=== PATIENT | male | born 1940 | race Caucasian/White ===

== ENCOUNTER 2020-09-24 21:34 | Emergency (ER) | payer MEDICARE, OTHER, SELFPAY ==
[2020-09-24 21:35] VITALS: BP 176/93; PULSE 88; RESP 22; TEMP 36.7; O2SAT 97; BMI 32.0
--- NOTE | 2020-09-24 22:01 | XRR_ITS ---
PROCEDURE INFORMATION: Exam: XR Chest, 1 View Exam date and time: 09/24/2020 10:11 PM Age: 80 years old Clinical indication: Shortness of breath; Additional info: SOB TECHNIQUE: Imaging protocol: XR of the chest Views: 1 view. COMPARISON: CR Chest 2 views* [id number] 10/21/2018 1:22 PM FINDINGS: Lungs: Unremarkable. No consolidation. Pleural space: Unremarkable. No pleural effusion. No pneumothorax. Heart/Mediastinum: Unremarkable. No cardiomegaly. Bones/joints: Unremarkable. XR/XR chest 1V portable [id number] IMPRESSION: No acute findings.
--- NOTE | 2020-09-24 22:02 | ECG_ITS ---
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 Measurements Intervals [place] Rate: 82 P: 73 MO: 192 QRS: -68 QRSD: 106 T: 74 QT: 367 QTc: 429 Interpretive Statements SINUS RHYTHM POSSIBLE ANTERIOR MYOCARDIAL INFARCTION , OF INDETERMINATE AGE [30 ms Q WAVE IN V3/V4, OR R < 0.2 mV IN V4] INFERIOR MYOCARDIAL INFARCTION , PROBABLY OLD [40+ ms Q WAVE AND/OR ST/T ABNORMALITY IN II/aVF] No previous ECG available for comparison Electronically Signed On 09-25-2020 21:10:57 PROFESSOR OF LANGUAGES by Enrico River M.D. [id number]
--- NOTE | 2020-09-24 22:31 | ED_ITS ---
HPI - SOB/Dyspnea General: Chief Complaint: Shortness of Breath/Dyspnea Stated Complaint: SOB Time Seen by Provider: 09/24/20 21:49 History of Present Illness: HPI Narrative: 80-year-old gentleman who became acutely short of breath after climbing the stairs in his house this evening. He had no chest pain. No fever. No cough. They called EMS, and he had a breathing treatment, which seemed to help along with oxygen. He is asymptomatic now. He states I am ready to go home . No known exposure to the coronavirus. MD elicited complaint: shortness of breath Pertinent past history: COPD Onset (ago): minute(s) Context: occurred during exertion Timing: constant and now resolved Severity: moderate Exacerbating factors: exertion Relieving factors: oxygen and bronchodilators Known history of: COPD Associated symptoms: Deny chest congestion, chest pain, cough, dizziness, fever(s), lightheadedness, rash or vomiting Treatment prior to arrival: oxygen and bronchodilator Review of Systems Const: Denies: fever(s) Eyes: Denies: change in vision ENMT: Denies: odynophagia, swelling of lips/tongue or sinus pain Card: Denies: chest pain or lightheadedness Resp: Denies: chest congestion GI: Denies: vomiting : Denies: difficulty urinating or hematuria Musc: Denies: neck pain or joint warmth Skin/Breast: Denies: rash or erythema Neuro: Denies: headache(s), dizziness or vertigo Psych: Denies: anxiety PFSH ED PFSH: Social History (Updated 11/19/19 @ 10:08 by Kell Stevens LPN) Smoking and tobacco status: former smoker Physical Exam Const: GENERAL APPEARANCE: well developed ORIENTATION/CONSCIOUSNESS: Yes oriented to person, Yes oriented to place and Yes oriented to time HENMT: COMMON NORMALS: normocephalic, external ears normal and Normal external nose present HEAD & SCALP: normocephalic FACE & SINUS: normal facial exam NOSE: Normal external nose present and No nasal discharge present EXTERNAL EAR: Yes external ears normal Eye: COMMON NORMALS: conjunctivae normal EYELID: eyelids normal CONJUNCTIVA: Yes conjunctivae normal Neck/C-Spine: GENERAL: No tracheal deviation Chest: COMMONS NORMALS: normal inspection of the chest CHEST: No tenderness Resp: EFFORT & INSPECTION: No tachypneic, No respiratory distress, No retractions, No uses accessory muscles and No tracheal deviation AUSCULTATION: no rhonchi, wheezes and diminished lung sounds Cardio: COMMON NORMALS: regular rate and regular rhythm RATE: regular rate RHYTHM: regular rhythm HEART SOUNDS: no murmurs PERIPHERAL PULSES: radial pulses present GI: INSPECTION: No abdominal distension AUSCULTATION: No Hyperactive bowel sounds present and No Hypoactive bowel sounds present PALPATION: No Guarding due to palpation present (GI) and No Rigid due to palpation PERCUSSION: no dullness to percussion and no tympanic to percussion Neuro: SENSORIUM/ORIENTATION: Yes oriented to person, Yes oriented to place and Yes oriented to time Psych: COMMON NORMALS: mental status grossly normal Skin: COMMON NORMALS: no rashes or lesions noted GENERAL SKIN EXAM: no rashes or lesions noted Course Vital Signs: Vital signs: Vital Signs Temperature 98.0 F 09/24/20 21:35 Pulse Rate 83 09/25/20 02:19 Respiratory Rate 16 09/25/20 02:19 Blood Pressure 178/96 09/25/20 02:19 Pulse Oximetry 95 09/25/20 02:19 MDM - SOB/Dyspnea MDM Narrative: Medical decision making narrative: 80-year-old male with a sudden onset and brief period of shortness of breath that was quite significant this morning. It seems oxygen and nebulizer treatment by EMS has resolved his symptoms. He never really had any chest pain. His white blood cell count is 20. There is no history of fever. His chest x-ray is nonacute. He had a mild elevation in troponin without significant ST changes on EKG. His elevation did not change at 2 hours. With resolution in his symptoms, he will be allowed discharge. He did have a wheeze that was significant on exam and a history of COPD. Because of this he will be placed on steroids for the next 5 days. Lab Data: Labs: Lab Results 09/24/20 09/24/20 09/24/20 Range/Units 22:30 22:30 22:30 WBC 20.1 H (4.0-10.0) 10^3/ uL RBC 4.73 (4.1-5.3) 10^6/u L Hgb 14.3 (11.7-16.6) g/dL Hct 43.2 (42.0-52.0) % MCV 91.3 (80-94) fL MCH 30.2 (28.0-34.0) pg MCHC 33.1 (30.0-36.0) g/dL RDW 12.2 (12.1-15.1) % Plt Count 269 (130-400) 10^3/c mm MPV 10.7 H (7.4-10.4) fL Neut % (Auto) 88.0 % Lymph % (Auto) 5.2 % [place] % (Auto) 5.7 % Eos % (Auto) 0.4 % Baso % (Auto) 0.3 % Neut # (Auto) 17.62 H (1.8-7.7) 10^3/u L Lymph # (Auto) 1.0 (0.8-4.8) 10^3/u L [place] # (Auto) 1.2 H (0.2-0.9) 10^3/u L Eos # (Auto) 0.1 (0.0-0.8) 10^3/u L Baso # (Auto) 0.1 (0.0-0.1) 10^3/u L Nucleated RBC % (a uto) 0 % Nucleated RBCs # 0.0 /100WBC PT (12.1-14.9) SECO NDS INR (0.8-1.2) Sodium 138 (136-145) mmol/L Potassium 3.8 (3.5-5.1) mmol/L Chloride 99 (98-107) mmol/L Carbon Dioxide 25 (22-29) mmol/L Anion Gap 17.8 (5-19) BUN 20 (8-23) mg/dL Creatinine 1.0 (0.7-1.2) mg/dL GFR Calculation Not Reportable Glucose 145 H (65-115) mg/dL Calculated Osmolal ity 291 (285-295) mOsm/k g Calcium 9.2 (8.5-10.5) mg/dL Total Bilirubin 0.3 (0.15-1.2) mg/dL AST 28 (0-40) U/L ALT 37 (0-41) U/L Alkaline Phosphata se 120 (40-130) IU/L Troponin T Baselin e 18 H (0-15) ng/L Troponin T 120 Min [place] (0-15) ng/L Delta Troponin T (0-10) ABS# NT-Pro-B Natriuret Pep 259 (0-450) pg/mL Total Protein 6.8 (6.6-8.7) g/dL Albumin 4.3 (3.5-5.2) g/dL Globulin 2.5 (1.3-4.6) g/dL 09/24/20 09/25/20 Range/Units 22:30 00:41 WBC (4.0-10.0) 10^3/ uL RBC (4.1-5.3) 10^6/u L Hgb (11.7-16.6) g/dL Hct (42.0-52.0) % MCV (80-94) fL MCH (28.0-34.0) pg MCHC (30.0-36.0) g/dL RDW (12.1-15.1) % Plt Count (130-400) 10^3/c mm MPV (7.4-10.4) fL Neut % (Auto) % Lymph % (Auto) % [place] % (Auto) % Eos % (Auto) % Baso % (Auto) % Neut # (Auto) (1.8-7.7) 10^3/u L Lymph # (Auto) (0.8-4.8) 10^3/u L [place] # (Auto) (0.2-0.9) 10^3/u L Eos # (Auto) (0.0-0.8) 10^3/u L Baso # (Auto) (0.0-0.1) 10^3/u L Nucleated RBC % (a uto) % Nucleated RBCs # /100WBC PT 24.70 H (12.1-14.9) SECO NDS INR 2.14 H (0.8-1.2) Sodium (136-145) mmol/L Potassium (3.5-5.1) mmol/L Chloride (98-107) mmol/L Carbon Dioxide (22-29) mmol/L Anion Gap (5-19) BUN (8-23) mg/dL Creatinine (0.7-1.2) mg/dL GFR Calculation Glucose (65-115) mg/dL Calculated Osmolal ity (285-295) mOsm/k g Calcium (8.5-10.5) mg/dL Total Bilirubin (0.15-1.2) mg/dL AST (0-40) U/L ALT (0-41) U/L Alkaline Phosphata se (40-130) IU/L Troponin T Baselin e (0-15) ng/L Troponin T 120 Min [place] 18.26 H (0-15) ng/L Delta Troponin T 0.26 (0-10) ABS# NT-Pro-B Natriuret Pep (0-450) pg/mL Total Protein (6.6-8.7) g/dL Albumin (3.5-5.2) g/dL Globulin (1.3-4.6) g/dL Discharge Plan Discharge Patient Disposition: Home Clinical Impression: Acute exacerbation of chronic obstructive airways disease Condition: Stable Prescriptions: New prednisone 20 mg tablet 40 mg PO DAILY 5 Days Qty: 10 RF: 0 No Action metformin 500 mg tablet 1,000 mg PO BID RF: 0 furosemide [Lasix] 20 mg tablet 20 mg PO QAM RF: 0 hydrochlorothiazide 25 mg tablet 25 mg PO QAM RF: 0 metoprolol tartrate 100 mg tablet 100 mg PO BID RF: 0 clonidine HCl 0.3 mg tablet 0.3 mg PO BID RF: 0 warfarin 5 mg tablet 5 mg PO DAILY RF: 0 lisinopril 40 mg tablet 40 mg PO DAILY RF: 0 lovastatin 40 mg tablet 40 mg PO DAILY RF: 0 omeprazole 20 mg capsule,delayed release(DR/EC) 20 mg PO DAILY RF: 0 albuterol sulfate [ProAir HFA] 90 mcg/actuation HFA aerosol inhaler 2 puff INHALATION QID PRN (Reason: shortness of breath or wheezing) Qty: 6.7 RF: 1 Basaglar KwikPen U-100 Insulin 100 unit/mL (3 mL) insulin pen 45 unit SUBCUT BID Qty: 15 RF: 3 Discharge Orders: Discharge Order (Routine); Ordered 09/25/20 Ordered By: Richard Barr Referrals: Olena Espinosa MD [Primary Care Provider] - 4-7 days Discharge Diet: Advance as tolerated Discharge Activity: Resume usual activity Patient Instructions: Chronic Obstructive Pulmonary Disease (ED) Activity Restrictions/Additional Instructions: Return for repeated episodes of shortness of breath, development of chest discomfort, fever, cough with sputum production, other concerning symptoms. Coding Level of Care Code ED Management Supervisor for Chg Fwd Exam Comprehensive
[2020-09-24 22:43] LABS: Basophils # 0.1 10^3/uL (0.0-0.1); Basophils % 0.3 %; Eosinophils # 0.1 10^3/uL (0.0-0.8); Eosinophils % 0.4 %; Hematocrit 43.2 % (42.0-52.0); Hemoglobin 14.3 g/dL (11.7-16.6); Lymphocytes % 5.2 %; Mean Corpuscular HGB Conc 33.1 g/dL (30.0-36.0); Mean Corpuscular Hemoglobin 30.2 pg (28.0-34.0); Mean Corpuscular Volume 91.3 fL (80-94); Mean Platelet Volume 10.7 fL (7.4-10.4); Monocytes # 1.2 10^3/uL (0.2-0.9); Monocytes % 5.7 %; Neutrophils # 17.62 10^3/uL (1.8-7.7); Nucleated Red Blood Cells % 0 %; Platelet Count 269 10^3/cmm (130-400); Red Blood Count 4.73 10^6/uL (4.1-5.3); Red Cell Distribution Width 12.2 % (12.1-15.1); White Blood Count 20.1 10^3/uL (4.0-10.0)
[2020-09-24 22:54] LABS: INR 2.14 (0.8-1.2)
[2020-09-24 23:07] LABS: Troponin(5th) Baseline 18 ng/L (0-15)
[2020-09-24 23:15] LABS: Alanine Aminotransferase 37 U/L (0-41); Albumin Level 4.3 g/dL (3.5-5.2); Alkaline Phosphatase 120 IU/L (40-130); Anion Gap 17.8 (5-19); Aspartate Amino Transferase 28 U/L (0-40); Blood Urea Nitrogen 20 mg/dL (8-23); Calcium 9.2 mg/dL (8.5-10.5); Carbon Dioxide 25 mmol/L (22-29); Chloride 99 mmol/L (98-107); Creatinine Clr Calc Pharmacy 83.6552; Globulin 2.5 g/dL (1.3-4.6); Glucose 145 mg/dL (65-115); NT Pro B Type Natriuretic Pept 259 pg/mL (0-450); Osmolality Calculated 291 mOsm/kg (285-295); Potassium 3.8 mmol/L (3.5-5.1); Sodium 138 mmol/L (136-145); Total Bilirubin 0.3 mg/dL (0.15-1.2); Total Protein 6.8 g/dL (6.6-8.7)
[2020-09-24 23:36] VITALS: BP 139/90; O2SAT 95
--- NOTE | 2020-09-25 00:02 | ECG_ITS ---
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 Measurements Intervals [place] Rate: 77 P: 69 [place]: 197 QRS: -70 QRSD: 121 T: 74 QT: 378 QTc: 429 Interpretive Statements SINUS RHYTHM LEFT ANTERIOR FASCICULAR BLOCK [QRS AXIS <= -45, QR IN I, RS IN II] POSSIBLE ANTERIOR MYOCARDIAL INFARCTION , OF INDETERMINATE AGE [30 ms Q WAVE IN V3/V4, OR R < 0.2 mV IN V4] Compared to ECG 09/24/2020 21:45:18 Left anterior fascicular block now present Myocardial infarct finding still present Electronically Signed On 09-25-2020 21:16:32 TRAINING DEVELOPMENT DIRECTOR by Enrico River M.D. [id number]
[2020-09-25 01:09] LABS: Troponin 5 2HR 18.26 ng/L (0-15); Troponin 5 2HR Delta 0.26 ABS# (0-10)
[2020-09-25 01:32] VITALS: BP 164/82; PULSE 84; RESP 18; O2SAT 99
[2020-09-25 02:19] VITALS: BP 178/96; PULSE 83; RESP 16; O2SAT 95
== END 2020-09-25 02:20 | disposition home or self-care (01) ==
PROVIDERS: Emergency Provider Emergency Medicine; PCP Family Medicine
DX: J44.1 Chronic obstructive pulmonary disease with (acute) exacerbation (principal); Z79.01 Long term (current) use of anticoagulants; Z87.891 Personal history of nicotine dependence
CPT/HCPCS: 12345; 36415; 71045; 80053; 83880; 84484; 85025; 85610; 93005; 96374; 96375; 99283; 99284; J2930

== ENCOUNTER → 2020-09-29 15:09 | Outpatient (BNVA) | payer MEDICARE, OTHER, SELFPAY | PROVIDERS: PCP Family Medicine; Visit Provider Family Medicine | DX: I10 Essential (primary) hypertension (principal); E78.2 Mixed hyperlipidemia; E11.9 Type 2 diabetes mellitus without complications; Z79.4 Long term (current) use of insulin | CPT/HCPCS: 80053; 80061; 83036; 83721; 84443; 85025 ==

== ENCOUNTER → 2021-05-30 11:37 | Outpatient (BNVA) | payer MEDICARE, OTHER, SELFPAY | PROVIDERS: PCP Family Medicine; Visit Provider Family Medicine | DX: E11.9 Type 2 diabetes mellitus without complications (principal); E78.2 Mixed hyperlipidemia; I10 Essential (primary) hypertension; Z79.4 Long term (current) use of insulin | CPT/HCPCS: 80053; 80061; 83036; 83721; 85025 ==

== ENCOUNTER → 2021-08-21 16:27 | Outpatient (BNVA) | payer MEDICARE, OTHER, SELFPAY | PROVIDERS: PCP Family Medicine; Visit Provider Nurse Practitioner Family | DX: Z20.822 Contact with and (suspected) exposure to COVID-19 (principal) | CPT/HCPCS: 87635 ==

== ENCOUNTER → 2021-08-24 12:10 | Outpatient (BNVA) | payer MEDICARE, OTHER, SELFPAY | PROVIDERS: PCP Family Medicine; Visit Provider Family Medicine | DX: E11.9 Type 2 diabetes mellitus without complications (principal); E78.2 Mixed hyperlipidemia; I10 Essential (primary) hypertension; I48.91 Unspecified atrial fibrillation; J43.9 Emphysema, unspecified; K21.9 Gastro-esophageal reflux disease without esophagitis; Z79.4 Long term (current) use of insulin; E11.622 Type 2 diabetes mellitus with other skin ulcer; L97.209 Non-pressure chronic ulcer of unspecified calf with unspecified severity; Z23 Encounter for immunization | CPT/HCPCS: 80053; 80061; 83036; 84443; 85025 ==

== ENCOUNTER → 2021-11-27 14:48 | Outpatient (BNVA) | payer MEDICARE, OTHER, SELFPAY | PROVIDERS: PCP Family Medicine; Visit Provider Family Medicine | DX: M25.561 Pain in right knee (principal); J43.9 Emphysema, unspecified; I10 Essential (primary) hypertension; E78.2 Mixed hyperlipidemia; K21.9 Gastro-esophageal reflux disease without esophagitis; Z79.4 Long term (current) use of insulin; E11.622 Type 2 diabetes mellitus with other skin ulcer; L97.209 Non-pressure chronic ulcer of unspecified calf with unspecified severity | CPT/HCPCS: 73564; 80053; 80061; 83036; 83721; 84443; 85025 ==

== ENCOUNTER → 2022-02-14 08:39 | Outpatient (BNVA) | payer MEDICARE, OTHER, SELFPAY | PROVIDERS: PCP Family Medicine; Visit Provider Family Medicine | DX: I10 Essential (primary) hypertension (principal); E78.5 Hyperlipidemia, unspecified; Z12.5 Encounter for screening for malignant neoplasm of prostate; E11.622 Type 2 diabetes mellitus with other skin ulcer; L97.209 Non-pressure chronic ulcer of unspecified calf with unspecified severity | CPT/HCPCS: 80053; 80061; 83036; 85025; G0103 ==

== ENCOUNTER 2022-05-03 04:40 | Inpatient (IN) | payer MEDICARE, OTHER, SELFPAY ==
[2022-05-03] VITALS (17 sets, daily range): BP systolic 133–183; BP diastolic 72–97; PULSE 76–111; RESP 16–20; TEMP 36.4–37.1; O2SAT 93–97; BMI 32.5
--- NOTE | 2022-05-03 04:44 | XRR_ITS ---
PROCEDURE INFORMATION: Exam: XR Left Hip Exam date and time: 05/03/2022 4:47 AM Age: 82 years old Clinical indication: Hip pain; Patient HX: C/O left hip. Pain no recent injury. ; Additional info: L hip pain TECHNIQUE: Imaging protocol: Radiologic exam of the Left hip. Views: 2 or 3 views hip with pelvis when performed. COMPARISON: No relevant prior studies available. FINDINGS: Evaluation is limited by portable positioning and patient body habitus. Bones/joints: Osteopenia and degenerative change. Anatomic alignment. Soft tissues: Panniculus and skin folds. Other findings: Prominent stool. XR/XR hip LT 2-3V wo/w pel* [id number] IMPRESSION: Osteopenia and degenerative change.
--- NOTE | 2022-05-03 04:45 | ED_ITS ---
Documented by User: Isa Guidry MD 05/03/22 18:02 HPI - Extremity Injury (Lower) General: Chief Complaint: Extremity Problem,Nontraumatic Stated Complaint: HIP PAIN Time Seen by Provider: 05/03/22 04:41 Source: patient and EMS Mode of arrival: EMS Limitations: no limitations History of Present Illness: 82-year-old male states that he woke up at midnight with left hip pain. States been a sharp pain in his hip much worse with any movement or trying to ambulate. He states it is improved with rest. States pain is currently 6 out of 10. He denies any injuries. He states that he was out walking and watering yesterday. He denies any injuries yesterday that he knows of. Denies abdominal or back pain. Denies any radiation of his pain Review of Systems Const: Denies: fever(s), chills, body aches or change in appetite Eyes: Denies: blurry vision or eye discomfort ENMT: Denies: throat pain or dental pain Card: Denies: chest pain Resp: Denies: dyspnea GI: Denies: abdominal pain, nausea, vomiting or diarrhea : Denies: dysuria Musc: Reports: extremity pain Skin/Breast: Denies: rash Neuro: Denies: headache(s) Psych: Denies: depression Ignacio/Lymph: Denies: easy bruising All/Imm: Denies: urticaria PFSH ED PFSH: Medical History (Updated 05/15/22 @ 14:29 by Olena Espinosa MD) A-fib Abnormal WBC count Chronic anticoagulation COPD (chronic obstructive pulmonary disease) with emphysema Diabetes GERD (gastroesophageal reflux disease) Hyperlipemia Hypertension Unable to ambulate Surgical History History of appendectomy Family History Other CAD (coronary artery disease) Social History Smoking and tobacco status: former smoker Second hand smoke exposure: No Alcohol intake: never Lives independently: Yes Household members: spouse Marital status: Current occupational status: retired History of recent travel: No Current gender identity: Male Special laya needs: No Agree to transfusion: Yes Physical Exam Const: COMMON NORMALS: no acute distress, patient oriented x3 and healthy appearing HENMT: COMMON NORMALS: normocephalic and atraumatic HEAD & SCALP: normocephalic and atraumatic Eye: COMMON NORMALS: Equal, round and reactive pupils present and EOMs intact bilaterally PUPIL: Yes Equal, round and reactive pupils present Neck/C-Spine: COMMON NORMALS: full ROM and supple Chest: COMMONS NORMALS: normal inspection of the chest and normal palpation of entire chest wall Resp: COMMON NORMALS: normal respiratory effort, No retractions, No use of accessory muscles and clear to auscultation bilaterally AUSCULTATION: clear to auscultation bilaterally Cardio: COMMON NORMALS: regular rate, regular rhythm and No murmurs present (Cardio) RATE: regular rate RHYTHM: regular rhythm GI: COMMON NORMALS: Normal to inspection, nondistended, normoactive bowel sounds present, Soft to palpation, non-tender and no masses PALPATION: Yes Soft to palpation Extremity: NARRATIVE EXTREMITY EXAM: Tenderness to the left hip full range of motion but does have pain with range of motion distal pulses intact Neuro: COMMON NORMALS: patient oriented x3, moves all extremities and no focal motor deficits Psych: COMMON NORMALS: mental status grossly normal, Normal thought process present and cooperative THOUGHT PROCESS: Normal thought process present Skin: COMMON NORMALS: no rashes or lesions noted and no wounds GENERAL SKIN EXAM: no rashes or lesions noted Course Vital Signs: Vital signs: Vital Signs Temperature 98 F 05/06/22 12:00 Pulse Rate 82 05/06/22 12:00 Respiratory Rate 17 05/06/22 12:00 Blood Pressure 113/63 05/06/22 12:00 Pulse Oximetry 98 05/06/22 12:00 MDM - Extremity Injury (Lower) Medical Decision Making Patient presents with hip pain. Patient not able to ambulate at this time x-ray shows no acute abnormality will get lab work along with CT care turned over to dr. gonzalez Lab Data : 05/06/22 04:55 05/06/22 04:55 Radiology Impressions Hip/Pelvis X-Ray 05/03/22 04:44 IMPRESSION: Osteopenia and degenerative change. Hip CT 05/03/22 05:30 IMPRESSION: 1. Degenerative change. 2. Inhomogeneous attenuation in the left iliopsoas muscle, suggesting hemorrhage, with infiltration of adjacent fat. MRI can be performed for improved characterization if clinically indicated. 3. Markedly enlarged prostate. Laboratory Results WBC 25.4 10^3/uL (4.0-10.0) H 05/04/22 04:15 RBC 3.61 10^6/uL (4.1-5.3) L 05/04/22 04:15 Hgb 10.9 g/dL (11.7-16.6) L 05/04/22 04:15 Hct 31.8 % (42.0-52.0) L 05/04/22 04:15 MCV 88.1 fl (80-94) 05/04/22 04:15 MCH 30.2 pg (28.0-34.0) 05/04/22 04:15 MCHC 34.3 g/dL (30.0-36.0) 05/04/22 04:15 RDW 12.8 % (12.1-15.1) 05/04/22 04:15 Plt Count 374 10^3/cmm (130-400) 05/04/22 04:15 MPV 10.9 fL (7.4-10.4) H 05/04/22 04:15 Neut % (Auto) 85.6 % 05/04/22 04:15 Lymph % (Auto) 5.8 % 05/04/22 04:15 Desha % (Auto) 7.7 % 05/04/22 04:15 Eos % (Auto) 0.0 % 05/04/22 04:15 Baso % (Auto) 0.1 % 05/04/22 04:15 Neut # (Auto) 21.73 10^3/uL (1.8-7.7) H 05/04/22 04:15 Lymph # (Auto) 1.5 10^3/uL (0.8-4.8) 05/04/22 04:15 Desha # (Auto) 2.0 10^3/uL (0.2-0.9) H 05/04/22 04:15 Eos # (Auto) 0.0 10^3/uL (0.0-0.8) 05/04/22 04:15 Baso # (Auto) 0.0 10^3/uL (0.0-0.1) 05/04/22 04:15 Nucleated RBC % (auto) 0 % 05/04/22 04:15 Nucleated RBCs # 0.0 /100WBC 05/04/22 04:15 PT 21.80 SECONDS (12.1-14.9) H 05/04/22 04:15 INR 1.87 (0.8-1.2) H 05/04/22 04:15 Sodium 133 mmol/L (136-145) L 05/04/22 04:15 Potassium 4.2 mmol/L (3.5-5.1) 05/04/22 04:15 Chloride 95 mmol/L (98-107) L 05/04/22 04:15 Carbon Dioxide 23 mmol/L (22-29) 05/04/22 04:15 Anion Gap 19.2 (5-19) H 05/04/22 04:15 BUN 35 mg/dL (8-23) H 05/04/22 04:15 Creatinine 1.8 mg/dL (0.7-1.2) H 05/04/22 04:15 GFR Calculation Not Reportable 05/04/22 04:15 Glucose 186 mg/dL (65-115) H 05/04/22 04:15 POC Glucose 205 mg/dL (70-110) H 05/04/22 06:23 Calculated Osmolality 289 mOsm/kg (285-295) 05/04/22 04:15 Calcium 9.0 mg/dL (8.5-10.5) 05/04/22 04:15 Total Bilirubin 0.4 mg/dL (0.15-1.2) 05/04/22 04:15 AST 22 U/L (0-40) 05/04/22 04:15 ALT 24 U/L (0-41) 05/04/22 04:15 Alkaline Phosphatase 54 IU/L (40-130) 05/04/22 04:15 Creatine Kinase 372 U/L (39-308) H* 05/04/22 04:15 Total Protein 6.5 g/dL (6.6-8.7) L 05/04/22 04:15 Albumin 4.0 g/dL (3.5-5.2) 05/04/22 04:15 Globulin 2.5 g/dL (1.3-4.6) 05/04/22 04:15 Urine Color Yellow (Yellow) 05/03/22 07:12 Urine Appearance Clear (CLEAR) 05/03/22 07:12 Urine pH 5 (5-7) 05/03/22 07:12 Ur Specific [place] 1.015 (1.005-1.030) 05/03/22 07:12 Urine Protein 1+ (Negative) H 05/03/22 07:12 Urine Glucose (UA) Norm (Normal) 05/03/22 07:12 Urine Ketones Negative (Negative) 05/03/22 07:12 Urine Blood 2+ (Negative) H 05/03/22 07:12 Urine Nitrate Negative (Negative) 05/03/22 07:12 Urine Bilirubin Neg (Negative) 05/03/22 07:12 Urine Urobilinogen Norm mg/dL (Negative) 05/03/22 07:12 Ur Leukocyte Esterase Negative (Negative) 05/03/22 07:12 Urine RBC 0-4 /hpf (0-2) H 05/03/22 07:12 Urine WBC 0-4 /hpf (0-5) H 05/03/22 07:12 Ur Squamous Epith Cells 0-4 /hpf (0-5) H 05/03/22 07:12 Amorphous Sediment Not Reportable 05/03/22 07:12 Urine Bacteria Trace /hpf (NONE) 05/03/22 07:12 Hyaline Casts Rare /lpf 05/03/22 07:12 Urine Mucus Trace /hpf 05/03/22 07:12 Discharge Plan Discharge Patient Disposition: Placed in Observation Admit Provider: Deangelo Castelan Clinical Impression: Iliopsoas muscle hematoma, Chronic anticoagulation, Abnormal WBC count, Unable to ambulate Discharge Diet: Cardiac and Diabetic Discharge Activity: Increase activity as tolerated, Limit activity as instructed, Use walker/crutches as instructed and As per PT/OT instructions Coding Level of Care Code ED Rehabilitation Services Counselor for Chg Fwd Exam Comprehensive Documented by User: Torrey Gonzalez MD 05/16/22 14:27 HPI - Extremity Injury (Lower) General: Chief Complaint: Extremity Problem,Nontraumatic Stated Complaint: HIP PAIN Time Seen by Provider: 05/03/22 04:41 [facility] ED PFS: Medical History (Updated 05/15/22 @ 14:29 by Olena Espinosa MD) A-fib Abnormal WBC count Chronic anticoagulation COPD (chronic obstructive pulmonary disease) with emphysema Diabetes GERD (gastroesophageal reflux disease) Hyperlipemia Hypertension Unable to ambulate Surgical History History of appendectomy Family History Other CAD (coronary artery disease) Social History Smoking and tobacco status: former smoker Second hand smoke exposure: No Alcohol intake: never Lives independently: Yes Household members: spouse Marital status: Current occupational status: retired History of recent travel: No Current gender identity: Male Special laya needs: No Agree to transfusion: Yes Course Vital Signs: Vital signs: Vital Signs Temperature 98 F 05/06/22 12:00 Pulse Rate 82 05/06/22 12:00 Respiratory Rate 17 05/06/22 12:00 Blood Pressure 113/63 05/06/22 12:00 Pulse Oximetry 98 05/06/22 12:00 MDM - Extremity Injury (Lower) Medical Decision Making Patient presents with hip pain. Patient not able to ambulate at this time x-ray shows no acute abnormality will get lab work along with CT care turned over to dr. gonzalez Patient care received from Dr. Guidry pending patient evaluation. Laboratory studies and imaging reviewed. CT negative for acute fracture however patient does have left iliopsoas muscle hemorrhage. This likely spends patient symptoms. Despite additional analgesia patient unable to ambulate and therefore unable to perform ADLs. He was therefore admitted for further treatment/PT OT evaluation. Torrey Gonzalez MD Emergency Medicine Lab Data : 05/06/22 04:55 05/06/22 04:55 Radiology Impressions Hip/Pelvis X-Ray 05/03/22 04:44 IMPRESSION: Osteopenia and degenerative change. Hip CT 05/03/22 05:30 IMPRESSION: 1. Degenerative change. 2. Inhomogeneous attenuation in the left iliopsoas muscle, suggesting hemorrhage, with infiltration of adjacent fat. MRI can be performed for improved characterization if clinically indicated. 3. Markedly enlarged prostate. Laboratory Results WBC 25.4 10^3/uL (4.0-10.0) H 05/04/22 04:15 RBC 3.61 10^6/uL (4.1-5.3) L 05/04/22 04:15 Hgb 10.9 g/dL (11.7-16.6) L 05/04/22 04:15 Hct 31.8 % (42.0-52.0) L 05/04/22 04:15 MCV 88.1 fl (80-94) 05/04/22 04:15 MCH 30.2 pg (28.0-34.0) 05/04/22 04:15 MCHC 34.3 g/dL (30.0-36.0) 05/04/22 04:15 RDW 12.8 % (12.1-15.1) 05/04/22 04:15 Plt Count 374 10^3/cmm (130-400) 05/04/22 04:15 MPV 10.9 fL (7.4-10.4) H 05/04/22 04:15 Neut % (Auto) 85.6 % 05/04/22 04:15 Lymph % (Auto) 5.8 % 05/04/22 04:15 Desha % (Auto) 7.7 % 05/04/22 04:15 Eos % (Auto) 0.0 % 05/04/22 04:15 Baso % (Auto) 0.1 % 05/04/22 04:15 Neut # (Auto) 21.73 10^3/uL (1.8-7.7) H 05/04/22 04:15 Lymph # (Auto) 1.5 10^3/uL (0.8-4.8) 05/04/22 04:15 Desha # (Auto) 2.0 10^3/uL (0.2-0.9) H 05/04/22 04:15 Eos # (Auto) 0.0 10^3/uL (0.0-0.8) 05/04/22 04:15 Baso # (Auto) 0.0 10^3/uL (0.0-0.1) 05/04/22 04:15 Nucleated RBC % (auto) 0 % 05/04/22 04:15 Nucleated RBCs # 0.0 /100WBC 05/04/22 04:15 PT 21.80 SECONDS (12.1-14.9) H 05/04/22 04:15 INR 1.87 (0.8-1.2) H 05/04/22 04:15 Sodium 133 mmol/L (136-145) L 05/04/22 04:15 Potassium 4.2 mmol/L (3.5-5.1) 05/04/22 04:15 Chloride 95 mmol/L (98-107) L 05/04/22 04:15 Carbon Dioxide 23 mmol/L (22-29) 05/04/22 04:15 Anion Gap 19.2 (5-19) H 05/04/22 04:15 BUN 35 mg/dL (8-23) H 05/04/22 04:15 Creatinine 1.8 mg/dL (0.7-1.2) H 05/04/22 04:15 GFR Calculation Not Reportable 05/04/22 04:15 Glucose 186 mg/dL (65-115) H 05/04/22 04:15 POC Glucose 205 mg/dL (70-110) H 05/04/22 06:23 Calculated Osmolality 289 mOsm/kg (285-295) 05/04/22 04:15 Calcium 9.0 mg/dL (8.5-10.5) 05/04/22 04:15 Total Bilirubin 0.4 mg/dL (0.15-1.2) 05/04/22 04:15 AST 22 U/L (0-40) 05/04/22 04:15 ALT 24 U/L (0-41) 05/04/22 04:15 Alkaline Phosphatase 54 IU/L (40-130) 05/04/22 04:15 Creatine Kinase 372 U/L (39-308) H* 05/04/22 04:15 Total Protein 6.5 g/dL (6.6-8.7) L 05/04/22 04:15 Albumin 4.0 g/dL (3.5-5.2) 05/04/22 04:15 Globulin 2.5 g/dL (1.3-4.6) 05/04/22 04:15 Urine Color Yellow (Yellow) 05/03/22 07:12 Urine Appearance Clear (CLEAR) 05/03/22 07:12 Urine pH 5 (5-7) 05/03/22 07:12 Ur Specific [place] 1.015 (1.005-1.030) 05/03/22 07:12 Urine Protein 1+ (Negative) H 05/03/22 07:12 Urine Glucose (UA) Norm (Normal) 05/03/22 07:12 Urine Ketones Negative (Negative) 05/03/22 07:12 Urine Blood 2+ (Negative) H 05/03/22 07:12 Urine Nitrate Negative (Negative) 05/03/22 07:12 Urine Bilirubin Neg (Negative) 05/03/22 07:12 Urine Urobilinogen Norm mg/dL (Negative) 05/03/22 07:12 Ur Leukocyte Esterase Negative (Negative) 05/03/22 07:12 Urine RBC 0-4 /hpf (0-2) H 05/03/22 07:12 Urine WBC 0-4 /hpf (0-5) H 05/03/22 07:12 Ur Squamous Epith Cells 0-4 /hpf (0-5) H 05/03/22 07:12 Amorphous Sediment Not Reportable 05/03/22 07:12 Urine Bacteria Trace /hpf (NONE) 05/03/22 07:12 Hyaline Casts Rare /lpf 05/03/22 07:12 Urine Mucus Trace /hpf 05/03/22 07:12 Discharge Plan Discharge Patient Disposition: Placed in Observation Admit Provider: Deangelo Castelan Clinical Impression: Iliopsoas muscle hematoma, Chronic anticoagulation, Abnormal WBC count, Unable to ambulate Discharge Diet: Cardiac and Diabetic Discharge Activity: Increase activity as tolerated, Limit activity as instructed, Use walker/crutches as instructed and As per PT/OT instructions Coding Level of Care Code ED Rehabilitation Services Counselor for [place] Fwd Exam Comprehensive
[2022-05-03] MEDS: morphine 4 mg/mL SDV 1 mL IVP ×2 (04:52→09:27)
[2022-05-03] MEDS: ketorolac 30 mg/mL INJ 10 MG IVP (05:13)
[2022-05-03] MEDS: labetalol 5 mg/mL SDV 20mL 10 MG IVP (05:13)
--- NOTE | 2022-05-03 05:30 | CTR_ITS ---
PROCEDURE INFORMATION: Exam: CT Left Lower Extremity Without Contrast, Hip Exam date and time: 05/03/2022 5:55 AM Age: 82 years old Clinical indication: Patient HX: C/O left hip pain and unable to bear weight. No recent injury. TECHNIQUE: Imaging protocol: CT of the Left lower extremity without contrast was performed. Exam focused on the hip. Radiation optimization: All CT scans at this facility use at least one of these dose optimization techniques: automated exposure control; mA and/or kV adjustment per patient size (includes targeted exams where dose is matched to clinical indication); or iterative reconstruction. COMPARISON: CR (PELVIS, ) 05/03/2022 4:47 AM RADIATION DOSE METRICS: Total DLP (mGy-cm): 1951.33 FINDINGS: Bones/joints: Degenerative change. No acute bony injury or malalignment. Soft tissues: Inhomogeneous attenuation in the left iliopsoas muscle, suggesting hemorrhage, with infiltration of adjacent fat. MRI can be performed for improved characterization if clinically indicated. Urinary bladder: Mild bladder wall thickening. Reproductive: Markedly enlarged prostate producing extrinsic compression of the bladder base with loss of normal fascial planes. CT/CT hip LT wo con* [id number] IMPRESSION: 1. Degenerative change. 2. Inhomogeneous attenuation in the left iliopsoas muscle, suggesting hemorrhage, with infiltration of adjacent fat. MRI can be performed for improved characterization if clinically indicated. 3. Markedly enlarged prostate.
[2022-05-03 06:18] LABS: Basophils # 0.1 10^3/uL (0.0-0.1); Basophils % 0.3 %; Eosinophils % 0.2 %; Hematocrit 38.5 % (42.0-52.0); Hemoglobin 13.3 g/dL (11.7-16.6); Lymphocytes % 5.4 %; Mean Corpuscular HGB Conc 34.5 g/dL (30.0-36.0); Mean Corpuscular Hemoglobin 30.4 pg (28.0-34.0); Mean Corpuscular Volume 87.9 fl (80-94); Mean Platelet Volume 10.5 fL (7.4-10.4); Monocytes # 0.9 10^3/uL (0.2-0.9); Monocytes % 4.7 %; Neutrophils # 16.47 10^3/uL (1.8-7.7); Nucleated Red Blood Cells % 0 %; Platelet Count 306 10^3/cmm (130-400); Red Blood Count 4.38 10^6/uL (4.1-5.3); Red Cell Distribution Width 12.6 % (12.1-15.1); White Blood Count 18.5 10^3/uL (4.0-10.0)
[2022-05-03 06:39] LABS: Alanine Aminotransferase 25 U/L (0-41); Albumin Level 4.1 g/dL (3.5-5.2); Alkaline Phosphatase 73 IU/L (40-130); Anion Gap 17.8 (5-19); Aspartate Amino Transferase 22 U/L (0-40); Blood Urea Nitrogen 27 mg/dL (8-23); Calcium 9.2 mg/dL (8.5-10.5); Carbon Dioxide 22 mmol/L (22-29); Chloride 100 mmol/L (98-107); Globulin 2.7 g/dL (1.3-4.6); Glucose 199 mg/dL (65-115); Osmolality Calculated 293 mOsm/kg (285-295); Potassium 3.8 mmol/L (3.5-5.1); Sodium 136 mmol/L (136-145); Total Bilirubin 0.4 mg/dL (0.15-1.2); Total Protein 6.8 g/dL (6.6-8.7)
--- NOTE | 2022-05-03 07:11 | PC.NURSE ---
Report received from AMY Maloney. Pt resting in bed. Pt states pain in hip 05/20.
[2022-05-03 07:23] LABS: Add Urine Microscopic? YES; Bilirubin Urine Neg (Negative); Blood Urine 2+ (Negative); Glucose Urine UA Norm (Normal); Ketones Urine Negative (Negative); Leukocyte Esterase Urine Negative (Negative); Nitrate Urine Negative (Negative); Protein Urine 1+ (Negative); Specific Gravity, Urine 1.015 (1.005-1.030); Urine Appearance Clear (CLEAR); Urine Color Yellow (Yellow); Urobilinogen Urine Norm (Negative); pH Urine 5 (5-7)
[2022-05-03 08:12] LABS: Bacteria Urine TRACE /hpf; RBC Urine 0-4 /hpf (0-2); Squamous Epithelial Cell Urine 0-4 /hpf (0-5); WBC Urine 0-4 /hpf (0-5)
[2022-05-03 08:13] LABS: Add Urine Culture? No; Hyaline Casts Urine RARE /lpf; Mucus Urine TRACE /hpf
[2022-05-03 08:48] LABS: INR 1.94 (0.8-1.2)
--- NOTE | 2022-05-03 09:11 | PC.NURSE ---
Attempted to ambulate pt per Dr. Whipple. Pt was able to stand and bear weight but pt stated it was painful. Pt stated he would be unable to walk due to pain when he moved his leg.
--- NOTE | 2022-05-03 10:21 | P.HP_ITS ---
Providers/Chief Complaint Admitting Physician: Deangelo Castelan MD Primary Care Provider: Olena Espinosa MD Chief Complaint: HIP PAIN History of Present Illness Marco Antonio Mosquera is a 82 year old male who presents from home with complaints of left hip pain, starting last night. He reports no injury. He has not been ill with any fever. He reports no significant strenuous activity recently. He states he has significant pain with any movement of his left hip. He denies any rash. He has been taking Coumadin for quite some time, and as far as he knows his INRs have been acceptable. Review of Systems General: Reports: 10 or more systems reviewed and unremarkable except in HPI and below Const: Denies: fever(s) or chills Eyes: Denies: change in vision ENMT: Denies: throat pain Card: Denies: chest pain Resp: Denies: dyspnea GI: Denies: abdominal pain, hematochezia or melena : Denies: flank pain Musc: Reports: back pain Skin/Breast: Denies: rash Neuro: Denies: headache(s) Psych: Denies: anxiety or depression Endo: Denies: polyuria Ignacio/Lymph: Denies: easy bruising All/Imm: Denies: urticaria Medications/Allergies Home Medications Medication Instructions Recorded Confirmed Last Taken Type nebulizers #1 ea 12/12/20 05/03/22 Unknown Rx arformoterol 15 mcg/2 mL solution See Rx Instructions .ROUTE 12/22/20 05/03/22 Unknown Rx for nebulization (Brovana) .COMPLEX #60 vial nystatin 100,000 unit/gram topical 1 applic TOPICAL BID #60 g 04/19/21 05/03/22 Unknown Rx powder (Nyamyc) honey 80 % topical gel (MediHoney 1 applic TOPICAL BID #44 ml 08/24/21 05/03/22 Unknown Rx (honey)) omeprazole 40 mg capsule,delayed 40 mg PO BID #60 cap 01/01/22 05/03/22 05/02/22 Rx release blood sugar diagnostic (Blood #100 ea 01/03/22 05/03/22 Unknown Rx Glucose Test) hydrochlorothiazide 25 mg tablet 25 mg PO QAM #30 tab 02/14/22 05/03/22 05/02/22 Rx insulin glargine 100 unit/mL (3 48 unit (0.48 mL) SUBCUT BID #30 ml 03/27/22 05/03/22 05/02/22 Rx mL) subcutaneous pen (Lantus Solostar U-100 Insulin) albuterol sulfate 2.5 mg INHALATION TID PRN 05/03/22 05/03/22 Unknown History albuterol sulfate 90 mcg/actuation 2 puff INHALATION QID PRN 05/03/22 05/03/22 U nknown History aerosol inhaler (Ventolin HFA) clonidine HCl 0.3 mg tablet 0.3 mg PO BID 05/03/22 05/03/22 05/02/22 History fenofibrate 160 mg tablet 160 mg PO DAILY 05/03/22 05/03/22 05/02/22 History lisinopril 40 mg tablet 40 mg PO DAILY 05/03/22 05/03/22 05/02/22 History lovastatin 40 mg tablet 40 mg PO DAILY 05/03/22 05/03/22 05/02/22 History metformin 1,000 mg tablet 1,000 mg PO BID 05/03/22 05/03/22 05/02/22 History metoprolol tartrate 100 mg tablet 100 mg PO BID 05/03/22 05/03/22 05/02/22 History nystatin 100,000 unit/gram topical 1 applic TOPICAL BEDTIME PRN 05/03/22 05/03/22 Unknown History cream warfarin 5 mg tablet See Rx Instructions .ROUTE .COMPLEX 05/03/22 05/03/22 05/02/22 History Allergies Allergy/AdvReac Type Severity Reaction Status Date / Time No Known Allergies Allergy Verified 02/14/22 08:32 PFSH Acute PFSH: Medical History (Updated 05/03/22 @ 10:30 by Deangelo Castelan MD) A-fib COPD (chronic obstructive pulmonary disease) with emphysema Diabetes GERD (gastroesophageal reflux disease) Hyperlipemia Hypertension Surgical History (Updated 05/03/22 @ 10:24 by Deangelo Castelan MD) History of appendectomy Family History (Updated 05/03/22 @ 10:24 by Deangelo Castelan MD) Other CAD (coronary artery disease) Social History Smoking and tobacco status: former smoker Second hand smoke exposure: No Alcohol intake: never Lives independently: Yes Household members: spouse Marital status: Current occupational status: retired History of recent travel: No Current gender identity: Male Special laya needs: No Agree to transfusion: Yes Vitals/I&O/Wt Last Vital Signs Temp 97.5 F L 05/03/22 04:42 Pulse 83 05/03/22 06:00 Resp 17 05/03/22 09:27 BP 154/81 05/03/22 06:00 Pulse Ox 93 05/03/22 06:00 Weight last 48 hrs Weight 117.934 kg Physical Exam Narrative: General exam is a conversant white male, reporting left posterior back pain, but nothing he can reproduce. He reports whenever he moves his hip it hurts significantly in the back and hip area. HEENT: Pupils equally round. Oropharynx clear. Neck is supple no lymphadenopathy thyromegaly Cardiovascular irregular, irregular without murmur Lungs clear no wheezing or crackles Abdomen is soft, positive bowel sounds. No obvious organomegaly exams deferred Extremities 1+ edema bilaterally with venous stasis changes with the left leg slightly bigger than the right. Patient reports this is chronic. Skin no rash Neuro no obvious focal deficits Data : 05/03/22 06:13 05/03/22 06:13 Other data: INR 1.94 LFTs normal Calcium normal Urinalysis 0-4 whites 0-[address] demonstrates arthritic change, inhomogenous attenuation left iliopsoas suggesting hemorrhage and enlarged prostate. Repeat INR tomorrow A&P Assessment and plan (1) Coagulopathy: Patient on Coumadin chronically for atrial fibrillation INR slightly less than therapeutic It appears he had a spontaneous hemorrhage into his left iliopsoas muscle Status: Acute (2) Iliopsoas muscle hematoma: Spontaneous hemorrhage Hold Coumadin Physical therapy consultation Status: Acute (3) A-fib: Patient with longstanding history of atrial fibrillation. Continue chronic medications. Anticoagulation will be held. Discussed with patient risk of CVA. This is being held secondary to iliopsoas muscle hemorrhage. He has not yet had his medicines this morning so we will give him metoprolol 100 mg p.o. x1 Status: Acute (4) COPD (chronic obstructive pulmonary disease) with emphysema: Pulmonary toilet, DuoNeb and budesonide No evidence of exacerbation currently Status: Acute Qualifiers: Emphysema type: unspecified Qualified Code(s): J43.9 - Emphysema, unspecified (5) Diabetes: Continue long-acting insulin. Add sliding scale insulin Status: Acute Qualifiers: Diabetes mellitus type: type 2 Diabetes mellitus fdc insulin use: with intranet specialist use Diabetes mellitus complication status: without complication Qualified Code(s): E11.9 - Type 2 diabetes mellitus without complications; Z79.4 - [facility] (current) use of insulin (6) Hypertension: Continue home medications Status: Acute Qualifiers: Hypertension type: essential hypertension Qualified Code(s): I10 - Essential (primary) hypertension Plan Multiple other medical problems as outlined in past medical history Full code SCDs for DVT prophylaxis. Anticoagulation on hold secondary to spontaneous hemorrhage. INR on admission 1.97. Attestations Medical Necessity Statement*: Will need less than 2 midnight stay for evaluation and treatment of the left iliopsoas muscle hematoma with coagulopathy Coding Level of Care Code Acute Registered Nurse for Chg Fwd Diagnoses Coagulopathy D68.9 Iliopsoas muscle hematoma S70.10XA A-fib I48.91 COPD (chronic obstructive pulmonary disease) with emphysema J43.9 Emphysema type: unspecified Diabetes E11.9; Z79.4 Diabetes mellitus type: type 2 Diabetes mellitus intranet specialist insulin use: with intranet specialist use Diabetes mellitus complication status: without complication Hypertension I10 Hypertension type: essential hypertension
[2022-05-03] MEDS: metoprolol tartrate 50 mg Tablet 100 MG PO ×2 (10:52→17:40)
[2022-05-03 12:06] LABS: Glucose Point of Care 261 mg/dL (70-110)
[2022-05-03] MEDS: HYDROcodone-acetaminophen 5-325 mg Tablet 1 TAB PO (12:10)
[2022-05-03] MEDS: insulin lispro 100 unit/1 mL SUBCUT ×3 (12:10→21:01)
[2022-05-03] MEDS: ipratropium-albuterol 3 mL Neb INHALATION ×2 (14:33→20:37)
[2022-05-03 17:33] LABS: Glucose Point of Care 287 mg/dL (70-110)
[2022-05-03] MEDS: cloNIDine 0.1 mg Tablet 0.3 MG PO (17:40)
[2022-05-03] MEDS: docusate sodium 100 mg Capsule PO (17:40)
[2022-05-03] MEDS: pantoprazole DR 40 mg Tablet PO (17:40)
[2022-05-03] MEDS: insulin glargine 100 units/1 mL 48 UNIT SUBCUT (17:41)
[2022-05-03] MEDS: budesonide 0.5 mg/2 mL Neb INHALATION (20:37)
[2022-05-03 20:58] LABS: Glucose Point of Care 296 mg/dL (70-110)
[2022-05-04] VITALS (12 sets, daily range): BP systolic 111–135; BP diastolic 64–81; PULSE 67–105; RESP 15–19; TEMP 36.4–36.9; O2SAT 90–97
[2022-05-04 04:57] LABS: Basophils % 0.1 %; Hematocrit 31.8 % (42.0-52.0); Hemoglobin 10.9 g/dL (11.7-16.6); Lymphocytes # 1.5 10^3/uL (0.8-4.8); Lymphocytes % 5.8 %; Mean Corpuscular HGB Conc 34.3 g/dL (30.0-36.0); Mean Corpuscular Hemoglobin 30.2 pg (28.0-34.0); Mean Corpuscular Volume 88.1 fl (80-94); Mean Platelet Volume 10.9 fL (7.4-10.4); Monocytes % 7.7 %; Neutrophils # 21.73 10^3/uL (1.8-7.7); Neutrophils % 85.6 %; Nucleated Red Blood Cells % 0 %; Platelet Count 374 10^3/cmm (130-400); Red Blood Count 3.61 10^6/uL (4.1-5.3); Red Cell Distribution Width 12.8 % (12.1-15.1); White Blood Count 25.4 10^3/uL (4.0-10.0)
[2022-05-04 05:08] LABS: INR 1.87 (0.8-1.2)
[2022-05-04] MEDS: hydroCHLOROthiazide 25 mg Tablet PO (05:18)
[2022-05-04 05:21] LABS: Alanine Aminotransferase 24 U/L (0-41); Alkaline Phosphatase 54 IU/L (40-130); Anion Gap 19.2 (5-19); Aspartate Amino Transferase 22 U/L (0-40); Blood Urea Nitrogen 35 mg/dL (8-23); Carbon Dioxide 23 mmol/L (22-29); Chloride 95 mmol/L (98-107); Globulin 2.5 g/dL (1.3-4.6); Glucose 186 mg/dL (65-115); Osmolality Calculated 289 mOsm/kg (285-295); Potassium 4.2 mmol/L (3.5-5.1); Sodium 133 mmol/L (136-145); Total Bilirubin 0.4 mg/dL (0.15-1.2); Total Protein 6.5 g/dL (6.6-8.7)
[2022-05-04 06:42] LABS: Glucose Point of Care 205 mg/dL (70-110)
[2022-05-04 07:49] LABS: Creatine Phosphokinase 372 U/L (39-308)
[2022-05-04] MEDS: ipratropium-albuterol 3 mL Neb INHALATION ×3 (08:35→20:26)
[2022-05-04] MEDS: budesonide 0.5 mg/2 mL Neb INHALATION ×2 (08:35→20:26)
[2022-05-04] MEDS: insulin lispro 100 unit/1 mL SUBCUT ×3 (08:38→20:12)
[2022-05-04] MEDS: cloNIDine 0.1 mg Tablet 0.3 MG PO ×2 (08:39→18:22)
[2022-05-04] MEDS: insulin glargine 100 units/1 mL 48 UNIT SUBCUT ×2 (08:39→18:27)
[2022-05-04] MEDS: docusate sodium 100 mg Capsule PO ×2 (08:40→18:23)
[2022-05-04] MEDS: metoprolol tartrate 50 mg Tablet 100 MG PO ×2 (08:40→18:26)
[2022-05-04] MEDS: atorvastatin 40 mg Tablet 20 MG PO (08:40)
[2022-05-04] MEDS: pantoprazole DR 40 mg Tablet PO ×2 (08:41→18:26)
--- NOTE | 2022-05-04 09:00 | PM.PN ---
Subjective Subjective: Marco Antonio reports he does not feel like he is ready to go home. He is still having trouble getting up on his own, and believes he might do poorly. He denies any fever or chills. He reports he seems to be urinating okay. Medications: Reviewed: Yes Vitals/I&O/Wt Last Vital Signs Temp 97.8 F 05/04/22 08:13 Pulse 105 H 05/04/22 08:42 Resp 19 H 05/04/22 08:37 BP 135/73 05/04/22 08:39 Pulse Ox 96 05/04/22 08:37 05/03/22 05/04/22 05/04/22 22:59 06:59 14:59 Intake Total 240 / 240 240 / 240 Output Total 325 / 400 550 / 950 Balance -85 / -160 -550 / -710 240 / 240 Weight last 48 hrs Weight 117.934 kg Weight 117.934 kg Physical Exam Narrative: General exam no distress with no complaints of pain, until moves and then has significant pain when moving the left leg. Neck is supple no lymphadenopathy thyromegaly Cardiovascular irregular, irregular without murmur Lungs clear no wheezing or crackles Abdomen is soft, positive bowel sounds. No obvious organomegaly exams deferred Extremities 1+ edema bilaterally with venous stasis changes with the left leg slightly bigger than the right. Patient reports this is chronic. Skin no rash Data : 05/04/22 04:15 05/04/22 04:15 A&P Assessment and plan (1) Coagulopathy: Patient on Coumadin chronically for atrial fibrillation INR currently 1.87. Coumadin is being held secondary to spontaneous hemorrhage It appears he had a spontaneous hemorrhage into his left iliopsoas muscle Patient reports discomfort is slightly better with him being able to stand but still cannot ambulate safely without fall risk. Status: Acute (2) Iliopsoas muscle hematoma: Spontaneous hemorrhage Hold Coumadin Physical therapy consultation appreciated. Continue therapy today. Status: Acute (3) A-fib: Patient with longstanding history of atrial fibrillation. Continue chronic medications. Anticoagulation will be held. Discussed with patient risk of CVA. This is being held secondary to iliopsoas muscle hemorrhage. Continue metoprolol for rate control Status: Acute (4) COPD (chronic obstructive pulmonary disease) with emphysema: Pulmonary toilet, DuoNeb and budesonide No evidence of exacerbation currently Status: Acute Qualifiers: Emphysema type: unspecified Qualified Code(s): J43.9 - Emphysema, unspecified (5) Diabetes: Continue long-acting insulin. Continue sliding scale insulin Status: Acute Qualifiers: Diabetes mellitus type: type 2 Diabetes mellitus intermediate teacher insulin use: with intermediate teacher use Diabetes mellitus complication status: without complication Qualified Code(s): E11.9 - Type 2 diabetes mellitus without complications; Z79.4 - rn long term care (current) use of insulin (6) Hypertension: Continue home medications Status: Acute Qualifiers: Hypertension type: essential hypertension Qualified Code(s): I10 - Essential (primary) hypertension Plan Acute kidney injury, superimposed on chronic kidney disease. I checked a CK this morning that was slightly elevated at 372. A bladder scan demonstrated no significant urinary retention. I think his acute kidney injury is likely related to his hematoma, dehydration, and development of anemia. We will hold his RAVI inhibitor and diuretic and recheck tomorrow. Encourage oral hydration today. Overall he does have some peripheral edema and total body fluid is likely high. Mild increase in CK. Hold statin, Tricor currently. Anemia. Consistent with bleeding into iliopsoas muscle. Multiple other medical problems as outlined in past medical history Full code SCDs for DVT prophylaxis. Anticoagulation on hold secondary to spontaneous hemorrhage. INR on admission 1.97. Attestations Medical Necessity Statement*: Needs continued hospitalization for close monitoring of acute kidney injury, developed anemia in this patient with iliopsoas muscle hematoma. Coding Level of Care Code Acute Intermediate Manager for [facility] Diagnoses Coagulopathy D68.9 Iliopsoas muscle hematoma S70.10XA A-fib I48.91 COPD (chronic obstructive pulmonary disease) with emphysema J43.9 Emphysema type: unspecified Diabetes E11.9; Z79.4 Diabetes mellitus type: type 2 Diabetes mellitus intermediate teacher insulin use: with [facility] use Diabetes mellitus complication status: without complication Hypertension I10 Hypertension type: essential hypertension
[2022-05-04 10:59] LABS: Glucose Point of Care 296 mg/dL (70-110)
--- NOTE | 2022-05-04 11:00 | PC.CHAP ---
Pastoral Care Encounter/Spiritual Assessment Type of Contact [] Declined mix house operator visit [] Patient/Family/Request visit [] Outpatient visit [] Follow-up visit [] Physician referral [] Code/Alert [x] Routine visit [] Staff referral [] Actively dying [] Patient sleeping [] Family support [] [] Out of room [] Palliative care [] [] Receiving care in room [] Pre-surgical visit [] Trauma [] Long length of stay [] ICU visit [] Other: Relational/Emotional Strength [x] Patient feels connected with others/family/visitors/staff [] Distress [] Loneliness/isolation [] Abandonment Spirituality of Patient [x] Person of Rylee [x] Attends Anabaptism of their Rylee [x] Believes in Prayer [] Reads Bible or Islam materials [] There are Spiritual issues to be addressed Resource Conservationist Interventions [x] Prayer [x] Active listening [x] Non-anxious presence [x] Spiritual/emotional support [] Crisis/trauma care [] Spiritual counseling [] Bereavement support [] Provided bereavement packet [] Provided Bible/devotional materials [] Provided toy/stuffed animal, coloring book to patient or family member [] Provided Communion [] Anointing/[place] [] Salvation [] Completed spiritual assessment [] Other: Impact on Illness or Injury [] Angry [] Fearful [] Anxious [] Often cries [] Exhaustion [] Unable to work [] Unable to attend jewish [] Unable to walk/stand [] Unable to read [] Unable to drive [] Unable to eat/drink [] Unable to sleep [] Unable to be with family [] Patient intubated [] Other: Summary Time spent with patient 10 min
[2022-05-04 17:26] LABS: Glucose Point of Care 140 mg/dL (70-110)
[2022-05-04] MEDS: acetaminophen 325 mg Tablet 650 MG PO (18:26)
[2022-05-04 20:13] LABS: Glucose Point of Care 182 mg/dL (70-110)
[2022-05-05] VITALS (12 sets, daily range): BP systolic 103–151; BP diastolic 64–84; PULSE 61–98; RESP 16–19; TEMP 36.6–36.8; O2SAT 93–98
[2022-05-05 05:17] LABS: Basophils % 0.2 %; Eosinophils # 0.1 10^3/uL (0.0-0.8); Eosinophils % 0.6 %; Hematocrit 27.6 % (42.0-52.0); Hemoglobin 9.6 g/dL (11.7-16.6); Lymphocytes % 10.9 %; Mean Corpuscular HGB Conc 34.8 g/dL (30.0-36.0); Mean Corpuscular Hemoglobin 30.3 pg (28.0-34.0); Mean Corpuscular Volume 87.1 fl (80-94); Mean Platelet Volume 10.5 fL (7.4-10.4); Monocytes # 1.7 10^3/uL (0.2-0.9); Monocytes % 9.5 %; Neutrophils % 78.2 %; Nucleated Red Blood Cells % 0 %; Platelet Count 297 10^3/cmm (130-400); Red Blood Count 3.17 10^6/uL (4.1-5.3); Red Cell Distribution Width 12.9 % (12.1-15.1)
[2022-05-05 05:35] LABS: Anion Gap 16.1 (5-19); Carbon Dioxide 25 mmol/L (22-29); Chloride 96 mmol/L (98-107); Glucose 126 mg/dL (65-115); Potassium 4.1 mmol/L (3.5-5.1); Sodium 133 mmol/L (136-145)
[2022-05-05 05:57] LABS: Blood Urea Nitrogen 42 mg/dL (8-23); Calcium 8.6 mg/dL (8.5-10.5); Osmolality Calculated 288 mOsm/kg (285-295)
[2022-05-05 06:33] LABS: Glucose Point of Care 158 mg/dL (70-110)
[2022-05-05] MEDS: acetaminophen 325 mg Tablet 650 MG PO (07:24)
[2022-05-05] MEDS: ipratropium-albuterol 3 mL Neb INHALATION ×3 (08:23→20:23)
[2022-05-05] MEDS: budesonide 0.5 mg/2 mL Neb INHALATION ×2 (08:23→20:23)
[2022-05-05] MEDS: cloNIDine 0.1 mg Tablet 0.3 MG PO ×2 (08:59→17:46)
[2022-05-05] MEDS: pantoprazole DR 40 mg Tablet PO ×2 (08:59→17:47)
[2022-05-05] MEDS: metoprolol tartrate 50 mg Tablet 100 MG PO ×2 (08:59→17:47)
[2022-05-05] MEDS: insulin lispro 100 unit/1 mL SUBCUT ×4 (09:00→22:06)
[2022-05-05] MEDS: docusate sodium 100 mg Capsule PO ×2 (09:00→17:46)
[2022-05-05] MEDS: insulin glargine 100 units/1 mL 48 UNIT SUBCUT ×2 (09:08→17:47)
[2022-05-05 11:11] LABS: Glucose Point of Care 201 mg/dL (70-110)
--- NOTE | 2022-05-05 12:52 | PM.PN ---
Subjective Subjective: He is overall doing slightly better. Has been bothered by quite a bit of pain, slightly better. Has been getting up a little with a walker. Vitals/I&O/Wt Last Vital Signs Temp 98.1 F 05/05/22 04:00 Pulse 89 05/05/22 11:03 Resp 18 05/05/22 11:03 BP 103/64 05/05/22 11:03 Pulse Ox 98 05/05/22 11:03 05/04/22 05/05/22 05/05/22 22:59 06:59 14:59 Intake Total 360 / 840 600 / 600 Balance 360 / 840 600 / 600 Physical Exam Narrative: Sitting up at edge of bed. Const: COMMON NORMALS: alert GENERAL APPEARANCE: cooperative NUTRITIONAL APPEARANCE: overweight ORIENTATION/CONSCIOUSNESS: Yes awake HENMT: COMMON NORMALS: normocephalic, EAC's normal, Normal external nose present and moist oral mucous membranes HEAD & SCALP: normocephalic NOSE: Normal external nose present EXTERNAL AUDITORY CANAL: EAC's normal Neck/C-Spine: COMMON NORMALS: no meningeal signs Chest: CHEST: Yes Symmetrical chest wall rise Resp: COMMON NORMALS: clear to auscultation bilaterally AUSCULTATION: clear to auscultation bilaterally Cardio: COMMON NORMALS: regular rate, regular rhythm and No murmurs present (Cardio) RATE: regular rate RHYTHM: regular rhythm GI: COMMON NORMALS: Normal to inspection, nondistended, normoactive bowel sounds present, Soft to palpation and non-tender PALPATION: Yes Soft to palpation Extremity: COMMON NORMALS: no pedal edema Neuro: COMMON NORMALS: moves all extremities SENSORIUM/ORIENTATION: Yes alert MENINGEAL SIGNS: Yes no meningeal signs Psych: COMMON NORMALS: mental status grossly normal Skin: COMMON NORMALS: no wounds RASHES: no rashes Data : 05/05/22 04:37 05/05/22 04:37 A&P Assessment and plan (1) Iliopsoas muscle hematoma: Pain slightly better. Has been getting up some. However, discussed with him hemoglobin decreased to 9.6. Discussed monitoring additionally tonight and reassessing hemoglobin in the morning. He is agreeable. Spontaneous hemorrhage Hold Coumadin Physical therapy Status: Acute (2) Coagulopathy: Patient on Coumadin chronically for atrial fibrillation Coumadin is being held Status: Acute (3) A-fib: Patient with longstanding history of atrial fibrillation. Continue chronic medications. Anticoagulation will be held. Continue metoprolol for rate control Status: Acute (4) COPD (chronic obstructive pulmonary disease) with emphysema: Pulmonary toilet, DuoNeb and budesonide No evidence of exacerbation currently Status: Acute Qualifiers: Emphysema type: unspecified Qualified Code(s): J43.9 - Emphysema, unspecified (5) Diabetes: Continue long-acting insulin. Continue sliding scale insulin Status: Acute Qualifiers: Diabetes mellitus type: type 2 Diabetes mellitus perioperative manager insulin use: with [facility] use Diabetes mellitus complication status: without complication Qualified Code(s): E11.9 - Type 2 diabetes mellitus without complications; Z79.4 - shelter (current) use of insulin (6) Hypertension: Continue home medications Status: Acute Qualifiers: Hypertension type: essential hypertension Qualified Code(s): I10 - Essential (primary) hypertension Plan Acute kidney injury, superimposed on chronic kidney disease. Improving. Hold lisinopril. Markedly enlarged prostate on CT. Consider Flomax if symptomatic Although bladder scan demonstrated no significant urinary retention. Anemia. Consistent with bleeding into iliopsoas muscle. Multiple other medical problems as outlined in past medical history Attestations Medical Necessity Statement*: Continue admission for reassessment of blood counts with acute anemia with iliopsoas hemorrhage on anticoagulation pre-hospitalization. Coding Level of Care Code Acute Eyeglass Lens Grinder for [facility] Diagnoses Coagulopathy D68.9 Iliopsoas muscle hematoma S70.10XA A-fib I48.91 COPD (chronic obstructive pulmonary disease) with emphysema J43.9 Emphysema type: unspecified Diabetes E11.9; Z79.4 Diabetes mellitus type: type 2 Diabetes mellitus [facility] insulin use: with perioperative manager use Diabetes mellitus complication status: without complication Hypertension I10 Hypertension type: essential hypertension
[2022-05-05 17:08] LABS: Glucose Point of Care 183 mg/dL (70-110)
[2022-05-05 21:44] LABS: Glucose Point of Care 151 mg/dL (70-110)
[2022-05-06] VITALS (7 sets, daily range): BP systolic 113–157; BP diastolic 63–70; PULSE 82–112; RESP 15–18; TEMP 36.6–37; O2SAT 95–98
[2022-05-06 05:15] LABS: Basophils % 0.3 %; Eosinophils # 0.2 10^3/uL (0.0-0.8); Eosinophils % 1.6 %; Hematocrit 27.2 % (42.0-52.0); Hemoglobin 9.4 g/dL (11.7-16.6); Lymphocytes # 1.7 10^3/uL (0.8-4.8); Lymphocytes % 12.9 %; Mean Corpuscular HGB Conc 34.6 g/dL (30.0-36.0); Mean Corpuscular Hemoglobin 30.2 pg (28.0-34.0); Mean Corpuscular Volume 87.5 fl (80-94); Mean Platelet Volume 10.3 fL (7.4-10.4); Monocytes # 1.3 10^3/uL (0.2-0.9); Monocytes % 9.6 %; Neutrophils # 10.16 10^3/uL (1.8-7.7); Nucleated Red Blood Cells % 0 %; Platelet Count 310 10^3/cmm (130-400); Red Blood Count 3.11 10^6/uL (4.1-5.3); White Blood Count 13.5 10^3/uL (4.0-10.0)
[2022-05-06 05:36] LABS: Blood Urea Nitrogen 36 mg/dL (8-23); Calcium 8.4 mg/dL (8.5-10.5); Carbon Dioxide 25 mmol/L (22-29); Chloride 98 mmol/L (98-107); Glucose 94 mg/dL (65-115); Osmolality Calculated 288 mOsm/kg (285-295); Sodium 135 mmol/L (136-145)
[2022-05-06 06:45] LABS: Glucose Point of Care 112 mg/dL (70-110)
[2022-05-06] MEDS: budesonide 0.5 mg/2 mL Neb INHALATION (08:35)
[2022-05-06] MEDS: ipratropium-albuterol 3 mL Neb INHALATION (08:35)
[2022-05-06] MEDS: insulin glargine 100 units/1 mL 48 UNIT SUBCUT (09:10)
[2022-05-06] MEDS: acetaminophen 325 mg Tablet 650 MG PO (09:12)
[2022-05-06] MEDS: cloNIDine 0.1 mg Tablet 0.3 MG PO (09:13)
[2022-05-06] MEDS: metoprolol tartrate 50 mg Tablet 100 MG PO (09:13)
[2022-05-06] MEDS: pantoprazole DR 40 mg Tablet PO (09:13)
[2022-05-06] MEDS: docusate sodium 100 mg Capsule PO (09:13)
[2022-05-06 11:06] LABS: Glucose Point of Care 237 mg/dL (70-110)
[2022-05-06] MEDS: insulin lispro 100 unit/1 mL SUBCUT (12:08)
--- NOTE | 2022-05-06 13:23 | PM.DCS ---
Discharge Providers Date of Admission: 05/04/22 09:06 Date of Discharge: May 06, 2022 Attending Provider at Admission: Deangelo Castelan MD Attending Provider at Discharge: Iglesia Ernandez Primary Care Provider: Olena Espinosa MD Diagnoses at Discharge Discharge Diagnosis (1) Iliopsoas muscle hematoma: Status: Acute (2) Coagulopathy: Status: Acute (3) A-fib: Status: Acute (4) COPD (chronic obstructive pulmonary disease) with emphysema: Status: Acute Qualifiers: Emphysema type: unspecified Qualified Code(s): J43.9 - Emphysema, unspecified (5) Diabetes: Status: Acute Qualifiers: Diabetes mellitus type: type 2 Diabetes mellitus nursing home insulin use: with buttermilk drier operator use Diabetes mellitus complication status: without complication Qualified Code(s): E11.9 - Type 2 diabetes mellitus without complications; Z79.4 - technician terminal and repeater (current) use of insulin (6) Hypertension: Status: Acute Qualifiers: Hypertension type: essential hypertension Qualified Code(s): I10 - Essential (primary) hypertension Reason for Visit Reason for Visit: HIP PAIN Hospital Course Hospital Course Pleasant 82 yo gentleman with history of atrial fibrillation, on chronic anticoagulation with warfarin, presents to the hospital on 05/03 with complaints of left hip pain started the night before. Reported no injury. INR was 1.94. Left hip and knee x-rays show degenerative changes, osteopenia, but hip CT showed left iliopsoas muscle hemorrhage. Infiltration of adjacent fat. Incidentally noted markedly enlarged prostate. Warfarin was held. Blood counts were monitored in the hospital, with decreasing initially to 10.9, then stabilized around 9.5. Pain improving, although still intermittently painful dependent position, but has been ambulating cautiously with walker. WBC count was not elevated, continue to decrease, then 13.5 today. He remains afebrile. Presentation with LINDA, creatinine as high as 1.8, currently improving, down to 1.5. Lisinopril and HCTZ stopped until renal function can be assessed and found stable. States he has feeling better, and feels ready to return home. On follow-up please reassess blood counts, renal function. Due to risk of reinitiation of anticoagulation, after resolution of acute illness consider referral for left atrial appendage closure for stroke risk reduction. Please follow-up regarding incidentally noted prostatomegaly. Physical Exam Narrative: Sitting up at edge of bed. Const: COMMON NORMALS: alert GENERAL APPEARANCE: cooperative NUTRITIONAL APPEARANCE: overweight ORIENTATION/CONSCIOUSNESS: Yes awake OTHER: Pleasant, conversant. HENMT: COMMON NORMALS: normocephalic, EAC's normal, Normal external nose present and moist oral mucous membranes HEAD & SCALP: normocephalic NOSE: Normal external nose present EXTERNAL AUDITORY CANAL: EAC's normal Neck/C-Spine: COMMON NORMALS: no meningeal signs Chest: CHEST: Yes Symmetrical chest wall rise Resp: COMMON NORMALS: clear to auscultation bilaterally AUSCULTATION: clear to auscultation bilaterally Cardio: COMMON NORMALS: regular rate, regular rhythm and No murmurs present (Cardio) RATE: regular rate RHYTHM: regular rhythm GI: COMMON NORMALS: Normal to inspection, nondistended, normoactive bowel sounds present, Soft to palpation and non-tender PALPATION: Yes Soft to palpation Extremity: COMMON NORMALS: no pedal edema Neuro: COMMON NORMALS: moves all extremities SENSORIUM/ORIENTATION: Yes alert MENINGEAL SIGNS: Yes no meningeal signs Psych: COMMON NORMALS: mental status grossly normal Skin: COMMON NORMALS: no wounds RASHES: no rashes Discharge Data Studies Completed and Pending Completed Studies During Hospitalization Category Date Time Status CT hip LT wo con* [id number] Urgent Cat Scan 05/03/22 05:30 Completed XR hip LT 2-3V wo/w pel* [id number] Stat Exams 05/03/22 04:44 Completed Pending at discharge Category Date Time Status Basic Metabolic Panel AM LABS Lab 05/07/22 04:00 Ordered Basic Metabolic Panel AM LABS Lab 05/08/22 04:00 Ordered Complete Blood Count w/Auto AM LABS Lab 05/07/22 04:00 Ordered Complete Blood Count w/Auto AM LABS Lab 05/08/22 04:00 Ordered Radiology Impressions Hip/Pelvis X-Ray 05/03/22 04:44 IMPRESSION: Osteopenia and degenerative change. Hip CT 05/03/22 05:30 IMPRESSION: 1. Degenerative change. 2. Inhomogeneous attenuation in the left iliopsoas muscle, suggesting hemorrhage, with infiltration of adjacent fat. MRI can be performed for improved characterization if clinically indicated. 3. Markedly enlarged prostate. Laboratory Results WBC 13.5 10^3/uL (4.0-10.0) H 05/06/22 04:55 RBC 3.11 10^6/uL (4.1-5.3) L 05/06/22 04:55 Hgb 9.4 g/dL (11.7-16.6) L 05/06/22 04:55 Hct 27.2 % (42.0-52.0) L 05/06/22 04:55 MCV 87.5 fl (80-94) 05/06/22 04:55 MCH 30.2 pg (28.0-34.0) 05/06/22 04:55 MCHC 34.6 g/dL (30.0-36.0) 05/06/22 04:55 RDW 13.0 % (12.1-15.1) 05/06/22 04:55 Plt Count 310 10^3/cmm (130-400) 05/06/22 04:55 MPV 10.3 fL (7.4-10.4) 05/06/22 04:55 Neut % (Auto) 75.0 % 05/06/22 04:55 Lymph % (Auto) 12.9 % 05/06/22 04:55 [place] % (Auto) 9.6 % 05/06/22 04:55 Eos % (Auto) 1.6 % 05/06/22 04:55 Baso % (Auto) 0.3 % 05/06/22 04:55 Neut # (Auto) 10.16 10^3/uL (1.8-7.7) H 05/06/22 04:55 Lymph # (Auto) 1.7 10^3/uL (0.8-4.8) 05/06/22 04:55 [place] # (Auto) 1.3 10^3/uL (0.2-0.9) H 05/06/22 04:55 Eos # (Auto) 0.2 10^3/uL (0.0-0.8) 05/06/22 04:55 Baso # (Auto) 0.0 10^3/uL (0.0-0.1) 05/06/22 04:55 Nucleated RBC % (auto) 0 % 05/06/22 04:55 Nucleated RBCs # 0.0 /100WBC 05/06/22 04:55 PT 21.80 SECONDS (12.1-14.9) H 05/04/22 04:15 INR 1.87 (0.8-1.2) H 05/04/22 04:15 Sodium 135 mmol/L (136-145) L 05/06/22 04:55 Potassium 4.0 mmol/L (3.5-5.1) 05/06/22 04:55 Chloride 98 mmol/L (98-107) 05/06/22 04:55 Carbon Dioxide 25 mmol/L (22-29) 05/06/22 04:55 Anion Gap 16.0 (5-19) 05/06/22 04:55 BUN 36 mg/dL (8-23) H 05/06/22 04:55 Creatinine 1.5 mg/dL (0.7-1.2) H 05/06/22 04:55 GFR Calculation Not Reportable 05/06/22 04:55 Glucose 94 mg/dL (65-115) 05/06/22 04:55 POC Glucose 237 mg/dL (70-110) H 05/06/22 10:56 Calculated Osmolality 288 mOsm/kg (285-295) 05/06/22 04:55 Calcium 8.4 mg/dL (8.5-10.5) L 05/06/22 04:55 Total Bilirubin 0.4 mg/dL (0.15-1.2) 05/04/22 04:15 AST 22 U/L (0-40) 05/04/22 04:15 ALT 24 U/L (0-41) 05/04/22 04:15 Alkaline Phosphatase 54 IU/L (40-130) 05/04/22 04:15 Creatine Kinase 372 U/L (39-308) H* 05/04/22 04:15 Total Protein 6.5 g/dL (6.6-8.7) L 05/04/22 04:15 Albumin 4.0 g/dL (3.5-5.2) 05/04/22 04:15 Globulin 2.5 g/dL (1.3-4.6) 05/04/22 04:15 Urine Color Yellow (Yellow) 05/03/22 07:12 Urine Appearance Clear (CLEAR) 05/03/22 07:12 Urine pH 5 (5-7) 05/03/22 07:12 Ur Specific [place] 1.015 (1.005-1.030) 05/03/22 07:12 Urine Protein 1+ (Negative) H 05/03/22 07:12 Urine Glucose (UA) Norm (Normal) 05/03/22 07:12 Urine Ketones Negative (Negative) 05/03/22 07:12 Urine Blood 2+ (Negative) H 05/03/22 07:12 Urine Nitrate Negative (Negative) 05/03/22 07:12 Urine Bilirubin Neg (Negative) 05/03/22 07:12 Urine Urobilinogen Norm mg/dL (Negative) 05/03/22 07:12 Ur Leukocyte Esterase Negative (Negative) 05/03/22 07:12 Urine RBC 0-4 /hpf (0-2) H 05/03/22 07:12 Urine WBC 0-4 /hpf (0-5) H 05/03/22 07:12 Ur Squamous Epith Cells 0-4 /hpf (0-5) H 05/03/22 07:12 Amorphous Sediment Not Reportable 05/03/22 07:12 Urine Bacteria Trace /hpf (NONE) 05/03/22 07:12 Hyaline Casts Rare /lpf 05/03/22 07:12 Urine Mucus Trace /hpf 05/03/22 07:12 Vitals Last Vital Signs Temp 98 F 05/06/22 12:00 Pulse 82 05/06/22 12:00 Resp 17 05/06/22 12:00 BP 113/63 05/06/22 12:00 Pulse Ox 98 05/06/22 12:00 Discharge Plan Discharge Patient Disposition: Home Condition: Stable Prescriptions: [facility] See [facility] Instructions .ROUTE .MEDSUPPLY Qty: 1 0RF Rx Instructions: As directed nystatin [Nyamyc] 100,000 unit/gram powder 1 applic topical BID Qty: 60 1RF MediHoney (honey) 80 % gel 1 applic topical BID Qty: 44 2RF arformoterol [Brovana] 15 mcg/2 mL solution for nebulization See Rx Instructions .ROUTE .COMPLEX Qty: 60 11RF Dose Instruction: USE 1 VIAL IN NEBULIZER EVERY 12 HOURS - morning and evening Rx Instructions: USE 1 VIAL IN NEBULIZER EVERY 12 HOURS - morning and evening omeprazole 40 mg capsule,delayed release(DR/EC) 40 mg PO BID Qty: 60 2RF (DME) Blood Glucose Test Strip See Rx Instructions .Route Qty: 100 6RF Rx Instructions: test tid Lantus Solostar U-100 Insulin 100 unit/mL (3 mL) insulin pen 48 unit SUBCUT BID Qty: 30 2RF albuterol sulfate 2.5 mg /3 mL (0.083 %) solution for nebulization 2.5 mg inhalation TID PRN (Reason: Shortness Of Breath) 0RF metoprolol tartrate 100 mg tablet 100 mg PO BID 0RF lovastatin 40 mg tablet 40 mg PO DAILY 0RF clonidine HCl 0.3 mg tablet 0.3 mg PO BID 0RF metformin 1,000 mg tablet 1,000 mg PO BID 0RF Rx Instructions: TAKE ONE TABLET BY MOUTH TWICE DAILY nystatin 100,000 unit/gram cream 1 applic topical BEDTIME PRN (Reason: Rash) 0RF Ventolin HFA 90 mcg/actuation HFA aerosol inhaler 2 puff inhalation QID PRN (Reason: Shortness Of Breath) 0RF fenofibrate 160 mg tablet 160 mg PO DAILY 0RF Rx Instructions: TAKE ONE TABLET BY MOUTH EVERY DAY Discontinued hydrochlorothiazide 25 mg tablet 25 mg PO QAM Qty: 30 3RF warfarin 5 mg tablet See Rx Instructions .ROUTE .COMPLEX 0RF Rx Instructions: Take 5 mg once daily except on Saturday take 2.5mg lisinopril 40 mg tablet 40 mg PO DAILY 0RF Discharge Orders: Discharge Order (Routine); Ordered 05/06/22 Ordered By: Iglesia Ernandez Referrals: Olena Espinosa MD [Primary Care Provider] - 4-7 days Discharge Diet: Cardiac and Diabetic Discharge Activity: Increase activity as tolerated, Limit activity as instructed, Use walker/crutches as instructed and As per PT/OT instructions Patient Instructions: Fall Prevention (GEN) Activity Restrictions/Additional Instructions: Resume patient cautiously and slowly. Avoid lifting anything more than 5 pounds. In case you start feeling lightheaded, or like you are about to faint, or if you experience any other concerning symptoms, call 911. Please have your primary care doctor recheck blood counts at next visit to reassess anemia. Please do not take warfarin anymore, and discuss with your primary doctor regarding discontinuation and iliopsoas muscle bleeding. Due to risks with blood thinner medication, consider with your primary doctor referral for left atrial appendage closure device for stroke risk reduction with atrial fibrillation. Please have your primary doctor also recheck your kidney function for follow-up of acute kidney injury. Please hold lisinopril and HCTZ for now. Avoid any ibuprofen, Aleve, or other NSAIDs. Please discuss with your primary doctor regarding markedly enlarged prostate incidentally seen on CT scan. In case of urinary difficulties, discussed with your primary initiation of prostate medication. Discharge Attestations Time Spent in Discharge Care*: greater than 30 min Quality Metrics Clinical Quality Measures [ No reported AMI, CVA or VTE this stay] Coding Level of Care Code Acute Chg FW DC note Diagnoses Iliopsoas muscle hematoma S70.10XA Coagulopathy D68.9 A-fib I48.91 COPD (chronic obstructive pulmonary disease) with emphysema J43.9 Emphysema type: unspecified Diabetes E11.9; Z79.4 Diabetes mellitus type: type 2 Diabetes mellitus buttermilk drier operator insulin use: with nursing home use Diabetes mellitus complication status: without complication Hypertension I10 Hypertension type: essential hypertension
== END 2022-05-06 14:00 | disposition home or self-care (01) | DRG 683 ==
LOC: ER 09:29 → MEDSURG 11:02
PROVIDERS: Emergency Medicine; Admitting Provider Internal Medicine; Emergency Provider Emergency Medicine; PCP Family Medicine; Visit Provider Internal Medicine
DX: N17.9 Acute kidney failure, unspecified (principal); D68.9 Coagulation defect, unspecified; M79.81 Nontraumatic hematoma of soft tissue; I48.91 Unspecified atrial fibrillation; J43.9 Emphysema, unspecified; E11.9 Type 2 diabetes mellitus without complications; K21.9 Gastro-esophageal reflux disease without esophagitis; E78.5 Hyperlipidemia, unspecified; E11.22 Type 2 diabetes mellitus with diabetic chronic kidney disease; I12.9 Hypertensive chronic kidney disease with stage 1 through stage 4 chronic kidney disease, or unspecified chronic kidney disease; N18.9 Chronic kidney disease, unspecified; Z87.891 Personal history of nicotine dependence; M85.852 Other specified disorders of bone density and structure, left thigh; N40.0 Benign prostatic hyperplasia without lower urinary tract symptoms; Z79.4 Long term (current) use of insulin; Z79.84 Long term (current) use of oral hypoglycemic drugs; Z79.51 Long term (current) use of inhaled steroids; D64.9 Anemia, unspecified
CPT/HCPCS: 36415; 36416; 51798; 73502; 73700; 80048; 80053; 81001; 82550; 82962; 85025; 85610; 94640; 96372; 96374; 96375; 96376; 97110; 97161; 97530; 99285; G0378; J1815; J1885; J2270; J2930; J3490; J7626

== ENCOUNTER → 2022-05-15 13:20 | Outpatient (BNVA) | payer MEDICARE, OTHER, SELFPAY | PROVIDERS: PCP Family Medicine; Visit Provider Family Medicine | DX: I10 Essential (primary) hypertension (principal); E78.5 Hyperlipidemia, unspecified; E11.622 Type 2 diabetes mellitus with other skin ulcer; L97.209 Non-pressure chronic ulcer of unspecified calf with unspecified severity | CPT/HCPCS: 80053; 80061; 83036; 85025 ==

== ENCOUNTER → 2022-05-23 12:48 | Outpatient (BNVA) | payer MEDICARE, OTHER, SELFPAY | PROVIDERS: PCP Family Medicine; Visit Provider Internal Medicine Cardiovascular Disease | DX: I48.91 Unspecified atrial fibrillation (principal); I10 Essential (primary) hypertension; E78.5 Hyperlipidemia, unspecified; E11.9 Type 2 diabetes mellitus without complications; Z79.84 Long term (current) use of oral hypoglycemic drugs; Z87.891 Personal history of nicotine dependence; I48.92 Unspecified atrial flutter; I45.5 Other specified heart block; R55 Syncope and collapse; I49.49 Other premature depolarization | CPT/HCPCS: 93229; 99204; 99205 ==

== ENCOUNTER → 2022-05-29 14:14 | Outpatient (BNVA) | payer MEDICARE, OTHER, SELFPAY | PROVIDERS: PCP Family Medicine; Visit Provider Family Medicine | DX: R79.89 Other specified abnormal findings of blood chemistry (principal) | CPT/HCPCS: 85025 ==

== ENCOUNTER 2022-07-17 12:52 | Outpatient (CLI) | payer MEDICARE, OTHER, SELFPAY ==
--- NOTE | 2022-07-17 13:30 | USCV_ITS ---
Marco Antonio Mosquera Age: 82 Gender: M : 1940 Exam Date: 07/17/2022 13:48 Ordering Phys: Enrico River MD ([email or web address]) Technologist: Exam Location: [facility] – [place] Indication: afib BP: 166 / 60 HR: 84 Rhythm: Sinus Technical Quality: Adequate MEASUREMENTS (Male / Female) Normal Values 2D ECHO LV Diastolic Diameter PLAX 4.0 cm 4.2 - 5.9 / 3.9 - 5.3 cm LV Systolic Diameter PLAX 2.8 cm IVS Diastolic Thickness 1.2 cm 0.6 - 1.0 / 0.6 - 0.9 cm IVS Systolic Thickness 1.5 cm LVPW Diastolic Thickness 1.4 cm 0.6 - 1.0 / 0.6 - 0.9 cm LVPW Systolic Thickness 1.3 cm LVOT Diameter 2.0 cm LV Ejection Fraction 2D Teich 57.7 % LV Ejection Fraction MOD 2C 66.7 % LV Ejection Fraction 2C AL 67.8 % LA Diameter 4.3 cm M-MODE Aortic Annulus Diameter 3.8 cm LA Ao Ratio MM 1.1 MV E Point Septal Separation 0.9 cm DOPPLER AV Peak Velocity 185.3 cm/s LVOT Peak Velocity 108.0 cm/s AV Area Cont Eq vti 2.1 cm squared AV Area Cont Eq pk 1.9 cm squared MV Area PHT 5.0 cm squared Mitral E to A Ratio 0.7 MV E' Velocity 63.5 cm/s Mitral E to MV E' Ratio 16.2 Mitral E to LV E' Lateral Ratio 13.4 Mitral E to LV E' Septal Ratio 20.3 TR Peak Velocity 184.0 cm/s TR Peak Gradient 13.5 mmHg TV Peak E Velocity 95.0 cm/s Right Atrial Pressure 3.0 mmHg Pulmonary Artery Systolic Pressu 16.5 mmHg PV Peak Velocity 123.0 cm/s FINDINGS Left Ventricle Left ventricle is normal in size. LV systolic function is normal with EF 55 to 60%. No regional wall motion abnormalities are seen. Grade 1 diastolic dysfunction is noted. Right Ventricle Right ventricle is normal in size and function Right Atrium Normal in size Left Atrium Normal in size Mitral Valve Moderate mitral annular calcification is seen. Trace mitral regurgitation is seen. No significant stenosis Aortic Valve Aortic valve is thickened and calcified. No significant stenosis. Trace aortic regurgitation Tricuspid Valve Trace tricuspid regurgitation. Insufficient TR jet to calculate RVSP. Pulmonic Valve Not well-visualized Pericardium Normal Aorta Normal in size IVC CONCLUSIONS LV systolic function is normal with EF of 55-60% Grade 1 diastolic dysfunction Moderate mitral annular calcification. Trace mitral regurgitation. Trace aortic regurgitation. Trace tricuspid regurgitation No comparison studies are available Mani Becerra MD (Electronically Signed) Final Date: 21 July 2022 15:02 S
== END 2022-07-17 12:53 | disposition home or self-care (01) ==
PROVIDERS: PCP Family Medicine; Visit Provider Internal Medicine Cardiovascular Disease
DX: R06.00 Dyspnea, unspecified (principal); I51.89 Other ill-defined heart diseases
CPT/HCPCS: 93306

== ENCOUNTER → 2022-09-05 11:05 | Outpatient (BNVA) | payer MEDICARE, OTHER, SELFPAY | PROVIDERS: PCP Family Medicine; Visit Provider Internal Medicine Cardiovascular Disease | DX: R06.02 Shortness of breath (principal); I48.91 Unspecified atrial fibrillation; E11.9 Type 2 diabetes mellitus without complications; E78.5 Hyperlipidemia, unspecified; I10 Essential (primary) hypertension; S70.10XA Contusion of unspecified thigh, initial encounter | CPT/HCPCS: 36415; 80048; 83880; 99214 ==

== ENCOUNTER 2022-09-11 07:22 | Outpatient (CLI) | payer MEDICARE, OTHER, SELFPAY ==
--- NOTE | 2022-09-11 07:26 | ECG_ITS ---
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 Interpretive Statements NAME OF STUDY: LEXISCAN SESTAMIBI STRESS TEST INDICATION: Dyspnea on Exertion, PROCEDURE: At the baseline, the EKG revealed sinus tachycardia with a heart rate of 102 bpm. Poor R wave progression suggesting old anteroseptal ID. Possible old inferior wall ID. Minimal left axis deviation. The baseline heart was 104 bpm with a blood pressue of 180/106 mm of Hg Lexiscan was infused over a period of 20 seconds. A total of 0.4 milligrams of Lexiscan was infused. The stress phase was continued for a total of 5 minutes. Heart rate at the end of the stress phase was 102 bpm with a blood pressure 178/74 mm of Hg. The EKG at the peak infusion revealed no significant changes. Sestamibi was injected 20 seconds after the Lexiscan infusion. Heart rate at the end of the recovery phase was 103 bpm with a blood pressure of 173/93 mm of Hg. CONCLUSION: 1. No significant EKG changes with the LexiScan infusion 2. No LexiScan induced chest pain or cardiac arrhythmia 3. Normal blood pressure and heart rate response 4. Sestamibi/sestamibi perfusion scan pending; see separate report. Electronically Signed On 09-14-2022 7:37:33 CDT by Enrico River M.D. [id number]
--- NOTE | 2022-09-11 07:27 | NMCV_ITS ---
NM ruthie perf SPECT r/s* [id number] Marco Antonio Mosquera Age: 82 Gender: M : 1940 Exam Date: 09/11/2022 08:36 Ordering Phys: Enrico River MD ([email or web address]) Technologist: ISABELL Lewis Exam Location: [facility] Indications: ESSENTIAL HYPERTENSION STRESS TEST Please see separate stress test report in Ephiphany for full findings IMAGE PROTOCOL Rest/Stress 1 Lexiscan Day Radiopharmaceutical Dose (mCi) Administration Site Administered by Rest: Tc-99m 10.7 IV ISABELL Webster Sestamibi Stress:Tc-99m 33.0 IV ISABELL Webster Sestamibi Rest: 11-Sep-2022 60 Discovery 630 Stress: 11-Sep-2022 30 Discovery 630 0.4mg Lexiscan. Images obtained in supine and prone position. SPECT RESULTS Technical Quality: Excellent Raw Data Analysis: Normal Image Corrections: No attenuation or motion correction applied Summed Stress Score: 23 Summed Rest Score: 19 Summed Difference Score: 4 PERFUSION FINDINGS Moderate to large areas of moderate to severely decreased tracer uptake in the basal, mid and apical inferior; basal and mid inferolateral, apical lateral, mid inferoseptal, mid anteroseptal, apical septal and LV apex. Some reversibility was noted in the inferior and inferolateral and regions. FUNCTIONAL RESULTS (calculated via Gated SPECT) Stress Image LV EF (%): 58 Stress EDV (mL):110 TID: 1 Stress ESV (mL):46 FUNCTIONAL FINDINGS: Segmental wall motion analysis revealing mild hypokinesia of the LV apex. IMPRESSIONS 1. Myocardial perfusion imaging revealing areas of persistent decreased tracer uptake in the inferior, inferolateral, inferoseptal and apical regions with some reversibility, suggesting extensive myocardial scarring in the distribution of the left circumflex and right coronary arteries with areas of possible mikael-infarction ischemia mostly in the circumflex distribution .there is some involvement of the right coronary artery territory as well.. 2. Normal LV ejection fraction 58%. 3. Wall motion abnormality as mentioned above. 4. LV volume, upper limit of normal. No similar previous studies are available for comparison Dr Enrico River MD [facility] (Electronically Signed) Final Date: 12 September 2022 12:15 S
[2022-09-11 07:40] VITALS: BMI 30.9
[2022-09-11] MEDS: regadenoson 0.4 Mg/5 ml Syringe IVP (09:03)
[2022-09-11 09:16] VITALS: BP 177/76; PULSE 101
== END 2022-09-11 07:23 | disposition home or self-care (01) ==
PROVIDERS: PCP Family Medicine; Visit Provider Internal Medicine Cardiovascular Disease
DX: R06.09 Other forms of dyspnea (principal); I10 Essential (primary) hypertension
CPT/HCPCS: 78452; 93017; A9500; J2785

== ENCOUNTER → 2022-11-14 11:50 | Outpatient (BNVA) | payer MEDICARE, OTHER, SELFPAY | PROVIDERS: PCP Family Medicine; Visit Provider Family Medicine | DX: E11.9 Type 2 diabetes mellitus without complications (principal); I10 Essential (primary) hypertension; E78.5 Hyperlipidemia, unspecified; I48.91 Unspecified atrial fibrillation | CPT/HCPCS: 80053; 80061; 83036; 84443; 85025 ==

== ENCOUNTER → 2023-02-11 11:00 | Outpatient (BNVA) | payer MEDICARE, OTHER, SELFPAY | PROVIDERS: PCP Family Medicine; Visit Provider Podiatrist Foot & Ankle Surgery | DX: E11.9 Type 2 diabetes mellitus without complications (principal); B35.1 Tinea unguium; I73.9 Peripheral vascular disease, unspecified; R60.9 Edema, unspecified; Z79.84 Long term (current) use of oral hypoglycemic drugs; Z79.4 Long term (current) use of insulin | CPT/HCPCS: 11721; 99203 ==

== ENCOUNTER → 2023-03-13 09:52 | Outpatient (BNVA) | payer MEDICARE, OTHER, SELFPAY | PROVIDERS: PCP Family Medicine; Visit Provider Internal Medicine Cardiovascular Disease | DX: I48.91 Unspecified atrial fibrillation (principal); I10 Essential (primary) hypertension; R60.9 Edema, unspecified; E78.2 Mixed hyperlipidemia; I73.9 Peripheral vascular disease, unspecified; E11.9 Type 2 diabetes mellitus without complications; Z87.891 Personal history of nicotine dependence; Z79.4 Long term (current) use of insulin; Z79.82 Long term (current) use of aspirin | CPT/HCPCS: 99214 ==

== ENCOUNTER → 2023-04-22 07:44 | Outpatient (BNVA) | payer MEDICARE, OTHER, SELFPAY | PROVIDERS: PCP Family Medicine; Visit Provider Podiatrist Foot & Ankle Surgery | DX: E11.51 Type 2 diabetes mellitus with diabetic peripheral angiopathy without gangrene (principal); B35.1 Tinea unguium; L84 Corns and callosities; S90.212A Contusion of left great toe with damage to nail, initial encounter; R60.0 Localized edema; W22.8XXA Striking against or struck by other objects, initial encounter; Z79.84 Long term (current) use of oral hypoglycemic drugs; Z79.4 Long term (current) use of insulin | CPT/HCPCS: 11056; 11721; 99213 ==

== ENCOUNTER → 2023-06-27 10:53 | Outpatient (BNVA) | payer MEDICARE, OTHER, SELFPAY | PROVIDERS: PCP Family Medicine; Visit Provider Nurse Practitioner Family | DX: R05.9 Cough, unspecified (principal); J44.1 Chronic obstructive pulmonary disease with (acute) exacerbation | CPT/HCPCS: 87426 ==

== ENCOUNTER → 2023-07-01 10:09 | Outpatient (BNVA) | payer MEDICARE, OTHER, SELFPAY | PROVIDERS: PCP Family Medicine; Visit Provider Podiatrist Foot & Ankle Surgery | DX: B35.1 Tinea unguium (principal); L84 Corns and callosities; R60.0 Localized edema; E11.51 Type 2 diabetes mellitus with diabetic peripheral angiopathy without gangrene; I73.9 Peripheral vascular disease, unspecified; Z79.84 Long term (current) use of oral hypoglycemic drugs; Z79.4 Long term (current) use of insulin | CPT/HCPCS: 11721 ==

== ENCOUNTER → 2023-09-09 09:26 | Outpatient (BNVA) | payer MEDICARE, OTHER, SELFPAY | PROVIDERS: PCP Family Medicine; Visit Provider Podiatrist Foot & Ankle Surgery | DX: B35.1 Tinea unguium (principal); L84 Corns and callosities; R60.0 Localized edema; E11.51 Type 2 diabetes mellitus with diabetic peripheral angiopathy without gangrene; I73.9 Peripheral vascular disease, unspecified; Z79.84 Long term (current) use of oral hypoglycemic drugs; Z79.4 Long term (current) use of insulin | CPT/HCPCS: 11721 ==

== ENCOUNTER → 2023-09-25 11:28 | Outpatient (BNVA) | payer MEDICARE, OTHER, SELFPAY | PROVIDERS: PCP Family Medicine; Visit Provider Internal Medicine Cardiovascular Disease | DX: I10 Essential (primary) hypertension (principal); E78.5 Hyperlipidemia, unspecified; I48.91 Unspecified atrial fibrillation; R60.9 Edema, unspecified; E78.2 Mixed hyperlipidemia; E11.51 Type 2 diabetes mellitus with diabetic peripheral angiopathy without gangrene; Z79.4 Long term (current) use of insulin; Z87.891 Personal history of nicotine dependence | CPT/HCPCS: 99214 ==

== ENCOUNTER → 2023-09-30 08:25 | Outpatient (BNVA) | payer MEDICARE, OTHER, SELFPAY | PROVIDERS: PCP Family Medicine; Visit Provider Internal Medicine Cardiovascular Disease | DX: E78.5 Hyperlipidemia, unspecified (principal); E11.9 Type 2 diabetes mellitus without complications; I10 Essential (primary) hypertension | CPT/HCPCS: 80053; 80061; 80076; 83036; 85025 ==

== ENCOUNTER → 2023-10-15 15:08 | Outpatient (BNVA) | payer MEDICARE, OTHER, SELFPAY | PROVIDERS: PCP Family Medicine; Visit Provider Nurse Practitioner Family | DX: J43.9 Emphysema, unspecified (principal) | CPT/HCPCS: 71046 ==

== ENCOUNTER → 2023-12-09 10:33 | Outpatient (BNVA) | payer MEDICARE, OTHER, SELFPAY | PROVIDERS: PCP Family Medicine; Visit Provider Podiatrist Foot & Ankle Surgery | DX: B35.1 Tinea unguium (principal); L84 Corns and callosities; R60.0 Localized edema; E11.51 Type 2 diabetes mellitus with diabetic peripheral angiopathy without gangrene; I73.9 Peripheral vascular disease, unspecified; Z79.4 Long term (current) use of insulin; Z79.84 Long term (current) use of oral hypoglycemic drugs | CPT/HCPCS: 11056; 11721 ==

== ENCOUNTER → 2024-01-22 16:04 | Outpatient (BNVA) | payer MEDICARE, OTHER, SELFPAY | PROVIDERS: PCP Family Medicine; Referring Provider Nurse Practitioner Family; Visit Provider Internal Medicine Pulmonary Disease | DX: M25.641 Stiffness of right hand, not elsewhere classified (principal); M25.642 Stiffness of left hand, not elsewhere classified; J44.89 Other specified chronic obstructive pulmonary disease | CPT/HCPCS: 36415; 80053; 82785; 85651; 86003; 86038; 86140; 86200; 86225; 86235; 86431; 99204 ==

== ENCOUNTER 2024-02-05 12:26 | Outpatient (CLI) | payer MEDICARE, OTHER, SELFPAY ==
[2024-02-05 12:39] VITALS: PULSE 80; RESP 18; O2SAT 97
[2024-02-05] MEDS: albuterol 2.5 mg/3 mL Neb INHALATION (12:39)
[2024-02-05 12:44] VITALS: PULSE 83
== END 2024-02-05 12:27 | disposition home or self-care (01) ==
LOC: RT 12:26
PROVIDERS: PCP Family Medicine; Visit Provider Internal Medicine Pulmonary Disease
DX: J44.89 Other specified chronic obstructive pulmonary disease (principal); Z87.891 Personal history of nicotine dependence; R94.2 Abnormal results of pulmonary function studies
CPT/HCPCS: 94060; 94726; 94729; J7613

== ENCOUNTER → 2024-02-10 09:08 | Outpatient (BNVA) | payer MEDICARE, OTHER, SELFPAY | PROVIDERS: PCP Family Medicine; Visit Provider Podiatrist Foot & Ankle Surgery | DX: B35.1 Tinea unguium (principal); L84 Corns and callosities; R60.0 Localized edema; E11.51 Type 2 diabetes mellitus with diabetic peripheral angiopathy without gangrene; I73.9 Peripheral vascular disease, unspecified; Z79.84 Long term (current) use of oral hypoglycemic drugs; Z79.4 Long term (current) use of insulin | CPT/HCPCS: 11056; 11721 ==

== ENCOUNTER → 2024-03-04 13:26 | Outpatient (BNVA) | payer MEDICARE, OTHER, SELFPAY | PROVIDERS: PCP Family Medicine; Visit Provider Nurse Practitioner Family | DX: E11.9 Type 2 diabetes mellitus without complications (principal) | CPT/HCPCS: 80053; 80061; 83036; 84443; 85025 ==

== ENCOUNTER → 2024-04-02 11:55 | Outpatient (BNVA) | payer MEDICARE, OTHER, SELFPAY | PROVIDERS: PCP Family Medicine; Visit Provider Nurse Practitioner Family | DX: D48.5 Neoplasm of uncertain behavior of skin (principal); L82.1 Other seborrheic keratosis; L57.0 Actinic keratosis; L85.8 Other specified epidermal thickening; B07.8 Other viral warts | CPT/HCPCS: 11102; 17000; 17110; 99203 ==

== ENCOUNTER → 2024-04-20 10:16 | Outpatient (BNVA) | payer MEDICARE, OTHER, SELFPAY | PROVIDERS: PCP Family Medicine; Visit Provider Podiatrist Foot & Ankle Surgery | DX: B35.1 Tinea unguium (principal); L84 Corns and callosities; R60.0 Localized edema; E11.51 Type 2 diabetes mellitus with diabetic peripheral angiopathy without gangrene; I73.9 Peripheral vascular disease, unspecified; Z79.4 Long term (current) use of insulin; Z79.84 Long term (current) use of oral hypoglycemic drugs | CPT/HCPCS: 11056; 11721 ==

== ENCOUNTER → 2024-06-16 08:44 | Outpatient (BNVA) | payer MEDICARE, OTHER, SELFPAY | PROVIDERS: PCP Family Medicine; Visit Provider Internal Medicine Rheumatology | DX: R76.8 Other specified abnormal immunological findings in serum (principal); M25.641 Stiffness of right hand, not elsewhere classified; M25.642 Stiffness of left hand, not elsewhere classified; E11.9 Type 2 diabetes mellitus without complications; J44.89 Other specified chronic obstructive pulmonary disease | CPT/HCPCS: 36415; 86803; 99204 ==

== ENCOUNTER → 2024-06-22 09:56 | Outpatient (BNVA) | payer MEDICARE, OTHER, SELFPAY | PROVIDERS: PCP Family Medicine; Visit Provider Podiatrist Foot & Ankle Surgery | DX: B35.1 Tinea unguium (principal); L84 Corns and callosities; R60.0 Localized edema; E11.51 Type 2 diabetes mellitus with diabetic peripheral angiopathy without gangrene; I73.9 Peripheral vascular disease, unspecified; Z79.84 Long term (current) use of oral hypoglycemic drugs; Z79.4 Long term (current) use of insulin | CPT/HCPCS: 11721 ==

== ENCOUNTER → 2024-08-24 10:13 | Outpatient (BNVA) | payer MEDICARE, OTHER, SELFPAY | PROVIDERS: PCP Family Medicine; Visit Provider Podiatrist Foot & Ankle Surgery | DX: B35.1 Tinea unguium (principal); L84 Corns and callosities; R60.0 Localized edema; E11.51 Type 2 diabetes mellitus with diabetic peripheral angiopathy without gangrene; I73.9 Peripheral vascular disease, unspecified; Z79.4 Long term (current) use of insulin; Z79.84 Long term (current) use of oral hypoglycemic drugs | CPT/HCPCS: 11721 ==

== ENCOUNTER → 2024-09-30 12:01 | Outpatient (BNVA) | payer MEDICARE, OTHER, SELFPAY | PROVIDERS: PCP Nurse Practitioner Family; Visit Provider Nurse Practitioner Family | DX: Z12.5 Encounter for screening for malignant neoplasm of prostate (principal); E11.9 Type 2 diabetes mellitus without complications | CPT/HCPCS: 80053; 80061; 82607; 83036; 83721; 84443; 85025; G0103 ==

== ENCOUNTER 2024-10-07 10:42 | Inpatient (IN) | payer MEDICARE, OTHER, SELFPAY ==
[2024-10-07] VITALS (18 sets, daily range): BP systolic 138–206; BP diastolic 61–111; PULSE 72–95; RESP 16–26; TEMP 36.4–36.9; O2SAT 92–96; BMI 29.3; BMI 31.6
--- NOTE | 2024-10-07 10:47 | ECG_ITS ---
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 Measurements Intervals [place] Rate: 83 P: 63 [place]: 220 QRS: -81 QRSD: 101 T: 83 QT: 407 QTc: 479 Interpretive Statements SINUS RHYTHM WITH FIRST DEGREE AV BLOCK WITH OCCASIONAL SUPRAVENTRICULAR PREMATURE COMPLEXES POSSIBLE RIGHT VENTRICULAR CONDUCTION DELAY [RSR (QR) IN V1/V2] ANTERIOR MYOCARDIAL INFARCTION , PROBABLY OLD [40+ ms Q WAVE AND/OR ST/T ABNORMALITY IN V3/V4] Compared to ECG 09/25/2020 00:46:43 First degree AV block now present Left anterior fascicular block no longer present Myocardial infarct finding still present Electronically Signed On 10-07-2024 19:01:55 RUBBER OFF by Enrico River M.D. [id number]
--- NOTE | 2024-10-07 10:51 | XRR_ITS ---
PROCEDURE INFORMATION: Exam: XR Chest Exam date and time: 10/07/2024 11:01 AM Age: 84 years old Clinical indication: Shortness of breath; Additional info: SOB TECHNIQUE: Imaging protocol: Radiologic exam of the chest. Views: 1 view. COMPARISON: CR XR chest 2V* [id number] 10/15/2023 3:14 PM FINDINGS: Lungs: Unremarkable. No consolidation. Pleural spaces: Unremarkable. No pleural effusion. No pneumothorax. Heart/Mediastinum: Unremarkable. No cardiomegaly. Bones/joints: Unremarkable. XR/XR chest 1V portable [id number] IMPRESSION: No acute findings.
--- NOTE | 2024-10-07 10:53 | ED_ITS ---
HPI - SOB/Dyspnea 2 General: Chief Complaint: Shortness of Breath/Dyspnea Stated Complaint: SOB Time Seen by Provider: 10/07/24 10:43 Source: patient and EMS Mode of arrival: EMS Limitations: no limitations History of Present Illness: HPI Narrative: 84-year-old male who has history of COPD along with CHF states that he has had some increasing shortness of breath over the last 2 days states he wears 2 L oxygen at home was increased up to 3 had a slight cough denies any fever he is given Lasix and route by EMS. Associated symptoms: Deny abdominal pain, chest pain, fever(s), nausea or vomiting Related Data Home Medications Medication Instructions Recorded Confirmed B-complex with vitamin C 1 cap PO DAILY 01/22/24 10/07/24 diltiazem HCl 120 mg tablet 120 mg PO BID 10/07/24 10/07/24 fenofibrate 160 mg tablet 160 mg PO DAILY 10/07/24 10/07/24 metformin 1,000 mg tablet 1,000 mg PO BID 10/07/24 10/07/24 metoprolol tartrate 100 mg tablet 100 mg PO BID 10/07/24 10/07/24 omeprazole 40 mg capsule,delayed 40 mg PO DAILY 10/07/24 10/07/24 release Previous Rx's Medication Instructions Recorded nebulizers #1 ea 12/12/20 nystatin 100,000 unit/gram topical See Rx Instructions .Route 08/09/23 cream .COMPLEX #30 grams furosemide 40 mg tablet (Lasix) 40 mg PO DAILY PRN edema #90 tabs 08/19/23 albuterol sulfate 90 mcg/actuation 2 puff inhalation QID PRN 11/21/23 aerosol inhaler (Ventolin HFA) Shortness Of Breath #18 grams Lc sprint mouthpiece for nebulizer #1 ea 02/21/24 blood sugar diagnostic (True #100 ea 06/09/24 Metrix Glucose Test Strip) albuterol sulfate 2.5 mg/3 mL See Rx Instructions .Route 07/08/24 (0.083 %) solution for nebulization .COMPLEX #30 ea arformoterol 15 mcg/2 mL solution See Rx Instructions .Route 07/08/24 for nebulization .COMPLEX #60 ea nebulizer machine with tubing and #1 ea 07/08/24 delivery device insulin glargine 100 unit/mL (3 See Rx Instructions .Route 09/30/24 mL) subcutaneous pen (Lantus .COMPLEX #30 mL Solostar U-100 Insulin) mometasone-formoterol HFA 100 2 puff inhalation BID #13 grams 09/30/24 mcg-5 mcg/actuation aerosol inhaler (Dulera) rosuvastatin 10 mg tablet 10 mg PO DAILY #90 tabs 09/30/24 Allergies Allergy/AdvReac Type Severity Reaction Status Date / Time No Known Allergies Allergy Verified 10/05/24 14:46 Review of Systems 2 Const: Denies: fever(s), chills, body aches or change in appetite ENMT: Denies: throat pain or dental pain Card: Denies: chest pain Resp: Reports: dyspnea GI: Denies: abdominal pain, nausea, vomiting or diarrhea Musc: Denies: neck pain or back pain Skin/Breast: Denies: rash Neuro: Denies: headache(s) PFSH ED 2 PFSH: Medical History Rheumatoid factor positive Nocturnal hypoxia Unable to ambulate Abnormal WBC count Chronic anticoagulation A-fib COPD (chronic obstructive pulmonary disease) with emphysema Hypertension Diabetes Hyperlipemia GERD (gastroesophageal reflux disease) Surgical History History of appendectomy Family History Other CAD (coronary artery disease) Social History Smoking and tobacco/nicotine status: former use of tobacco/nicotine Quit status (tobacco/nicotine): has quit using Year quit tobacco: 1988 Former quit date comment: 2 ppd X 15 years Second hand smoke exposure: No Alcohol intake: never Substance/Drug Use: never Lives independently: Yes Household members: spouse Marital status: Current occupational status: retired Current gender identity: Male Special laya needs: No Agree to transfusion: Yes Physical Exam 2 Const: COMMON NORMALS: patient oriented x3 HENMT: COMMON NORMALS: normocephalic and atraumatic HEAD & SCALP: n ormocephalic and atraumatic Eye: COMMON NORMALS: Equal, round and reactive pupils present and EOMs intact bilaterally PUPIL: Yes Equal, round and reactive pupils present Neck/C-Spine: COMMON NORMALS: full ROM and supple Chest: COMMONS NORMALS: normal inspection of the chest and normal palpation of entire chest wall Resp: COMMON NORMALS: normal respiratory effort, No retractions, No use of accessory muscles and clear to auscultation bilaterally AUSCULTATION: clear to auscultation bilaterally Cardio: COMMON NORMALS: regular rate, regular rhythm and No murmurs present (Cardio) RATE: regular rate RHYTHM: regular rhythm GI: COMMON NORMALS: Normal to inspection, nondistended, normoactive bowel sounds present, Soft to palpation, non-tender and no masses PALPATION: Yes Soft to palpation Extremity: COMMON NORMALS: full ROM NARRATIVE EXTREMITY EXAM: 2+ lower ext edema Neuro: COMMON NORMALS: patient oriented x3, moves all extremities and no focal motor deficits Psych: COMMON NORMALS: mental status grossly normal, Normal thought process present and cooperative THOUGHT PROCESS: Normal thought process present Skin: COMMON NORMALS: no rashes or lesions noted and no wounds GENERAL SKIN EXAM: no rashes or lesions noted Course 2 Vital Signs: Vital signs: Vital Signs Temperature 98.2 F 10/07/24 10:45 Pulse Rate 89 10/07/24 11:27 Respiratory Rate 18 10/07/24 11:19 Blood Pressure 167/99 10/07/24 10:45 Pulse Oximetry 95 10/07/24 11:19 Oxygen Delivery Me thod Nasal Cannula 10/07/24 11:19 Oxygen Flow Rate 3.5 10/07/24 11:19 MDM - SOB/Dyspnea Medical Decision Making Patient presents here with shortness of breath along with lower extreme edema likely CHF is also having hypoxia requiring 3 to 4 L of oxygen I spoke to the hospitalist will admit at this time. Medical Records I reviewed the patient's medical records. Lab Data I reviewed the patient's lab results. 10/07/24 12:22 10/07/24 12:22 Labs/Radiology: Radiology Impressions Chest X-Ray 10/07/24 10:51 IMPRESSION: No acute findings. Laboratory Results WBC 18.71 10^3/uL (3.29-11.43) H 10/07/24 12:22 RBC 4.72 10^6/uL (3.85-5.65) 10/07/24 12:22 Hgb 14.00 g/dL (11.27-16.99) 10/07/24 12:22 Hct 43.5 % (37-53) 10/07/24 12:22 MCV 92.2 fl (82-101) 10/07/24 12:22 MCH 29.7 pg (27-33) 10/07/24 12:22 MCHC 32.2 g/dL (30-55) 10/07/24 12:22 RDW 13.2 % (12.1-15.1) 10/07/24 12:22 Plt Count 431 10^3/cmm (157-399) H 10/07/24 12:22 MPV 10.0 fL (7.4-10.4) 10/07/24 12:22 Neut % (Auto) 85.7 % 10/07/24 12:22 Lymph % (Auto) 7.2 % 10/07/24 12:22 Vance % (Auto) 6.0 % 10/07/24 12:22 Eos % (Auto) 0.5 % 10/07/24 12:22 Baso % (Auto) 0.2 % 10/07/24 12:22 Neut # (Auto) 16.04 10^3/uL (1.8-7.7) H 10/07/24 12:22 Lymph # (Auto) 1.3 10^3/uL (0.8-4.8) 10/07/24 12:22 Vance # (Auto) 1.1 10^3/uL (0.2-0.9) H 10/07/24 12:22 Eos # (Auto) 0.1 10^3/uL (0.0-0.8) 10/07/24 12:22 Baso # (Auto) 0.0 10^3/uL (0.0-0.1) 10/07/24 12:22 Nucleated RBC % (auto) 0 % 10/07/24 12:22 Nucleated RBCs # 0.0 /100WBC 10/07/24 12:22 Sodium 139 mmol/L (136-145) 10/07/24 12:22 Potassium 3.2 mmol/L (3.5-5.1) L 10/07/24 12:22 Chloride 102 mmol/L (98-107) 10/07/24 12:22 Carbon Dioxide 20 mmol/L (22-29) L 10/07/24 12:22 Anion Gap 20.2 (5-19) H 10/07/24 12:22 BUN 17 mg/dL (8-23) 10/07/24 12:22 Creatinine 1.3 mg/dL (0.7-1.2) H 10/07/24 12:22 GFR Calculation Not Reportable 10/07/24 12:22 Glucose 194 mg/dL (65-115) H 10/07/24 12:22 Calculated Osmolality 295 mOsm/kg (285-295) 10/07/24 12:22 Calcium 8.8 mg/dL (8.5-10.5) 10/07/24 12:22 Total Bilirubin 0.4 mg/dL (0.15-1.2) 10/07/24 12:22 AST 19 U/L (0-40) 10/07/24 12:22 ALT 17 U/L (0-41) 10/07/24 12:22 Alkaline Phosphatase 87 U/L (40-130) 10/07/24 12:22 NT-Pro-B Natriuret Pep 1565 pg/mL (0-450) H 10/07/24 12:22 Total Protein 6.8 g/dL (6.6-8.7) 10/07/24 12:22 Albumin 3.6 g/dL (3.5-5.2) 10/07/24 12:22 Globulin 3.2 g/dL (1.3-4.6) 10/07/24 12:22 Coronavirus (PCR) Negative (Negative) 10/07/24 11:24 Influenza A (PCR) Negative (Negative) 10/07/24 11:24 Influenza Type B (PCR) Negative (Negative) 10/07/24 11:24 RSV (PCR) Negative (Negative) 10/07/24 11:24 All radiology interpretation(s) finalized by discharge Discharge Plan Discharge Patient Disposition: Admitted As Inpatient Clinical Impression: Acute respiratory failure with hypoxia Condition: Stable Prescriptions: No Action (DME) nebulizers Misc See Rx Instructions .ROUTE .MEDSUPPLY Qty: 1 0RF Rx Instructions: As directed B-complex with vitamin C Capsule 1 cap PO DAILY rosuvastatin 10 mg tablet 10 mg PO DAILY Qty: 90 1RF Dulera 100-5 mcg/actuation HFA aerosol inhaler 2 puff inhalation BID Qty: 13 5RF Lantus Solostar U-100 Insulin 100 unit/mL (3 mL) insulin pen See Rx Instructions .ROUTE .COMPLEX Qty: 30 5RF Dose Instruction: INJECT 48 UNITS SUBCUTANEOUSLY TWICE DAILY Rx Instructions: INJECT 48 UNITS SUBCUTANEOUSLY TWICE DAILY albuterol sulfate 2.5 mg /3 mL (0.083 %) solution for nebulization See Rx Instructions .ROUTE .COMPLEX Qty: 30 12RF Dose Instruction: USE 1 VIAL IN NEBULIZER 3 TIMES DAILY - for rescue (MAX 30 DOSES PER MONTH) Rx Instructions: USE 1 VIAL IN NEBULIZER 3 TIMES DAILY - for rescue (MAX 30 DOSES PER MONTH) arformoterol 15 mcg/2 mL solution for nebulization See Rx Instructions .ROUTE .COMPLEX Qty: 60 12RF Dose Instruction: USE 1 VIAL IN NEBULIZER EVERY 12 HOURS - - morning and evening Rx Instructions: USE 1 VIAL IN NEBULIZER EVERY 12 HOURS - - morning and evening (DME) nebulizer machine with tubing and delivery device See Rx Instructions .Route .MEDSUPPLY Qty: 1 0RF Rx Instructions: As directed nystatin 100,000 unit/gram cream See Rx Instructions .ROUTE .COMPLEX Qty: 30 1RF Dose Instruction: APPLY topically At Bedtime Rx Instructions: APPLY topically At Bedtime furosemide [Lasix] 40 mg tablet 40 mg PO DAILY PRN (Reason: edema) Qty: 90 3RF albuterol sulfate [Ventolin HFA] 90 mcg/actuation HFA aerosol inhaler 2 puff inhalation QID PRN (Reason: Shortness Of Breath) Qty: 18 2RF (DME) Lc sprint mouthpiece for nebulizer See Rx Instructions .Route .MEDSUPPLY Qty: 1 0RF Rx Instructions: As directed (DME) True Metrix Glucose Test Strip Strip See Rx Instructions .ROUTE .COMPLEX Qty: 100 6RF Dose Instruction: USE TO test THREE TIMES DAILY Rx Instructions: USE TO test THREE TIMES DAILY metoprolol tartrate 100 mg tablet 100 mg PO BID omeprazole 40 mg capsule,delayed release(DR/EC) 40 mg PO DAILY diltiazem HCl 120 mg tablet 120 mg PO BID metformin 1,000 mg tablet 1,000 mg PO BID fenofibrate 160 mg tablet 160 mg PO DAILY Referrals: Shaniqua Newman FNP [Primary Care Provider] - Coding Level of Care Code ED Cementer 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
[2024-10-07] MEDS: ipratropium-albuterol 3 mL Neb INHALATION ×2 (11:18→20:43)
[2024-10-07] MEDS: methylPREDNISolone sod succ 125 mg/2 mL INJ IV (11:39)
[2024-10-07 12:35] LABS: Covid PCR NEGATIVE (Negative); Influenza A NEGATIVE (Negative); Influenza B NEGATIVE (Negative); Respiratory Syncytial Virus Ce NEGATIVE (Negative)
[2024-10-07 12:37] LABS: Basophils % 0.2 %; Eosinophils # 0.1 10^3/uL (0.0-0.8); Eosinophils % 0.5 %; Hematocrit 43.5 % (37-53); Lymphocytes # 1.3 10^3/uL (0.8-4.8); Lymphocytes % 7.2 %; Mean Corpuscular HGB Conc 32.2 g/dL (30-55); Mean Corpuscular Hemoglobin 29.7 pg (27-33); Mean Corpuscular Volume 92.2 fl (82-101); Monocytes # 1.1 10^3/uL (0.2-0.9); Neutrophils # 16.04 10^3/uL (1.8-7.7); Neutrophils % 85.7 %; Nucleated Red Blood Cells % 0 %; Platelet Count 431 10^3/cmm (157-399); Red Blood Count 4.72 10^6/uL (3.85-5.65); Red Cell Distribution Width 13.2 % (12.1-15.1); White Blood Count 18.71 10^3/uL (3.29-11.43)
[2024-10-07 13:03] LABS: Alanine Aminotransferase 17 U/L (0-41); Albumin Level 3.6 g/dL (3.5-5.2); Alkaline Phosphatase 87 U/L (40-130); Anion Gap 20.2 (5-19); Aspartate Amino Transferase 19 U/L (0-40); Blood Urea Nitrogen 17 mg/dL (8-23); Calcium 8.8 mg/dL (8.5-10.5); Carbon Dioxide 20 mmol/L (22-29); Chloride 102 mmol/L (98-107); Creatinine Clr Calc Pharmacy 57.8374; Globulin 3.2 g/dL (1.3-4.6); Glucose 194 mg/dL (65-115); Osmolality Calculated 295 mOsm/kg (285-295); Potassium 3.2 mmol/L (3.5-5.1); Sodium 139 mmol/L (136-145); Total Bilirubin 0.4 mg/dL (0.15-1.2); Total Protein 6.8 g/dL (6.6-8.7)
[2024-10-07 13:23] LABS: NT Pro B Type Natriuretic Pept 1565 pg/mL (0-450)
[2024-10-07] MEDS: FUROsemide 10 mg/mL SDV 10mL 60 MG IVP (14:48)
--- NOTE | 2024-10-07 15:37 | ECG_ITS ---
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 Measurements Intervals [place] Rate: 91 P: 74 [place]: 196 QRS: -76 QRSD: 102 T: 91 QT: 384 QTc: 473 Interpretive Statements SINUS RHYTHM INCOMPLETE RIGHT BUNDLE BRANCH BLOCK [90+ ms QRS DURATION, TERMINAL R IN V1/V2, 40+ ms S IN I/aVL/V4/V5/V6] ANTERIOR MYOCARDIAL INFARCTION , PROBABLY OLD [40+ ms Q WAVE AND/OR ST/T ABNORMALITY IN V3/V4] INFERIOR MYOCARDIAL INFARCTION , PROBABLY OLD [40+ ms Q WAVE AND/OR ST/T ABNORMALITY IN II/aVF] Compared to ECG 09/25/2020 00:46:43 Incomplete right bundle-branch block now present Left anterior fascicular block no longer present Myocardial infarct finding still present Electronically Signed On 10-07-2024 19:01:27 PERIODICALS CLERK by Enrico River M.D. [email or web address]
--- NOTE | 2024-10-07 15:37 | USR_ITS ---
PROCEDURE INFORMATION: Exam: US Duplex Lower Extremity Veins, Bilateral Exam date and time: 10/07/2024 4:14 PM Age: 84 years old Clinical indication: Swelling (edema) of limb; Lower extremity, bilateral TECHNIQUE: Imaging protocol: Real-time duplex ultrasound of the bilateral extremities with 2-D randall scale, color Doppler flow and spectral waveform analysis including responses to compression and other maneuvers (when performed) with image documentation. Complete exam focused on the lower extremity veins. COMPARISON: CT hip LT wo con* [id number] 05/03/2022 5:55 AM FINDINGS: Right deep veins: Unremarkable. The common femoral, femoral, proximal profunda femoral and popliteal veins are patent without thrombus. Normal Doppler waveforms. Normal compressibility and/or augmentation response. Left deep veins: Unremarkable. The common femoral, femoral, proximal profunda femoral and popliteal veins are patent without thrombus. Normal Doppler waveforms. Normal compressibility and/or augmentation response. Superficial veins: Greater saphenous veins at the saphenofemoral junctions are patent bilaterally without thrombus. Soft tissues: Unremarkable. US/CV venous duplex [facility] [id number] IMPRESSION: No evidence of deep vein thrombosis.
--- NOTE | 2024-10-07 15:42 | P.HP_ITS ---
Providers/Chief Complaint 2 Admitting Physician: Parth Aaron MD Primary Care Provider: YELITZA Davidson Chief Complaint: SOB History of Present Illness Marco Antonio Mosquera is a 84 year old male with a past medical history of COPD, insulin-dependent type 2 diabetes mellitus, dyslipidemia, atrial fibrillation, history of iliopsoas hematoma taken off Coumadin, not on anticoagulant therapy, hyperlipidemia, who presents [facility] due to progressive shortness of breath, cough, lower extreme edema. Patient tells me that he for the last few weeks, has been feeling increasingly short of breath, short of breath with minimal exertion, increased lower extreme edema, nonproductive cough, no fevers, no chills, no chest pain, he is on Lasix at home, no current smoking, Review of Systems 2 Const: Reports: fatigue and malaise; Denies: fever(s) or chills Card: Reports: chest pain Resp: Reports: dyspnea GI: Denies: abdominal pain Endo: Denies: polyuria Medications/Allergies Home Medications Medication Instructions Recorded Confirmed Last Taken Type nebulizers #1 ea 12/12/20 10/07/24 Unknown Rx nystatin 100,000 unit/gram topical See Rx Instructions .Route 08/09/23 10/07/24 Unknown Rx cream .COMPLEX #30 grams furosemide 40 mg tablet (Lasix) 40 mg PO DAILY PRN edema #90 tabs 08/19/23 10/07/24 Unknown Rx albuterol sulfate 90 mcg/actuation 2 puff inhalation QID PRN 11/21/23 10/07/24 Unknown Rx aerosol inhaler (Ventolin HFA) Shortness Of Breath #18 grams B-complex with vitamin C 1 cap PO DAILY 01/22/24 10/07/24 Unknown History Lc sprint mouthpiece for nebulizer #1 ea 02/21/24 10/07/24 Unknown Rx blood sugar diagnostic (True #100 ea 06/09/24 10/07/24 Unknown Rx Metrix Glucose Test Strip) albuterol sulfate 2.5 mg/3 mL See Rx Instructions .Route 07/08/24 10/07/24 Unknown Rx (0.083 %) solution for nebulization .COMPLEX #30 ea arformoterol 15 mcg/2 mL solution See Rx Instructions .Route 07/08/24 10/07/24 Unknown Rx for nebulization .COMPLEX #60 ea nebulizer machine with tubing and #1 ea 07/08/24 10/07/24 Unknown Rx delivery device insulin glargine 100 unit/mL (3 See Rx Instructions .Route 09/30/24 10/07/24 Unknown Rx mL) subcutaneous pen (Lantus .COMPLEX #30 mL Solostar U-100 Insulin) mometasone-formoterol HFA 100 2 puff inhalation BID #13 grams 09/30/24 10/07/24 Unknown Rx mcg-5 mcg/actuation aerosol inhaler (Dulera) rosuvastatin 10 mg tablet 10 mg PO DAILY #90 tabs 09/30/24 10/07/24 Unknown Rx diltiazem HCl 120 mg tablet 120 mg PO BID 10/07/24 10/07/24 Unknown History fenofibrate 160 mg tablet 160 mg PO DAILY 10/07/24 10/07/24 Unknown History metformin 1,000 mg tablet 1,000 mg PO BID 10/07/24 10/07/24 Unknown History metoprolol tartrate 100 mg tablet 100 mg PO BID 10/07/24 10/07/24 Unknown History omeprazole 40 mg capsule,delayed 40 mg PO DAILY 10/07/24 10/07/24 Unknown History release Allergies Allergy/AdvReac Type Severity Reaction Status Date / Time No Known Allergies Allergy Verified 10/05/24 14:46 PFSH Acute 2 PFSH: Medical History Rheumatoid factor positive Nocturnal hypoxia Unable to ambulate Abnormal WBC count Chronic anticoagulation A-fib COPD (chronic obstructive pulmonary disease) with emphysema Hypertension Diabetes Hyperlipemia GERD (gastroesophageal reflux disease) Surgical History History of appendectomy Family History Other CAD (coronary artery disease) Social History Smoking and tobacco/nicotine status: former use of tobacco/nicotine Quit status (tobacco/nicotine): has quit using Year quit tobacco: 1988 Former quit date comment: 2 ppd X 15 years Second hand smoke exposure: No Alcohol intake: never Substance/Drug Use: never Lives independently: Yes Household members: spouse Marital status: Current occupational status: retired Current gender identity: Male Special laya needs: No Agree to transfusion: Yes Vitals/I&O/Wt Last Vital Signs Temp 98.2 F 10/07/24 10:45 Pulse 82 10/07/24 14:30 Resp 17 10/07/24 13:30 BP 171/82 10/07/24 14:30 Pulse Ox 94 10/07/24 14:30 O2 Del Method Nasal Cannula 10/07/24 11:19 O2 Flow Rate 3.5 10/07/24 11:19 Weight last 48 hrs Weight 106.594 kg Physical Exam 2 Const: COMMON NORMALS: no acute distress and patient oriented x3 Eye: COMMON NORMALS: Equal, round and reactive pupils present Resp: COMMON NORMALS: normal respiratory effort, No retractions and No use of accessory muscles AUSCULTATION: crackles and wheezes Cardio: COMMON NORMALS: no JVD, regular rate, regular rhythm, S1 normal heart sound present and S2 normal heart sound present RATE: regular rate RHYTHM: regular rhythm HEART SOUNDS: S1 normal heart sound present and S2 normal heart sound present GI: COMMON NORMALS: Normal to inspection, nondistended, normoactive bowel sounds present, Soft to palpation and non-tender Extremity: NARRATIVE EXTREMITY EXAM: 2+ pitting edema Neuro: COMMON NORMALS: patient oriented x3, CN's II-XII intact bilaterally and moves all extremities Psych: COMMON NORMALS: mental status grossly normal Data 10/07/24 12:22 10/07/24 12:22 A&P Assessment and plan (1) Acute respiratory failure with hypoxia: (2) COPD exacerbation: (3) CHF exacerbation: (4) T2DM (type 2 diabetes mellitus): Plan Acute hypoxic respiratory failure ? Multifactorial ? Secondary to CHF exacerbation, fluid overload, elevated BNP, increased lower extreme edema ? Secondary to COPD ? Concerns for pneumonia given leukocytosis, cough ? Plan ? Monitor respiratory status closely # Has received 60 mg IV push Lasix in the emergency room, 40 mg IV every 12 hours # Continue prednisone 40 mg daily # Continue Rocephin Continue Zithromycin # Sputum cultures # Monitor respiratory status closely # Type 2 diabetes mellitus, Lantus 20 units twice daily, moderate dose sliding scale History of atrial fibrillation, continue Cardizem, not on anticoagulation due to history of iliopsoas hematoma history ? Full code Lovenox for DVT prophylaxis Attestations 2 Medical Necessity Statement*: Patient requires hospitalization, inpatient, greater than 2 midnights, for acute hypoxic respiratory failure secondary CHF, COPD concerns for pneumonia Diagnoses Acute respiratory failure with hypoxia J96.01 COPD exacerbation J44.1 CHF exacerbation I50.9 T2DM (type 2 diabetes mellitus) E11.9
--- NOTE | 2024-10-07 17:39 | ECG_ITS ---
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 Measurements Intervals [place] Rate: 98 P: 71 [place]: 198 QRS: -76 QRSD: 114 T: 81 QT: 387 QTc: 494 Interpretive Statements SINUS RHYTHM INCOMPLETE RIGHT BUNDLE BRANCH BLOCK [90+ ms QRS DURATION, TERMINAL R IN V1/V2, 40+ ms S IN I/aVL/V4/V5/V6] POSSIBLE ANTERIOR MYOCARDIAL INFARCTION , OF INDETERMINATE AGE [30 ms Q WAVE IN V3/V4, OR R < 0.2 mV IN V4] INFERIOR MYOCARDIAL INFARCTION , PROBABLY OLD [40+ ms Q WAVE AND/OR ST/T ABNORMALITY IN II/aVF] Compared to ECG 10/07/2024 15:45:11 No significant changes Electronically Signed On 10-07-2024 19:23:45 EFFICIENCY MINER BLASTING by Enrico River M.D. [id number]
[2024-10-07 17:47] LABS: Troponin(5th) Baseline 45 ng/L (0-15)
[2024-10-07] MEDS: insulin glargine 100 units/1 mL 20 UNIT SUBCUT (18:31)
[2024-10-07 18:32] LABS: Chol HDL Ratio 3.54 mg/dL (1.0-5.00); Cholesterol 92 mg/dL (0-200); HDL Cholesterol 26 mg/dL (60-100); LDL Cholesterol Calculated 13 mg/dL (50-129); Thyroid Stimulating Hormone 1.99 uIU/mL (0.27-4.20); Triglycerides 266 mg/dL (0-150)
[2024-10-07] MEDS: potassium chloride ER 20 mEq Tablet 40 MEQ PO (18:32)
[2024-10-07] MEDS: metoprolol tartrate 50 mg Tablet 100 MG PO (18:32)
[2024-10-07] MEDS: pantoprazole 40 mg SDV IVP (18:32)
[2024-10-07] MEDS: cefTRIAXone 1,000 mg SDV 1000 MG IVP (18:33)
[2024-10-07] MEDS: dilTIAZem 60 mg Tablet 120 MG PO (18:33)
[2024-10-07] MEDS: enoxaparin 40 mg/0.4 mL Syringe SUBCUT (18:33)
[2024-10-07] MEDS: AZITHROMYCIN ADD-Vantage 500 MG in 0.9% NaCl ADD-Vantage 250 ML 250 MG IV (18:34)
[2024-10-07] MEDS: insulin lispro 100 unit/1 mL SUBCUT ×2 (18:40→20:37)
[2024-10-07 18:42] LABS: C Reactive Protein 45.2 mg/L (0.0-4.9)
[2024-10-07 18:42] LABS: Glucose Point of Care 274 mg/dL (70-110)
[2024-10-07 20:08] LABS: Estmated Average Glucose 146; Hemoglobin A1C 6.7 % (4.0-6.0)
[2024-10-07 20:25] LABS: Troponin 5 2HR 40.95 ng/L (0-15); Troponin 5 2HR Delta -4.05 ABS# (0-10)
[2024-10-07 20:25] LABS: Glucose Point of Care 231 mg/dL (70-110)
[2024-10-07] MEDS: budesonide 0.5 mg/2 mL Neb INHALATION (20:43)
--- NOTE | 2024-10-07 20:52 | ECG_ITS ---
[employer] Test Date: 2024-10-07 Pat Name: Marco Antonio Mosquera Department: Room: 258 Gender: Male Event Producer: : 1940 Requested By: Parth Aaron Order Number: [id number] Asmita MD: Enrico River M.D. Measurements Intervals [place] Rate: 85 P: 214 [place]: 137 QRS: -79 QRSD: 108 T: 81 QT: 407 QTc: 486 Interpretive Statements ECTOPIC ATRIAL RHYTHM WITH OCCASIONAL SUPRAVENTRICULAR PREMATURE COMPLEXES POSSIBLE RIGHT VENTRICULAR CONDUCTION DELAY [RSR (QR) IN V1/V2] ANTERIOR MYOCARDIAL INFARCTION , OF INDETERMINATE AGE [40+ ms Q WAVE AND/OR ST/T ABNORMALITY IN V3/V4] INFERIOR MYOCARDIAL INFARCTION , PROBABLY OLD [40+ ms Q WAVE AND/OR ST/T ABNORMALITY IN II/aVF] Compared to ECG 10/07/2024 18:04:01 Ectopic atrial rhythm now present Sinus rhythm no longer present Incomplete right bundle-branch block no longer present Myocardial infarct finding still present Electronically Signed On 10-08-2024 13:52:44 FLOW MATCH SOFA CUTTER by Enrico River M.D. [id number]
[2024-10-07 23:56] LABS: Troponin 5 6HR 41.03 ng/L (0-15)
[2024-10-08] VITALS (15 sets, daily range): BP systolic 151–171; BP diastolic 73–84; PULSE 77–95; RESP 16–18; TEMP 36.6–36.7; O2SAT 94–97
[2024-10-08 00:04] LABS: Troponin 5 6HR Delta -3.97 ng/L (0-12)
[2024-10-08 04:43] LABS: Basophils % 0.1 %; Lymphocytes # 0.9 10^3/uL (0.8-4.8); Lymphocytes % 9.3 %; Mean Corpuscular HGB Conc 33.1 g/dL (30-55); Mean Corpuscular Hemoglobin 30.3 pg (27-33); Mean Corpuscular Volume 91.5 fl (82-101); Monocytes # 0.3 10^3/uL (0.2-0.9); Monocytes % 2.8 %; Neutrophils # 8.69 10^3/uL (1.8-7.7); Neutrophils % 87.2 %; Nucleated Red Blood Cells % 0 %; Platelet Count 360 10^3/cmm (157-399); Red Blood Count 4.26 10^6/uL (3.85-5.65); White Blood Count 9.97 10^3/uL (3.29-11.43)
[2024-10-08 05:04] LABS: Anion Gap 18.4 (5-19); Blood Urea Nitrogen 23 mg/dL (8-23); Calcium 8.9 mg/dL (8.5-10.5); Carbon Dioxide 24 mmol/L (22-29); Chloride 106 mmol/L (98-107); Creatinine Clr Calc Pharmacy 54.5727; Glucose 180 mg/dL (65-115); Magnesium 1.7 mg/dL (1.7-2.3); Osmolality Calculated 308 mOsm/kg (285-295); Potassium 3.4 mmol/L (3.5-5.1); Sodium 145 mmol/L (136-145)
[2024-10-08] MEDS: insulin glargine 100 units/1 mL 20 UNIT SUBCUT ×2 (05:14→17:33)
[2024-10-08] MEDS: FUROsemide 10 mg/mL SDV 4mL 40 MG IVP ×2 (05:14→17:33)
[2024-10-08 06:32] LABS: Glucose Point of Care 183 mg/dL (70-110)
[2024-10-08] MEDS: insulin lispro 100 unit/1 mL SUBCUT ×4 (08:02→20:40)
[2024-10-08] MEDS: metoprolol tartrate 50 mg Tablet 100 MG PO ×2 (08:03→17:33)
[2024-10-08] MEDS: predniSONE 20 mg Tablet 40 MG PO (08:03)
[2024-10-08] MEDS: dilTIAZem 60 mg Tablet 120 MG PO ×2 (08:03→17:33)
[2024-10-08] MEDS: fenofibrate 145 mg Tablet PO (08:03)
[2024-10-08] MEDS: atorvastatin 40 mg Tablet PO (08:03)
[2024-10-08] MEDS: acetaminophen 325 mg Tablet 650 MG PO ×2 (08:08→20:40)
[2024-10-08] MEDS: ipratropium-albuterol 3 mL Neb INHALATION ×4 (08:32→20:05)
[2024-10-08] MEDS: budesonide 0.5 mg/2 mL Neb INHALATION ×2 (08:32→20:05)
[2024-10-08 10:48] LABS: Glucose Point of Care 199 mg/dL (70-110)
--- NOTE | 2024-10-08 13:34 | P.PN_ITS ---
Subjective 2 Subjective: Patient was seen this morning, he does report shortness of breath that is persistent, lower extremity edema,, denies any fevers, no chills Vitals/I&O/Wt Last Vital Signs Temp 97.9 F 10/08/24 11:37 Pulse 85 10/08/24 13:10 Resp 16 10/08/24 11:45 BP 164/77 10/08/24 11:37 Pulse Ox 94 10/08/24 11:45 O2 Del Method Nasal Cannula 10/08/24 11:45 O2 Flow Rate 2 10/08/24 11:45 10/07/24 10/08/24 10/08/24 22:59 06:59 14:59 Intake Total 472 / 472 400 / 872 840 / 840 Output Total 200 / 200 600 / 600 Balance 272 / 272 400 / 672 240 / 240 Weight last 48 hrs Weight 110.359 kg Weight 115.031 kg Weight 106.594 kg Physical Exam 2 Const: COMMON NORMALS: no acute distress and patient oriented x3 Resp: COMMON NORMALS: normal respiratory effort, No retractions and No use of accessory muscles AUSCULTATION: crackles Cardio: COMMON NORMALS: regular rate, regular rhythm, S1 normal heart sound present and S2 normal heart sound present RATE: regular rate RHYTHM: r egular rhythm HEART SOUNDS: S1 normal heart sound present and S2 normal heart sound present GI: COMMON NORMALS: Normal to inspection, nondistended, normoactive bowel sounds present and non-tender Extremity: COMMON NORMALS: no calf tenderness NARRATIVE EXTREMITY EXAM: 1+ edema Neuro: COMMON NORMALS: patient oriented x3 Psych: COMMON NORMALS: mental status grossly normal Data 10/08/24 04:30 10/08/24 04:30 Micro: Microbiology 10/07/24 18:15 Gram Stain - Final Sputum - Expectorated Sputum Sputum Culture - Preliminary 10/07/24 18:47 Blood Culture - Preliminary Blood SPECIMEN COLLECTED 10/07/24 18:45 Blood Culture - Preliminary Blood SPECIMEN COLLECTED A&P Assessment and plan (1) Acute respiratory failure with hypoxia: (2) COPD exacerbation: (3) CHF exacerbation: (4) T2DM (type 2 diabetes mellitus): Plan Acute hypoxic respiratory failure ? Multifactorial ? Secondary to CHF exacerbation, fluid overload, elevated BNP, increased lower extreme edema ? Secondary to COPD ? Concerns for pneumonia given leukocytosis, cough ? Plan ? 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 Full code Lovenox for DVT prophylaxis Attestations 2 Medical Necessity Statement*: Patient requires hospitalization for CHF exacerbation, pneumonia, requiring IV diuresis Diagnoses Acute respiratory failure with hypoxia J96.01 COPD exacerbation J44.1 CHF exacerbation I50.9 T2DM (type 2 diabetes mellitus) E11.9
[2024-10-08 13:41] LABS: Bilirubin Urine Negative (Negative); Blood Urine Negative (Negative); Glucose Urine UA Trace (Normal); Ketones Urine Negative (Negative); Leukocyte Esterase Urine Negative (Negative); Nitrate Urine Negative (Negative); Protein Urine 3+ (Negative); Specific Gravity, Urine 1.015 (1.005-1.030); Urine Appearance Clear (CLEAR); Urine Color Yellow (Yellow); Urobilinogen Urine 0.2 mg/dL (Negative)
[2024-10-08 13:46] LABS: Add Urine Microscopic? YES; Bacteria Urine None Seen /hpf; Hyaline Casts Urine 1.65 /lpf; RBC Urine 0-2 /hpf (0-2); Squamous Epithelial Cell Urine 0-5 /hpf (0-5); WBC Urine 0-5 /hpf (0-5)
[2024-10-08] MEDS: potassium chloride ER 20 mEq Tablet 40 MEQ PO (14:01)
--- NOTE | 2024-10-08 14:08 | PC.NURSE ---
Pt advised that he is now on a 1000ml fluid restriction. Large cup taken and put in windowsill. Advised will fill up one small cup at a time from this point on. Verbalizes understanding.
[2024-10-08 17:13] LABS: Glucose Point of Care 290 mg/dL (70-110)
[2024-10-08] MEDS: AZITHROMYCIN ADD-Vantage 500 MG in 0.9% NaCl ADD-Vantage 250 ML 250 MG IV (17:33)
[2024-10-08] MEDS: cefTRIAXone 1,000 mg SDV 1000 MG IVP (17:33)
[2024-10-08] MEDS: enoxaparin 40 mg/0.4 mL Syringe SUBCUT (17:33)
[2024-10-08] MEDS: pantoprazole 40 mg SDV IVP (17:33)
[2024-10-08 20:38] LABS: Glucose Point of Care 385 mg/dL (70-110)
[2024-10-09] VITALS (28 sets, daily range): BP systolic 113–170; BP diastolic 65–89; PULSE 57–132; RESP 16–24; TEMP 36.4–36.7; O2SAT 90–97
[2024-10-09 04:55] LABS: Basophils % 0.1 %; Eosinophils % 0.1 %; Lymphocytes # 1.8 10^3/uL (0.8-4.8); Lymphocytes % 11.5 %; Mean Corpuscular HGB Conc 32.4 g/dL (30-55); Mean Corpuscular Volume 92.7 fl (82-101); Mean Platelet Volume 9.8 fL (7.4-10.4); Monocytes # 1.3 10^3/uL (0.2-0.9); Monocytes % 8.3 %; Neutrophils # 12.46 10^3/uL (1.8-7.7); Neutrophils % 79.6 %; Nucleated Red Blood Cells % 0 %; Platelet Count 388 10^3/cmm (157-399); Red Blood Count 4.53 10^6/uL (3.85-5.65); White Blood Count 15.66 10^3/uL (3.29-11.43)
[2024-10-09 05:17] LABS: Anion Gap 17.2 (5-19); Blood Urea Nitrogen 28 mg/dL (8-23); Calcium 9.1 mg/dL (8.5-10.5); Carbon Dioxide 25 mmol/L (22-29); Chloride 106 mmol/L (98-107); Creatinine Clr Calc Pharmacy 49.9614; Glucose 134 mg/dL (65-115); Magnesium 1.8 mg/dL (1.7-2.3); Osmolality Calculated 307 mOsm/kg (285-295); Potassium 3.2 mmol/L (3.5-5.1); Sodium 145 mmol/L (136-145)
--- NOTE | 2024-10-09 05:19 | ECG_ITS ---
[employer] Test Date: 2024-10-09 Pat Name: Marco Antonio Mosquera Department: Room: 258 Gender: Male Dependency Case Manager: : 1940 Requested By: Delicia Bedolla Order Number: [id number] Asmita MD: Mani Becerra M.D. Measurements Intervals [place] Rate: 109 P: 0 [place]: 0 QRS: -71 QRSD: 115 T: 90 QT: 364 QTc: 492 Interpretive Statements ATRIAL FIBRILLATION WITH RAPID VENTRICULAR RESPONSE LEFT AXIS DEVIATION [QRS AXIS < -30] INCOMPLETE RIGHT BUNDLE BRANCH BLOCK [90+ ms QRS DURATION, TERMINAL R IN V1/V2, 40+ ms S IN I/aVL/V4/V5/V6] ANTEROSEPTAL MYOCARDIAL INFARCTION , OF INDETERMINATE AGE [40+ ms Q WAVE IN V1-V4] Compared to ECG 10/07/2024 20:52:34 Left-axis deviation now present Incomplete right bundle-branch block now present Ectopic atrial rhythm no longer present Myocardial infarct finding still present Electronically Signed On 10-11-2024 18:55:03 MANAGER ADMINISTRATIVE by Mani Becerra M.D. [id number]
[2024-10-09] MEDS: FUROsemide 10 mg/mL SDV 4mL 40 MG IVP (05:50)
[2024-10-09] MEDS: insulin glargine 100 units/1 mL 20 UNIT SUBCUT ×2 (05:50→17:29)
[2024-10-09] MEDS: dilTIAZem 5 mg/mL SDV 5 mL 10 MG IVP (05:59)
[2024-10-09 06:25] LABS: Glucose Point of Care 139 mg/dL (70-110)
[2024-10-09] MEDS: atorvastatin 40 mg Tablet PO (07:17)
[2024-10-09] MEDS: predniSONE 20 mg Tablet 40 MG PO (07:17)
[2024-10-09] MEDS: metoprolol tartrate 50 mg Tablet 100 MG PO ×2 (07:18→17:32)
[2024-10-09] MEDS: fenofibrate 145 mg Tablet PO (07:18)
[2024-10-09] MEDS: dilTIAZem 60 mg Tablet 120 MG PO ×2 (07:18→17:31)
[2024-10-09] MEDS: amiodarone 150 MG/100 ML PREMIX 400 MG IV (07:51)
[2024-10-09] MEDS: magnesium lactate 84 mg Tablet PO ×2 (08:27→17:31)
--- NOTE | 2024-10-09 08:27 | PC.NURSE ---
This RN comes onto shift. Pt appears to be in afib with RVR on telemetry. HR noted to be 120-160. Cardizem IVP given by nightshift. Morning medications given by this RN with no notable changes in rhythm/rate. Notified Dr. Aaron. Orders for Amiodarone placed. Transfer to U 111-1 - report called to Amara. All questions answered at this time.
--- NOTE | 2024-10-09 08:50 | PC.NURSE ---
received from med/surg via bed at 0820.report received.pt is alert and awake and oriented x 4.denies pain at present .afib on monitor with hr in 80's.oriented to room enviroment.instructed to notify staff for any sob,pain..or for any concerns at all.pt verb understanding of instructions
[2024-10-09] MEDS: potassium chloride ER 20 mEq Tablet 40 MEQ PO (09:14)
--- NOTE | 2024-10-09 09:15 | PC.SOCIAL ---
IMM Update pg 2 of IMM Updated and reviewed w/ patient. Copy provided and copy dated, initialed and placed in chart.
[2024-10-09] MEDS: ipratropium-albuterol 3 mL Neb INHALATION ×4 (09:17→20:49)
[2024-10-09] MEDS: budesonide 0.5 mg/2 mL Neb INHALATION ×2 (09:18→20:49)
--- NOTE | 2024-10-09 10:12 | PC.NURSE ---
pt refuses to use urinal to measure accurate urine output.states i aint gonna.my doctor knows this .he proceeded to walk to bathroom to urinate
--- NOTE | 2024-10-09 10:17 | PC.NURSE ---
refuses to use urinal
[2024-10-09 11:32] LABS: Glucose Point of Care 224 mg/dL (70-110)
[2024-10-09] MEDS: insulin lispro 100 unit/1 mL SUBCUT ×3 (12:16→20:59)
--- NOTE | 2024-10-09 14:35 | P.PN_ITS ---
Subjective 2 Subjective: Patient feels better this morning, but does report palpitations, was found to be in A-fib with RVR moved down to CSU placed on amiodarone drip given amiodarone bolus, Vitals/I&O/Wt Last Vital Signs Temp 97.8 F 10/09/24 12:00 Pulse 81 10/09/24 12:15 Resp 20 H 10/09/24 12:15 BP 134/88 10/09/24 12:00 Pulse Ox 93 10/09/24 12:15 O2 Del Method Nasal Cannula 10/09/24 12:15 O2 Flow Rate 2 10/09/24 12:15 10/08/24 10/09/24 10/09/24 22:59 06:59 14:59 Intake Total 250 / 1090 440 / 440 Output Total 300 / 900 Balance -50 / 190 440 / 440 Weight last 48 hrs Weight 105.829 kg Weight 110.359 kg Weight 115.031 kg Physical Exam 2 Const: COMMON NORMALS: no acute distress and patient oriented x3 Resp: COMMON NORMALS: normal respiratory effort, No retractions, No use of accessory muscles and clear to auscultation bilaterally AUSCULTATION: clear to auscultation bilaterally Cardio: COMMON NORMALS: S1 normal heart sound present and S2 normal heart sound present RATE: tachycardic RHYTHM: abnormal rhythm irregularly irregular HEART SOUNDS: S1 normal heart sound present and S2 normal heart sound present GI: COMMON NORMALS: Normal to inspection, nondistended, normoactive bowel sounds present and non-tender Extremity: COMMON NORMALS: no pedal edema Neuro: COMMON NORMALS: patient oriented x3 Psych: COMMON NORMALS: mental status grossly normal Data 10/09/24 04:48 10/09/24 04:48 Micro: Microbiology 10/07/24 18:15 Gram Stain - Final Sputum - Expectorated Sputum Sputum Culture - Final 10/07/24 18:47 Blood Culture - Preliminary Blood NEGATIVE TO DATE 10/07/24 18:45 Blood Culture - Preliminary Blood NEGATIVE TO DATE A&P Assessment and plan (1) Acute respiratory failure with hypoxia: (2) COPD exacerbation: (3) CHF exacerbation: (4) T2DM (type 2 diabetes mellitus): (5) Atrial fibrillation with RVR: Plan Acute hypoxic respiratory failure ? Multifactorial ? Secondary to CHF exacerbation, fluid overload, elevated BNP, increased lower extreme edema ? Secondary to COPD ? Concerns for pneumonia given leukocytosis, cough ? Plan ? 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 Full code Lovenox for DVT prophylaxis Attestations 2 Medical Necessity Statement*: Patient requires hospitalization for A-fib with RVR, respiratory failure, CHF, pneumonia Diagnoses Acute respiratory failure with hypoxia J96.01 COPD exacerbation J44.1 CHF exacerbation I50.9 T2DM (type 2 diabetes mellitus) E11.9 Atrial fibrillation with RVR I48.91
[2024-10-09 17:16] LABS: Glucose Point of Care 357 mg/dL (70-110)
[2024-10-09] MEDS: AZITHROMYCIN ADD-Vantage 500 MG in 0.9% NaCl ADD-Vantage 250 ML 250 MG IV (17:27)
[2024-10-09] MEDS: enoxaparin 40 mg/0.4 mL Syringe SUBCUT (17:30)
[2024-10-09] MEDS: pantoprazole 40 mg SDV IVP (17:30)
[2024-10-09] MEDS: cefTRIAXone 1,000 mg SDV 1000 MG IVP (17:31)
--- NOTE | 2024-10-09 18:52 | ECG_ITS ---
[employer] Test Date: 2024-10-09 Pat Name: Marco Antonio Mosquera Department: Room: 108 Gender: Male Barratte Operator: : 1940 Requested By: Parth Aaron Order Number: [id number] Asmita MD: Mani Becerra M.D. Measurements Intervals [place] Rate: 75 P: 71 [place]: 214 QRS: -76 QRSD: 125 T: 60 QT: 441 QTc: 493 Interpretive Statements SINUS RHYTHM WITH FIRST DEGREE AV BLOCK RIGHT BUNDLE BRANCH BLOCK [120+ ms QRS DURATION, UPRIGHT V1, 40+ ms S IN I/aVL/V4/V5/V6] INFERIOR MYOCARDIAL INFARCTION , PROBABLY OLD [40+ ms Q WAVE AND/OR ST/T ABNORMALITY IN II/aVF] ANTEROSEPTAL MYOCARDIAL INFARCTION , OF INDETERMINATE AGE [40+ ms Q WAVE IN V1-V4] Compared to ECG 10/09/2024 05:19:03 First degree AV block now present Left-axis deviation no longer present Incomplete right bundle-branch block no longer present Myocardial infarct finding still present Electronically Signed On 10-11-2024 19:09:28 MAINTENANCE AND OPERATIONS SUPERVISOR by Mani Becerra M.D. [id number]
--- NOTE | 2024-10-09 19:05 | PC.NURSE ---
ekg obtained.pt has converted to nsr
[2024-10-09 20:43] LABS: Glucose Point of Care 365 mg/dL (70-110)
[2024-10-10] VITALS (16 sets, daily range): BP systolic 141–183; BP diastolic 78–99; PULSE 65–95; RESP 12–24; TEMP 36.4–37.1; O2SAT 71–98
[2024-10-10 04:29] LABS: Basophils % 0.1 %; Eosinophils % 0.2 %; Hematocrit 37.8 % (37-53); Lymphocytes # 1.6 10^3/uL (0.8-4.8); Lymphocytes % 12.2 %; Mean Corpuscular HGB Conc 32.5 g/dL (30-55); Mean Corpuscular Hemoglobin 30.3 pg (27-33); Mean Corpuscular Volume 93.1 fl (82-101); Mean Platelet Volume 9.8 fL (7.4-10.4); Monocytes # 1.2 10^3/uL (0.2-0.9); Neutrophils # 10.07 10^3/uL (1.8-7.7); Neutrophils % 77.8 %; Nucleated Red Blood Cells % 0 %; Platelet Count 351 10^3/cmm (157-399); Red Blood Count 4.06 10^6/uL (3.85-5.65); White Blood Count 12.95 10^3/uL (3.29-11.43)
[2024-10-10 04:57] LABS: Anion Gap 14.3 (5-19); Blood Urea Nitrogen 31 mg/dL (8-23); Calcium 8.6 mg/dL (8.5-10.5); Carbon Dioxide 28 mmol/L (22-29); Chloride 105 mmol/L (98-107); Creatinine Clr Calc Pharmacy 49.9614; Glucose 168 mg/dL (65-115); Magnesium 1.9 mg/dL (1.7-2.3); Osmolality Calculated 308 mOsm/kg (285-295); Potassium 3.3 mmol/L (3.5-5.1); Sodium 144 mmol/L (136-145)
[2024-10-10] MEDS: hyDRALAzine 20 mg/mL INJ 1 mL 5 MG IVP (05:26)
[2024-10-10] MEDS: insulin glargine 100 units/1 mL 20 UNIT SUBCUT ×2 (05:26→18:04)
[2024-10-10 06:32] LABS: Glucose Point of Care 154 mg/dL (70-110)
[2024-10-10] MEDS: ipratropium-albuterol 3 mL Neb INHALATION ×3 (07:40→21:07)
[2024-10-10] MEDS: budesonide 0.5 mg/2 mL Neb INHALATION ×2 (07:41→21:07)
[2024-10-10] MEDS: insulin lispro 100 unit/1 mL SUBCUT ×4 (09:10→22:11)
[2024-10-10] MEDS: dilTIAZem 60 mg Tablet 120 MG PO ×2 (09:11→18:04)
[2024-10-10] MEDS: metoprolol tartrate 50 mg Tablet 100 MG PO ×2 (09:11→18:04)
[2024-10-10] MEDS: fenofibrate 145 mg Tablet PO (09:11)
[2024-10-10] MEDS: magnesium lactate 84 mg Tablet PO ×2 (09:11→18:04)
[2024-10-10] MEDS: predniSONE 20 mg Tablet 40 MG PO (09:11)
[2024-10-10] MEDS: atorvastatin 40 mg Tablet PO (09:11)
[2024-10-10] MEDS: amiodarone 200 mg Tablet 400 MG PO (09:28)
[2024-10-10] MEDS: potassium chloride ER 20 mEq Tablet 40 MEQ PO (09:28)
[2024-10-10] MEDS: hyDRALAzine 10 mg Tablet PO ×3 (09:28→20:22)
[2024-10-10] MEDS: FUROsemide 10 mg/mL SDV 4mL 40 MG (11:51)
[2024-10-10 11:55] LABS: Glucose Point of Care 204 mg/dL (70-110)
--- NOTE | 2024-10-10 14:57 | P.PN_ITS ---
Subjective 2 Subjective: Patient was seen this morning, he is sitting at the side of bed still reports shortness of breath with exertion, has edema of his legs, remains on amiodarone drip, heart rates are more under control, remains in A-fib heart rates of 70s to 100 Vitals/I&O/Wt Last Vital Signs Temp 97.6 F 10/10/24 11:58 Pulse 78 10/10/24 14:40 Resp 24 H 10/10/24 11:58 BP 141/78 10/10/24 11:58 Pulse Ox 92 10/10/24 11:58 O2 Del Method Nasal Cannula 10/10/24 11:58 O2 Flow Rate 2 10/10/24 11:58 10/09/24 10/10/24 10/10/24 22:59 06:59 14:59 Intake Total 590 / 1034.444 190.038 / 1224.482 968.359 / 968.359 Balance 590 / 1034.444 190.038 / 1224.482 968.359 / 968.359 Weight last 48 hrs Weight 105.687 kg Weight 105.829 kg Physical Exam 2 Const: COMMON NORMALS: no acute distress and patient oriented x3 Resp: COMMON NORMALS: normal respiratory effort, No retractions, No use of accessory muscles and clear to auscultation bilaterally AUSCULTATION: clear to auscultation bilaterally Cardio: COMMON NORMALS: regular rate, S1 normal heart sound present and S2 normal heart sound present RATE: regular rate RHYTHM: abnormal rhythm irregularly irregular HEART SOUNDS: S1 normal heart sound present and S2 normal heart sound present GI: COMMON NORMALS: Normal to inspection, nondistended, normoactive bowel sounds present and non-tender Extremity: NARRATIVE EXTREMITY EXAM: 1+ pitting edema Neuro: COMMON NORMALS: patient oriented x3 Psych: COMMON NORMALS: mental status grossly normal Data 10/10/24 03:48 10/10/24 03:48 Micro: Microbiology 10/07/24 18:15 Gram Stain - Final Sputum - Expectorated Sputum Sputum Culture - Final A&P Assessment and plan (1) Acute respiratory failure with hypoxia: (2) COPD exacerbation: (3) CHF exacerbation: (4) T2DM (type 2 diabetes mellitus): (5) Atrial fibrillation with RVR: Plan Acute hypoxic respiratory failure ? Multifactorial ? Secondary to CHF exacerbation, fluid overload, elevated BNP, increased lower extreme edema ? Secondary to COPD ? Concerns for pneumonia given leukocytosis, cough ? Plan ? Monitor respiratory status closely # Continue IV Lasix today # Continue prednisone 40 mg daily # Continue Rocephin Continue Zithromycin # Sputum cultures # Monitor respiratory status closely # Type 2 diabetes mellitus, Lantus 20 units twice daily, moderate dose sliding scale A-fib with RVR, start amiodarone drip, switch to p.o. 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 Full code Lovenox for DVT prophylaxis Plan for today IV diuresis, monitor blood sugars transition off amiodarone drip to p.o. amiodarone, continue metoprolol continue IV antibiotics Attestations 2 Medical Necessity Statement*: Patient requires hospitalization for acute hypoxic respiratory failure, CHF, A- fib, pneumonia Diagnoses Acute respiratory failure with hypoxia J96.01 COPD exacerbation J44.1 CHF exacerbation I50.9 T2DM (type 2 diabetes mellitus) E11.9 Atrial fibrillation with RVR I48.91
[2024-10-10 17:21] LABS: Glucose Point of Care 238 mg/dL (70-110)
[2024-10-10] MEDS: AZITHROMYCIN ADD-Vantage 500 MG in 0.9% NaCl ADD-Vantage 250 ML 250 MG IV (18:01)
[2024-10-10] MEDS: cefTRIAXone 1,000 mg SDV 1000 MG IVP (18:03)
[2024-10-10] MEDS: pantoprazole 40 mg SDV IVP (18:04)
[2024-10-10] MEDS: enoxaparin 40 mg/0.4 mL Syringe SUBCUT (18:04)
[2024-10-10 21:16] LABS: Glucose Point of Care 307 mg/dL (70-110)
[2024-10-11] VITALS (14 sets, daily range): BP systolic 154–197; BP diastolic 79–99; PULSE 72–90; RESP 13–20; TEMP 36.4–36.8; O2SAT 90–95
[2024-10-11 05:32] LABS: Basophils % 0.1 %; Eosinophils # 0.1 10^3/uL (0.0-0.8); Eosinophils % 0.4 %; Hematocrit 41.2 % (37-53); Lymphocytes # 1.8 10^3/uL (0.8-4.8); Lymphocytes % 12.8 %; Mean Corpuscular HGB Conc 31.8 g/dL (30-55); Mean Corpuscular Hemoglobin 29.6 pg (27-33); Mean Platelet Volume 10.1 fL (7.4-10.4); Monocytes # 1.2 10^3/uL (0.2-0.9); Monocytes % 8.4 %; Neutrophils # 10.59 10^3/uL (1.8-7.7); Neutrophils % 77.1 %; Nucleated Red Blood Cells % 0 %; Platelet Count 363 10^3/cmm (157-399); Red Blood Count 4.43 10^6/uL (3.85-5.65); Red Cell Distribution Width 12.6 % (12.1-15.1); White Blood Count 13.72 10^3/uL (3.29-11.43)
[2024-10-11 06:08] LABS: Anion Gap 10.4 (5-19); Blood Urea Nitrogen 26 mg/dL (8-23); Carbon Dioxide 29 mmol/L (22-29); Chloride 106 mmol/L (98-107); Creatinine Clr Calc Pharmacy 53.4974; Glucose 138 mg/dL (65-115); NT Pro B Type Natriuretic Pept 1559 pg/mL (0-450); Osmolality Calculated 301 mOsm/kg (285-295); Potassium 3.4 mmol/L (3.5-5.1); Sodium 142 mmol/L (136-145)
[2024-10-11] MEDS: insulin glargine 100 units/1 mL 20 UNIT SUBCUT ×2 (06:29→18:01)
[2024-10-11 06:32] LABS: Glucose Point of Care 145 mg/dL (70-110)
[2024-10-11] MEDS: ipratropium-albuterol 3 mL Neb INHALATION ×4 (07:42→21:04)
[2024-10-11] MEDS: budesonide 0.5 mg/2 mL Neb INHALATION ×2 (07:42→21:03)
[2024-10-11] MEDS: dilTIAZem 60 mg Tablet 120 MG PO ×2 (08:31→18:01)
[2024-10-11] MEDS: FUROsemide 10 mg/mL SDV 4mL 40 MG IVP ×2 (08:31→16:20)
[2024-10-11] MEDS: fenofibrate 145 mg Tablet PO (08:32)
[2024-10-11] MEDS: magnesium lactate 84 mg Tablet PO ×2 (08:32→18:02)
[2024-10-11] MEDS: metoprolol tartrate 50 mg Tablet 100 MG PO ×2 (08:32→18:01)
[2024-10-11] MEDS: amoxicillin-clav 875-125 mg Tablet 1 TAB PO ×2 (08:32→18:01)
[2024-10-11] MEDS: hyDRALAzine 25 mg Tablet PO ×3 (08:32→20:02)
[2024-10-11] MEDS: potassium chloride ER 20 mEq Tablet 40 MEQ PO ×2 (08:32→16:21)
[2024-10-11] MEDS: predniSONE 20 mg Tablet 40 MG PO (08:33)
[2024-10-11] MEDS: atorvastatin 40 mg Tablet PO (08:33)
[2024-10-11] MEDS: amiodarone 200 mg Tablet 400 MG PO (08:33)
[2024-10-11] MEDS: insulin lispro 100 unit/1 mL SUBCUT ×4 (08:33→20:58)
[2024-10-11 11:54] LABS: Glucose Point of Care 174 mg/dL (70-110)
--- NOTE | 2024-10-11 13:37 | P.PN_ITS ---
Subjective 2 Subjective: Patient was seen this morning, does report shortness of breath, lower extremity edema that persists, but does feel better, no lightheadedness, no dizziness Vitals/I&O/Wt Last Vital Signs Temp 98.3 F 10/11/24 12:00 Pulse 84 10/11/24 12:00 Resp 20 H 10/11/24 12:00 BP 154/79 10/11/24 12:00 Pulse Ox 92 10/11/24 12:00 O2 Del Method Nasal Cannula 10/11/24 12:00 O2 Flow Rate 2 10/11/24 12:00 10/10/24 10/11/24 10/11/24 22:59 06:59 14:59 Intake Total 1301.641 / 2270.000 480 / 480 Balance 1301.641 / 2270.000 480 / 480 Weight last 48 hrs Weight 105.687 kg Weight 105.687 kg Physical Exam 2 Const: COMMON NORMALS: no acute distress and patient oriented x3 Resp: COMMON NORMALS: normal respiratory effort, No retractions and No use of accessory muscles AUSCULTATION: crackles Cardio: COMMON NORMALS: regular rate, regular rhythm, S1 normal heart sound present and S2 normal heart sound present RATE: regular rate RHYTHM: r egular rhythm HEART SOUNDS: S1 normal heart sound present and S2 normal heart sound present GI: COMMON NORMALS: Normal to inspection, nondistended, normoactive bowel sounds present and non-tender Extremity: NARRATIVE EXTREMITY EXAM: 1+ pitting edema Neuro: COMMON NORMALS: patient oriented x3 Psych: COMMON NORMALS: mental status grossly normal Data 10/11/24 04:30 10/11/24 04:30 A&P Assessment and plan (1) Acute respiratory failure with hypoxia: (2) COPD exacerbation: (3) CHF exacerbation: (4) T2DM (type 2 diabetes mellitus): (5) Atrial fibrillation with RVR: Plan Acute hypoxic respiratory failure ? Multifactorial ? Secondary to CHF exacerbation, fluid overload, elevated BNP, increased lower extreme edema ? Secondary to COPD ? Concerns for pneumonia given leukocytosis, cough ? Plan ? Monitor respiratory status closely # Continue IV Lasix today 2 doses today # Continue prednisone 40 mg daily # De-escalated to Augmentin # Sputum cultures # Monitor respiratory status closely # Type 2 diabetes mellitus, Lantus 20 units twice daily, moderate dose sliding scale A-fib with RVR, start amiodarone drip, switch to p.o. 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 Full code Lovenox for DVT prophylaxis Plan for today IV diuresis, Attestations 2 Medical Necessity Statement*: Plan for today IV diuresis Diagnoses Acute respiratory failure with hypoxia J96.01 COPD exacerbation J44.1 CHF exacerbation I50.9 T2DM (type 2 diabetes mellitus) E11.9 Atrial fibrillation with RVR I48.91
[2024-10-11] MEDS: pantoprazole 40 mg SDV IVP (16:20)
[2024-10-11 17:24] LABS: Glucose Point of Care 326 mg/dL (70-110)
[2024-10-11] MEDS: enoxaparin 40 mg/0.4 mL Syringe SUBCUT (18:02)
[2024-10-11 20:27] LABS: Glucose Point of Care 308 mg/dL (70-110)
[2024-10-12] VITALS (8 sets, daily range): BP systolic 136–165; BP diastolic 69–86; PULSE 72–89; RESP 14–23; TEMP 36.4–36.9; O2SAT 92–97
[2024-10-12 02:42] LABS: Basophils % 0.2 %; Eosinophils % 0.2 %; Hematocrit 41.2 % (37-53); Lymphocytes # 1.5 10^3/uL (0.8-4.8); Lymphocytes % 11.3 %; Mean Corpuscular HGB Conc 32.8 g/dL (30-55); Mean Corpuscular Hemoglobin 29.9 pg (27-33); Mean Corpuscular Volume 91.2 fl (82-101); Monocytes # 1.2 10^3/uL (0.2-0.9); Monocytes % 8.8 %; Neutrophils # 10.44 10^3/uL (1.8-7.7); Neutrophils % 78.3 %; Nucleated Red Blood Cells % 0 %; Platelet Count 395 10^3/cmm (157-399); Red Blood Count 4.52 10^6/uL (3.85-5.65); Red Cell Distribution Width 12.5 % (12.1-15.1); White Blood Count 13.32 10^3/uL (3.29-11.43)
[2024-10-12 03:17] LABS: Anion Gap 15.5 (5-19); Blood Urea Nitrogen 26 mg/dL (8-23); Calcium 8.8 mg/dL (8.5-10.5); Carbon Dioxide 27 mmol/L (22-29); Chloride 106 mmol/L (98-107); Creatinine Clr Calc Pharmacy 46.8102; Glucose 140 mg/dL (65-115); NT Pro B Type Natriuretic Pept 1330 pg/mL (0-450); Osmolality Calculated 307 mOsm/kg (285-295); Potassium 3.5 mmol/L (3.5-5.1); Sodium 145 mmol/L (136-145)
[2024-10-12] MEDS: insulin glargine 100 units/1 mL 20 UNIT SUBCUT (06:09)
[2024-10-12 06:12] LABS: Glucose Point of Care 157 mg/dL (70-110)
[2024-10-12] MEDS: budesonide 0.5 mg/2 mL Neb INHALATION (07:26)
[2024-10-12] MEDS: ipratropium-albuterol 3 mL Neb INHALATION ×2 (07:26→11:17)
[2024-10-12] MEDS: dilTIAZem 60 mg Tablet 120 MG PO (07:44)
[2024-10-12] MEDS: hyDRALAzine 25 mg Tablet PO (07:44)
[2024-10-12] MEDS: amiodarone 200 mg Tablet 400 MG PO (07:44)
[2024-10-12] MEDS: predniSONE 20 mg Tablet 40 MG PO (07:44)
[2024-10-12] MEDS: atorvastatin 40 mg Tablet PO (07:44)
[2024-10-12] MEDS: magnesium lactate 84 mg Tablet PO (07:45)
[2024-10-12] MEDS: metoprolol tartrate 50 mg Tablet 100 MG PO (07:45)
[2024-10-12] MEDS: amoxicillin-clav 875-125 mg Tablet 1 TAB PO (07:45)
[2024-10-12] MEDS: fenofibrate 145 mg Tablet PO (07:45)
[2024-10-12] MEDS: insulin lispro 100 unit/1 mL SUBCUT ×2 (07:46→12:36)
--- NOTE | 2024-10-12 11:21 | P.DS_ITS ---
Discharge Providers Date of Admission: 10/07/24 15:40 Date of Discharge: October 12, 2024 Attending Provider at Admission: Parth Aaron MD Attending Provider at Discharge: Parth Aaron MD Primary Care Provider: YELITZA Davidson Diagnoses at Discharge Discharge Diagnosis (1) Acute respiratory failure with hypoxia: Status: Acute (2) COPD exacerbation: Status: Acute (3) CHF exacerbation: Status: Acute (4) T2DM (type 2 diabetes mellitus): Status: Chronic (5) Atrial fibrillation with RVR: Status: Acute Reason for Visit Reason for Visit: SOB Hospital Course Hospital Course Marco Antonio Mosquera is a 84 year old male with a past medical history of COPD, insulin-dependent type 2 diabetes mellitus, dyslipidemia, atrial fibrillation, history of iliopsoas hematoma taken off Coumadin, not on anticoagulant therapy, hyperlipidemia, who presents [facility] due to progressive shortness of breath, cough, lower extreme edema. Patient tells me that he for the last few weeks, has been feeling increasingly short of breath, short of breath with minimal exertion, increased lower extreme edema, nonproductive cough, no fevers, no chills, no chest pain, he is on Lasix at home, no current smoking, Patient was admitted to [facility] for acute hypoxic respiratory failure due to CHF COPD, pneumonia, received broad-spectrum biotic therapy, steroid therapy, IV diuresis, overall clinically improved. Will be discharged on prednisone burst, Augmentin for antibiotic coverage, Lasix 40 mg daily with potassium replacement therapy First LINDA creatinine on discharge 1.6, follow-up with primary care provider to recheck creatinine on Saturday, hold Lasix therapy with potassium until Saturday For his A-fib with RVR, required amiodarone drip, transition to p.o. amiodarone, continue home beta-andrea, Cardizem with close follow-up with cardiology as outpatient Physical Exam Const: COMMON NORMALS: no acute distress and patient oriented x3 Resp: COMMON NORMALS: normal respiratory effort, No retractions, No use of accessory muscles and clear to auscultation bilaterally AUSCULTATION: clear to auscultation bilaterally Cardio: COMMON NORMALS: regular rate, regular rhythm, S1 normal heart sound present and S2 normal heart sound present RATE: regular rate RHYTHM: regular rhythm HEART SOUNDS: S1 normal heart sound present and S2 normal heart sound present GI: COMMON NORMALS: Normal to inspection, nondistended, normoactive bowel sounds present and non-tender Extremity: COMMON NORMALS: no pedal edema Neuro: COMMON NORMALS: patient oriented x3 Psych: COMMON NORMALS: mental status grossly normal Discharge Data Studies Completed and Pending Completed Studies During Hospitalization Category Date Time Status XR chest 1V portable [id number] Stat Exams 10/07/24 10:51 [place] [id number] Stat Ultrasound 10/07/24 15:37 Completed Pending at discharge Category Date Time Status Basic Metabolic Panel AM LABS Lab 10/13/24 04:00 Ordered Blood Culture Routine Lab 10/07/24 18:47 Results Complete Blood Count w/Auto AM LABS Lab 10/13/24 04:00 Ordered NT Pro B Type Natriuretic Pept QAM Lab 10/13/24 06:00 Ordered Radiology Impressions Chest X-Ray 10/07/24 10:51 IMPRESSION: No acute findings. Venous Duplex 10/07/24 15:37 IMPRESSION: No evidence of deep vein thrombosis. Laboratory Results WBC 13.32 10^3/uL (3.29-11.43) H 10/12/24 02:21 RBC 4.52 10^6/uL (3.85-5.65) 10/12/24 02:21 Hgb 13.50 g/dL (11.27-16.99) 10/12/24 02:21 Hct 41.2 % (37-53) 10/12/24 02:21 MCV 91.2 fl (82-101) 10/12/24 02:21 MCH 29.9 pg (27-33) 10/12/24 02:21 MCHC 32.8 g/dL (30-55) 10/12/24 02:21 RDW 12.5 % (12.1-15.1) 10/12/24 02:21 Plt Count 395 10^3/cmm (157-399) 10/12/24 02:21 MPV 10.0 fL (7.4-10.4) 10/12/24 02:21 Neut % (Auto) 78.3 % 10/12/24 02:21 Lymph % (Auto) 11.3 % 10/12/24 02:21 Dickson % (Auto) 8.8 % 10/12/24 02:21 Eos % (Auto) 0.2 % 10/12/24 02:21 Baso % (Auto) 0.2 % 10/12/24 02:21 Neut # (Auto) 10.44 10^3/uL (1.8-7.7) H 10/12/24 02:21 Lymph # (Auto) 1.5 10^3/uL (0.8-4.8) 10/12/24 02:21 Dickson # (Auto) 1.2 10^3/uL (0.2-0.9) H 10/12/24 02:21 Eos # (Auto) 0.0 10^3/uL (0.0-0.8) 10/12/24 02:21 Baso # (Auto) 0.0 10^3/uL (0.0-0.1) 10/12/24 02:21 Nucleated RBC % (auto) 0 % 10/12/24 02:21 Nucleated RBCs # 0.0 /100WBC 10/12/24 02:21 Sodium 145 mmol/L (136-145) 10/12/24 02:21 Potassium 3.5 mmol/L (3.5-5.1) 10/12/24 02:21 Chloride 106 mmol/L (98-107) 10/12/24 02:21 Carbon Dioxide 27 mmol/L (22-29) 10/12/24 02:21 Anion Gap 15.5 (5-19) 10/12/24 02:21 BUN 26 mg/dL (8-23) H 10/12/24 02:21 Creatinine 1.6 mg/dL (0.7-1.2) H 10/12/24 02:21 GFR Calculation Not Reportable 10/12/24 02:21 Glucose 140 mg/dL (65-115) H 10/12/24 02:21 POC Glucose 157 mg/dL (70-110) H 10/12/24 06:08 Estimat Average Glucose 146 10/07/24 12:22 Hemoglobin A1c 6.7 % (4.0-6.0) H 10/07/24 12:22 Calculated Osmolality 307 mOsm/kg (285-295) H 10/12/24 02:21 Calcium 8.8 mg/dL (8.5-10.5) 10/12/24 02:21 Magnesium 1.9 mg/dL (1.7-2.3) 10/10/24 03:48 Total Bilirubin 0.4 mg/dL (0.15-1.2) 10/07/24 12:22 AST 19 U/L (0-40) 10/07/24 12:22 ALT 17 U/L (0-41) 10/07/24 12:22 Alkaline Phosphatase 87 U/L (40-130) 10/07/24 12:22 Troponin T Baseline 45 ng/L (0-15) H 10/07/24 16:56 Troponin T 120 Minute 40.95 ng/L (0-15) H 10/07/24 19:47 Delta Troponin T -4.05 ABS# (0-10) L 10/07/24 19:47 Troponin T Hi Sens 6Hr 41.03 ng/L (0-15) H 10/07/24 23:21 Troponin T Hi Sens 6Hr Delta -3.97 ng/L (0-12) L 10/07/24 23:21 C-Reactive Protein 45.2 mg/L (0.0-4.9) H 10/07/24 16:56 NT-Pro-B Natriuret Pep 1330 pg/mL (0-450) H 10/12/24 02:21 Total Protein 6.8 g/dL (6.6-8.7) 10/07/24 12:22 Albumin 3.6 g/dL (3.5-5.2) 10/07/24 12:22 Globulin 3.2 g/dL (1.3-4.6) 10/07/24 12:22 Triglycerides 266 mg/dL (0-150) H 10/07/24 12:22 Cholesterol 92 mg/dL (0-200) 10/07/24 12:22 LDL Cholesterol, Calc 13 mg/dL (50-129) L 10/07/24 12:22 HDL Cholesterol 26 mg/dL (60-100) L 10/07/24 12:22 LDL/HDL Ratio 0.50 RATIO (0.00-3.22) 10/07/24 12:22 Cholesterol/HDL Ratio 3.54 mg/dL (1.0-5.00) 10/07/24 12:22 Procalcitonin 0.20 ng/mL (0-0.5) 10/07/24 16:56 TSH 1.99 uIU/mL (0.27-4.20) 10/07/24 12:22 Urine Color Yellow (Yellow) 10/08/24 12:15 Urine Appearance Clear (CLEAR) 10/08/24 12:15 Urine pH 6.0 (5-7) 10/08/24 12:15 Ur Specific [place] 1.015 (1.005-1.030) 10/08/24 12:15 Urine Protein 3+ (Negative) A 10/08/24 12:15 Urine Glucose (UA) Trace (Normal) H 10/08/24 12:15 Urine Ketones Negative (Negative) 10/08/24 12:15 Urine Blood Negative (Negative) 10/08/24 12:15 Urine Nitrate Negative (Negative) 10/08/24 12:15 Urine Bilirubin Negative (Negative) 10/08/24 12:15 Urine Urobilinogen 0.2 mg/dL (Negative) 10/08/24 12:15 Ur Leukocyte Esterase Negative (Negative) 10/08/24 12:15 Urine RBC 0-2 /hpf (0-2) 10/08/24 12:15 Urine WBC 0-5 /hpf (0-5) 10/08/24 12:15 Ur Squamous Epith Cells 0-5 /hpf (0-5) 10/08/24 12:15 Amorphous Sediment Not Reportable 10/08/24 12:15 Urine Bacteria None seen /hpf (NONE) 10/08/24 12:15 Hyaline Casts 1.65 /lpf 10/08/24 12:15 Coronavirus (PCR) Negative (Negative) 10/07/24 11:24 Influenza A (PCR) Negative (Negative) 10/07/24 11:24 Influenza Type B (PCR) Negative (Negative) 10/07/24 11:24 RSV (PCR) Negative (Negative) 10/07/24 11:24 Vitals Last Vital Signs Temp 98.4 F 10/12/24 08:00 Pulse 72 10/12/24 11:17 Resp 20 H 10/12/24 11:17 BP 165/83 10/12/24 08:00 Pulse Ox 95 10/12/24 11:17 O2 Del Method Nasal Cannula 10/12/24 11:17 O2 Flow Rate 2 10/12/24 11:17 Discharge Plan Discharge Patient Disposition: Home Condition: Stable Prescriptions: New amiodarone [Pacerone] 200 mg Tablet See Rx Instructions .ROUTE .COMPLEX Qty: 60 0RF Rx Instructions: 2 tabs daily for 7 days, then 1 tab daily prednisone 20 mg Tablet 40 mg PO DAILY 3 Days Qty: 6 0RF magnesium L-lactate [Magtab] 84 mg Tablet Extended Release 84 mg PO DAILY 30 Days Qty: 30 0RF amoxicillin-pot clavulanate 875-125 mg Tablet 1 tab PO BID 5 Days Qty: 10 0RF hydralazine 25 mg Tablet 25 mg PO TID 30 Days Qty: 90 0RF potassium chloride [Klor-Con M20] 20 mEq tablet,ER particles/crystals 20 meq PO DAILY 30 Days Qty: 30 0RF Rx Instructions: start 10/14/2024 Continued (DME) nebulizers [facility] [place] See Rx Instructions .ROUTE .MEDSUPPLY Qty: 1 0RF Rx Instructions: As directed B-complex with vitamin C Capsule 1 cap PO DAILY rosuvastatin 10 mg tablet 10 mg PO DAILY Qty: 90 1RF Dulera 100-5 mcg/actuation HFA aerosol inhaler 2 puff inhalation BID Qty: 13 5RF albuterol sulfate 2.5 mg /3 mL (0.083 %) solution for nebulization See Rx Instructions .ROUTE .COMPLEX Qty: 30 12RF Dose Instruction: USE 1 VIAL IN NEBULIZER 3 TIMES DAILY - for rescue (MAX 30 DOSES PER MONTH) Rx Instructions: USE 1 VIAL IN NEBULIZER 3 TIMES DAILY - for rescue (MAX 30 DOSES PER MONTH) arformoterol 15 mcg/2 mL solution for nebulization See Rx Instructions .ROUTE .COMPLEX Qty: 60 12RF Dose Instruction: USE 1 VIAL IN NEBULIZER EVERY 12 HOURS - - morning and evening Rx Instructions: USE 1 VIAL IN NEBULIZER EVERY 12 HOURS - - morning and evening (DME) nebulizer machine with tubing and delivery device See Rx Instructions .Route .MEDSUPPLY Qty: 1 0RF Rx Instructions: As directed nystatin 100,000 unit/gram cream See Rx Instructions .ROUTE .COMPLEX Qty: 30 1RF Dose Instruction: APPLY topically At Bedtime Rx Instructions: APPLY topically At Bedtime albuterol sulfate [Ventolin HFA] 90 mcg/actuation HFA aerosol inhaler 2 puff inhalation QID PRN (Reason: Shortness Of Breath) Qty: 18 2RF (DME) Lc sprint mouthpiece for nebulizer See Rx Instructions .Route .MEDSUPPLY Qty: 1 0RF Rx Instructions: As directed (DME) True Metrix Glucose Test Strip Strip See Rx Instructions .ROUTE .COMPLEX Qty: 100 6RF Dose Instruction: USE TO test THREE TIMES DAILY Rx Instructions: USE TO test THREE TIMES DAILY metoprolol tartrate 100 mg tablet 100 mg PO BID omeprazole 40 mg capsule,delayed release(DR/EC) 40 mg PO DAILY diltiazem HCl 120 mg tablet 120 mg PO BID fenofibrate 160 mg tablet 160 mg PO DAILY Changed furosemide [Lasix] 40 mg tablet 40 mg PO DAILY Qty: 90 3RF Rx Instructions: start 10/14/2024 Lantus Solostar U-100 Insulin 100 unit/mL (3 mL) insulin pen See Rx Instructions .ROUTE .COMPLEX Qty: 30 5RF Dose Instruction: INJECT 48 UNITS SUBCUTANEOUSLY TWICE DAILY Rx Instructions: INJECT 25 UNITS SUBCUTANEOUSLY TWICE DAILY metformin 1,000 mg tablet 1,000 mg PO DAILY Qty: 30 0RF Discharge Orders: Discharge Order (Routine); Ordered 10/12/24 Ordered By: Parth Aaron Referrals: Enrico River MD [Physician] - 1 week Shaniqua Newman FNP [Primary Care Provider] - 1-3 days Discharge Diet: Cardiac Discharge Activity: Resume usual activity Patient Instructions: Opioid Safety Activity Restrictions/Additional Instructions: - Please start Lasix 40 mg daily with potassium replacement therapy starting Saturday, October 14 -Please follow-up with cardiology in 1 week -For your type 2 diabetes mellitus monitor blood sugars closely -For your Lantus inject 25 units twice daily -If you have any chest pain or shortness of breath go to the emergency room Discharge Attestations Time Spent in Discharge Care*: greater than 30 min Quality Metrics Clinical Quality Measures [ No reported AMI, CVA or VTE this stay] Coding Level of Care Code 03293 Total time (in minutes) for Discharge: 45 Diagnoses Acute respiratory failure with hypoxia J96.01 COPD exacerbation J44.1 CHF exacerbation I50.9 T2DM (type 2 diabetes mellitus) E11.9 Atrial fibrillation with RVR I48.91
--- NOTE | 2024-10-12 11:39 | PC.SOCIAL ---
IMM Updated Updated pt on IMM. No questions voiced. Provided pt a copy. Initialed, dated, & timed copy in chart.
[2024-10-12 11:41] LABS: Glucose Point of Care 192 mg/dL (70-110)
== END 2024-10-12 13:50 | disposition home or self-care (01) | DRG 189 ==
LOC: ER 14:43 → MEDSURG 15:39 → CSU 10-09 08:17
PROVIDERS: Admitting Provider Family Medicine; Emergency Provider Emergency Medicine; PCP Nurse Practitioner Family; Visit Provider Family Medicine
DX: J96.01 Acute respiratory failure with hypoxia (principal); J18.9 Pneumonia, unspecified organism; J44.0 Chronic obstructive pulmonary disease with (acute) lower respiratory infection; J44.1 Chronic obstructive pulmonary disease with (acute) exacerbation; N17.9 Acute kidney failure, unspecified; I11.0 Hypertensive heart disease with heart failure; I50.9 Heart failure, unspecified; E11.9 Type 2 diabetes mellitus without complications; I48.91 Unspecified atrial fibrillation; E78.5 Hyperlipidemia, unspecified; K21.9 Gastro-esophageal reflux disease without esophagitis; Z79.4 Long term (current) use of insulin; Z87.891 Personal history of nicotine dependence
CPT/HCPCS: 0241U; 36415; 36416; 71045; 80048; 80053; 80061; 81001; 82962; 83036; 83735; 83880; 84145; 84443; 84484; 85025; 86140; 87040; 87070; 87205; 93005; 93970; 94640; 96372; 96374; 96375; 96376; 97110; 97116; 97161; 97165; 99285; J0283; J0360; J0456; J0696; J1650; J1815; J1940; J2470; J2919; J3490; J7050; J7512; J7626

== ENCOUNTER → 2024-10-14 12:46 | Outpatient (BNVA) | payer MEDICARE, OTHER, SELFPAY | PROVIDERS: PCP Nurse Practitioner Family; Visit Provider Nurse Practitioner Family | DX: I50.9 Heart failure, unspecified (principal) | CPT/HCPCS: 80053; 85025 ==

== ENCOUNTER → 2024-10-19 13:17 | Outpatient (BNVA) | payer MEDICARE, OTHER, SELFPAY | PROVIDERS: PCP Nurse Practitioner Family; Visit Provider Nurse Practitioner Family | DX: D72.829 Elevated white blood cell count, unspecified (principal) | CPT/HCPCS: 85025 ==

== ENCOUNTER → 2024-10-27 10:19 | Outpatient (BNVA) | payer MEDICARE, OTHER, SELFPAY | PROVIDERS: PCP Nurse Practitioner Family; Visit Provider Internal Medicine Cardiovascular Disease | DX: I48.19 Other persistent atrial fibrillation (principal); E78.5 Hyperlipidemia, unspecified; I11.0 Hypertensive heart disease with heart failure; I50.9 Heart failure, unspecified; Z87.891 Personal history of nicotine dependence; Z79.4 Long term (current) use of insulin; E11.51 Type 2 diabetes mellitus with diabetic peripheral angiopathy without gangrene | CPT/HCPCS: 99214 ==

== ENCOUNTER → 2024-10-28 13:20 | Outpatient (BNVA) | payer MEDICARE, OTHER, SELFPAY | PROVIDERS: PCP Nurse Practitioner Family; Visit Provider Podiatrist Foot & Ankle Surgery | DX: B35.1 Tinea unguium (principal); L84 Corns and callosities; R60.0 Localized edema; E11.51 Type 2 diabetes mellitus with diabetic peripheral angiopathy without gangrene; I73.9 Peripheral vascular disease, unspecified; Z79.84 Long term (current) use of oral hypoglycemic drugs; Z79.4 Long term (current) use of insulin | CPT/HCPCS: 11721 ==

== ENCOUNTER → 2024-11-09 14:42 | Outpatient (BNVA) | payer MEDICARE, OTHER, SELFPAY | PROVIDERS: PCP Nurse Practitioner Family; Visit Provider Nurse Practitioner Family | DX: L57.8 Other skin changes due to chronic exposure to nonionizing radiation (principal); B07.8 Other viral warts; Z78.9 Other specified health status; D48.5 Neoplasm of uncertain behavior of skin; L57.0 Actinic keratosis | CPT/HCPCS: 11102; 17000; 17110; 99213 ==

== ENCOUNTER → 2024-11-25 12:03 | Outpatient (BNVA) | payer MEDICARE, OTHER, SELFPAY | PROVIDERS: PCP Nurse Practitioner Family; Visit Provider Nurse Practitioner Family | DX: I50.9 Heart failure, unspecified (principal) | CPT/HCPCS: 80048; 85025 ==

== ENCOUNTER 2024-12-19 12:14 | Inpatient (IN) | payer MEDICARE, OTHER, SELFPAY ==
[2024-12-19] VITALS (27 sets, daily range): BP systolic 88–159; BP diastolic 57–95; PULSE 74–145; RESP 16–24; TEMP 36.9–37.7; O2SAT 92–100; BMI 27.5; BMI 28.7
--- NOTE | 2024-12-19 12:36 | XRR_ITS ---
PROCEDURE INFORMATION: Exam: XR Chest Exam date and time: 12/19/2024 12:36 PM Age: 84 years old Clinical indication: Cough and dyspnea; Dyspnea; Cough; SOB; Copd; Chf; Afib TECHNIQUE: Imaging protocol: Radiologic exam of the chest. Views: 1 view. COMPARISON: CR XR chest 1V portable [id number] 10/07/2024 11:01 AM FINDINGS: Tubes, catheters and devices: None. Lungs: Pulmonary emphysema identified within the lungs. Bilateral pleuroparenchymal pulmonary linear scarring, fibrotic changes identified within lungs. Linear density identified within bilateral lower lungs. Linear lung density appears most prominent within the lower right chest. No pulmonary venous congestion is demonstrated within the lungs. No lung consolidation identified. Pleural spaces: No pleural effusion. No pneumothorax. Heart/Mediastinum: Coronary arterial calcifications are demonstrated. Vasculature: Tortuous and ectatic aorta is demonstrated. Moderate to severe atherosclerotic calcification demonstrated within the aorta. Bones/joints: Generalized bony degenerative changes. XR/XR chest 1V portable [id number] IMPRESSION: 1. Pulmonary emphysema. Pulmonary fibrosis. 2. Linear bilateral lower chest pulmonary atelectasis, or scarring. 3. Chronic findings.
--- NOTE | 2024-12-19 12:42 | ECG_ITS ---
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: : 1940 Requested By: Jed Navarro Order Number: [id number] Asmita MD: URBANO PAL Measurements Intervals [place] Rate: 144 P: 0 NC: 0 QRS: -78 QRSD: 114 T: 83 QT: 310 QTc: 481 Interpretive Statements ATRIAL FIBRILLATION WITH RAPID VENTRICULAR RESPONSE LEFT AXIS DEVIATION [QRS AXIS < -30] INCOMPLETE RIGHT BUNDLE BRANCH BLOCK [90+ ms QRS DURATION, TERMINAL R IN V1/V2, 40+ ms S IN I/aVL/V4/V5/V6] ANTEROSEPTAL MYOCARDIAL INFARCTION , OF INDETERMINATE AGE [40+ ms Q WAVE IN V1-V4] Compared to ECG 10/09/2024 18:52:30 Left-axis deviation now present Incomplete right bundle-branch block now present Sinus rhythm no longer present Electronically Signed On 12-20-2024 20:59:05 PLUG SAW OPERATOR by URBANO PAL [email or web address]
[2024-12-19 12:58] LABS: Basophils % 0.3 %; Eosinophils % 0.6 %; Hematocrit 44.1 % (37-53); Lymphocytes # 1.6 10^3/uL (0.8-4.8); Mean Corpuscular HGB Conc 32.2 g/dL (30-55); Mean Corpuscular Hemoglobin 29.9 pg (27-33); Mean Corpuscular Volume 92.8 fl (82-101); Mean Platelet Volume 9.7 fL (7.4-10.4); Monocytes % 15.3 %; Neutrophils # 3.83 10^3/uL (1.8-7.7); Neutrophils % 58.5 %; Nucleated Red Blood Cells % 0 %; Platelet Count 259 10^3/cmm (157-399); Red Blood Count 4.75 10^6/uL (3.85-5.65); Red Cell Distribution Width 13.2 % (12.1-15.1); White Blood Count 6.55 10^3/uL (3.29-11.43)
--- NOTE | 2024-12-19 13:05 | W.ED.SOB ---
HPI - SOB/Dyspnea General: Chief Complaint: Shortness of Breath/Dyspnea Stated Complaint: sob Time Seen by Provider: 12/19/24 12:33 History of Present Illness: HPI Narrative: 84-year-old male presents to the emergency room via EMS with rapid heart rate shortness of breath. Patient has had a cough very congested. He notes at home his heart rate has been fluctuating. In addition has a history of COPD. He has not had any chest pain or tightness he has noticed he has worsening orthopnea swelling in his legs as well as significant increase in dyspnea with exertion. He is not currently on any anticoagulants he was previously but had a hematoma and stopped them Associated symptoms: Reports orthopnea; Deny abdominal pain or fever(s) Related Data Home Medications ?Medication ?Instructions ?Recorded ?Confirmed B-complex with vitamin C 1 cap PO DAILY 01/22/24 12/19/24 diltiazem HCl 120 mg tablet 120 mg PO BID 10/07/24 12/19/24 fenofibrate 160 mg tablet 160 mg PO DAILY 10/07/24 12/19/24 metoprolol tartrate 100 mg tablet 100 mg PO BID 10/07/24 12/19/24 omeprazole 40 mg capsule,delayed 40 mg PO DAILY 10/07/24 12/19/24 release amiodarone 200 mg tablet (Pacerone) 200 mg PO DAILY 12/19/24 12/19/24 arformoterol 15 mcg/2 mL solution 15 mcg inhalation Q12H 12/19/24 12/19/24 for nebulization insulin glargine 100 unit/mL (3 48 unit SUBCUT BID 12/19/24 12/19/24 mL) subcutaneous pen (Basaglar KwikPen U-100 Insulin) Previous Rx's ?Medication ?Instructions ?Recorded albuterol sulfate 90 mcg/actuation 2 puff inhalation QID PRN 11/21/23 aerosol inhaler (Ventolin HFA) Shortness Of Breath #18 grams albuterol sulfate 2.5 mg/3 mL See Rx Instructions .Route 07/08/24 (0.083 %) solution for nebulization .COMPLEX #30 ea rosuvastatin 10 mg tablet 10 mg PO DAILY #90 tabs 09/30/24 furosemide 40 mg tablet (Lasix) 40 mg PO DAILY edema #90 tabs 10/12/24 metformin 1,000 mg tablet 1,000 mg PO DAILY #30 tabs 10/12/24 potassium chloride 20 mEq 20 meq PO DAILY 30 days #90 tabs 11/02/24 tablet,extended release(part/cryst) (Klor-Con M) hydralazine 50 mg tablet 75 mg (1.5 x 50 mg) PO TID #270 11/24/24 tabs azithromycin 250 mg tablet See Rx Instructions PO .COMPLEX #6 12/18/24 tabs codeine 10 mg-guaifenesin 100 mg/5 5 ml PO Q6H PRN cough #150 mL 12/18/24 mL oral liquid (Virtussin AC) Allergies Allergy/AdvReac Type Severity Reaction Status Date / Time No Known Allergies Allergy Verified 12/19/24 12:46 Review of Systems Const: Denies: fever(s) or chills Card: Reports: irregular heart rhythm, edema, swelling of feet/ankles, dyspnea on exertion and orthopnea Resp: Denies: dyspnea GI: Denies: abdominal pain : Denies: dysuria, urinary frequency or urinary urgency Musc: Denies: neck pain or back pain Skin/Breast: Denies: rash PFSH ED PFSH: Medical History CHF (congestive heart failure) Rheumatoid factor positive Nocturnal hypoxia Unable to ambulate Abnormal WBC count Chronic anticoagulation A-fib COPD (chronic obstructive pulmonary disease) with emphysema Hypertension Diabetes Hyperlipemia GERD (gastroesophageal reflux disease) Surgical History History of appendectomy Family History Other CAD (coronary artery disease) Social History Smoking and tobacco/nicotine status: former use of tobacco/nicotine Quit status (tobacco/nicotine): has quit using Year quit tobacco: 1988 Former quit date comment: 2 ppd X 15 years Second hand smoke exposure: No Alcohol intake: never Substance/Drug Use: never Lives independently: Yes Household members: spouse Marital status: Current occupational status: retired Current gender identity: Male Special laya needs: No Agree to transfusion: Yes Physical Exam Const: GENERAL APPEARANCE: cooperative ORIENTATION/CONSCIOUSNESS: Yes awake, Yes oriented to person, Yes oriented to place and Yes oriented to time HENMT: COMMON NORMALS: normocephalic, atraumatic and hearing grossly normal bilaterally HEAD & SCALP: normocephalic and atraumatic Resp: AUSCULTATION: rales and rhonchi Cardio: COMMON NORMALS: No murmurs present (Cardio) RATE: tachycardic RHYTHM: abnormal rhythm irregularly irregular GI: COMMON NORMALS: Soft to palpation and No hepatosplenomegaly present AUSCULTATION: Yes normoactive bowel sounds PALPATION: Yes Soft to palpation, No Tenderness to palpation present (GI), No Guarding due to palpation present (GI) and Yes No hepatosplenomegaly present Extremity: COMMON NORMALS: normal to inspection, capillary refill normal, no clubbing, cyanosis or edema, no calf tenderness and no pedal edema Neuro: SENSORIUM/ORIENTATION: Yes oriented to person, Yes oriented to place and Yes oriented to time Skin: COMMON NORMALS: no rashes or lesions noted GENERAL SKIN EXAM: no rashes or lesions noted Course Vital Signs: Vital signs: Vital Signs Temperature 98.5 F 12/19/24 12:30 Pulse Rate 106 H 12/19/24 14:22 Respiratory Rate 16 12/19/24 14:22 Blood Pressure 119/81 12/19/24 14:22 Pulse Oximetry 98 12/19/24 14:22 Oxygen Delivery Me thod Nasal Cannula 12/19/24 12:30 Oxygen Flow Rate 4 12/19/24 12:30 MDM - SOB/Dyspnea Medical Decision Making Patient A-fib with RVR with COPD and exacerbation due to influenza A. Increasing oxygen requirement. He is rate is controlled now on Cardizem blood pressure stable. History of having to increase his oxygen to 4 L/min by nasal cannula. Will admit patient discussed with hospitalist orders written Lab Data 12/19/24 12:53 12/19/24 12:53 Labs/Radiology: Radiology Impressions Chest X-Ray 12/19/24 12:36 IMPRESSION: 1. Pulmonary emphysema. Pulmonary fibrosis. 2. Linear bilateral lower chest pulmonary atelectasis, or scarring. 3. Chronic findings. Laboratory Results WBC 6.55 10^3/uL (3.29-11.43) 12/19/24 12:53 RBC 4.75 10^6/uL (3.85-5.65) 12/19/24 12:53 Hgb 14.20 g/dL (11.27-16.99) 12/19/24 12:53 Hct 44.1 % (37-53) 12/19/24 12:53 MCV 92.8 fl (82-101) 12/19/24 12:53 MCH 29.9 pg (27-33) 12/19/24 12:53 MCHC 32.2 g/dL (30-55) 12/19/24 12:53 RDW 13.2 % (12.1-15.1) 12/19/24 12:53 Plt Count 259 10^3/cmm (157-399) 12/19/24 12:53 MPV 9.7 fL (7.4-10.4) 12/19/24 12:53 Neut % (Auto) 58.5 % 12/19/24 12:53 Lymph % (Auto) 25.0 % 12/19/24 12:53 Evangeline % (Auto) 15.3 % 12/19/24 12:53 Eos % (Auto) 0.6 % 12/19/24 12:53 Baso % (Auto) 0.3 % 12/19/24 12:53 Neut # (Auto) 3.83 10^3/uL (1.8-7.7) 12/19/24 12:53 Lymph # (Auto) 1.6 10^3/uL (0.8-4.8) 12/19/24 12:53 Evangeline # (Auto) 1.0 10^3/uL (0.2-0.9) H 12/19/24 12:53 Eos # (Auto) 0.0 10^3/uL (0.0-0.8) 12/19/24 12:53 Baso # (Auto) 0.0 10^3/uL (0.0-0.1) 12/19/24 12:53 Nucleated RBC % (auto) 0 % 12/19/24 12:53 Nucleated RBCs # 0.0 /100WBC 12/19/24 12:53 Sodium 134 mmol/L (136-145) L 12/19/24 12:53 Potassium 4.0 mmol/L (3.5-5.1) 12/19/24 12:53 Chloride 96 mmol/L (98-107) L 12/19/24 12:53 Carbon Dioxide 22 mmol/L (22-29) 12/19/24 12:53 Anion Gap 20.0 (5-19) H 12/19/24 12:53 BUN 23 mg/dL (8-23) 12/19/24 12:53 Creatinine 1.7 mg/dL (0.7-1.2) H 12/19/24 12:53 GFR Calculation Not Reportable 12/19/24 12:53 Glucose 134 mg/dL (65-115) H 12/19/24 12:53 Calculated Osmolality 284 mOsm/kg (285-295) L 12/19/24 12:53 Calcium 9.2 mg/dL (8.5-10.5) 12/19/24 12:53 Total Bilirubin 0.4 mg/dL (0.15-1.2) 12/19/24 12:53 AST 54 U/L (0-40) H 12/19/24 12:53 ALT 32 U/L (0-41) 12/19/24 12:53 Alkaline Phosphatase 71 U/L (40-130) 12/19/24 12:53 Troponin T Baseline 49 ng/L (0-15) H 12/19/24 12:53 Total Protein 7.9 g/dL (6.6-8.7) 12/19/24 12:53 Albumin 4.0 g/dL (3.5-5.2) 12/19/24 12:53 Globulin 3.9 g/dL (1.3-4.6) 12/19/24 12:53 Coronavirus (PCR) Negative (Negative) 12/19/24 13:14 Influenza A (PCR) Positive (Negative) 12/19/24 13:14 Influenza Type B (PCR) Negative (Negative) 12/19/24 13:14 RSV (PCR) Negative (Negative) 12/19/24 13:14 All radiology interpretation(s) finalized by discharge Discharge Plan Discharge Patient Disposition: Admitted As Inpatient Admit Provider: Delicia Bedolla Clinical Impression: Acute hypoxic respiratory failure, Acute exacerbation of chronic obstructive pulmonary disease, Atrial fibrillation with RVR, Influenza A Condition: Stable Coding Level of Care Code ED Exercise Scientist for Chg Fwd
[2024-12-19] MEDS: dilTIAZem 5 mg/mL SDV 5 mL 10 MG IVP (13:15)
[2024-12-19] MEDS: dilTIAZem 100 MG in sodium chloride 0.9% (add-van) 100 ML IV (13:16)
[2024-12-19 13:17] LABS: Alanine Aminotransferase 32 U/L (0-41); Alkaline Phosphatase 71 U/L (40-130); Aspartate Amino Transferase 54 U/L (0-40); Blood Urea Nitrogen 23 mg/dL (8-23); Calcium 9.2 mg/dL (8.5-10.5); Carbon Dioxide 22 mmol/L (22-29); Chloride 96 mmol/L (98-107); Globulin 3.9 g/dL (1.3-4.6); Glucose 134 mg/dL (65-115); Osmolality Calculated 284 mOsm/kg (285-295); Sodium 134 mmol/L (136-145); Total Bilirubin 0.4 mg/dL (0.15-1.2); Total Protein 7.9 g/dL (6.6-8.7)
[2024-12-19 13:53] LABS: Influenza A POSITIVE (Negative); Influenza B NEGATIVE (Negative); Respiratory Syncytial Virus Ce NEGATIVE (Negative); SARS-CoV-2 PCR NEGATIVE (Negative)
[2024-12-19 14:18] LABS: Troponin(5th) Baseline 49 ng/L (0-15)
[2024-12-19 15:36] LABS: Troponin 5 2HR 43.26 ng/L (0-15)
[2024-12-19 15:37] LABS: Troponin 5 2HR Delta -5.74 ABS# (0-10)
--- NOTE | 2024-12-19 17:22 | PM.HP ---
Providers/Chief Complaint Admitting Physician: Delicia Bedolla MD Primary Care Provider: YELITZA Davidson Chief Complaint: sob History of Present Illness Marco Antonio Mosquera is a 84 year old male with a past medical history of COPD, insulin-dependent type 2 diabetes mellitus, dyslipidemia, atrial fibrillation, history of iliopsoas hematoma taken off Coumadin, not on anticoagulant therapy, hyperlipidemia, who presents [facility] due to progressive shortness of breath cough and feeling unwell for the past few days. His heart rate has been elevated, he was found to be in A-fib with RVR. Patient tested positive for influenza A. He was hypoxic, requiring 4 L/min supplemental O2. Chest x-ray showed findings of pulmonary emphysema and fibrosis. Bilateral lower chest pulmonary atelectasis. Review of Systems General: Reports: 10 or more systems reviewed and unremarkable except in HPI and below Const: Denies: fever(s), chills or body aches Eyes: Denies: change in vision, blurry vision or photophobia ENMT: Reports: hoarseness; Denies: throat pain, enlarged tonsils, odynophagia or nasal congestion Card: Denies: chest pain, palpitations, irregular heart rhythm, edema, swelling of feet/ankles, lightheadedness, pre-syncope, dyspnea on exertion or orthopnea Resp: Denies: dyspnea, productive cough, non-productive cough, wheezing, stridor, pain on inspiration, change in phlegm color, hemoptysis or chest congestion GI: Denies: abdominal pain, nausea, vomiting, hematemesis, coffee ground emesis, dysphagia, heartburn, diarrhea, constipation, GI cramping, change in stool character, hematochezia or melena : Denies: flank pain, dysuria, urinary frequency, urinary urgency, urinary hesitancy or hematuria Musc: Denies: neck pain, back pain, extremity pain, joint swelling, joint warmth or deformity Neuro: Denies: headache(s), numbness in extremities, weakness in extremities, sensory changes, difficulty walking, frequent falls, dizziness, vertigo, behavioral changes, Slurred speech present or seizure-like activity Psych: Denies: anxiety, depression, suicidal ideation or homicidal ideation Endo: Denies: polyuria, polydipsia, tired all the time, cold intolerance or hot flashes Ignacio/Lymph: Denies: easy bruising or easy bleeding Medications/Allergies Home Medications ?Medication ?Instructions ?Recorded ?Confirmed ?Last Taken ?Type albuterol sulfate 90 mcg/actuation 2 puff inhalation QID PRN 11/21/23 12/19/24 Unknown Rx aerosol inhaler (Ventolin HFA) Shortness Of Breath #18 grams B-complex with vitamin C 1 cap PO DAILY 01/22/24 12/19/24 Unknown History albuterol sulfate 2.5 mg/3 mL See Rx Instructions .Route 07/08/24 12/19/24 Unknown Rx (0.083 %) solution for nebulization .COMPLEX #30 ea rosuvastatin 10 mg tablet 10 mg PO DAILY #90 tabs 09/30/24 12/19/24 Unknown Rx diltiazem HCl 120 mg tablet 120 mg PO BID 10/07/24 12/19/24 Unknown History fenofibrate 160 mg tablet 160 mg PO DAILY 10/07/24 12/19/24 Unknown History metoprolol tartrate 100 mg tablet 100 mg PO BID 10/07/24 12/19/24 Unknown History omeprazole 40 mg capsule,delayed 40 mg PO DAILY 10/07/24 12/19/24 Unknown History release furosemide 40 mg tablet (Lasix) 40 mg PO DAILY edema #90 tabs 10/12/24 12/19/24 Unknown Rx metformin 1,000 mg tablet 1,000 mg PO DAILY #30 tabs 10/12/24 12/19/24 Unknown Rx potassium chloride 20 mEq 20 meq PO DAILY 30 days #90 tabs 11/02/24 12/19/24 Unknown Rx tablet,extended release(part/cryst) (Klor-Con M) hydralazine 50 mg tablet 75 mg (1.5 x 50 mg) PO TID #270 11/24/24 12/19/24 Unknown Rx tabs azithromycin 250 mg tablet See Rx Instructions PO .COMPLEX #6 12/18/24 12/19/24 Unknown Rx tabs codeine 10 mg-guaifenesin 100 mg/5 5 ml PO Q6H PRN cough #150 mL 12/18/24 12/19/24 Unknown Rx mL oral liquid (Virtussin AC) amiodarone 200 mg tablet (Pacerone) 200 mg PO DAILY 12/19/24 12/19/24 Unknown History arformoterol 15 mcg/2 mL solution 15 mcg inhalation Q12H 12/19/24 12/19/24 Unknown History for nebulization insulin glargine 100 unit/mL (3 48 unit SUBCUT BID 12/19/24 12/19/24 Unknown History mL) subcutaneous pen (Basaglar KwikPen U-100 Insulin) Allergies Allergy/AdvReac Type Severity Reaction Status Date / Time No Known Allergies Allergy Verified 12/19/24 12:46 PFSH Acute PFSH: Medical History CHF (congestive heart failure) Rheumatoid factor positive Nocturnal hypoxia Unable to ambulate Abnormal WBC count Chronic anticoagulation A-fib COPD (chronic obstructive pulmonary disease) with emphysema Hypertension Diabetes Hyperlipemia GERD (gastroesophageal reflux disease) Surgical History History of appendectomy Family History Other CAD (coronary artery disease) Social History Smoking and tobacco/nicotine status: former use of tobacco/nicotine Quit status (tobacco/nicotine): has quit using Year quit tobacco: 1988 Former quit date comment: 2 ppd X 15 years Second hand smoke exposure: No Alcohol intake: never Substance/Drug Use: never Lives independently: Yes Household members: spouse Marital status: Current occupational status: retired Current gender identity: Male Special laya needs: No Agree to transfusion: Yes Vitals/I&O/Wt Last Vital Signs Temp 98.5 F 12/19/24 12:30 Pulse 107 H 12/19/24 16:43 Resp 18 12/19/24 16:43 BP 159/92 12/19/24 16:51 Pulse Ox 92 12/19/24 16:51 O2 Del Method Nasal Cannula 12/19/24 12:30 O2 Flow Rate 4 12/19/24 12:30 12/19/24 12/19/24 12/19/24 06:59 14:59 22:59 Intake Total 2 / 2 Balance 2 / 2 Weight last 48 hrs Weight 99.79 kg Physical Exam Narrative: General: No acute distress, AO x3 HEENT: PERRLA, pupils bilaterally equal and reactive, pallors not present Chest: crackles B/L CVS: S1-S2 regular, no murmurs, no tachycardia, no gallops, no rubs Abdomen: Soft, nontender, no organomegaly, bowel sounds present Neuro: No focal deficits, no facial deformity, AO x3, power 5/5 in all limbs Data 12/19/24 12:53 12/19/24 12:53 Other Labs: Radiology Impressions Chest X-Ray 12/19/24 12:36 IMPRESSION: 1. Pulmonary emphysema. Pulmonary fibrosis. 2. Linear bilateral lower chest pulmonary atelectasis, or scarring. 3. Chronic findings. Laboratory Results WBC 6.55 10^3/uL (3.29-11.43) 12/19/24 12:53 RBC 4.75 10^6/uL (3.85-5.65) 12/19/24 12:53 Hgb 14.20 g/dL (11.27-16.99) 12/19/24 12:53 Hct 44.1 % (37-53) 12/19/24 12:53 MCV 92.8 fl (82-101) 12/19/24 12:53 MCH 29.9 pg (27-33) 12/19/24 12:53 MCHC 32.2 g/dL (30-55) 12/19/24 12:53 RDW 13.2 % (12.1-15.1) 12/19/24 12:53 Plt Count 259 10^3/cmm (157-399) 12/19/24 12:53 MPV 9.7 fL (7.4-10.4) 12/19/24 12:53 Neut % (Auto) 58.5 % 12/19/24 12:53 Lymph % (Auto) 25.0 % 12/19/24 12:53 Arroyo % (Auto) 15.3 % 12/19/24 12:53 Eos % (Auto) 0.6 % 12/19/24 12:53 Baso % (Auto) 0.3 % 12/19/24 12:53 Neut # (Auto) 3.83 10^3/uL (1.8-7.7) 12/19/24 12:53 Lymph # (Auto) 1.6 10^3/uL (0.8-4.8) 12/19/24 12:53 Arroyo # (Auto) 1.0 10^3/uL (0.2-0.9) H 12/19/24 12:53 Eos # (Auto) 0.0 10^3/uL (0.0-0.8) 12/19/24 12:53 Baso # (Auto) 0.0 10^3/uL (0.0-0.1) 12/19/24 12:53 Nucleated RBC % (auto) 0 % 12/19/24 12:53 Nucleated RBCs # 0.0 /100WBC 12/19/24 12:53 Sodium 134 mmol/L (136-145) L 12/19/24 12:53 Potassium 4.0 mmol/L (3.5-5.1) 12/19/24 12:53 Chloride 96 mmol/L (98-107) L 12/19/24 12:53 Carbon Dioxide 22 mmol/L (22-29) 12/19/24 12:53 Anion Gap 20.0 (5-19) H 12/19/24 12:53 BUN 23 mg/dL (8-23) 12/19/24 12:53 Creatinine 1.7 mg/dL (0.7-1.2) H 12/19/24 12:53 GFR Calculation Not Reportable 12/19/24 12:53 Glucose 134 mg/dL (65-115) H 12/19/24 12:53 Calculated Osmolality 284 mOsm/kg (285-295) L 12/19/24 12:53 Calcium 9.2 mg/dL (8.5-10.5) 12/19/24 12:53 Total Bilirubin 0.4 mg/dL (0.15-1.2) 12/19/24 12:53 AST 54 U/L (0-40) H 12/19/24 12:53 ALT 32 U/L (0-41) 12/19/24 12:53 Alkaline Phosphatase 71 U/L (40-130) 12/19/24 12:53 Troponin T Baseline 49 ng/L (0-15) H 12/19/24 12:53 Troponin T 120 Minute 43.26 ng/L (0-15) H 12/19/24 15:07 Delta Troponin T -5.74 ABS# (0-10) L 12/19/24 15:07 Total Protein 7.9 g/dL (6.6-8.7) 12/19/24 12:53 Albumin 4.0 g/dL (3.5-5.2) 12/19/24 12:53 Globulin 3.9 g/dL (1.3-4.6) 12/19/24 12:53 Coronavirus (PCR) Negative (Negative) 12/19/24 13:14 Influenza A (PCR) Positive (Negative) 12/19/24 13:14 Influenza Type B (PCR) Negative (Negative) 12/19/24 13:14 RSV (PCR) Negative (Negative) 12/19/24 13:14 A&P Assessment and plan (1) Influenza A: Influenza Pneumonia start Tamiflu 75mg BID ceftriaxone 1 g iv every 24 h given B/L lower chest infiltrates -cannot r/o bacterial infection at this time, will reassess (2) Atrial fibrillation with RVR: on cardizem drip for a fib with rvr start metoprolol 100mg BID cardizem po 120mg BID off a/c due to h/o bleeding (3) T2DM (type 2 diabetes mellitus): insulin sliding scale Qualifiers: Diabetes mellitus senior living insulin use: without long term care administrator use Diabetes mellitus complication status: without complication Qualified Code(s): E11.9 - Type 2 diabetes mellitus without complications (4) Acute hypoxic respiratory failure: related to CHF exacerbation triggered by dCHF And influenza PNA (5) CHF (congestive heart failure): lasix 40mg iv every 24 h monitor kideny function and urine output Qualifiers: Heart failure type: other Qualified Code(s): I50.9 - Heart failure, unspecified PDMP PDMP Reviewed: Not Reviewed Attestations Medical Necessity Statement*: >2 midnight stay anticipated Coding Level of Care Code Acute Code for Chg Fwd High MDM includes number and complexity of problems actively addressed during encounter, amount and/or complexity of data reviewed/ordered and described risk of complication, morbidity or mortality of management as documented Diagnoses Influenza A J10.1 Atrial fibrillation with RVR I48.91 Type 2 diabetes mellitus without complication, without long-term current use of insulin E11.9 Diabetes mellitus long term care administrator insulin use: without long term care administrator use Diabetes mellitus complication status: without complication Acute hypoxic respiratory failure J96.01 Other congestive heart failure I50.9 Heart failure type: other
[2024-12-19] MEDS: cefTRIAXone 1,000 mg SDV 1000 MG IVP (17:54)
[2024-12-19] MEDS: oseltamivir phosphate 30 mg Capsule PO (17:54)
[2024-12-19 19:57] LABS: Troponin 5 6HR 44.63 ng/L (0-15)
[2024-12-19 19:59] LABS: Troponin 5 6HR Delta -4.37 ng/L (0-12)
--- NOTE | 2024-12-19 19:59 | ECG_ITS ---
[employer] Test Date: 2024-12-19 Pat Name: Marco Antonio Mosquera Department: Room: 108 Gender: Male Tissue Rewinder: : 1940 Requested By: Jed Navarro Order Number: [id number] Reading MD: URBAON PAL Measurements Intervals [place] Rate: 97 P: 78 NJ: 191 QRS: -80 QRSD: 121 T: 78 QT: 375 QTc: 478 Interpretive Statements SINUS RHYTHM POSSIBLE RIGHT VENTRICULAR CONDUCTION DELAY [RSR (QR) IN V1/V2] POSSIBLE ANTERIOR MYOCARDIAL INFARCTION , OF INDETERMINATE AGE [30 ms Q WAVE IN V3/V4, OR R < 0.2 mV IN V4] INFERIOR MYOCARDIAL INFARCTION , PROBABLY OLD [40+ ms Q WAVE AND/OR ST/T ABNORMALITY IN II/aVF] Compared to ECG 12/19/2024 12:42:52 Atrial fibrillation no longer present Left-axis deviation no longer present Incomplete right bundle-branch block no longer present Myocardial infarct finding still present Electronically Signed On 12-20-2024 21:08:24 [place] by URBANO PAL [email or web address]
[2024-12-19 20:04] LABS: Glucose Point of Care 230 mg/dL (70-110)
[2024-12-19] MEDS: FUROsemide 10 mg/mL SDV 4mL 40 MG IVP (20:30)
[2024-12-19] MEDS: dilTIAZem 60 mg Tablet 120 MG PO (20:30)
[2024-12-19] MEDS: metoprolol tartrate 50 mg Tablet 100 MG PO (20:30)
[2024-12-19] MEDS: insulin lispro 100 unit/1 mL SUBCUT (20:31)
[2024-12-19] MEDS: budesonide 0.5 mg/2 mL Neb INHALATION (21:24)
[2024-12-19] MEDS: levalbuterol 0.63 mg/3 mL Neb INHALATION (21:25)
[2024-12-19] MEDS: acetaminophen 325 mg Tablet 650 MG PO (21:48)
[2024-12-20] VITALS (17 sets, daily range): BP systolic 108–143; BP diastolic 62–76; PULSE 65–84; RESP 16–24; TEMP 36.4–37.1; O2SAT 94–99; BMI 28.7
[2024-12-20 00:24] LABS: Glucose Point of Care 104 mg/dL (70-110)
[2024-12-20] MEDS: levalbuterol 0.63 mg/3 mL Neb INHALATION ×4 (02:36→20:11)
[2024-12-20 02:54] LABS: Basophils % 0.4 %; Eosinophils # 0.1 10^3/uL (0.0-0.8); Eosinophils % 2.1 %; Hematocrit 36.9 % (37-53); Lymphocytes # 1.5 10^3/uL (0.8-4.8); Lymphocytes % 25.6 %; Mean Corpuscular HGB Conc 32.2 g/dL (30-55); Mean Corpuscular Hemoglobin 30.1 pg (27-33); Mean Corpuscular Volume 93.4 fl (82-101); Mean Platelet Volume 10.4 fL (7.4-10.4); Monocytes % 17.1 %; Neutrophils % 54.6 %; Nucleated Red Blood Cells % 0 %; Platelet Count 204 10^3/cmm (157-399); Red Blood Count 3.95 10^6/uL (3.85-5.65); Red Cell Distribution Width 13.3 % (12.1-15.1); White Blood Count 5.67 10^3/uL (3.29-11.43)
[2024-12-20 03:14] LABS: Alanine Aminotransferase 27 U/L (0-41); Albumin Level 3.6 g/dL (3.5-5.2); Alkaline Phosphatase 61 U/L (40-130); Anion Gap 15.7 (5-19); Aspartate Amino Transferase 40 U/L (0-40); Blood Urea Nitrogen 28 mg/dL (8-23); Calcium 8.7 mg/dL (8.5-10.5); Carbon Dioxide 24 mmol/L (22-29); Chloride 102 mmol/L (98-107); Creatinine Clr Calc Pharmacy 46.4963; Globulin 2.8 g/dL (1.3-4.6); Glucose 93 mg/dL (65-115); Osmolality Calculated 291 mOsm/kg (285-295); Potassium 3.7 mmol/L (3.5-5.1); Sodium 138 mmol/L (136-145); Total Bilirubin 0.2 mg/dL (0.15-1.2); Total Protein 6.4 g/dL (6.6-8.7)
[2024-12-20] MEDS: acetaminophen 325 mg Tablet 650 MG PO (06:22)
[2024-12-20 06:28] LABS: Glucose Point of Care 131 mg/dL (70-110)
[2024-12-20] MEDS: fenofibrate 145 mg Tablet PO (08:28)
[2024-12-20] MEDS: amiodarone 200 mg Tablet PO (08:28)
[2024-12-20] MEDS: metoprolol tartrate 50 mg Tablet 100 MG PO ×2 (08:29→18:12)
[2024-12-20] MEDS: oseltamivir phosphate 30 mg Capsule PO ×2 (08:29→18:12)
[2024-12-20] MEDS: dilTIAZem 60 mg Tablet 120 MG PO ×2 (08:30→18:12)
[2024-12-20] MEDS: atorvastatin 40 mg Tablet PO (08:30)
[2024-12-20] MEDS: pantoprazole DR 40 mg Tablet PO (08:30)
[2024-12-20] MEDS: budesonide 0.5 mg/2 mL Neb INHALATION ×2 (09:15→20:10)
[2024-12-20 12:50] LABS: Glucose Point of Care 188 mg/dL (70-110)
[2024-12-20] MEDS: insulin lispro 100 unit/1 mL SUBCUT ×2 (13:43→20:59)
[2024-12-20] MEDS: guaiFENesin-codeine UDC 10 mL 5 ML PO (13:48)
--- NOTE | 2024-12-20 14:02 | PM.PN ---
Subjective Subjective: Patient was able to be titrated off Cardizem overnight. Currently rate is well-controlled. Febrile overnight. Medications: Reviewed: Yes Vitals/I&O/Wt Last Vital Signs Temp 98.6 F 12/20/24 12:00 Pulse 71 12/20/24 13:55 Resp 20 H 12/20/24 13:55 BP 117/64 12/20/24 12:00 Pulse Ox 96 12/20/24 13:55 O2 Del Method Nasal Cannula 12/20/24 13:55 O2 Flow Rate 3 12/20/24 13:55 12/19/24 12/20/24 12/20/24 22:59 06:59 14:59 Intake Total 57.00 / 59.00 405.042 / 464.042 120 / 120 Output Total 675 / 675 100 / 100 Balance 57.00 / 59.00 -269.958 / -210.958 20 / 20 Weight last 48 hrs Weight 104.128 kg Weight 104.128 kg Weight 99.79 kg Physical Exam Narrative: General: No acute distress, AO x3 HEENT: PERRLA, pupils bilaterally equal and reactive, pallors not present Chest: scattered wheezing to asucultation B/L CVS: S1-S2 regular, no murmurs, no tachycardia, no gallops, no rubs Abdomen: Soft, nontender, no organomegaly, bowel sounds present Neuro: No focal deficits, no facial deformity, AO x3, power 5/5 in all limbs Extremities: LLE edema + Data 12/20/24 02:25 12/20/24 02:25 A&P Assessment and plan (1) Influenza A: (2) Atrial fibrillation with RVR: (3) T2DM (type 2 diabetes mellitus): Qualifiers: Diabetes mellitus terminal makeup operator insulin use: without terminal makeup operator use Diabetes mellitus complication status: without complication Qualified Code(s): E11.9 - Type 2 diabetes mellitus without complications (4) COPD exacerbation: (5) COPD (chronic obstructive pulmonary disease) with emphysema: Qualifiers: Emphysema type: unspecified Qualified Code(s): J43.9 - Emphysema, unspecified Plan (1) Influenza A: Influenza Pneumonia start Tamiflu 75mg BID ceftriaxone 1 g iv every 24 h given B/L lower chest infiltrates -cannot r/o bacterial infection at this time, will reassess (2) Atrial fibrillation with RVR: on cardizem drip for a fib with rvr start metoprolol 100mg BID cardizem po 120mg BID off a/c due to h/o bleeding (3) T2DM (type 2 diabetes mellitus): insulin sliding scale Qualifiers: Diabetes mellitus terminal makeup operator insulin use: without alf use Diabetes mellitus complication status: without complication Qualified Code(s): E11.9 - Type 2 diabetes mellitus without complications (4) Acute hypoxic respiratory failure: related to CHF exacerbation triggered by dCHF And influenza PNA (5) CHF (congestive heart failure): lasix 40mg iv every 24 h monitor kideny function and urine output 12/20/2024: Febrile overnight. Continue Tamiflu, renally adjusted by pharmacy to 30 mg twice daily. Continue ceftriaxone 1 g IV every 24 hours. Noted to have bilateral wheezing to auscultation today. Continue Xopenex and budesonide inhalation. Add dexamethasone 6 mg p.o. daily. Left lower extremity swelling appeared to be worsening today. Patient was taken off anticoagulation few years ago due to a history of iliopsoas hematoma. Will check lower extremity Doppler to evaluate for any DVT. Patient states that he has had lower extremity swelling for many years but currently it does appear worse than usual. There are changes of stasis dermatitis around the ankle. Continue Lasix 40 mg IV every 24 hours. Urine output 770 cc, creatinine is stable at 1.6. He was able to be titrated off Cardizem drip overnight. Currently heart rate is well-maintained on home regimen of metoprolol 100 mg twice daily, Cardizem 120 mg twice daily and amiodarone as he takes at home. Transfer to [facility] with telemetry PDMP PDMP Reviewed: Not Reviewed Attestations Medical Necessity Statement*: IV diuresis, COPD exacerbation needing initiation of steroids, lower extremity Doppler ordered to assess for DVT due to worsening edema. Coding Level of Care Code Acute Code for Chg Fwd High MDM includes number and complexity of problems actively addressed during encounter, amount and/or complexity of data reviewed/ordered and described risk of complication, morbidity or mortality of management as documented Diagnoses Influenza A J10.1 Atrial fibrillation with RVR I48.91 Type 2 diabetes mellitus without complication, without long-term current use of insulin E11.9 Diabetes mellitus alf insulin use: without alf use Diabetes mellitus complication status: without complication COPD exacerbation J44.1 Pulmonary emphysema, unspecified emphysema type J43.9 Emphysema type: unspecified
--- NOTE | 2024-12-20 14:04 | USR_ITS ---
PROCEDURE INFORMATION: Exam: US Duplex Left Lower Extremity Veins, Limited Exam date and time: 12/20/2024 3:01 PM Age: 84 years old Clinical indication: Screening exam; Assess for dvt TECHNIQUE: Imaging protocol: Real-time duplex ultrasound of the left extremity with 2-D randall scale, color Doppler flow and spectral waveform analysis including responses to compression and other maneuvers (when performed) with image documentation. Limited exam focused on the left lower extremity veins. COMPARISON: CT hip LT wo con* [id number] 05/03/2022 5:55 AM FINDINGS: Left deep veins: Unremarkable. The common femoral, femoral, proximal profunda femoral and popliteal veins are patent without thrombus. Normal Doppler waveforms. Normal compressibility and/or augmentation response. Superficial veins: Greater saphenous vein at the saphenofemoral junction is patent without thrombus. Soft tissues: Unremarkable. US/[place] [id number] IMPRESSION: No evidence of deep vein thrombosis in the left lower extremity.
[2024-12-20] MEDS: dexamethasone 10 mg/mL INJ 6 MG PO ×2 (15:10→15:13)
[2024-12-20 16:55] LABS: Glucose Point of Care 136 mg/dL (70-110)
[2024-12-20] MEDS: cefTRIAXone 1,000 mg SDV 1000 MG IVP (18:12)
[2024-12-20] MEDS: FUROsemide 10 mg/mL SDV 4mL 40 MG IVP (18:18)
[2024-12-20 20:57] LABS: Glucose Point of Care 299 mg/dL (70-110)
[2024-12-21] VITALS (11 sets, daily range): BP systolic 114–143; BP diastolic 65–74; PULSE 62–74; RESP 16–18; TEMP 36.6–36.8; O2SAT 93–98
[2024-12-21 06:29] LABS: Hematocrit 38.8 % (37-53); Lymphocytes # 0.8 10^3/uL (0.8-4.8); Mean Corpuscular HGB Conc 32.7 g/dL (30-55); Mean Corpuscular Hemoglobin 30.4 pg (27-33); Mean Corpuscular Volume 92.8 fl (82-101); Mean Platelet Volume 10.3 fL (7.4-10.4); Monocytes # 0.3 10^3/uL (0.2-0.9); Monocytes % 9.2 %; Neutrophils # 1.86 10^3/uL (1.8-7.7); Neutrophils % 63.5 %; Nucleated Red Blood Cells % 0 %; Platelet Count 270 10^3/cmm (157-399); Red Blood Count 4.18 10^6/uL (3.85-5.65); White Blood Count 2.93 10^3/uL (3.29-11.43)
[2024-12-21 06:47] LABS: Glucose Point of Care 231 mg/dL (70-110)
[2024-12-21 06:53] LABS: Alanine Aminotransferase 26 U/L (0-41); Albumin Level 3.8 g/dL (3.5-5.2); Alkaline Phosphatase 68 U/L (40-130); Anion Gap 19.4 (5-19); Aspartate Amino Transferase 36 U/L (0-40); Blood Urea Nitrogen 31 mg/dL (8-23); Carbon Dioxide 20 mmol/L (22-29); Chloride 100 mmol/L (98-107); Creatinine Clr Calc Pharmacy 40.1673; Globulin 3.4 g/dL (1.3-4.6); Glucose 215 mg/dL (65-115); Osmolality Calculated 293 mOsm/kg (285-295); Potassium 4.4 mmol/L (3.5-5.1); Sodium 135 mmol/L (136-145); Total Bilirubin 0.3 mg/dL (0.15-1.2); Total Protein 7.2 g/dL (6.6-8.7)
[2024-12-21] MEDS: oseltamivir phosphate 30 mg Capsule PO ×2 (07:58→17:54)
[2024-12-21] MEDS: fenofibrate 145 mg Tablet PO (07:58)
[2024-12-21] MEDS: pantoprazole DR 40 mg Tablet PO (07:59)
[2024-12-21] MEDS: insulin lispro 100 unit/1 mL SUBCUT ×4 (07:59→21:19)
[2024-12-21] MEDS: atorvastatin 40 mg Tablet PO (07:59)
[2024-12-21] MEDS: dilTIAZem 60 mg Tablet 120 MG PO ×2 (07:59→17:54)
[2024-12-21] MEDS: polyethylene glycol 3350 Pkt 17 gm PO (07:59)
[2024-12-21] MEDS: amiodarone 200 mg Tablet PO (07:59)
[2024-12-21] MEDS: metoprolol tartrate 50 mg Tablet 100 MG PO ×2 (07:59→17:54)
--- NOTE | 2024-12-21 10:04 | PC.CHAP ---
Pastoral Care Encounter/Spiritual Assessment Type of Contact [] Declined foreman or supervisor and operator visit [] Patient/Family/Request visit [] Outpatient visit [] Follow-up visit [] Physician referral [] Code/Alert [x] Routine visit [] Staff referral [] Actively dying [] Patient sleeping [] Family support [] [] Out of room [] Palliative care [] [] Receiving care in room [] Pre-surgical visit [] Trauma [] Long length of stay [] ICU visit [] Other: Relational/Emotional Strength [] Patient feels connected with others/family/visitors/staff [] Distress [] Loneliness/isolation [] Abandonment Spirituality of Patient [] Person of Rylee [] Attends Moravian of their Rylee [] Believes in Prayer [] Reads Bible or Oriental Orthodox materials [] There are Spiritual issues to be addressed Dinkey Operator Interventions [] Prayer [] Active listening [] Non-anxious presence [] Spiritual/emotional support [] Crisis/trauma care [] Spiritual counseling [] Bereavement support [] Provided bereavement packet [] Provided Bible/devotional materials [] Provided toy/stuffed animal, coloring book to patient or family member [] Provided Communion [] Anointing/[place] [] Salvation [] Completed spiritual assessment [] Other: Impact on Illness or Injury [] Angry [] Fearful [] Anxious [] Often cries [] Exhaustion [] Unable to work [] Unable to attend bahai [] Unable to walk/stand [] Unable to read [] Unable to drive [] Unable to eat/drink [] Unable to sleep [] Unable to be with family [] Patient intubated [] Other: Summary precaution Time spent with patient
[2024-12-21 11:28] LABS: Glucose Point of Care 239 mg/dL (70-110)
--- NOTE | 2024-12-21 12:30 | PM.PN ---
Subjective Subjective: Seen this morning. Patient feels very short of breath on exertion and is not feeling well. Saturating 96% on 3 L nasal cannula. He feels he is unsafe to go home today because of his respiratory status. Vitals/I&O/Wt Last Vital Signs Temp 98.0 F 12/21/24 12:16 Pulse 69 12/21/24 12:16 Resp 18 12/21/24 12:16 BP 143/66 12/21/24 12:16 Pulse Ox 96 12/21/24 12:16 O2 Del Method Nasal Cannula 12/21/24 12:16 O2 Flow Rate 3 12/21/24 12:16 12/20/24 12/21/24 12/21/24 22:59 06:59 14:59 Intake Total 35.958 / 155.958 400 / 555.958 240 / 240 Output Total 625 / 725 200 / 925 350 / 350 Balance -589.042 / -569.042 200 / -369.042 -110 / -110 Weight last 48 hrs Weight 69.808 kg Weight 104.128 kg Weight 104.128 kg Physical Exam Narrative: General: No acute distress, AO x3 HEENT: PERRLA, pupils bilaterally equal and reactive, pallors not present Chest: scattered wheezing to asucultation B/L, rhonchi present bilaterally as well. CVS: S1-S2 regular, no murmurs, no tachycardia, no gallops, no rubs Abdomen: Soft, nontender, no organomegaly, bowel sounds present Neuro: No focal deficits, no facial deformity, AO x3, power 5/5 in all limbs Extremities: LLE edema + Data 12/21/24 06:18 12/21/24 06:18 A&P Assessment and plan (1) Influenza A: (2) Atrial fibrillation with RVR: (3) T2DM (type 2 diabetes mellitus): Qualifiers: Diabetes mellitus termination clerk insulin use: without termination clerk use Diabetes mellitus complication status: without complication Qualified Code(s): E11.9 - Type 2 diabetes mellitus without complications (4) COPD exacerbation: (5) COPD (chronic obstructive pulmonary disease) with emphysema: Qualifiers: Emphysema type: unspecified Qualified Code(s): J43.9 - Emphysema, unspecified Plan (1) Influenza A: Influenza Pneumonia start Tamiflu 75mg BID ceftriaxone 1 g iv every 24 h given B/L lower chest infiltrates -cannot r/o bacterial infection at this time, will reassess (2) Atrial fibrillation with RVR: on cardizem drip for a fib with rvr start metoprolol 100mg BID cardizem po 120mg BID off a/c due to h/o bleeding (3) T2DM (type 2 diabetes mellitus): insulin sliding scale Qualifiers: Diabetes mellitus [facility] insulin use: without termination clerk use Diabetes mellitus complication status: without complication Qualified Code(s): E11.9 - Type 2 diabetes mellitus without complications (4) Acute hypoxic respiratory failure: related to CHF exacerbation triggered by dCHF And influenza PNA (5) CHF (congestive heart failure): lasix 40mg iv every 24 h monitor kideny function and urine output 12/20/2024: Febrile overnight. Continue Tamiflu, renally adjusted by pharmacy to 30 mg twice daily. Continue ceftriaxone 1 g IV every 24 hours. Noted to have bilateral wheezing to auscultation today. Continue Xopenex and budesonide inhalation. Add dexamethasone 6 mg p.o. daily. Left lower extremity swelling appeared to be worsening today. Patient was taken off anticoagulation few years ago due to a history of iliopsoas hematoma. Will check lower extremity Doppler to evaluate for any DVT. Patient states that he has had lower extremity swelling for many years but currently it does appear worse than usual. There are changes of stasis dermatitis around the ankle. Continue Lasix 40 mg IV every 24 hours. Urine output 770 cc, creatinine is stable at 1.6. He was able to be titrated off Cardizem drip overnight. Currently heart rate is well-maintained on home regimen of metoprolol 100 mg twice daily, Cardizem 120 mg twice daily and amiodarone as he takes at home. Transfer to [facility] with telemetry 12/21/2024 Continue Tamiflu. Complete 5 days total. Continue ceftriaxone, dexamethasone, supportive care. Lower extremity Dopplers negative for DVT. Cardizem drip was turned off. On oral Cardizem and oral metoprolol at this time. ? Patient may require prolonged prednisone taper at discharge. Continue to hospitalize at this time for supportive care for respiratory status. Continue to diurese with Lasix. Hopefully we can get him discharged home tomorrow. PDMP PDMP Reviewed: Not Reviewed Attestations Medical Necessity Statement*: Requires continued hospitalization is secondary to shortness of breath Diagnoses Influenza A J10.1 Atrial fibrillation with RVR I48.91 Type 2 diabetes mellitus without complication, without long-term current use of insulin E11.9 Diabetes mellitus termination clerk insulin use: without [facility] use Diabetes mellitus complication status: without complication COPD exacerbation J44.1 Pulmonary emphysema, unspecified emphysema type J43.9 Emphysema type: unspecified
[2024-12-21] MEDS: levalbuterol 0.63 mg/3 mL Neb INHALATION ×2 (13:06→21:11)
[2024-12-21] MEDS: dexamethasone 10 mg/mL INJ 6 MG PO (13:43)
--- NOTE | 2024-12-21 15:23 | PC.SOCIAL ---
IMM updated IMM dated and initialed, copy given to patient and copy placed in chart
[2024-12-21 17:09] LABS: Glucose Point of Care 230 mg/dL (70-110)
[2024-12-21] MEDS: cefTRIAXone 1,000 mg SDV 1000 MG IVP (17:53)
[2024-12-21] MEDS: FUROsemide 10 mg/mL SDV 4mL 40 MG IVP (17:54)
[2024-12-21 20:59] LABS: Glucose Point of Care 314 mg/dL (70-110)
[2024-12-21] MEDS: budesonide 0.5 mg/2 mL Neb INHALATION (21:13)
[2024-12-22] VITALS (7 sets, daily range): BP systolic 128–158; BP diastolic 62–80; PULSE 64–92; RESP 17–18; TEMP 36.3–36.4; O2SAT 96–98
[2024-12-22 06:19] LABS: Nucleated Red Blood Cells % 0 %
[2024-12-22 06:23] LABS: Basophils % 0.2 %; Hematocrit 41.5 % (37-53); Lymphocytes % 19.8 %; Mean Corpuscular HGB Conc 31.6 g/dL (30-55); Mean Corpuscular Hemoglobin 30.2 pg (27-33); Mean Corpuscular Volume 95.6 fl (82-101); Mean Platelet Volume 10.5 fL (7.4-10.4); Monocytes # 0.4 10^3/uL (0.2-0.9); Monocytes % 7.3 %; Neutrophils # 3.57 10^3/uL (1.8-7.7); Neutrophils % 72.3 %; Platelet Count 249 10^3/cmm (157-399); Red Blood Count 4.34 10^6/uL (3.85-5.65); Red Cell Distribution Width 12.6 % (12.1-15.1); White Blood Count 4.94 10^3/uL (3.29-11.43)
[2024-12-22 06:38] LABS: Anion Gap 21.5 (5-19); Blood Urea Nitrogen 32 mg/dL (8-23); Calcium 8.9 mg/dL (8.5-10.5); Carbon Dioxide 20 mmol/L (22-29); Chloride 98 mmol/L (98-107); Creatinine Clr Calc Pharmacy 46.7116; Glucose 256 mg/dL (65-115); Osmolality Calculated 296 mOsm/kg (285-295); Potassium 4.5 mmol/L (3.5-5.1); Sodium 135 mmol/L (136-145)
[2024-12-22 06:45] LABS: Glucose Point of Care 263 mg/dL (70-110)
[2024-12-22 06:50] LABS: Slide Review Slide Review Perform
[2024-12-22] MEDS: fenofibrate 145 mg Tablet PO (08:28)
[2024-12-22] MEDS: oseltamivir phosphate 30 mg Capsule PO (08:28)
[2024-12-22] MEDS: dilTIAZem 60 mg Tablet 120 MG PO (08:28)
[2024-12-22] MEDS: insulin lispro 100 unit/1 mL SUBCUT ×2 (08:28→11:32)
[2024-12-22] MEDS: atorvastatin 40 mg Tablet PO (08:28)
[2024-12-22] MEDS: pantoprazole DR 40 mg Tablet PO (08:28)
[2024-12-22] MEDS: amiodarone 200 mg Tablet PO (08:28)
[2024-12-22] MEDS: metoprolol tartrate 50 mg Tablet 100 MG PO (08:28)
--- NOTE | 2024-12-22 09:16 | PM.PN ---
Subjective Subjective: Patient was seen this morning. He reports still having shortness of breath mainly on exertion and occasional dizziness when he gets up too quickly. He states that he still has cough with randall sputum. He is saturating at 96 on 3L nasal cannula. Vitals/I&O/Wt Last Vital Signs Temp 97.4 F L 12/22/24 07:58 Pulse 74 12/22/24 07:58 Resp 17 12/22/24 07:58 BP 158/80 12/22/24 07:58 Pulse Ox 96 12/22/24 07:58 O2 Del Method Nasal Cannula 12/22/24 07:58 O2 Flow Rate 3 12/22/24 06:47 12/21/24 12/22/24 12/22/24 22:59 06:59 14:59 Intake Total 480 / 720 120 / 840 240 / 240 Output Total 1250 / 1600 200 / 1800 200 / 200 Balance -770 / -880 -80 / -960 40 / 40 Weight last 48 hrs Weight 76.204 kg Weight 69.808 kg Physical Exam Const: COMMON NORMALS: no acute distress and patient oriented x3 Resp: COMMON NORMALS: normal respiratory effort AUSCULTATION: wheezes Cardio: COMMON NORMALS: regular rate, regular rhythm, S1 normal heart sound present and S2 normal heart sound present RATE: regular rate RHYTHM: regular rhythm HEART SOUNDS: S1 normal heart sound present and S2 normal heart sound present Neuro: COMMON NORMALS: patient oriented x3 Data 12/22/24 06:11 12/22/24 06:11 A&P Assessment and plan Plan 1) Influenza A: Influenza Pneumonia start Tamiflu 75mg BID ceftriaxone 1 g iv every 24 h given B/L lower chest infiltrates -cannot r/o bacterial infection at this time, will reassess (2) Atrial fibrillation with RVR: on cardizem drip for a fib with rvr start metoprolol 100mg BID cardizem po 120mg BID off a/c due to h/o bleeding (3) T2DM (type 2 diabetes mellitus): insulin sliding scale Qualifiers: 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 Continue Tamiflu, renally adjusted by pharmacy to 30 mg twice daily. Continue ceftriaxone 1 g IV every 24 hours. Noted to have bilateral wheezing to auscultation today. Continue Xopenex and budesonide inhalation. Add dexamethasone 6 mg p.o. daily. Left lower extremity swelling appeared to be worsening today. Patient was taken off anticoagulation few years ago due to a history of iliopsoas hematoma. Will check lower extremity Doppler to evaluate for any DVT. Patient states that he has had lower extremity swelling for many years but currently it does appear worse than usual. There are changes of stasis dermatitis around the ankle. Continue Lasix 40 mg IV every 24 hours. Urine output 770 cc, creatinine is stable at 1.6. He was able to be titrated off Cardizem drip overnight. Currently heart rate is well-maintained on home regimen of metoprolol 100 mg twice daily, Cardizem 120 mg twice daily and amiodarone as he takes at home. Transfer to [facility] with telemetry 12/21/2024 Continue Tamiflu. Complete 5 days total. Continue ceftriaxone, dexamethasone, supportive care. Lower extremity Dopplers negative for DVT. Cardizem drip was turned off. On oral Cardizem and oral metoprolol at this time. ? Patient may require prolonged prednisone taper at discharge. Continue to hospitalize at this time for supportive care for respiratory status. Continue to diurese with Lasix. Hopefully we can get him discharged home tomorrow. 12/22/2024 PDMP PDMP Reviewed: Not Reviewed Coding Level of Care Code Acute Code for Chg Fwd
--- NOTE | 2024-12-22 09:30 | PM.DCS ---
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 Diabetes mellitus complication status: without complication Qualified Code(s): E11.9 - Type 2 diabetes mellitus without complications (4) COPD exacerbation: Status: Acute (5) COPD (chronic obstructive pulmonary disease) with emphysema: Status: Chronic Qualifiers: Emphysema type: unspecified Qualified Code(s): J43.9 - Emphysema, unspecified Reason for Visit Reason for Visit: sob Discharge Data Studies Completed and Pending Completed Studies During Hospitalization Category Date Time Status XR chest 1V portable [id number] Stat Exams 12/19/24 12:36 Completed CV venous duplex [facility] [id number] Routine Ultrasound 12/20/24 14:04 Completed Radiology Impressions Chest X-Ray 12/19/24 12:36 IMPRESSION: 1. Pulmonary emphysema. Pulmonary fibrosis. 2. Linear bilateral lower chest pulmonary atelectasis, or scarring. 3. Chronic findings. Venous Duplex 12/20/24 14:04 IMPRESSION: No evidence of deep vein thrombosis in the left lower extremity. Laboratory Results WBC 4.94 10^3/uL (3.29-11.43) 12/22/24 06:11 RBC 4.34 10^6/uL (3.85-5.65) 12/22/24 06:11 Hgb 13.10 g/dL (11.27-16.99) 12/22/24 06:11 Hct 41.5 % (37-53) 12/22/24 06:11 MCV 95.6 fl (82-101) 12/22/24 06:11 MCH 30.2 pg (27-33) 12/22/24 06:11 MCHC 31.6 g/dL (30-55) 12/22/24 06:11 RDW 12.6 % (12.1-15.1) 12/22/24 06:11 Plt Count 249 10^3/cmm (157-399) 12/22/24 06:11 MPV 10.5 fL (7.4-10.4) H 12/22/24 06:11 Neut % (Auto) 72.3 % 12/22/24 06:11 Lymph % (Auto) 19.8 % 12/22/24 06:11 [place] % (Auto) 7.3 % 12/22/24 06:11 Eos % (Auto) 0.0 % 12/22/24 06:11 Baso % (Auto) 0.2 % 12/22/24 06:11 Neut # (Auto) 3.57 10^3/uL (1.8-7.7) 12/22/24 06:11 Lymph # (Auto) 1.0 10^3/uL (0.8-4.8) 12/22/24 06:11 [place] # (Auto) 0.4 10^3/uL (0.2-0.9) 12/22/24 06:11 Eos # (Auto) 0.0 10^3/uL (0.0-0.8) 12/22/24 06:11 Baso # (Auto) 0.0 10^3/uL (0.0-0.1) 12/22/24 06:11 Nucleated RBC % (auto) 0 % 12/22/24 06:11 Nucleated RBCs # 0.0 /100WBC 12/22/24 06:11 Sodium 135 mmol/L (136-145) L 12/22/24 06:11 Potassium 4.5 mmol/L (3.5-5.1) 12/22/24 06:11 Chloride 98 mmol/L (98-107) 12/22/24 06:11 Carbon Dioxide 20 mmol/L (22-29) L 12/22/24 06:11 Anion Gap 21.5 (5-19) H 12/22/24 06:11 BUN 32 mg/dL (8-23) H 12/22/24 06:11 Creatinine 1.4 mg/dL (0.7-1.2) H 12/22/24 06:11 GFR Calculation Not Reportable 12/22/24 06:11 Glucose 256 mg/dL (65-115) H 12/22/24 06:11 POC Glucose 263 mg/dL (70-110) H 12/22/24 06:41 Calculated Osmolality 296 mOsm/kg (285-295) H 12/22/24 06:11 Calcium 8.9 mg/dL (8.5-10.5) 12/22/24 06:11 Magnesium 2.0 mg/dL (1.7-2.3) 12/22/24 06:11 Total Bilirubin 0.3 mg/dL (0.15-1.2) 12/21/24 06:18 AST 36 U/L (0-40) 12/21/24 06:18 ALT 26 U/L (0-41) 12/21/24 06:18 Alkaline Phosphatase 68 U/L (40-130) 12/21/24 06:18 Troponin T Baseline 49 ng/L (0-15) H 12/19/24 12:53 Troponin T 120 Minute 43.26 ng/L (0-15) H 12/19/24 15:07 Delta Troponin T -5.74 ABS# (0-10) L 12/19/24 15:07 Troponin T Hi Sens 6Hr 44.63 ng/L (0-15) H 12/19/24 19:01 Troponin T Hi Sens 6Hr Delta -4.37 ng/L (0-12) L 12/19/24 19:01 Total Protein 7.2 g/dL (6.6-8.7) 12/21/24 06:18 Albumin 3.8 g/dL (3.5-5.2) 12/21/24 06:18 Globulin 3.4 g/dL (1.3-4.6) 12/21/24 06:18 Coronavirus (PCR) Negative (Negative) 12/19/24 13:14 Influenza A (PCR) Positive (Negative) 12/19/24 13:14 Influenza Type B (PCR) Negative (Negative) 12/19/24 13:14 RSV (PCR) Negative (Negative) 12/19/24 13:14 Vitals Last Vital Signs Temp 97.4 F L 12/22/24 07:58 Pulse 74 12/22/24 07:58 Resp 17 12/22/24 07:58 BP 158/80 12/22/24 07:58 Pulse Ox 96 12/22/24 07:58 O2 Del Method Nasal Cannula 12/22/24 07:58 O2 Flow Rate 3 12/22/24 06:47 Discharge Plan Discharge Patient Disposition: Home Condition: Stable Prescriptions: New oseltamivir [Tamiflu] 30 mg Capsule 30 mg PO BID 1 Days Qty: 3 0RF dexamethasone 6 mg tablet 6 mg PO DAILY Qty: 2 0RF levofloxacin 750 mg tablet 750 mg PO DAILY 2 Days Qty: 2 0RF Continued B-complex with vitamin C Capsule 1 cap PO DAILY rosuvastatin 10 mg tablet 10 mg PO DAILY Qty: 90 1RF albuterol sulfate 2.5 mg /3 mL (0.083 %) solution for nebulization See Rx Instructions .ROUTE .COMPLEX Qty: 30 12RF Dose Instruction: USE 1 VIAL IN NEBULIZER 3 TIMES DAILY - for rescue (MAX 30 DOSES PER MONTH) Rx Instructions: USE 1 VIAL IN NEBULIZER 3 TIMES DAILY - for rescue (MAX 30 DOSES PER MONTH) albuterol sulfate [Ventolin HFA] 90 mcg/actuation HFA aerosol inhaler 2 puff inhalation QID PRN (Reason: Shortness Of Breath) Qty: 18 2RF furosemide [Lasix] 40 mg tablet 40 mg PO DAILY Qty: 90 3RF potassium chloride [Klor-Con M20] 20 mEq tablet,ER particles/crystals 20 meq PO DAILY 30 Days Qty: 90 3RF hydralazine 50 mg tablet 75 mg PO TID Qty: 270 3RF codeine-guaifenesin [Virtussin AC] 10-100 mg/5 mL liquid 5 ml PO Q6H PRN (Reason: cough) Qty: 150 0RF metoprolol tartrate 100 mg tablet 100 mg PO BID omeprazole 40 mg capsule,delayed release(DR/EC) 40 mg PO DAILY diltiazem HCl 120 mg tablet 120 mg PO BID fenofibrate 160 mg tablet 160 mg PO DAILY metformin 1,000 mg tablet 1,000 mg PO DAILY Qty: 30 0RF amiodarone [Pacerone] 200 mg tablet 200 mg PO DAILY Rx Instructions: 2 tabs daily for 7 days, then 1 tab daily arformoterol 15 mcg/2 mL solution for nebulization 15 mcg inhalation Q12H Rx Instructions: USE 1 VIAL IN NEBULIZER EVERY 12 HOURS - - morning and evening insulin glargine [Basaglar KwikPen U-100 Insulin] 100 unit/mL (3 mL) insulin pen 48 unit SUBCUT BID Rx Instructions: dose change Discontinued azithromycin 250 mg tablet See Rx Instructions PO .COMPLEX Qty: 6 0RF Rx Instructions: For 250 mg dose pack: take 500 mg today (day 1), then 250 mg for 4 days (days 2-5) PO Discharge Orders: Discharge Order (Routine); Ordered 12/22/24 Ordered By: Trinidad Valdez Referrals: Shaniqua Newman FNP [Primary Care Provider] - 1-3 days Discharge Diet: Cardiac and Diabetic Discharge Activity: Resume usual activity and Oxygen as instructed Patient Instructions: Opioid Safety Coding Level of Care Code Acute Code for [facility] Fwd Diagnoses Influenza A J10.1 Atrial fibrillation with RVR I48.91 Type 2 diabetes mellitus without complication, without long-term current use of insulin E11.9 Diabetes mellitus custodial insulin use: without custodial use Diabetes mellitus complication status: without complication COPD exacerbation J44.1 Pulmonary emphysema, unspecified emphysema type J43.9 Emphysema type: unspecified
[2024-12-22] MEDS: levalbuterol 0.63 mg/3 mL Neb INHALATION (09:45)
[2024-12-22] MEDS: budesonide 0.5 mg/2 mL Neb INHALATION (09:46)
--- NOTE | 2024-12-22 10:33 | PM.DCS ---
Documented by User: Mike Abreu 12/22/24 10:56 Discharge Providers Date of Admission: 12/19/24 14:51 Date of Discharge: December 22, 2024 Attending Provider at Admission: Delicia Bedolla MD Attending Provider at Discharge: Trinidad Valdez MD Primary Care Provider: YELITZA Davidson Diagnoses at Discharge Discharge Diagnosis (1) Influenza A: Status: Acute (2) Atrial fibrillation with RVR: Status: Acute (3) T2DM (type 2 diabetes mellitus): Status: Chronic Qualifiers: Diabetes mellitus complication status: without complication Diabetes mellitus senior living insulin use: without senior living use Qualified Code(s): E11.9 - Type 2 diabetes mellitus without complications (4) COPD exacerbation: Status: Acute (5) COPD (chronic obstructive pulmonary disease) with emphysema: Status: Chronic Qualifiers: Emphysema type: unspecified Qualified Code(s): J43.9 - Emphysema, unspecified Reason for Visit Reason for Visit: sob Hospital Course Hospital Course Marco Antonio Mosquera is an 84-year-old male with PMHx of COPD and HTN who presented to the emergency room via EMS with rapid heart rate shortness of breath. Patient had a cough and was very congested at the time and noted a fluctuating heart rate at home. He had worsening orthopnea swelling in his legs as well as significant increase in dyspnea with exertion. Patient had A-fib with RVR with COPD and exacerbation due to influenza A. He was placed on 3L nasal cannula and his rate was controlled on Cardizem drip. Cardizem drip was switched to cardizem po 120mg BID and metoprolol 100mg BID was started. Patient was also started on Lasix 40mg IV q24H on 12/19 for CHF. Chest X-ray was performed and showed evidence of pulmonary emphysema, pulmonary fibrosis and linear bilateral lower chest pulmonary atelectasis, or scarring. Venous duplex was performed and showed no evidence of DVT in LLE. 5 day course Tamiflu was started after testing positive for influenza A and was renally adjusted by pharmacy to 30 mg twice daily. Ceftriaxone 1 g IV was given q24H and Xopenex and budesonide were added on 12/19. Dexamethasone 6 mg p.o. daily was added on 12/20. Patient continued Lasix and renal function was closely monitored. Creatinine dropped from 1.6 (12/20) to 1.4 (12/22). Patient still reports mild SOB on exertion but is feeling better overall this morning (12/22) and ready for discharge. Patient is requesting to go home. He states he feels way better compared to yesterday. He can breathe a lot better. Lungs are clear to auscultation today. No longer having wheezing or rhonchi. He will be sent home with 2 more days of steroids, Tamiflu and 2 more days of antibiotic. He is at baseline 3 the nasal cannula and that is what he is requiring at this time on discharge. Discharge Data Studies Completed and Pending Completed Studies During Hospitalization Category Date Time Status XR chest 1V portable [id number] Stat Exams 12/19/24 12:36 [place] [id number] Routine Ultrasound 12/20/24 14:04 Completed Radiology Impressions Chest X-Ray 12/19/24 12:36 IMPRESSION: 1. Pulmonary emphysema. Pulmonary fibrosis. 2. Linear bilateral lower chest pulmonary atelectasis, or scarring. 3. Chronic findings. Venous Duplex 12/20/24 14:04 IMPRESSION: No evidence of deep vein thrombosis in the left lower extremity. Laboratory Results WBC 4.94 10^3/uL (3.29-11.43) 12/22/24 06:11 RBC 4.34 10^6/uL (3.85-5.65) 12/22/24 06:11 Hgb 13.10 g/dL (11.27-16.99) 12/22/24 06:11 Hct 41.5 % (37-53) 12/22/24 06:11 MCV 95.6 fl (82-101) 12/22/24 06:11 MCH 30.2 pg (27-33) 12/22/24 06:11 MCHC 31.6 g/dL (30-55) 12/22/24 06:11 RDW 12.6 % (12.1-15.1) 12/22/24 06:11 Plt Count 249 10^3/cmm (157-399) 12/22/24 06:11 MPV 10.5 fL (7.4-10.4) H 12/22/24 06:11 Neut % (Auto) 72.3 % 12/22/24 06:11 Lymph % (Auto) 19.8 % 12/22/24 06:11 [place] % (Auto) 7.3 % 12/22/24 06:11 Eos % (Auto) 0.0 % 12/22/24 06:11 Baso % (Auto) 0.2 % 12/22/24 06:11 Neut # (Auto) 3.57 10^3/uL (1.8-7.7) 12/22/24 06:11 Lymph # (Auto) 1.0 10^3/uL (0.8-4.8) 12/22/24 06:11 [place] # (Auto) 0.4 10^3/uL (0.2-0.9) 12/22/24 06:11 Eos # (Auto) 0.0 10^3/uL (0.0-0.8) 12/22/24 06:11 Baso # (Auto) 0.0 10^3/uL (0.0-0.1) 12/22/24 06:11 Nucleated RBC % (auto) 0 % 12/22/24 06:11 Nucleated RBCs # 0.0 /100WBC 12/22/24 06:11 Sodium 135 mmol/L (136-145) L 12/22/24 06:11 Potassium 4.5 mmol/L (3.5-5.1) 12/22/24 06:11 Chloride 98 mmol/L (98-107) 12/22/24 06:11 Carbon Dioxide 20 mmol/L (22-29) L 12/22/24 06:11 Anion Gap 21.5 (5-19) H 12/22/24 06:11 BUN 32 mg/dL (8-23) H 12/22/24 06:11 Creatinine 1.4 mg/dL (0.7-1.2) H 12/22/24 06:11 GFR Calculation Not Reportable 12/22/24 06:11 Glucose 256 mg/dL (65-115) H 12/22/24 06:11 POC Glucose 263 mg/dL (70-110) H 12/22/24 06:41 Calculated Osmolality 296 mOsm/kg (285-295) H 12/22/24 06:11 Calcium 8.9 mg/dL (8.5-10.5) 12/22/24 06:11 Magnesium 2.0 mg/dL (1.7-2.3) 12/22/24 06:11 Total Bilirubin 0.3 mg/dL (0.15-1.2) 12/21/24 06:18 AST 36 U/L (0-40) 12/21/24 06:18 ALT 26 U/L (0-41) 12/21/24 06:18 Alkaline Phosphatase 68 U/L (40-130) 12/21/24 06:18 Troponin T Baseline 49 ng/L (0-15) H 12/19/24 12:53 Troponin T 120 Minute 43.26 ng/L (0-15) H 12/19/24 15:07 Delta Troponin T -5.74 ABS# (0-10) L 12/19/24 15:07 Troponin T Hi Sens 6Hr 44.63 ng/L (0-15) H 12/19/24 19:01 Troponin T Hi Sens 6Hr Delta -4.37 ng/L (0-12) L 12/19/24 19:01 Total Protein 7.2 g/dL (6.6-8.7) 12/21/24 06:18 Albumin 3.8 g/dL (3.5-5.2) 12/21/24 06:18 Globulin 3.4 g/dL (1.3-4.6) 12/21/24 06:18 Coronavirus (PCR) Negative (Negative) 12/19/24 13:14 Influenza A (PCR) Positive (Negative) 12/19/24 13:14 Influenza Type B (PCR) Negative (Negative) 12/19/24 13:14 RSV (PCR) Negative (Negative) 12/19/24 13:14 Vitals Last Vital Signs Temp 97.4 F L 12/22/24 07:58 Pulse 92 12/22/24 09:48 Resp 18 12/22/24 09:48 BP 158/80 12/22/24 07:58 Pulse Ox 96 12/22/24 09:48 O2 Del Method Nasal Cannula 12/22/24 09:48 O2 Flow Rate 3 12/22/24 09:48 Discharge Plan Discharge Patient Disposition: Home Condition: Stable Prescriptions: New oseltamivir [Tamiflu] 30 mg Capsule 30 mg PO BID 1 Days Qty: 3 0RF dexamethasone 6 mg tablet 6 mg PO DAILY Qty: 2 0RF levofloxacin 750 mg tablet 750 mg PO DAILY 2 Days Qty: 2 0RF Continued B-complex with vitamin C Capsule 1 cap PO DAILY rosuvastatin 10 mg tablet 10 mg PO DAILY Qty: 90 1RF albuterol sulfate 2.5 mg /3 mL (0.083 %) solution for nebulization See Rx Instructions .ROUTE .COMPLEX Qty: 30 12RF Dose Instruction: USE 1 VIAL IN NEBULIZER 3 TIMES DAILY - for rescue (MAX 30 DOSES PER MONTH) Rx Instructions: USE 1 VIAL IN NEBULIZER 3 TIMES DAILY - for rescue (MAX 30 DOSES PER MONTH) albuterol sulfate [Ventolin HFA] 90 mcg/actuation HFA aerosol inhaler 2 puff inhalation QID PRN (Reason: Shortness Of Breath) Qty: 18 2RF furosemide [Lasix] 40 mg tablet 40 mg PO DAILY Qty: 90 3RF potassium chloride [Klor-Con M20] 20 mEq tablet,ER particles/crystals 20 meq PO DAILY 30 Days Qty: 90 3RF hydralazine 50 mg tablet 75 mg PO TID Qty: 270 3RF codeine-guaifenesin [Virtussin AC] 10-100 mg/5 mL liquid 5 ml PO Q6H PRN (Reason: cough) Qty: 150 0RF metoprolol tartrate 100 mg tablet 100 mg PO BID omeprazole 40 mg capsule,delayed release(DR/EC) 40 mg PO DAILY diltiazem HCl 120 mg tablet 120 mg PO BID fenofibrate 160 mg tablet 160 mg PO DAILY metformin 1,000 mg tablet 1,000 mg PO DAILY Qty: 30 0RF amiodarone [Pacerone] 200 mg tablet 200 mg PO DAILY Rx Instructions: 2 tabs daily for 7 days, then 1 tab daily arformoterol 15 mcg/2 mL solution for nebulization 15 mcg inhalation Q12H Rx Instructions: USE 1 VIAL IN NEBULIZER EVERY 12 HOURS - - morning and evening insulin glargine [Basaglar KwikPen U-100 Insulin] 100 unit/mL (3 mL) insulin pen 48 unit SUBCUT BID Rx Instructions: dose change Discontinued azithromycin 250 mg tablet See Rx Instructions PO .COMPLEX Qty: 6 0RF Rx Instructions: For 250 mg dose pack: take 500 mg today (day 1), then 250 mg for 4 days (days 2-5) PO Discharge Orders: Discharge Order (Routine); Ordered 12/22/24 Ordered By: Trinidad Valdez Referrals: Shaniqua Newman FNP [Primary Care Provider] - 1-3 days (We have notified your physician's clinic of the need for a follow-up appointment to be scheduled. If you have not heard from them within the next 2 business days, please call them directly. ) Discharge Diet: Cardiac and Diabetic Discharge Activity: Resume usual activity and Oxygen as instructed Patient Instructions: Levofloxacin (By mouth) (Levaquin, Levaquin Leva-yohan), Dexamethasone (By mouth), Oseltamivir (By mouth), Influenza (GEN), Opioid Safety Coding Level of Care Code Acute Code for [facility] Fwd Diagnoses Influenza A J10.1 Atrial fibrillation with RVR I48.91 Type 2 diabetes mellitus without complication, without long-term current use of insulin E11.9 Diabetes mellitus complication status: without complication Diabetes mellitus long term acute care registered nurse insulin use: without long term acute care registered nurse use COPD exacerbation J44.1 Pulmonary emphysema, unspecified emphysema type J43.9 Emphysema type: unspecified Documented by User: Trinidad Valdez MD 12/22/24 11:01 Diagnoses at Discharge Discharge Diagnosis (1) Influenza A: Status: Acute (2) Atrial fibrillation with RVR: Status: Acute (3) T2DM (type 2 diabetes mellitus): Status: Chronic Qualifiers: Diabetes mellitus complication status: without complication Diabetes mellitus long term acute care registered nurse insulin use: without long term acute care registered nurse use Qualified Code(s): E11.9 - Type 2 diabetes mellitus without complications (4) COPD exacerbation: Status: Acute (5) COPD (chronic obstructive pulmonary disease) with emphysema: Status: Chronic Qualifiers: Emphysema type: unspecified Qualified Code(s): J43.9 - Emphysema, unspecified Reason for Visit Reason for Visit: sob Hospital Course Hospital Course Marco Antonio Mosquera is an 84-year-old male with PMHx of COPD and HTN who presented to the emergency room via EMS with rapid heart rate shortness of breath. Patient had a cough and was very congested at the time and noted a fluctuating heart rate at home. He had worsening orthopnea swelling in his legs as well as significant increase in dyspnea with exertion. Patient had A-fib with RVR with COPD and exacerbation due to influenza A. He was placed on 3L nasal cannula and his rate was controlled on Cardizem drip. Cardizem drip was switched to cardizem po 120mg BID and metoprolol 100mg BID was started. Patient was also started on Lasix 40mg IV q24H on 12/19 for CHF. Chest X-ray was performed and showed evidence of pulmonary emphysema, pulmonary fibrosis and linear bilateral lower chest pulmonary atelectasis, or scarring. Venous duplex was performed and showed no evidence of DVT in LLE. 5 day course Tamiflu was started after testing positive for influenza A and was renally adjusted by pharmacy to 30 mg twice daily. Ceftriaxone 1 g IV was given q24H and Xopenex and budesonide were added on 12/19. Dexamethasone 6 mg p.o. daily was added on 12/20. Patient continued Lasix and renal function was closely monitored. Creatinine dropped from 1.6 (12/20) to 1.4 (12/22). Patient still reports mild SOB on exertion but is feeling better overall this morning (12/22) and ready for discharge. Patient is requesting to go home. He states he feels way better compared to yesterday. He can breathe a lot better. Lungs are clear to auscultation today. No longer having wheezing or rhonchi. He will be sent home with 2 more days of steroids, Tamiflu and 2 more days of antibiotic. He is at baseline 3 the nasal cannula and that is what he is requiring at this time on discharge. Physical Exam Narrative: General: No acute distress, AO x3 HEENT: PERRLA, pupils bilaterally equal and reactive, pallors not present Chest: Clear to auscultation bilaterally. CVS: S1-S2 regular, no murmurs, no tachycardia, no gallops, no rubs Abdomen: Soft, nontender, no organomegaly, bowel sounds present Neuro: No focal deficits, no facial deformity, AO x3, power 5/5 in all limbs Extremities: LLE edema + Discharge Plan Discharge Patient Disposition: Home Condition: Stable Prescriptions: New oseltamivir [Tamiflu] 30 mg Capsule 30 mg PO BID 1 Days Qty: 3 0RF dexamethasone 6 mg tablet 6 mg PO DAILY Qty: 2 0RF levofloxacin 750 mg tablet 750 mg PO DAILY 2 Days Qty: 2 0RF Continued B-complex with vitamin C Capsule 1 cap PO DAILY rosuvastatin 10 mg tablet 10 mg PO DAILY Qty: 90 1RF albuterol sulfate 2.5 mg /3 mL (0.083 %) solution for nebulization See Rx Instructions .ROUTE .COMPLEX Qty: 30 12RF Dose Instruction: USE 1 VIAL IN NEBULIZER 3 TIMES DAILY - for rescue (MAX 30 DOSES PER MONTH) Rx Instructions: USE 1 VIAL IN NEBULIZER 3 TIMES DAILY - for rescue (MAX 30 DOSES PER MONTH) albuterol sulfate [Ventolin HFA] 90 mcg/actuation HFA aerosol inhaler 2 puff inhalation QID PRN (Reason: Shortness Of Breath) Qty: 18 2RF furosemide [Lasix] 40 mg tablet 40 mg PO DAILY Qty: 90 3RF potassium chloride [Klor-Con M20] 20 mEq tablet,ER particles/crystals 20 meq PO DAILY 30 Days Qty: 90 3RF hydralazine 50 mg tablet 75 mg PO TID Qty: 270 3RF codeine-guaifenesin [Virtussin AC] 10-100 mg/5 mL liquid 5 ml PO Q6H PRN (Reason: cough) Qty: 150 0RF metoprolol tartrate 100 mg tablet 100 mg PO BID omeprazole 40 mg capsule,delayed release(DR/EC) 40 mg PO DAILY diltiazem HCl 120 mg tablet 120 mg PO BID fenofibrate 160 mg tablet 160 mg PO DAILY metformin 1,000 mg tablet 1,000 mg PO DAILY Qty: 30 0RF amiodarone [Pacerone] 200 mg tablet 200 mg PO DAILY Rx Instructions: 2 tabs daily for 7 days, then 1 tab daily arformoterol 15 mcg/2 mL solution for nebulization 15 mcg inhalation Q12H Rx Instructions: USE 1 VIAL IN NEBULIZER EVERY 12 HOURS - - morning and evening insulin glargine [Basaglar KwikPen U-100 Insulin] 100 unit/mL (3 mL) insulin pen 48 unit SUBCUT BID Rx Instructions: dose change Discontinued azithromycin 250 mg tablet See Rx Instructions PO .COMPLEX Qty: 6 0RF Rx Instructions: For 250 mg dose pack: take 500 mg today (day 1), then 250 mg for 4 days (days 2-5) PO Discharge Orders: Discharge Order (Routine); Ordered 12/22/24 Ordered By: Trinidad Valdez Referrals: Shaniqua Newman FNP [Primary Care Provider] - 1-3 days (We have notified your physician's clinic of the need for a follow-up appointment to be scheduled. If you have not heard from them within the next 2 business days, please call them directly. ) Discharge Diet: Cardiac and Diabetic Discharge Activity: Resume usual activity and Oxygen as instructed Patient Instructions: Levofloxacin (By mouth) (Levaquin, Levaquin Leva-yohan), Dexamethasone (By mouth), Oseltamivir (By mouth), Influenza (GEN), Opioid Safety Discharge Attestations Time Spent in Discharge Care*: greater than 30 min Quality Metrics Clinical Quality Measures [ No reported AMI, CVA or VTE this stay] Coding Level of Care Code Acute Code for [facility] Fwd Diagnoses Influenza A J10.1 Atrial fibrillation with RVR I48.91 Type 2 diabetes mellitus without complication, without long-term current use of insulin E11.9 Diabetes mellitus complication status: without complication Diabetes mellitus senior living insulin use: without long term acute care registered nurse use COPD exacerbation J44.1 Pulmonary emphysema, unspecified emphysema type J43.9 Emphysema type: unspecified
--- NOTE | 2024-12-22 10:41 | PC.NURSE ---
Discharge instructions provided to pt at this time. NO questions or concerns voiced. States that his ride will be here after lunch to pick him up.
[2024-12-22 10:48] LABS: Glucose Point of Care 323 mg/dL (70-110)
== END 2024-12-22 12:53 | disposition home or self-care (01) | DRG 193 ==
LOC: ER 14:51 → ER IP 15:25 → CSU 16:34 → MEDSURG 12-20 23:22
PROVIDERS: Admitting Provider Student in an Organized Health Care Education/Training Program; Emergency Provider Family Medicine; PCP Nurse Practitioner Family; Visit Provider Internal Medicine
DX: J10.1 Influenza due to other identified influenza virus with other respiratory manifestations (principal); J96.01 Acute respiratory failure with hypoxia; J44.1 Chronic obstructive pulmonary disease with (acute) exacerbation; J98.11 Atelectasis; E11.51 Type 2 diabetes mellitus with diabetic peripheral angiopathy without gangrene; J43.9 Emphysema, unspecified; I11.0 Hypertensive heart disease with heart failure; I50.9 Heart failure, unspecified; J84.10 Pulmonary fibrosis, unspecified; Z79.4 Long term (current) use of insulin; M05.9 Rheumatoid arthritis with rheumatoid factor, unspecified; E78.5 Hyperlipidemia, unspecified; K21.9 Gastro-esophageal reflux disease without esophagitis; Z87.891 Personal history of nicotine dependence
CPT/HCPCS: 36415; 36416; 71045; 80048; 80053; 82962; 83735; 84484; 85025; 87637; 93005; 93971; 94640; 96365; 96372; 96375; 99285; J0696; J1100; J1815; J1940; J3490; J7614; J7626

== ENCOUNTER → 2025-01-07 09:10 | Outpatient (BNVA) | payer MEDICARE, OTHER, SELFPAY | PROVIDERS: PCP Nurse Practitioner Family; Visit Provider Podiatrist Foot & Ankle Surgery | DX: E11.51 Type 2 diabetes mellitus with diabetic peripheral angiopathy without gangrene (principal); B35.1 Tinea unguium; L84 Corns and callosities; R60.0 Localized edema; I73.9 Peripheral vascular disease, unspecified; Z79.4 Long term (current) use of insulin; Z79.84 Long term (current) use of oral hypoglycemic drugs | CPT/HCPCS: 11056; 11721 ==

== ENCOUNTER → 2025-01-13 11:42 | Outpatient (BNVA) | payer MEDICARE, OTHER, SELFPAY | PROVIDERS: PCP Nurse Practitioner Family; Visit Provider Nurse Practitioner Family | DX: E11.9 Type 2 diabetes mellitus without complications (principal); I50.9 Heart failure, unspecified | CPT/HCPCS: 80053; 83036; 85025 ==

== ENCOUNTER 2025-02-11 11:55 | Outpatient (CLI) | payer MEDICARE, OTHER, SELFPAY | END 2025-02-11 11:56 | disposition home or self-care (01) | LOC: SLEEP 11:55 | PROVIDERS: PCP Nurse Practitioner Family; Visit Provider Nurse Practitioner Family | DX: I50.9 Heart failure, unspecified (principal) | CPT/HCPCS: 80053; 83036; 85025; 94762 ==

== ENCOUNTER → 2025-02-16 10:04 | Outpatient (BNVA) | payer MEDICARE, OTHER, SELFPAY | PROVIDERS: PCP Nurse Practitioner Family; Visit Provider Nurse Practitioner Family | DX: D22.0 Melanocytic nevi of lip (principal); L57.8 Other skin changes due to chronic exposure to nonionizing radiation; L81.4 Other melanin hyperpigmentation; Z08 Encounter for follow-up examination after completed treatment for malignant neoplasm; Z85.828 Personal history of other malignant neoplasm of skin; L82.0 Inflamed seborrheic keratosis; L29.89 Other pruritus; Z78.9 Other specified health status; L53.8 Other specified erythematous conditions; B07.8 Other viral warts | CPT/HCPCS: 17110; 99213 ==

== ENCOUNTER → 2025-03-09 11:15 | Outpatient (BNVA) | payer MEDICARE, OTHER, SELFPAY | PROVIDERS: PCP Nurse Practitioner Family; Visit Provider Podiatrist Foot & Ankle Surgery | DX: E11.51 Type 2 diabetes mellitus with diabetic peripheral angiopathy without gangrene (principal); B35.1 Tinea unguium; L84 Corns and callosities; R60.0 Localized edema; I73.9 Peripheral vascular disease, unspecified; Z79.4 Long term (current) use of insulin | CPT/HCPCS: 11056; 11721 ==

== ENCOUNTER → 2025-03-24 09:22 | Outpatient (BNVA) | payer MEDICARE, OTHER, SELFPAY | PROVIDERS: PCP Nurse Practitioner Family; Visit Provider Nurse Practitioner Family | DX: L57.8 Other skin changes due to chronic exposure to nonionizing radiation (principal); L81.4 Other melanin hyperpigmentation; Z08 Encounter for follow-up examination after completed treatment for malignant neoplasm; Z85.828 Personal history of other malignant neoplasm of skin; B07.8 Other viral warts; L29.89 Other pruritus; Z78.9 Other specified health status | CPT/HCPCS: 17110; 99213 ==

== ENCOUNTER → 2025-04-06 13:52 | Outpatient (BNVA) | payer MEDICARE, OTHER, SELFPAY | PROVIDERS: PCP Nurse Practitioner Family; Visit Provider Nurse Practitioner Family | DX: J44.1 Chronic obstructive pulmonary disease with (acute) exacerbation (principal) | CPT/HCPCS: 71046 ==

== ENCOUNTER → 2025-04-28 12:12 | Outpatient (BNVA) | payer MEDICARE, OTHER, SELFPAY | PROVIDERS: PCP Nurse Practitioner Family; Visit Provider Nurse Practitioner Family | DX: J43.9 Emphysema, unspecified (principal); J18.9 Pneumonia, unspecified organism | CPT/HCPCS: 71046; 80053; 85025 ==

== ENCOUNTER → 2025-05-12 11:20 | Outpatient (BNVA) | payer MEDICARE, OTHER, SELFPAY | PROVIDERS: PCP Nurse Practitioner Family; Visit Provider Podiatrist Foot & Ankle Surgery | DX: E11.51 Type 2 diabetes mellitus with diabetic peripheral angiopathy without gangrene (principal); B35.1 Tinea unguium; L84 Corns and callosities; R60.0 Localized edema; I73.9 Peripheral vascular disease, unspecified; Z79.4 Long term (current) use of insulin | CPT/HCPCS: 11056; 11721 ==

== ENCOUNTER 2025-06-08 16:33 | Inpatient (IN) | payer MEDICARE, OTHER, SELFPAY ==
[2025-06-08] VITALS (10 sets, daily range): BP systolic 116–176; BP diastolic 59–122; PULSE 88–150; RESP 16–23; TEMP 36.6–36.7; O2SAT 90–99; BMI 26.4; BMI 26.9
--- NOTE | 2025-06-08 16:39 | ECG_ITS ---
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1940 Requested By: Jed Navarro Order Number: [id number] Reading MD: URBANO PAL Measurements Intervals [place] Rate: 132 P: 0 WA: 0 QRS: -89 QRSD: 92 T: 77 QT: 275 QTc: 409 Interpretive Statements ATRIAL FLUTTER/TACHYCARDIA WITH RAPID VENTRICULAR RESPONSE POSSIBLE RIGHT VENTRICULAR CONDUCTION DELAY [RSR (QR) IN V1/V2] INFERIOR MYOCARDIAL INFARCTION , PROBABLY OLD [40+ ms Q WAVE AND/OR ST/T ABNORMALITY IN II/aVF] ANTEROSEPTAL MYOCARDIAL INFARCTION , OF INDETERMINATE AGE [40+ ms Q WAVE IN V1-V4] Compared to ECG 12/19/2024 21:52:56 Sinus rhythm no longer present Myocardial infarct finding still present Electronically Signed On 06-10-2025 22:22:38 CDT by URBANO PAL [email or web address] [id number]
--- NOTE | 2025-06-08 16:48 | XRR_ITS ---
PROCEDURE INFORMATION: Exam: XR Chest Exam date and time: 06/08/2025 4:53 PM Age: 85 years old Clinical indication: Dyspnea; Additional info: Dyspnea/cough TECHNIQUE: Imaging protocol: Radiologic exam of the chest. Views: 1 view. COMPARISON: CR XR chest 2V* [id number] 04/28/2025 12:18 PM FINDINGS: Lungs: Unchanged fibrotic changes throughout the lungs, worst in the right lung base. No consolidation. Pleural spaces: Unremarkable. Chronic blunting of the costophrenic angles likely representing scarring, however trace effusions can not be excluded. No pneumothorax. Heart/Mediastinum: Unremarkable. No cardiomegaly. Bones/joints: Unremarkable. XR/XR chest 1V portable [id number] IMPRESSION: 1. No acute thoracic abnormality. 2. Stable fibrotic changes throughout the lungs.
[2025-06-08 17:00] LABS: Hematocrit 42.3 % (37-53); Hemoglobin 13.40 g/dL (11.27-16.99); Mean Corpuscular HGB Conc 31.7 g/dL (30-55); Mean Corpuscular Hemoglobin 28.5 pg (27-33); Mean Corpuscular Volume 90.0 fl (82-101); Nucleated Red Blood Cells % 0 %; Platelet Count 496 10^3/cmm (157-399); Red Blood Count 4.70 10^6/uL (3.85-5.65); White Blood Count 14.69 10^3/uL (3.29-11.43)
[2025-06-08] MEDS: dilTIAZem 5 mg/mL SDV 5 mL 20 MG IVP (17:06)
[2025-06-08] MEDS: dilTIAZem 100 MG in sodium chloride 0.9% (add-van) 100 ML IV (17:09)
[2025-06-08 17:20] LABS: Alanine Aminotransferase 17 U/L (0-41); Albumin Level 3.8 g/dL (3.5-5.2); Alkaline Phosphatase 118 U/L (40-130); Anion Gap 19.1 (5-19); Aspartate Amino Transferase 19 U/L (0-40); Blood Urea Nitrogen 18 mg/dL (8-23); Calcium 9.4 mg/dL (8.5-10.5); Carbon Dioxide 22 mmol/L (22-29); Chloride 102 mmol/L (98-107); Creatinine Clr Calc Pharmacy 50.4206; Globulin 4.2 g/dL (1.3-4.6); Glucose 280 mg/dL (65-115); Osmolality Calculated 300 mOsm/kg (285-295); Potassium 4.1 mmol/L (3.5-5.1); Sodium 139 mmol/L (136-145); Total Protein 8.0 g/dL (6.6-8.7)
--- NOTE | 2025-06-08 17:20 | W.ED.ARRPALP ---
HPI - Arrhythmia/Palpitations General: Chief Complaint: Arrhythmia/Palpitations Stated Complaint: AFIB Time Seen by Provider: 06/08/25 16:46 History of Present Illness: 85-year-old male presents emergency room with rapid heart rate. He states it has been going fast for a couple of days. He denies any chest pain. Patient has a known history of atrial fibrillation he is not on any anticoagulation at this time. Patient has had difficulty maintaining rate control in the past. Related Data Home Medications ?Medication ?Instructions ?Recorded ?Confirmed fenofibrate 160 mg tablet 160 mg PO DAILY 06/09/25 06/09/25 insulin glargine-yfgn 100 unit/mL 34 unit SUBCUT BID 06/09/25 06/09/25 (3 mL) subcutaneous pen metoprolol tartrate 100 mg tablet 100 mg PO BID 06/09/25 06/09/25 omeprazole 40 mg capsule,delayed 40 mg PO DAILY 06/09/25 06/09/25 release potassium chloride 20 mEq 20 meq PO DAILY PRN while on lasix 06/09/25 06/09/25 tablet,extended release(part/cryst) (Klor-Con M) Previous Rx's ?Medication ?Instructions ?Recorded albuterol sulfate 90 mcg/actuation 2 puff inhalation QID PRN 11/21/23 aerosol inhaler (Ventolin HFA) Shortness Of Breath #18 grams albuterol sulfate 2.5 mg/3 mL See Rx Instructions .Route 07/08/24 (0.083 %) solution for nebulization .COMPLEX #30 ea rosuvastatin 10 mg tablet 10 mg PO DAILY #90 tabs 09/30/24 furosemide 40 mg tablet (Lasix) 40 mg PO DAILY edema #90 tabs 10/12/24 hydralazine 50 mg tablet 75 mg (1.5 x 50 mg) PO TID #270 11/24/24 tabs budesonide 160 mcg-glycopyr 9 2 inh inhalation BID #10.7 grams 04/28/25 mcg-formot 4.8 mcg/actuation HFA inhaler (Breztri Aerosphere) losartan 50 mg tablet 25 mg (1/2 x 50 mg) PO DAILY #30 06/10/25 tabs magnesium oxide 400 mg (241.3 mg 400 mg PO BID #60 tabs 06/10/25 magnesium) tablet acetaminophen 325 mg tablet 650 mg (2 x 325 mg) PO Q6H PRN 06/11/25 Mild/Mod Pain Or Temp >/= 101 #30 tabs amiodarone 200 mg tablet (Pacerone) 400 mg (2 x 200 mg) PO BID #120 06/11/25 tabs apixaban 2.5 mg tablet 2.5 mg PO BID #60 tabs 06/11/25 diltiazem HCl 60 mg 60 mg PO BID #60 caps 06/11/25 capsule,extended release 12 hr Allergies Allergy/AdvReac Type Severity Reaction Status Date / Time metformin Allergy ADR-Diarrhe Verified 05/17/25 17:10 a Review of Systems Const: Denies: fever(s) or chills Card: Reports: palpitations, irregular heart rhythm, edema and swelling of feet/ankles; Denies: chest pain Resp: Denies: dyspnea GI: Denies: abdominal pain : Denies: dysuria, urinary frequency or urinary urgency Musc: Denies: neck pain or back pain Skin/Breast: Denies: rash PFSH ED PFSH: Medical History Left leg swelling CHF (congestive heart failure) Rheumatoid factor positive Nocturnal hypoxia Unable to ambulate Abnormal WBC count Chronic anticoagulation A-fib COPD (chronic obstructive pulmonary disease) with emphysema Hypertension Diabetes Hyperlipemia GERD (gastroesophageal reflux disease) Surgical History History of appendectomy Family History Other CAD (coronary artery disease) Social History Smoking and tobacco/nicotine status: former use of tobacco/nicotine Quit status (tobacco/nicotine): has quit using Year quit tobacco: 1988 Former quit date comment: 2 ppd X 15 years Second hand smoke exposure: No Alcohol intake: never Substance/Drug Use: never Lives independently: Yes Household members: spouse Marital status: Current occupational status: retired Current gender identity: Male Special laya needs: No Agree to transfusion: Yes Physical Exam Const: COMMON NORMALS: no acute distress GENERAL APPEARANCE: cooperative and comfortable ORIENTATION/CONSCIOUSNESS: Yes awake, Yes oriented to person, Yes oriented to place and Yes oriented to time HENMT: COMMON NORMALS: normocephalic, atraumatic and hearing grossly normal bilaterally HEAD & SCALP: normocephalic and atraumatic Resp: COMMON NORMALS: normal respiratory effort, No retractions, No use of accessory muscles and clear to auscultation bilaterally AUSCULTATION: clear to auscultation bilaterally Cardio: COMMON NORMALS: regular rhythm and No murmurs present (Cardio) RATE: tachycardic RHYTHM: regular rhythm and abnormal rhythm irregularly irregular GI: COMMON NORMALS: Soft to palpation and No hepatosplenomegaly present AUSCULTATION: Yes normoactive bowel sounds PALPATION: Yes Soft to palpation, No Tenderness to palpation present (GI), No Guarding due to palpation present (GI) and Yes No hepatosplenomegaly present Extremity: COMMON NORMALS: normal to inspection, capillary refill normal, no clubbing, cyanosis or edema, no calf tenderness and no pedal edema Neuro: SENSORIUM/ORIENTATION: Yes oriented to person, Yes oriented to place and Yes oriented to time Skin: COMMON NORMALS: no rashes or lesions noted GENERAL SKIN EXAM: no rashes or lesions noted Course Vital Signs: Vital signs: Vital Signs Temperature 97.8 F 06/11/25 11:40 Pulse Rate 78 06/11/25 12:00 Respiratory Rate 18 06/11/25 11:40 Blood Pressure 137/78 06/11/25 12:00 Pulse Oximetry 94 06/11/25 12:00 Oxygen Delivery Me thod Room Air 06/11/25 11:40 Fraction of Inspir ed Oxygen 21 06/09/25 12:17 MDM - Arrhythmia/Palpitations Medical Decision Making Heart rate initially controlled with Cardizem drip. Rate is much improved. Patient states he has been having increasing shortness of breath and orthopnea as well. He is maintaining sats well on room air. Discussed with hospitalist orders written will admit for rate control and consult cardiology. Medical Records I reviewed the patient's medical records. Lab Data I reviewed the patient's lab results. 06/11/25 03:31 06/09/25 03:13 Radiology Impressions Chest X-Ray 06/08/25 16:48 IMPRESSION: 1. No acute thoracic abnormality. 2. Stable fibrotic changes throughout the lungs. Venous Duplex 06/09/25 10:13 IMPRESSION: No evidence of deep vein thrombosis. Chest CT 06/10/25 09:17 IMPRESSION: 1. Hyperinflation with moderate to advanced chronic emphysematous change. 2. No evidence of honeycombing or traction bronchiectasis. 3. Enlarged and numerous anterior mediastinal, RIGHT peribronchial, RIGHT hilar and infrahilar lymphadenopathy. Bulky subcarinal lymphadenopathy. Prominent periesophageal and GE junction lymph nodes. RIGHT thoracic inlet and supraclavicular lymphadenopathy. This is nonspecific but neoplasm should be excluded. No prior comparisons. 4. 1.7 cm RIGHT thyroid nodule. Laboratory Results WBC 14.69 10^3/uL (3.29-11.43) H 06/08/25 16:41 RBC 4.70 10^6/uL (3.85-5.65) 06/08/25 16:41 Hgb 13.40 g/dL (11.27-16.99) 06/08/25 16:41 Hct 42.3 % (37-53) 06/08/25 16:41 MCV 90.0 fl (82-101) 06/08/25 16:41 MCH 28.5 pg (27-33) 06/08/25 16:41 MCHC 31.7 g/dL (30-55) 06/08/25 16:41 RDW 14.7 % (12.1-15.1) 06/08/25 16:41 Plt Count 496 10^3/cmm (157-399) H 06/08/25 16:41 MPV 9.7 fL (7.4-10.4) 06/08/25 16:41 Neut % (Auto) 74.0 % 06/08/25 16:41 Lymph % (Auto) 17.4 % 06/08/25 16:41 Starke % (Auto) 7.0 % 06/08/25 16:41 Eos % (Auto) 0.7 % 06/08/25 16:41 Baso % (Auto) 0.4 % 06/08/25 16:41 Neut # (Auto) 10.86 10^3/uL (1.8-7.7) H 06/08/25 16:41 Lymph # (Auto) 2.6 10^3/uL (0.8-4.8) 06/08/25 16:41 Starke # (Auto) 1.0 10^3/uL (0.2-0.9) H 06/08/25 16:41 Eos # (Auto) 0.1 10^3/uL (0.0-0.8) 06/08/25 16:41 Baso # (Auto) 0.1 10^3/uL (0.0-0.1) 06/08/25 16:41 Nucleated RBC % (auto) 0 % 06/08/25 16:41 Nucleated RBCs # 0.0 /100WBC 06/08/25 16:41 Sodium 139 mmol/L (136-145) 06/08/25 16:41 Potassium 4.1 mmol/L (3.5-5.1) 06/08/25 16:41 Chloride 102 mmol/L (98-107) 06/08/25 16:41 Carbon Dioxide 22 mmol/L (22-29) 06/08/25 16:41 Anion Gap 19.1 (5-19) H 06/08/25 16:41 BUN 18 mg/dL (8-23) 06/08/25 16:41 Creatinine 1.4 mg/dL (0.7-1.2) H 06/08/25 16:41 GFR Calculation Not Reportable 06/08/25 16:41 Glucose 280 mg/dL (65-115) H 06/08/25 16:41 Calculated Osmolality 300 mOsm/kg (285-295) H 06/08/25 16:41 Calcium 9.4 mg/dL (8.5-10.5) 06/08/25 16:41 Total Bilirubin 0.2 mg/dL (0.15-1.2) 06/08/25 16:41 AST 19 U/L (0-40) 06/08/25 16:41 ALT 17 U/L (0-41) 06/08/25 16:41 Alkaline Phosphatase 118 U/L (40-130) 06/08/25 16:41 Total Protein 8.0 g/dL (6.6-8.7) 06/08/25 16:41 Albumin 3.8 g/dL (3.5-5.2) 06/08/25 16:41 Globulin 4.2 g/dL (1.3-4.6) 06/08/25 16:41 All radiology interpretation(s) finalized by discharge Discharge Plan Discharge Patient Disposition: Admitted As Inpatient Admit Provider: Trinidad Valdez Clinical Impression: Atrial fibrillation with RVR Condition: Stable Discharge Diet: Cardiac and Diabetic Coding Level of Care Code ED [employer] for Raul Snyder
--- NOTE | 2025-06-08 20:26 | USCV_ITS ---
Marco Antonio Mosquera Age: 85 Gender: M : 1940 Exam Date: 06/08/2025 20:40 Ordering Phys: Mikaela Watts MD Technologist: CARLA Exam Location: [facility] [place] Indication: Evaluate wall motion and EF, hx CHF, hx nocturnal hypoxia, history of Afib, COPD, HTN, DM, HL BP: 171 / 93 HR: 95 Rhythm: Atrial fibrillation Technical Quality: Adequate MEASUREMENTS (Male / Female) Normal Values 2D ECHO LV Diastolic Diameter PLAX 4.4 cm 4.2 - 5.9 / 3.9 - 5.3 cm IVS Diastolic Thickness 1.8 cm 0.6 - 1.0 / 0.6 - 0.9 cm IVS Systolic Thickness 2.5 cm LVPW Diastolic Thickness 1.8 cm 0.6 - 1.0 / 0.6 - 0.9 cm LVPW Systolic Thickness 1.7 cm LVOT Diameter 2.1 cm LV Ejection Fraction 2D Teich 57.3 % LV Ejection Fraction MOD 4C 42.5 % LV Ejection Fraction MOD 2C 53.4 % LV Ejection Fraction 2C AL 53.5 % LA Diameter 4.2 cm Aorta at Sinotubular Diameter 3.0 cm IVC Diameter 2.7 cm M-MODE LA Ao Ratio MM 1.5 AV Cusp Separation MM 1.5 cm DOPPLER AV Peak Velocity 237.0 cm/s LVOT Peak Velocity 87.0 cm/s AV Area Cont Eq vti 1.2 cm squared AV Area Cont Eq pk 1.2 cm squared MV Peak Velocity 160.0 cm/s MV Area PHT 5.5 cm squared Mitral E to A Ratio 366.0 TV Peak E Velocity 80.0 cm/s PV Peak Velocity 133.0 cm/s FINDINGS Left Ventricle Normal left ventricular size, systolic function and wall thickness, with no regional wall motion abnormalities. Left ventricular ejection fraction is estimated at 55 %. Grade II/IV diastolic dysfunction, moderately elevated filling pressures. Right Ventricle The right ventricle is normal in size and function. Right Atrium The right atrium is normal in size. Left Atrium The left atrium is normal in size. Mitral Valve Moderately thickened mitral valve. Moderate mitral annular calcification. No mitral valve stenosis. Trace mitral valve regurgitation. Aortic Valve Structurally normal aortic valve without significant sclerosis or stenosis. There is no aortic regurgitation. Tricuspid Valve Structurally normal tricuspid valve without significant stenosis or regurgitation. Pulmonary artery systolic pressure is normal. Pulmonic Valve Structurally normal pulmonic valve without significant stenosis. There is no pulmonic regurgitation. Pericardium Normal pericardium without effusion. Aorta Normal ascending aorta dimension. IVC The inferior vena cava appears normal. CONCLUSIONS Normal left ventricular size, systolic function and wall thickness, with no regional wall motion abnormalities. Left ventricular ejection fraction is estimated at 55 %. Grade II/IV diastolic dysfunction, moderately elevated filling pressures. Moderately thickened mitral valve. Moderate mitral annular calcification. No mitral valve stenosis. Trace mitral valve regurgitation. There is no pericardial effusion. Right atrial pressure is around 5 mm of mercury. Damon Manuel MD (Electronically Signed) Final Date: 09 June 2025 13:09 S
--- NOTE | 2025-06-08 20:32 | PM.HP ---
Providers/Chief Complaint Admitting Physician: Trinidad Valdez MD/DR MIKAELA WATTS DO Primary Care Provider: YELITZA Davidson Chief Complaint: AFIB History of Present Illness Marco Antonio Mosquera is a 85 year old male with medical history significant for chronic atrial fibrillation and not on any anticoagulant per patient's choice. Patient has had hematoma by the left hip 4 years ago on Coumadin and ever since then patient swore not to be on any anticoagulant anymore. Event during this hospitalization at presentation I have asked him he said he will not go back on any form of anticoagulant that he would like to stay without it. Patient is on Cardizem drip titratable Patient had had experience of heart racing at home for 4 days and noticed that they have been doing in the 130s to 140s when he ambulates and when this is not going away does have a patient came to the emergency room for further evaluation. Patient does have history of A-fib and care is been taking to have the heart rate controlled. Cardiology has been consulted as well Case discussed. To see if there is any antiarrhythmic patient can use to stay in sinus. Patient is on home amiodarone. This could be added to medication regimen here in the hospital. Review of Systems Narrative: System review upon 10 organ review with remarkable for cardiovascular heart rate irregularly irregular Medications/Allergies Home Medications ?Medication ?Instructions ?Recorded ?Confirmed ?Last Taken ?Type albuterol sulfate 90 mcg/actuation 2 puff inhalation QID PRN 11/21/23 05/17/25 Unknown Rx aerosol inhaler (Ventolin HFA) Shortness Of Breath #18 grams B-complex with vitamin C 1 cap PO DAILY 01/22/24 06/08/25 1 Day Ago History ~06/07/25 albuterol sulfate 2.5 mg/3 mL See Rx Instructions .Route 07/08/24 06/08/25 Unknown Rx (0.083 %) solution for nebulization .COMPLEX #30 ea rosuvastatin 10 mg tablet 10 mg PO DAILY #90 tabs 09/30/24 05/17/25 Unknown Rx diltiazem HCl 120 mg tablet 120 mg PO BID 10/07/24 05/17/25 Unknown History furosemide 40 mg tablet (Lasix) 40 mg PO DAILY edema #90 tabs 10/12/24 05/17/25 Unknown Rx potassium chloride 20 mEq 20 meq PO DAILY 30 days #90 tabs 11/02/24 05/17/25 Unknown Rx tablet,extended release(part/cryst) (Klor-Con M) hydralazine 50 mg tablet 75 mg (1.5 x 50 mg) PO TID #270 11/24/24 05/17/25 Unknown Rx tabs amiodarone 200 mg tablet (Pacerone) 200 mg PO DAILY 12/19/24 06/08/25 Unknown History omeprazole 40 mg capsule,delayed See Rx Instructions .Route 02/02/25 05/17/25 Unknown Rx release .COMPLEX #90 caps fenofibrate 160 mg tablet See Rx Instructions .Route 03/25/25 05/17/25 Unknown Rx .COMPLEX #90 tabs metoprolol tartrate 100 mg tablet See Rx Instructions .Route 04/01/25 05/17/25 Unknown Rx .COMPLEX #180 tabs budesonide 160 mcg-glycopyr 9 2 inh inhalation BID #10.7 grams 04/28/25 05/17/25 Unknown Rx mcg-formot 4.8 mcg/actuation HFA inhaler (Breztri Aerosphere) insulin glargine-yfgn 100 unit/mL See Rx Instructions .Route 04/30/25 05/17/25 Unknown Rx (3 mL) subcutaneous pen .COMPLEX #15 mL Allergies Allergy/AdvReac Type Severity Reaction Status Date / Time metformin Allergy ADR-Diarrhe Verified 05/17/25 17:10 a PFSH Acute PFSH: Medical History (Updated 06/09/25 @ 06:10 by Mikaela Watts MD) CHF (congestive heart failure) Rheumatoid factor positive Nocturnal hypoxia Unable to ambulate Abnormal WBC count Chronic anticoagulation A-fib COPD (chronic obstructive pulmonary disease) with emphysema Hypertension Diabetes Hyperlipemia GERD (gastroesophageal reflux disease) Surgical History History of appendectomy Family History Other CAD (coronary artery disease) Social History Smoking and tobacco/nicotine status: former use of tobacco/nicotine Quit status (tobacco/nicotine): has quit using Year quit tobacco: 1988 Former quit date comment: 2 ppd X 15 years Second hand smoke exposure: No Alcohol intake: never Substance/Drug Use: never Lives independently: Yes Household members: spouse Marital status: Current occupational status: retired Current gender identity: Male Special laya needs: No Agree to transfusion: Yes Vitals/I&O/Wt Last Vital Signs Temp 98.0 F 06/08/25 16:36 Pulse 88 06/08/25 18:49 Resp 16 06/08/25 18:49 BP 171/93 06/08/25 18:49 Pulse Ox 96 06/08/25 18:49 O2 Del Method Room Air 06/08/25 18:45 06/08/25 06/08/25 06/08/25 06:59 14:59 22:59 Intake Total 9.041 / 9.041 Balance 9.041 / 9.041 Weight last 48 hrs Weight 96.162 kg Physical Exam Narrative: Patient is doing well on room air pulse oxing well and her heart rate in the 109 to 120s at my initial evaluation of the patient. Patient on Cardizem drip patient had an initial 10 mg of Cardizem bolus and attempt to control the heart rate and get the patient off of the Cardizem drip, the protocol for the staff did not quite go long with the protocol as displayed. Patient still between the rate and stated when heart rate had gone into the 80s and the protocol was allowing for heart rate to be above the 80. HEENT normocephalic/atraumatic neck neck is supple cardiovascular heart is regular lungs are pretty much clear abdomen soft nontender nondistended unremarkable extremities are intact no edema has good pulses neurology has no focality lab studies lab studies reviewed and noted. Data 06/09/25 03:13 06/09/25 03:13 A&P Assessment and plan 1. Atrial fibrillation with RVR: Patient in with atrial fibrillation with rapid ventricular rate on Cardizem drip doing well better than he was at home. Heart rate in the teens Continue Cardizem drip per protocol Continue to follow through and optimize Patient declined any anticoagulant on the account of hematoma he had experienced 4 years ago to the left hip on Coumadin. Patient will not be on any anticoagulants he said vehemently 2. Acute hypoxic respiratory failure: Patient gets short of breath upon ambulation at home had minimized somewhat here Must continue to monitor will get heart rate controlled 3. Dyspnea on exertion: Dyspnea on exertion- must continue to monitor and optimize Plan: GI and DVT prophylaxis in place PDMP PDMP Reviewed: Last Reviewed 06/09/25 06:14 by Mikaela Watts MD Attestations Medical Necessity Statement*: Patient with rapid ventricular rate A-fib on Cardizem drip will dissolve 8 2 midnight stay for further optimization of care. Coding Level of Care Code 75643 Diagnoses Atrial fibrillation with RVR I48.91 Acute hypoxic respiratory failure J96.01 Dyspnea on exertion R06.09 Time Spent (min) 60
[2025-06-08] MEDS: heparin 5,000 unit/mL INJ 1 mL 5000 UNIT SUBCUT (21:51)
[2025-06-08] MEDS: dilTIAZem 5 mg/mL SDV 5 mL 10 MG IVP (21:51)
[2025-06-08] MEDS: dilTIAZem 100 MG in sodium chloride 0.9% (add-van) 100 ML 15 MG IV (21:52)
[2025-06-09] VITALS (12 sets, daily range): BP systolic 116–174; BP diastolic 55–100; PULSE 76–106; RESP 15–29; TEMP 36.1–36.8; O2SAT 93–95
[2025-06-09 03:29] LABS: Hematocrit 37.9 % (37-53); Hemoglobin 12.00 g/dL (11.27-16.99); Mean Corpuscular HGB Conc 31.7 g/dL (30-55); Mean Corpuscular Hemoglobin 28.2 pg (27-33); Mean Corpuscular Volume 89.2 fl (82-101); Nucleated Red Blood Cells % 0 %; Platelet Count 398 10^3/cmm (157-399); Red Blood Count 4.25 10^6/uL (3.85-5.65); White Blood Count 12.10 10^3/uL (3.29-11.43)
[2025-06-09 03:53] LABS: Alanine Aminotransferase 11 U/L (0-41); Albumin Level 3.1 g/dL (3.5-5.2); Alkaline Phosphatase 88 U/L (40-130); Anion Gap 16.5 (5-19); Aspartate Amino Transferase 14 U/L (0-40); Blood Urea Nitrogen 15 mg/dL (8-23); Calcium 9.1 mg/dL (8.5-10.5); Carbon Dioxide 22 mmol/L (22-29); Chloride 108 mmol/L (98-107); Creatinine Clr Calc Pharmacy 64.5632; Globulin 3.7 g/dL (1.3-4.6); Glucose 144 mg/dL (65-115); Magnesium 1.9 mg/dL (1.7-2.3); Osmolality Calculated 299 mOsm/kg (285-295); Potassium 3.5 mmol/L (3.5-5.1); Sodium 143 mmol/L (136-145); Total Protein 6.8 g/dL (6.6-8.7)
[2025-06-09 03:58] LABS: Cholesterol 104 mg/dL (0-200); HDL Cholesterol 24 mg/dL (60-100); Triglycerides 232 mg/dL (0-150)
[2025-06-09 04:00] LABS: Estmated Average Glucose 163; Hemoglobin A1C 7.3 % (4.0-6.0)
[2025-06-09] MEDS: heparin 5,000 unit/mL INJ 1 mL 5000 UNIT SUBCUT (08:05)
[2025-06-09] MEDS: dilTIAZem 100 MG in sodium chloride 0.9% (add-van) 100 ML 7.5 MG IV (08:06)
--- NOTE | 2025-06-09 08:42 | PC.PHAR ---
Pt was unsure if he still takes Diltiazem Hcl 120mg bid last fill 07/14/24 90ds. [facility] states pt has not picked up since that date and is no longer taking.
--- NOTE | 2025-06-09 09:49 | P.PN_ITS ---
Subjective 2 Subjective: 85-year-old male admitted with A-fib rapid ventricular response. He states this has been going on since Saturday or Saturday and eventually he figured he needed to see somebody that knew more about it than him because it was not getting any better. He says he is taking all his medications but could not specifically remember if he is taking amiodarone. He did not recognize the amiodarone or Pacerone name. Patient reports his left calf has been enlarged chronically and last evaluation showed no DVT. He reports a left hip hematoma and I see Dr. Reyes documented that patient had an iliopsoas hematoma years ago. Patient has continually refused anticoagulation but we discussed that he was on warfarin at the time. He does not recall if his INR was high or low at that time. We discussed atrial appendage clot and also left leg swelling and potential for clot and he is willing to try apixaban. We discussed putting him on a lower dose than typical starting at 2.5 mg twice a day and monitoring for signs of bleeding Patient's Lexiscan 09/11/2022 circumflex and RCA territory with scarring and some mikael-infarct reversibility but normal EF of 58% with segmental wall motion hypokinesia in the LV apex. Echocardiogram 07/17/2022 showed LVEF 55 to 60% no wall motion abnormality. Venous duplex 2 07/13/2025 for left lower extremity no DVT. Notably chest x-rays have shown pulmonary fibrosis developing between 2022 and 2024 Vitals/I&O/Wt Last Vital Signs Temp 97.9 F 06/09/25 07:26 Pulse 103 H 06/09/25 07:26 Resp 21 H 06/09/25 07:26 BP 163/90 06/09/25 07:26 Pulse Ox 95 06/09/25 07:26 O2 Del Method Room Air 06/09/25 04:00 06/08/25 06/09/25 06/09/25 22:59 06:59 14:59 Intake Total 107.000 / 107.000 204.958 / 311.958 8.042 / 8.042 Output Total 0 / 0 500 / 500 150 / 150 Balance 107.000 / 107.000 -295.042 / -188.042 -141.958 / -141.958 Weight last 48 hrs Weight 97.522 kg Weight 97.522 kg Weight 96.162 kg Physical Exam 2 Narrative: General well-developed well-nourished male modestly overweight tall man in no acute cardiopulmonary distress CV irregular borderline tachycardic no loud murmur Lungs diminished breath sounds left base otherwise clear Abdomen positive bowel tones soft nontender Calves left calf 2+ edema right calf trace edema Skin warm and dry Back there is a 1.2 inch cyst on the back appears to be subcutaneous sebaceous cyst with a blackhead Data 06/09/25 03:13 06/09/25 03:13 A&P Assessment and plan 1. Atrial fibrillation with RVR: Discussed risks and benefits of anticoagulation with the patient and he is willing to try apixaban. Would like to start him on 2.5 mg twice a day. Heart rate is tachycardic currently despite periods of sinus rhythm and this may represent another process such as pulmonary embolism. He has left leg swelling so we will perform left lower extremity ultrasound and request a echocardiogram. If he has pulmonary hypertension we will further evaluate for possible sleep apnea 2. Acute hypoxic respiratory failure: Currently 95% on room air but will have him do ambulatory testing. If hypoxemic given his pulmonary fibrosis may need to stop amiodarone 3. Dyspnea on exertion: Dyspnea on exertion- must continue to monitor and optimize. 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 Expected hospitalization greater than 2 midnights from admission Coding Level of Care Code 59681 Diagnoses Atrial fibrillation with RVR I48.91 Acute hypoxic respiratory failure J96.01 Dyspnea on exertion R06.09 Time Spent (min) 40
--- NOTE | 2025-06-09 10:13 | USR_ITS ---
PROCEDURE INFORMATION: Exam: US Duplex Left Lower Extremity Veins, Limited Exam date and time: 06/09/2025 5:24 PM Age: 85 years old Clinical indication: Swelling (edema) of limb; Lower extremity, left; Additional info: Swelling of leg and dyspnea on exertion TECHNIQUE: Imaging protocol: Real-time duplex ultrasound of the left extremity with 2-D randall scale, color Doppler flow and spectral waveform analysis including responses to compression and other maneuvers (when performed) with image documentation. Limited exam focused on the left lower extremity veins. COMPARISON: CT hip LT wo con* [id number] 05/03/2022 5:55 AM FINDINGS: Left deep veins: Unremarkable. The common femoral, femoral, proximal profunda femoral and popliteal veins are patent without thrombus. Normal Doppler waveforms. Normal compressibility and/or augmentation response. Superficial veins: Greater saphenous vein at the saphenofemoral junction is patent without thrombus. Soft tissues: Unremarkable. US/CV venous duplex [facility] [id number] IMPRESSION: No evidence of deep vein thrombosis.
--- NOTE | 2025-06-09 11:00 | P.CONIM_ITS ---
<Statement entered by Angel Quezada MD - 06/09/25 19:23> Patient was evaluated and cared for in conjunction with an advanced practice practitioner. I personally examined the patient and reviewed the chart and all pertinent data including imaging, telemetry, and laboratory results. I discussed the patient in detail with the advanced practice practitioner. Please see their note for complete consult note, testing results and agreed upon plan of care for the patient. GENERAL: Patient is alert, awake and oriented x3. NECK: No JVD or carotid bruit HEART: Regular S1 and S2, no murmur LUNGS: Clear to auscultation bilaterally. EXTREMITIES: Lower extremities with out edema bilaterally. Providers/Reason For Consult 2 Consulting Physician/Specialty*: Dr Quezada, cardiology Reason for Consult*: Atrial fibrillation with RVR Requesting Physician: Wilbert Goodwin MD Attending Physician: Wilbert Goodwin MD Primary Care Provider: YELITZA Davidson History of Present Illness History of Present Illness Marco Antonio Mosquera is a 85 year old male with a past medical history of persistent atrial fibrillation, not anticoagulated due to his choice related to previous hematoma after a fall. There is a previous note with Dr. River that mentions placement of a Watchman device, patient states this has not occurred, to my knowledge he was never referred for such procedure. Additional history of COPD, hypertension, PVD, SHARYN not on CPAP, diabetes. No known history of CAD although he had a stress test in 2021 that had possible mikael-infarct ischemia in the circumflex distribution, this was medically managed. LVEF was 55 to 60% at that time, echocardiogram performed last night shows LVEF 55%, grade 2 diastolic dysfunction, no significant valvular abnormalities. He presented to the emergency room yesterday with complaints of racing heart and shortness of breath. He notes treatment for pneumonia occurring in March, has had close follow-up with his PCP due to slow resolution of symptoms. He has been on continuous oxygen since January when he was hospitalized for pneumonia and influenza A. He has not had any chest pain even when heart rate was in the 130 to 140 bpm range. He was started on diltiazem infusion which has gradually brought heart rate under control. He has converted to sinus rhythm at the time of my exam, heart rate in the 80-90 bpm range. Medications/Allergies Home Medications ?Medication ?Instructions ?Recorded ?Confirmed ?Last Taken ?Type albuterol sulfate 90 mcg/actuation 2 puff inhalation Q ID PRN 11/21/23 06/09/25 Unknown Rx aerosol inhaler (Ventolin HFA) Shortness Of Breath #18 grams albuterol sulfate 2.5 mg/3 mL See Rx Instructions .Rou te 07/08/24 06/08/25 Unknown Rx (0.083 %) solution for nebulization .COMPLEX #30 ea rosuvastatin 10 mg tablet 10 mg PO DAILY #90 tabs 11/2 06/09/25 06/07/25 Rx furosemide 40 mg tablet (Lasix) 40 mg PO DAILY edema # 90 tabs 10/12/24 06/09/25 Unknown Rx hydralazine 50 mg tablet 75 mg (1.5 x 50 mg) PO TID # 270 11/24/24 06/09/25 06/08/25 Rx tabs amiodarone 200 mg tablet (Pacerone) 200 mg PO DAILY 06/08/25 Unknown History budesonide 160 mcg-glycopyr 9 2 inh inhalation BID #10 .7 grams 04/28/25 06/09/25 06/08/25 Rx mcg-formot 4.8 mcg/actuation HFA inhaler (Breztri Aerosphere) fenofibrate 160 mg tablet 160 mg PO DAILY 06/09/2506/08/25 History insulin glargine-yfgn 100 unit/mL 34 unit SUBCUT BID 0 06/09/25 06/09/25 06/08/25 History (3 mL) subcutaneous pen metoprolol tartrate 100 mg tablet 100 mg PO BID 06/09/25 06/08/25 History omeprazole 40 mg capsule,delayed 40 mg PO DAILY 06/09/25 06/08/25 History release potassium chloride 20 mEq 20 meq PO DAILY PRN while on lasix 06/09/25 06/09/25 Unknown History tablet,extended release(part/cryst) (Klor-Con M) Allergies Allergy/AdvReac Type Severity Reaction Status Date / Time metformin Allergy ADR-Diarrhe Verified 05/17/25 17:10 a Current Medications Generic Name Dose Route Start Last Admin Trade Name Freq PRN Reason Stop Dose Admin Albuterol/Ipratropium 3 ml 06/09/25 12:00 06/09/25 12:17 Ipratropium-Albuterol 3 Ml Neb INHALATION 3 ml QID.RESPIRATORY FLOR Administration Amiodarone HCl 200 mg 06/09/25 09:15 06/09/25 09:29 Amiodarone 200 Mg Tablet PO 200 mg BID FLOR Administration Apixaban 2.5 mg 06/09/25 10:10 06/09/25 10:34 Apixaban 5 Mg Tablet PO 2.5 mg BID@0900,2100 FLOR Administration Furosemide 40 mg 06/09/25 10:15 06/09/25 10:35 Furosemide 40 Mg Tablet PO 40 mg DAILY FLOR Administration Hydralazine HCl 75 mg 06/09/25 10:37 06/09/25 11:19 Hydralazine 50 Mg Tablet PO 75 mg TID FLOR Administration Diltiazem HCl 100 mg/ Sodium 100 mls @ 0 mls/hr 06/08/25 17:00 06/09/25 13:34 Chloride IV 2.5 mg/hr .Q0M FLOR 2.5 mls/hr Protocol Titration Per Protocol Insulin Human Lispro 0 unit 06/09/25 08:00 06/09/25 08:05 Insulin Lispro 100 Unit/1 Ml SUBCUT 2 unit TIDWM FLOR Administration Protocol Metoprolol Tartrate 100 mg 06/09/25 09:00 06/09/25 09:29 Metoprolol Tartrate 50 Mg Tablet PO 100 mg BID FLOR Administration Pantoprazole Sodium 40 mg 06/09/25 09:00 06/09/25 08:[address] 40 Mg Tablet PO 40 mg DAILY FLOR Administration PFSH Acute 2 PFSH: Medical History (Updated 06/09/25 @ 06:10 by Mikaela Watts MD) CHF (congestive heart failure) Rheumatoid factor positive Nocturnal hypoxia Unable to ambulate Abnormal WBC count Chronic anticoagulation A-fib COPD (chronic obstructive pulmonary disease) with emphysema Hypertension Diabetes Hyperlipemia GERD (gastroesophageal reflux disease) Surgical History History of appendectomy Family History Other CAD (coronary artery disease) Social History (Reviewed 05/12/25 @ 07:16 by JACLYN Pineda Smoking and tobacco/nicotine status: former use of tobacco/nicotine Quit status (tobacco/nicotine): has quit using Year quit tobacco: 1988 Former quit date comment: 2 ppd X 15 years Second hand smoke exposure: No Alcohol intake: never Substance/Drug Use: never Lives independently: Yes Household members: spouse Marital status: Current occupational status: retired Current gender identity: Male Special laya needs: No Agree to transfusion: Yes Vitals/I&O/Wt Last Vital Signs Temp 98.1 F 06/09/25 12:00 Pulse 82 06/09/25 12:20 Resp 18 06/09/25 12:17 BP 121/71 06/09/25 12:00 Pulse Ox 94 06/09/25 12:17 O2 Del Method Room Air 06/09/25 12:17 FiO2 21 06/09/25 12:17 06/08/25 06/09/25 06/09/25 22:59 06:59 14:59 Intake Total 107.000 / 311.958 204.958 / 311.958 49.042 / 49.042 Output Total 0 / 500 500 / 500 300 / 300 Balance 107.000 / -188.042 -295.042 / -188.042 -250.958 / -250.958 Weight last 48 hrs Weight 215 lb Weight 215 lb Weight 212 lb Physical Exam 2 Const: COMMON NORMALS: no acute distress and patient oriented x3 GENERAL APPEARANCE: cooperative and comfortable ORIENTATION/CONSCIOUSNESS: Yes awake, Yes oriented to person, Yes oriented to place and Yes oriented to time Chest: COMMONS NORMALS: normal inspection of the chest and normal palpation of entire chest wall CHEST: Yes Symmetrical chest wall rise Resp: COMMON NORMALS: normal respiratory effort, No retractions, No use of accessory muscles and clear to auscultation bilaterally EFFORT & INSPECTION: Yes symmetric chest movement AUSCULTATION: clear to auscultation bilaterally Cardio: COMMON NORMALS: regular rate, regular rhythm, S1 normal heart sound present, S2 normal heart sound present, No gallops present (Cardio), No clicks present (Cardio), No murmurs present (Cardio) and No rub (Cardio) RATE: r egular rate RHYTHM: regular rhythm HEART SOUNDS: S1 normal heart sound present and S2 normal heart sound present PERIPHERAL PULSES: radial pulses present Extremity: GENERAL: Yes edema (trace to 1+ pitting edema left LE below knee) Neuro: COMMON NORMALS: patient oriented x3 and moves all extremities S ENSORIUM/ORIENTATION: Yes oriented to person, Yes oriented to place and Yes oriented to time Data 06/09/25 03:13 06/09/25 03:13 A&P Assessment and plan 1. Atrial fibrillation with RVR: 2. T2DM (type 2 diabetes mellitus): 3. COPD (chronic obstructive pulmonary disease) with emphysema: 4. Dyslipidemia: 5. Benign essential hypertension with target blood pressure below 140/90: Plan: Clinically he appears euvolemic. He is essentially short of breath all the time due to his COPD, with not much improvement via home breathing treatments. At the time of my exam he had converted to sinus rhythm, heart rate in the 90 bpm range. He is unable to feel when he is in RVR. Will recommend to increase amiodarone dose to 400 mg p.o. tonight, 400 mg in the morning and resume 200 mg daily. It seems that the demand of the recent pneumonia combined with underlying COPD may have caused his paroxysmal atrial fibrillation with RVR. Echocardiogram was normal other than grade 2 diastolic function. No regional wall motion abnormalities. Will try to start him back on his home dose of diltiazem tomorrow. Further plan will be devised based on his progress overnight. PDMP PDMP Reviewed: Not Reviewed Coding Level of Care Code Acute Code for [facility]wd Diagnoses Atrial fibrillation with RVR I48.91 T2DM (type 2 diabetes mellitus) E11.9 COPD (chronic obstructive pulmonary disease) with emphysema J43.9 Dyslipidemia E78.5 Benign essential hypertension with target blood pressure below 140/90 I10
--- NOTE | 2025-06-09 11:20 | PC.NURSE ---
early dose of hydralizine given for elevated blood pressures.
[2025-06-09] MEDS: insulin glargine 100 units/1 mL 28 UNIT SUBCUT (17:07)
[2025-06-10] VITALS (13 sets, daily range): BP systolic 118–166; BP diastolic 63–88; PULSE 79–107; RESP 18–24; TEMP 36.6–37.1; O2SAT 92–94
[2025-06-10 02:06] LABS: Hematocrit 36.3 % (37-53); Hemoglobin 11.40 g/dL (11.27-16.99); Mean Corpuscular HGB Conc 31.4 g/dL (30-55); Mean Corpuscular Hemoglobin 27.9 pg (27-33); Mean Corpuscular Volume 88.8 fl (82-101); Nucleated Red Blood Cells % 0 %; Platelet Count 412 10^3/cmm (157-399); Red Blood Count 4.09 10^6/uL (3.85-5.65); White Blood Count 11.54 10^3/uL (3.29-11.43)
[2025-06-10 02:22] LABS: Magnesium 1.8 mg/dL (1.7-2.3)
[2025-06-10] MEDS: insulin glargine 100 units/1 mL 28 UNIT SUBCUT ×2 (08:30→17:42)
--- NOTE | 2025-06-10 09:05 | P.PN_ITS ---
<Statement entered by Angel Quezada MD - 06/10/25 16:43> Patient was evaluated and cared for in conjunction with an advanced practice practitioner. I personally saw the patient and reviewed the chart and all pertinent data. I discussed the patient in detail with the advanced practice practitioner. Please see their note for complete assessment and agreed upon plan of care for the patient. Subjective 2 Subjective: He is having paroxysmal atrial fibrillation with RVR. He did not get the increased dose of amiodarone yesterday. Will switch him to amiodarone 400 mg twice daily. Vitals/I&O/Wt Last Vital Signs Temp 98.3 F 06/10/25 12:00 Pulse 96 06/10/25 12:00 Resp 22 H 06/10/25 12:00 BP 118/73 06/10/25 12:00 Pulse Ox 94 06/10/25 12:00 O2 Del Method Room Air 06/10/25 12:00 FiO2 21 06/09/25 12:17 06/09/25 06/10/25 06/10/25 22:59 06:59 14:59 Intake Total 252.292 / 781.334 480 / 781.334 840 / 840 Output Total 1650 / 2400 450 / 2400 450 / 450 Balance -1397.708 / -1618.666 30 / -1618.666 390 / 390 Weight last 48 hrs Weight 214 lb 9.6 oz Weight 215 lb Weight 215 lb Weight 212 lb Physical Exam 2 Const: COMMON NORMALS: no acute distress and patient oriented x3 Chest: COMMONS NORMALS: normal inspection of the chest and normal palpation of entire chest wall CHEST: Yes Symmetrical chest wall rise Resp: COMMON NORMALS: normal respiratory effort, No retractions, No use of accessory muscles and clear to auscultation bilaterally EFFORT & INSPECTION: Yes symmetric chest movement AUSCULTATION: clear to auscultation bilaterally Cardio: COMMON NORMALS: S1 normal heart sound present, S2 normal heart sound present, No gallops present (Cardio), No clicks present (Cardio), No murmurs present (Cardio) and No rub (Cardio) RATE: tachycardic RHYTHM: abnormal rhythm irregularly irregular HEART SOUNDS: S1 normal heart sound present and S2 normal heart sound present PERIPHERAL PULSES: radial pulses present, posterior tibial pulses present and dorsalis pedis present Neuro: COMMON NORMALS: patient oriented x3 and moves all extremities Psych: COMMON NORMALS: mental status grossly normal and cooperative Data 06/10/25 01:37 06/09/25 03:13 A&P Assessment and plan 1. Atrial fibrillation with RVR: 2. Benign essential hypertension with target blood pressure below 140/90: 3. T2DM (type 2 diabetes mellitus): 4. COPD (chronic obstructive pulmonary disease) with emphysema: Plan: Will change amiodarone to 400 mg twice daily for the next 2 weeks then reduce to 200 mg daily. He was started on diltiazem 30 mg 4 times daily by our hospitalist service. He did agree to start Eliquis 2.5 mg twice daily for anticoagulation. PDMP PDMP Reviewed: Not Reviewed Attestations 2 Medical Necessity Statement*: Paroxysmal A-fib RVR Coding Level of Care Code Acute Code for [facility] Diagnoses Atrial fibrillation with RVR I48.91 Benign essential hypertension with target blood pressure below 140/90 I10 T2DM (type 2 diabetes mellitus) E11.9 COPD (chronic obstructive pulmonary disease) with emphysema J43.9
--- NOTE | 2025-06-10 09:13 | P.PN_ITS ---
Subjective 2 Subjective: 85-year-old male admitted with A-fib rapid ventricular response. He says he has been on oxygen 3 L/min at home as needed but does not usually use it. Here he has not really required oxygen. Rhythm is mostly sinus rhythm since restarting amiodarone which he thinks he was not taking at home. Notably he has some parenchymal fibrosis on chest x-ray but has not had a CT scan. His leg ultrasound left leg was negative for DVT. Patient states he is concerned about his heart rate still being fast and does not want to go home today. He is afraid that he would have to come back due to uncontrolled heart rate. Vitals/I&O/Wt Last Vital Signs Temp 98.0 F 06/10/25 08:00 Pulse 100 06/10/25 09:00 Resp 20 H 06/10/25 09:00 BP 154/88 06/10/25 08:00 Pulse Ox 94 06/10/25 09:00 O2 Del Method Room Air 06/10/25 09:00 FiO2 21 06/09/25 12:17 06/09/25 06/10/25 06/10/25 22:59 06:59 14:59 Intake Total 252.292 / 301.334 480 / 781.334 600 / 600 Output Total 1650 / 1950 450 / 2400 200 / 200 Balance -1397.708 / -1648.666 30 / -1618.666 400 / 400 Weight last 48 hrs Weight 97.341 kg Weight 97.522 kg Weight 97.522 kg Weight 96.162 kg Physical Exam 2 Narrative: General well-developed well-nourished male modestly overweight tall man in no acute cardiopulmonary distress CV irregular borderline tachycardic no loud murmur Lungs diminished breath sounds left base otherwise clear Abdomen positive bowel tones soft nontender Calves left calf 2+ edema right calf trace edema Skin warm and dry Back there is a 1.2 inch cyst on the back appears to be subcutaneous sebaceous cyst with a blackhead Data 06/10/25 01:37 06/09/25 03:13 A&P Assessment and plan 1. Atrial fibrillation with RVR: Patient was started back on amiodarone 200 mg twice a day and now also apixaban 2.5 mg twice daily. Heart rate has been around the 100 in sinus rhythm. I am going to add rate control with diltiazem 30 mg p.o. every 6 hours. Due to his COPD he still requires nebulizers and just had 1 now with heart rate 105. Potassium and magnesium replaced for heart rate control 2. Acute hypoxic respiratory failure: Currently 95% on room air but will have him do ambulatory testing. If hypoxemic given his pulmonary fibrosis may need to stop amiodarone Will do home oxygen testing and also CT scan high-res of the chest to look for amiodarone toxicity 3. Dyspnea on exertion: Dyspnea on exertion- must continue to monitor and optimize. 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 COPD (chronic obstructive pulmonary disease) with emphysema: Stable on oxygen and nebulizers. CT scan to look for pulmonary toxicity from amiodarone 5. CHF (congestive heart failure): Echo showed EF 55% with grade 2 of 4 diastolic dysfunction. Right atrial pressure of 5 and IVC looked normal. Resumed on home diuretics as of yesterday Plan: GI and DVT prophylaxis in place PDMP PDMP Reviewed: Not Reviewed Attestations 2 Medical Necessity Statement*: Patient remained in the hospital 1 more night for control of heart rate and titration of diltiazem Coding Level of Care Code 00622 Diagnoses Atrial fibrillation with RVR I48.91 Acute hypoxic respiratory failure J96.01 Dyspnea on exertion R06.09 COPD (chronic obstructive pulmonary disease) with emphysema J43.9 CHF (congestive heart failure) I50.9 Time Spent (min) 35
--- NOTE | 2025-06-10 09:17 | CT_ITS ---
WS: [id number] CT CHEST TECHNIQUE: High-resolution noncontrast CT of the chest with coronal and sagittal reformatted images. CLINICAL INFORMATION: amiodarone and pulmonary fibrosis COMPARISON: None. DLP: 1945.[address] scans at [facility] use at least one of these dose optimization techniques: automated exposure control; mA and/or kV adjustment per patient size (includes targeted exams where dose is matched to clinical indication); or iterative reconstruction. FINDINGS: Hyperinflation. Moderate to advanced chronic emphysematous change. Aortic calcification. RIGHT thyroid nodule 1.7 cm. Numerous enlarged anteromediastinal, RIGHT paratracheal and RIGHT hilar and subcarinal lymph nodes. Bulky subcarinal lymphadenopathy. Enlarged periesophageal and GE junction lymph nodes. Additional RIGHT thoracic inlet and supraclavicular lymphadenopathy. Recommend correlation with history of neoplasm. Aortic calcification. Coronary calcification. No endobronchial lesions. Tiny esophageal hiatal hernia. Adrenal glands are normal. Partially visualized fatty atrophy of the pancreas. No acute pulmonary infiltrates. No evidence of honeycombing on high-resolution imaging. No significant traction bronchiectasis. No reticular nodular opacities. Thoracic ankylosis with mild kyphosis. CT/CT chest wo con 14152 IMPRESSION: 1. Hyperinflation with moderate to advanced chronic emphysematous change. 2. No evidence of honeycombing or traction bronchiectasis. 3. Enlarged and numerous anterior mediastinal, RIGHT peribronchial, RIGHT anika r and infrahilar lymphadenopathy. Bulky subcarinal lymphadenopathy. Prominent p eriesophageal and GE junction lymph nodes. RIGHT thoracic inlet and supraclavic ular lymphadenopathy. This is nonspecific but neoplasm should be excluded. No p rior comparisons. 4. 1.7 cm RIGHT thyroid nodule.
[2025-06-10] MEDS: ATORVASTATIN 10 MG TABLET PO (21:08)
[2025-06-11] VITALS (7 sets, daily range): BP systolic 109–150; BP diastolic 56–78; PULSE 75–88; RESP 18–21; TEMP 36.6–36.7; O2SAT 92–96
[2025-06-11 04:07] LABS: Hematocrit 37.6 % (37-53); Hemoglobin 11.70 g/dL (11.27-16.99); Mean Corpuscular HGB Conc 31.1 g/dL (30-55); Mean Corpuscular Hemoglobin 27.7 pg (27-33); Mean Corpuscular Volume 88.9 fl (82-101); Nucleated Red Blood Cells % 0 %; Platelet Count 413 10^3/cmm (157-399); Red Blood Count 4.23 10^6/uL (3.85-5.65); White Blood Count 13.13 10^3/uL (3.29-11.43)
[2025-06-11 04:25] LABS: Magnesium 1.8 mg/dL (1.7-2.3)
[2025-06-11] MEDS: insulin glargine 100 units/1 mL 28 UNIT SUBCUT (08:35)
--- NOTE | 2025-06-11 09:39 | PC.SOCIAL ---
IMM Update pg 2 of IMM updated and reviewed w/ patient. Copy provided and copy dated, initialed and placed in chart.
--- NOTE | 2025-06-11 09:55 | P.PN_ITS ---
<Statement entered by Angel Quezada MD - 06/13/25 13:30> Patient was evaluated and cared for in conjunction with an advanced practice practitioner. I personally saw the patient and reviewed the chart and all pertinent data. I discussed the patient in detail with the advanced practice practitioner. Please see their note for complete assessment and agreed upon plan of care for the patient. Subjective 2 Subjective: He has done well overnight, is in sinus rhythm this morning with much better rate control. Heart rates ranging 70 to 80 bpm. Shortness of breath is improved Vitals/I&O/Wt Last Vital Signs Temp 97.8 F 06/11/25 11:40 Pulse 78 06/11/25 12:00 Resp 18 06/11/25 11:40 BP 137/78 06/11/25 12:00 Pulse Ox 94 06/11/25 12:00 O2 Del Method Room Air 06/11/25 11:40 FiO2 21 06/09/25 12:17 06/10/25 06/11/25 06/11/25 22:59 06:59 14:59 Intake Total 480 / 1920 120 / 1920 720 / 720 Output Total 230 / 2780 800 / 2780 600 / 600 Balance 250 / -860 -680 / -860 120 / 120 Weight last 48 hrs Weight 214 lb 8 oz Weight 214 lb 9.6 oz Physical Exam 2 Const: COMMON NORMALS: no acute distress and patient oriented x3 GENERAL APPEARANCE: cooperative and comfortable ORIENTATION/CONSCIOUSNESS: Yes awake, Yes oriented to person, Yes oriented to place and Yes oriented to time Chest: COMMONS NORMALS: normal inspection of the chest and normal palpation of entire chest wall CHEST: Yes Symmetrical chest wall rise Resp: COMMON NORMALS: normal respiratory effort, No retractions, No use of accessory muscles and clear to auscultation bilaterally EFFORT & INSPECTION: Yes symmetric chest movement AUSCULTATION: clear to auscultation bilaterally Cardio: COMMON NORMALS: regular rate, regular rhythm, S1 normal heart sound present, S2 normal heart sound present, No gallops present (Cardio), No clicks present (Cardio), No murmurs present (Cardio) and No rub (Cardio) RATE: r egular rate RHYTHM: regular rhythm HEART SOUNDS: S1 normal heart sound present and S2 normal heart sound present PERIPHERAL PULSES: radial pulses present Extremity: COMMON NORMALS: no pedal edema Neuro: COMMON NORMALS: patient oriented x3 and moves all extremities S ENSORIUM/ORIENTATION: Yes oriented to person, Yes oriented to place and Yes oriented to time Data 06/11/25 03:31 06/09/25 03:13 A&P Assessment and plan 1. Paroxysmal atrial fibrillation: 2. Benign essential hypertension with target blood pressure below 140/90: 3. CHF (congestive heart failure): 4. T2DM (type 2 diabetes mellitus): 5. COPD (chronic obstructive pulmonary disease) with emphysema: Plan: Since he has converted to sinus rhythm and has good heart rate control we will plan for discharge today on current medications. Recommended amiodarone 400 mg twice daily for 2 weeks then reduce to 200 mg daily. Continue apixaban for anticoagulation 2.5 mg twice daily. Follow-up with cardiology clinic in 2 weeks. PDMP PDMP Reviewed: Not Reviewed Attestations 2 Medical Necessity Statement*: Discharge today Coding Level of Care Code Acute Code for [facility] Fwd Diagnoses Paroxysmal atrial fibrillation I48.0 Benign essential hypertension with target blood pressure below 140/90 I10 CHF (congestive heart failure) I50.9 T2DM (type 2 diabetes mellitus) E11.9 COPD (chronic obstructive pulmonary disease) with emphysema J43.9
--- NOTE | 2025-06-11 11:25 | PM.DCS ---
Discharge Providers Date of Admission: 06/08/25 17:31 Date of Discharge: June 11, 2025 Attending Provider at Admission: Trinidad Valdez MD Attending Provider at Discharge: Wilbert Goodwin MD Primary Care Provider: YELITZA Davidson Diagnoses at Discharge Discharge Diagnosis 1. Atrial fibrillation with RVR: Details from hospital stay: Mostly sinus rhythm now on increased amiodarone which the patient thinks he may not have been taking. He will be on amiodarone 400 mg twice a day for 2 weeks and then down to 200 mg twice a day. Follow-up with cardiology. He is on metoprolol his usual 100 mg twice a day plus diltiazem CD60 milligrams twice a day with hold parameters if heart rate less than 70. He can take an extra half tablet during the day if heart rate greater than 100 with palpitations 2. Benign essential hypertension with target blood pressure below 140/90: Details from hospital stay: Stable added losartan 25 mg daily 3. Type 2 diabetes mellitus without complication, without long-term current use of insulin: Details from hospital stay: Stable 4. Pulmonary emphysema, unspecified emphysema type: Details from hospital stay: Stable 5. Mediastinal adenopathy: Details from hospital stay: Referred to Dr. Yip for further evaluation possible biopsy 6. Left leg swelling: Details from hospital stay: This is chronic and left lower extremity ultrasound was negative for DVT on 06/09/2025 Reason for Visit Reason for Visit: AFIB Brief History: Marco Antonio Mosquera is a 85 year old male with medical history significant for chronic atrial fibrillation and not on any anticoagulant per patient's choice. Patient has had hematoma by the left hip 4 years ago on Coumadin and ever since then patient swore not to be on any anticoagulant anymore. Event during this hospitalization at presentation I have asked him he said he will not go back on any form of anticoagulant that he would like to stay without it. Patient is on Cardizem drip titratable Patient had had experience of heart racing at home for 4 days and noticed that they have been doing in the 130s to 140s when he ambulates and when this is not going away does have a patient came to the emergency room for further evaluation. Patient does have history of A-fib and care is been taking to have the heart rate controlled. Cardiology has been consulted as well Case discussed. To see if there is any antiarrhythmic patient can use to stay in sinus. Patient is on home amiodarone. But it was not clear if the patient was still taking it Hospital Course Hospital Course In the hospital diltiazem drip was effective in slowing the heart rate and starting amiodarone back at 200 mg twice a day she was intermittently in sinus rhythm. Electric Motorman recommend increasing amiodarone to 400 mg twice a day for 2 weeks then back down to 200 mg twice a day. I obtained a high-resolution CT scan of the chest which did not show amiodarone induced pulmonary fibrosis but did show subcarinal and mediastinal adenopathy. The patient admits to a 40 pound weight loss with recent influenza B and December. This does not completely explain his mediastinal adenopathy and I have discussed this with him and recommended that he follow-up with Dr. Yip for possible biopsy The patient had history of left iliopsoas hematoma but due to his atrial fibrillation risk of stroke and also chronic left lower extremity swelling he was willing to start apixaban at an adjusted dose of just 2.5 mg twice a day. He has not evidence of bleeding here We took an extra day to bring his heart rate down from 100s to 80s with short acting diltiazem now switched to every 12 hours diltiazem 60 mg twice a day Physical Exam Narrative: General well-developed well-nourished male in no acute cardiopulmonary distress CV regular rate and rhythm frequent ectopy Lungs clear to auscultation bilaterally no crackles Abdomen positive bowel tones soft Left calf and large versus right with 1+ to 2 edema Discharge Data Studies Completed and Pending Completed Studies During Hospitalization Category Date Time Status CT chest wo con [id number] Routine Cat Scan 06/10/25 09:17 Completed XR chest 1V portable [id number] Stat Exams 06/08/25 16:48 [place] [id number] Routine Ultrasound 06/09/25 10:13 Completed CV. echo complete* [id number] Routine Ultrasound 06/08/25 20:26 Completed Pending at discharge Category Date Time Status BMP [Basic Metabolic Panel] AM LABS Lab 06/12/25 04:00 Ordered Radiology Impressions Chest X-Ray 06/08/25 16:48 IMPRESSION: 1. No acute thoracic abnormality. 2. Stable fibrotic changes throughout the lungs. Venous Duplex 06/09/25 10:13 IMPRESSION: No evidence of deep vein thrombosis. Chest CT 06/10/25 09:17 IMPRESSION: 1. Hyperinflation with moderate to advanced chronic emphysematous change. 2. No evidence of honeycombing or traction bronchiectasis. 3. Enlarged and numerous anterior mediastinal, RIGHT peribronchial, RIGHT hilar and infrahilar lymphadenopathy. Bulky subcarinal lymphadenopathy. Prominent periesophageal and GE junction lymph nodes. RIGHT thoracic inlet and supraclavicular lymphadenopathy. This is nonspecific but neoplasm should be excluded. No prior comparisons. 4. 1.7 cm RIGHT thyroid nodule. Laboratory Results WBC 13.13 10^3/uL (3.29-11.43) H 06/11/25 03:31 RBC 4.23 10^6/uL (3.85-5.65) 06/11/25 03:31 Hgb 11.70 g/dL (11.27-16.99) 06/11/25 03:31 Hct 37.6 % (37-53) 06/11/25 03:31 MCV 88.9 fl (82-101) 06/11/25 03:31 MCH 27.7 pg (27-33) 06/11/25 03:31 MCHC 31.1 g/dL (30-55) 06/11/25 03:31 RDW 14.6 % (12.1-15.1) 06/11/25 03:31 Plt Count 413 10^3/cmm (157-399) H 06/11/25 03:31 MPV 9.9 fL (7.4-10.4) 06/11/25 03:31 Neut % (Auto) 74.0 % 06/11/25 03:31 Lymph % (Auto) 15.3 % 06/11/25 03:31 [place] % (Auto) 7.5 % 06/11/25 03:31 Eos % (Auto) 2.4 % 06/11/25 03:31 Baso % (Auto) 0.3 % 06/11/25 03:31 Neut # (Auto) 9.72 10^3/uL (1.8-7.7) H 06/11/25 03:31 Lymph # (Auto) 2.0 10^3/uL (0.8-4.8) 06/11/25 03:31 [place] # (Auto) 1.0 10^3/uL (0.2-0.9) H 06/11/25 03:31 Eos # (Auto) 0.3 10^3/uL (0.0-0.8) 06/11/25 03:31 Baso # (Auto) 0.0 10^3/uL (0.0-0.1) 06/11/25 03:31 Nucleated RBC % (auto) 0 % 06/11/25 03:31 Nucleated RBCs # 0.0 /100WBC 06/11/25 03:31 Sodium 143 mmol/L (136-145) 06/09/25 03:13 Potassium 3.5 mmol/L (3.5-5.1) 06/09/25 03:13 Chloride 108 mmol/L (98-107) H 06/09/25 03:13 Carbon Dioxide 22 mmol/L (22-29) 06/09/25 03:13 Anion Gap 16.5 (5-19) 06/09/25 03:13 BUN 15 mg/dL (8-23) 06/09/25 03:13 Creatinine 1.1 mg/dL (0.7-1.2) 06/09/25 03:13 GFR Calculation Not Reportable 06/09/25 03:13 Glucose 144 mg/dL (65-115) H 06/09/25 03:13 POC Glucose 156 mg/dL (70-110) H 06/11/25 11:02 Estimat Average Glucose 163 06/09/25 03:13 Hemoglobin A1c 7.3 % (4.0-6.0) H 06/09/25 03:13 Calculated Osmolality 299 mOsm/kg (285-295) H 06/09/25 03:13 Calcium 9.1 mg/dL (8.5-10.5) 06/09/25 03:13 Phosphorus 2.6 mg/dL (2.5-4.5) 06/09/25 03:13 Magnesium 1.8 mg/dL (1.7-2.3) 06/11/25 03:31 Total Bilirubin 0.3 mg/dL (0.15-1.2) 06/09/25 03:13 AST 14 U/L (0-40) 06/09/25 03:13 ALT 11 U/L (0-41) 06/09/25 03:13 Alkaline Phosphatase 88 U/L (40-130) 06/09/25 03:13 Total Protein 6.8 g/dL (6.6-8.7) 06/09/25 03:13 Albumin 3.1 g/dL (3.5-5.2) L 06/09/25 03:13 Globulin 3.7 g/dL (1.3-4.6) 06/09/25 03:13 Triglycerides 232 mg/dL (0-150) H 06/09/25 03:13 Cholesterol 104 mg/dL (0-200) 06/09/25 03:13 LDL Cholesterol, Calc 34 mg/dL (50-129) L 06/09/25 03:13 HDL Cholesterol 24 mg/dL (60-100) L 06/09/25 03:13 LDL/HDL Ratio 1.42 RATIO (0.00-3.22) 06/09/25 03:13 Cholesterol/HDL Ratio 4.33 mg/dL (1.0-5.00) 06/09/25 03:13 Vitals Last Vital Signs Temp 98.1 F 06/11/25 07:42 Pulse 88 06/11/25 07:42 Resp 18 06/11/25 07:42 BP 150/78 06/11/25 08:31 Pulse Ox 96 06/11/25 07:42 O2 Del Method Room Air 06/11/25 07:42 FiO2 21 06/09/25 12:17 Discharge Plan Discharge Patient Disposition: Home Condition: Stable Prescriptions: New losartan 50 mg Tablet 25 mg PO DAILY Qty: 30 0RF magnesium oxide 400 mg (241.3 mg magnesium) Tablet 400 mg PO BID Qty: 60 0RF amiodarone [Pacerone] 200 mg Tablet 400 mg PO BID Qty: 120 0RF Rx Instructions: 400mg twice a day for 14 days then take 200mg twice a day diltiazem HCl 60 mg Capsule,Extended Release 12 Hr 60 mg PO BID Qty: 60 0RF Rx Instructions: hold if your HR is below 70 at time of scheduled twice a day administration apixaban 2.5 mg tablet 2.5 mg PO BID Qty: 60 0RF acetaminophen 325 mg Tablet 650 mg PO Q6H PRN (Reason: Mild/Mod Pain Or Temp >/= 101) Qty: 30 0RF Continued rosuvastatin 10 mg tablet 10 mg PO DAILY Qty: 90 1RF albuterol sulfate 2.5 mg /3 mL (0.083 %) solution for nebulization See Rx Instructions .ROUTE .COMPLEX Qty: 30 12RF Dose Instruction: USE 1 VIAL IN NEBULIZER 3 TIMES DAILY - for rescue (MAX 30 DOSES PER MONTH) Rx Instructions: USE 1 VIAL IN NEBULIZER 3 TIMES DAILY - for rescue (MAX 30 DOSES PER MONTH) Breztri Aerosphere 160-9-4.8 mcg/actuation HFA aerosol inhaler 2 inh inhalation BID Qty: 10.7 0RF albuterol sulfate [Ventolin HFA] 90 mcg/actuation HFA aerosol inhaler 2 puff inhalation QID PRN (Reason: Shortness Of Breath) Qty: 18 2RF furosemide [Lasix] 40 mg tablet 40 mg PO DAILY Qty: 90 3RF hydralazine 50 mg tablet 75 mg PO TID Qty: 270 3RF metoprolol tartrate 100 mg tablet 100 mg PO BID omeprazole 40 mg capsule,delayed release(DR/EC) 40 mg PO DAILY potassium chloride [Klor-Con M20] 20 mEq tablet,ER particles/crystals 20 meq PO DAILY PRN (Reason: while on lasix) fenofibrate 160 mg tablet 160 mg PO DAILY insulin glargine-yfgn 100 unit/mL (3 mL) insulin pen 34 unit SUBCUT BID Discontinued amiodarone [Pacerone] 200 mg tablet 200 mg PO DAILY Rx Instructions: 2 tabs daily for 7 days, then 1 tab daily [facility] OK for DC: Cardiology Discharge Order = DC NOW: Discharge Order (Routine); Ordered 06/11/25 Ordered By: Wilbert Goodwin Referrals: Debbie Yip MD [Physician, Interventional Pulmonology] - 2 weeks Referral Note: Mediastinal and subcarinal lymphadenopathy. Quit tobacco 1988 Shaniqua Newman FNP [Primary Care Provider, Family Practice] - 06/16/25 10:20 am Referral Note: [facility] has arranged your follow up care with Shaniqua Newman on 06/16/25 at 10:20 am if you are not able to keep this appointment please contact clinic to arrange your follow up care. Angel Quezada MD [Physician, Cardiology] - 2 weeks Discharge Diet: Cardiac and Diabetic Patient Instructions: A-fib (Atrial Fibrillation) (DC), Opioid Safety, Patient Portal & Marielena Instructions Activity Restrictions/Additional Instructions: Follow a 1600-calorie diabetic diet low in salt, fat and cholesterol for your blood pressure and diabetes Amiodarone has been increased to 400 mg twice a day for 2 weeks then decrease to 200 mg twice a day. Continue on apixaban for anticoagulation to prevent strokes. Follow-up with cardiology in [address] scan was done to look for amiodarone toxicity on the lung which it did not show but there are lymph nodes that are enlarged and although this is nonspecific this could also represent undiagnosed cancer. You have been referred to see Dr. Yip the interventional cost accounting manager to see if biopsies can be done Take your blood pressure and pulse twice a day and if it is less than 70 skip your diltiazem (Cardizem) if your heart rate is greater than 100 you can take an extra half tablet diltiazem to try and slow it down. If that is not effective go to the emergency department Discharge Attestations Time Spent in Discharge Care*: greater than 30 min Time Spent in Smoking Cessation: Patient is not a smoker Quality Metrics Clinical Quality Measures [ No reported AMI, CVA or VTE this stay] Coding Level of Care Code 63396 Diagnoses Atrial fibrillation with RVR I48.91 Benign essential hypertension with target blood pressure below 140/90 I10 Type 2 diabetes mellitus without complication, without long-term current use of insulin E11.9 Diabetes mellitus reservations specialist insulin use: without reservations specialist use Diabetes mellitus complication status: without complication Pulmonary emphysema, unspecified emphysema type J43.9 Emphysema type: unspecified Mediastinal adenopathy R59.0 Left leg swelling M79.89 Time Spent (min) 40
--- NOTE | 2025-06-11 12:04 | PC.NURSE ---
Pt stated his ride will be here at 1 pm.
== END 2025-06-11 13:39 | disposition home or self-care (01) | DRG 308 ==
LOC: ER 18:20 → CSU 18:50
PROVIDERS: Internal Medicine; Admitting Provider Internal Medicine; Emergency Provider Family Medicine; PCP Nurse Practitioner Family; Visit Provider Internal Medicine
DX: I48.91 Unspecified atrial fibrillation (principal); J96.01 Acute respiratory failure with hypoxia; I11.0 Hypertensive heart disease with heart failure; E11.51 Type 2 diabetes mellitus with diabetic peripheral angiopathy without gangrene; J43.9 Emphysema, unspecified; R59.0 Localized enlarged lymph nodes; M79.89 Other specified soft tissue disorders; K21.9 Gastro-esophageal reflux disease without esophagitis; I50.9 Heart failure, unspecified; E78.5 Hyperlipidemia, unspecified; G47.33 Obstructive sleep apnea (adult) (pediatric); Z87.891 Personal history of nicotine dependence; Z79.4 Long term (current) use of insulin; Z99.81 Dependence on supplemental oxygen
CPT/HCPCS: 36415; 36416; 71045; 71250; 80053; 80061; 82962; 83036; 83735; 84100; 85025; 93005; 93306; 93971; 94640; 96365; 96366; 96372; 96375; 99285; J1644; J1815; J3490; J7626; J9999

== ENCOUNTER → 2025-06-23 10:47 | Outpatient (BNVA) | payer MEDICARE, OTHER, SELFPAY | PROVIDERS: PCP Nurse Practitioner Family; Visit Provider Internal Medicine | DX: R59.1 Generalized enlarged lymph nodes (principal); I48.91 Unspecified atrial fibrillation; J43.9 Emphysema, unspecified; J96.11 Chronic respiratory failure with hypoxia; I50.9 Heart failure, unspecified; Z87.891 Personal history of nicotine dependence; I11.0 Hypertensive heart disease with heart failure | CPT/HCPCS: 99204; 99215 ==

== ENCOUNTER → 2025-06-24 12:44 | Outpatient (BNVA) | payer MEDICARE, OTHER, SELFPAY | PROVIDERS: PCP Nurse Practitioner Family; Visit Provider Nurse Practitioner Family | DX: I48.91 Unspecified atrial fibrillation (principal); Z79.01 Long term (current) use of anticoagulants; I11.0 Hypertensive heart disease with heart failure; I50.9 Heart failure, unspecified; E78.5 Hyperlipidemia, unspecified; I73.9 Peripheral vascular disease, unspecified; E11.9 Type 2 diabetes mellitus without complications; Z79.4 Long term (current) use of insulin; Z87.891 Personal history of nicotine dependence | CPT/HCPCS: 99213 ==

== ENCOUNTER 2025-07-02 10:57 | Outpatient (CLI) | payer MEDICARE, OTHER, SELFPAY ==
--- NOTE | 2025-07-02 11:30 | PETR_ITS ---
PROCEDURE INFORMATION: Exam: PET/CT Skull Base to Mid-thigh Exam date and time: 07/02/2025 12:30 PM Age: 85 years old Clinical indication: Symptoms: Enlarged lymph nodes LABS AND CLINICAL REPORTS: Glucose: 97 mg/dl Treatment strategy for malignancy (PET staging): Initial Staging (PI) TECHNIQUE: Imaging protocol: Following at least four-hour fasting and following the injection of radiopharmaceutical, low dose CT images were obtained. Then, PET images were obtained. Attenuation corrected images were constructed using the CT scan. Fused images of PET and CT were reviewed. The standardized uptake values (SUV) reported below are maximum values within a region of interest, expressed in gm/ml. Exam includes orbital meatal line to mid-thigh. SUV normalization method: BodyWeight Radiopharmaceutical: 12.34 mCi F-18 FDG (Fluorodeoxyglucose), IV. Time of imaging post radiopharmaceutical administration: 50 minutes Injection site: right hand COMPARISON: CT chest con [id number] 06/10/2025 10:28 AM FINDINGS: Brain: On the nondedicated limited brain images there is no abnormal distribution of the radiotracer in the randall and white matter. Pharynx: Normal distribution of the radiotracer in nasopharyngeal, and oropharyngeal structures. Larynx: Bilateral symmetric intense uptake with no corresponding CT abnormality is likely benign. Thyroid: No abnormal uptake. 2.2 cm hypodense right thyroid nodule with no abnormal uptake is suggestive of benign finding. Lungs, pleura and trachea: No abnormal uptake. Severe emphysema particularly in the left lower lobe. No pleural effusion. Heart: Normal physiologic uptake. There is no cardiomegaly. Coronary artery calcification is present. There is no pericardial effusion. Mediastinal space: See below in lymph nodes . Liver: A few small FDG avid findings suggestive of metastases include 2.7 cm/6.7 SUV focus in the segment 3, 1.4 cm/5.1 cm focus inferiorly in the right hepatic lobe, 1 cm/4.3 SUV focus in the liver dome in the segment 8, 1.5 cm/3.7 SUV posteriorly in the segment 2 (axial image 169, 191, 132, 143). Gallbladder and biliary ducts: No abnormal uptake. Pancreas: Normal distribution of radiotracer. Spleen: Normal size without abnormal radiotracer uptake. Adrenal glands: No abnormal uptake. No nodules spread Kidneys and ureters: Normal physiologic uptake. No hydronephrosis. 3 mm calcification in the upper pole of the right kidney, possible nonobstructive stone. 1.7 cm simple cyst in the lower pole of the left kidney. Stomach and bowel: No abnormal uptake. Intraperitoneal and retroperitoneal spaces: No abnormal uptake. No ascites. Urinary bladder: Normal physiologic uptake. Reproductive: No abnormal uptake. The prostate is severely enlarged (input 4 x 7 x 8 cm). Vasculature: No abnormal uptake. No aortic aneurysm. Lymph nodes: Right supraclavicular lymph node measures 11.4 SUV. Enlarged bilateral upper mediastinal lymph nodes more prominent on the right side, bilateral subcarinal lymph nodes and right hilar lymph nodes suggestive of malignancy with the highest uptake of 10.3 SUV in the largest a right subcarinal lymph node measuring 2.7 cm in short axis. 1.6 x 1 cm nodule with abnormal uptake of 10.3 SUV in the depth of the right anterior costophrenic sinus on axial image 146 likely represents right anterior diaphragmatic lymph node. No FDG avid lymphadenopathy in the head, abdomen, pelvis, and extremities. Skeleton: No abnormal uptake suspicious for malignancy. Increased linear uptake within the right acromioclavicular joint is benign. There are multilevel marginal osteophytes in the thoracolumbar spine in keeping with DISH. Soft tissues: Increased uptake of 6 SUV in the attachment point of the right hamstrings to the ischial tuberosity on axial image 264 is suggestive of benign finding of tendonitis/tendinosis. Benign linear uptake in the tendon of the right infraspinatus muscle. Linear uptake in the left forearm and arm is suggestive of benign vascular/lymphatic uptake. 2.5 cm subcutaneous cyst in the left upper back on axial image 18 compatible with benign finding, likely sebaceous cyst.. METRICS: Mediastinal blood pool maximal uptake is 2.7 SUV. Liver maximal uptake is 2.9 SUV. PET/PET skull to thigh INIT [id number] IMPRESSION: Malignant lymphadenopathy in the mediastinum, right hilum and the right supraclavicular area, and bilobar liver metastases. No discrete lung nodule or mass. Benign incidental non FDG avid findings (2.2 cm right thyroid nodule, small nonobstructive right renal stone, simple cyst in the left kidney, severely enlarged prostate, sebaceous cyst in the left upper back).
== END 2025-07-02 10:58 | disposition home or self-care (01) ==
LOC: RAD 10:57
PROVIDERS: PCP Nurse Practitioner Family; Visit Provider Internal Medicine
DX: R59.1 Generalized enlarged lymph nodes (principal); C78.7 Secondary malignant neoplasm of liver and intrahepatic bile duct; E04.1 Nontoxic single thyroid nodule; N40.0 Benign prostatic hyperplasia without lower urinary tract symptoms; N28.1 Cyst of kidney, acquired; L72.3 Sebaceous cyst
CPT/HCPCS: 78815; A9552

== ENCOUNTER 2025-07-06 07:48 | Day surgery (SDC) | payer MEDICARE, OTHER, SELFPAY ==
[2025-07-06] VITALS (13 sets, daily range): BP systolic 135–168; BP diastolic 73–89; PULSE 78–89; RESP 10–22; TEMP 36.2–36.7; O2SAT 90–98; BMI 27.0
--- NOTE | 2025-07-06 08:43 | ANES.PREANE2 ---
Pre-Anesthetic Assessment Height/Weight: Height 6 ft 3 in Weight 216 lb Temp Pulse Resp BP Pulse Ox O2 Del Method 97.5 F L 78 18 168/88 96 Room Air 07/06/25 08:14 07/06/25 08:14 07/06/25 08:14 07/06/25 08:14 07/06/25 08:14 07/06/25 08:14 Preop Diagnosis: Mediastinal lymphadenopathy Operation Date: 07/06/25 12:30 Proposed Procedures p Flexible Bronchoscopy with Cryo Biopsy [id number] R59.1(Not Applicable) - Debbie Yip MD s Ebus(Not Applicable) - Debbie Yip MD Was Beta Meg taken within 24 hours: Yes Was Clonidine taken within 24 hours: N/A Last intake: Intake Last Liquid Date 07/06/25 Last Liquid Time 05:25 Last Solid Date 07/05/25 Last Solid Time 18:30 Social No alcohol and No tobacco Exam alert, oriented x 3, clear to auscultation bilaterally and regular rate & rhythm Airway Submandibular: within normal limits Cervical ROM: within normal limits Mallampati: Class II Comments: Comments: Very few teeth left, denies any loose Anesthetic Plan ASA status: 4 Anesthesia: General Other: Patient with mediastinal adenopathy, moderate to advanced emphysematous changes. No prior issues with anesthesia Recent hospitalization for COPD/emphysema. A-fib with RVR Patient uses 3 L O2 as needed at home Patient follows with cardiology and was recently seen 06/24/2025. Patient is on amiodarone 200 daily Eliquis for anticoagulation last taken 06/30/2025 Hypertension on hydralazine, losartan and metoprolol GERD, controlled with omeprazole IDDM, preop BS 99 Plan for GETA Medications/Allergies Home Medications ?Medication ?Instructions ?Recorded ?Confirmed ?Last Taken ?Type rosuvastatin 10 mg tablet 10 mg PO DAILY #90 tabs 09/30/24 07/05/25 07/05/25 Rx furosemide 40 mg tablet (Lasix) 40 mg PO DAILY edema #90 tabs 10/12/24 07/05/25 07/05/25 Rx hydralazine 50 mg tablet 75 mg (1.5 x 50 mg) PO TID #270 11/24/24 07/05/25 07/05/25 Rx tabs fenofibrate 160 mg tablet 160 mg PO DAILY 06/09/25 07/05/25 07/05/25 History insulin glargine-yfgn 100 unit/mL 34 unit SUBCUT BID 06/09/25 07/05/25 07/05/25 History (3 mL) subcutaneous pen metoprolol tartrate 100 mg tablet 100 mg PO BID 06/09/25 07/05/25 07/05/25 History omeprazole 40 mg capsule,delayed 40 mg PO DAILY 06/09/25 07/05/25 07/05/25 History release potassium chloride 20 mEq 20 meq PO DAILY PRN while on lasix 06/09/25 07/05/25 07/05/25 History tablet,extended release(part/cryst) (Klor-Con M) magnesium oxide 400 mg (241.3 mg 400 mg PO BID #60 tabs 06/10/25 07/05/25 07/05/25 Rx magnesium) tablet acetaminophen 325 mg tablet 650 mg (2 x 325 mg) PO Q6H PRN 06/11/25 07/05/25 Unknown Rx Mild/Mod Pain Or Temp >/= 101 #30 tabs albuterol sulfate 90 mcg/actuation 2 puff inhalation Q4H PRN 06/23/25 07/05/25 07/06/25 Rx aerosol inhaler (Ventolin HFA) shortness of breath or wheezing #8.5 grams fluticasone fur. 100 mcg-umeclid 1 inh inhalation DAILY #60 ea 06/23/25 07/05/25 07/05/25 Rx 62.5 mcg-vilant 25 mcg inhalat.powder (Trelegy Ellipta) amiodarone 200 mg tablet (Pacerone) 200 mg PO DAILY #90 tabs 06/24/25 07/05/25 07/05/25 Rx apixaban 2.5 mg tablet (Eliquis) 2.5 mg PO BID #30 tabs 06/24/25 07/05/25 07/04/25 Rx losartan 50 mg tablet 25 mg (1/2 x 50 mg) PO DAILY #90 06/24/25 07/05/25 07/05/25 Rx tabs albuterol sulfate 2.5 mg/3 mL 2.5 mg inhalation TID 07/05/25 07/05/25 07/05/25 History (0.083 %) solution for nebulization diltiazem HCl 60 mg 60 mg PO BID PRN heart rate 07/05/25 07/05/25 Unknown History capsule,extended release 12 hr Allergies Allergy/AdvReac Type Severity Reaction Status Date / Time metformin Allergy ADR-Diarrhe Verified 07/05/25 09:31 a [facility] Anesthesia Medical History (Updated 06/23/25 @ 11:17 by Debbie Yip MD) Left leg swelling CHF (congestive heart failure) Rheumatoid factor positive Nocturnal hypoxia Unable to ambulate Abnormal WBC count Chronic anticoagulation A-fib COPD (chronic obstructive pulmonary disease) with emphysema Hypertension Diabetes Hyperlipemia GERD (gastroesophageal reflux disease) Surgical History History of appendectomy Family History Other CAD (coronary artery disease) Social History Smoking and tobacco/nicotine status: former use of tobacco/nicotine Quit status (tobacco/nicotine): has quit using Year quit tobacco: 1988 Former quit date comment: 2 ppd X 15 years Second hand smoke exposure: No Alcohol intake: never Substance/Drug Use: never Lives independently: Yes Household members: spouse Marital status: Current occupational status: retired Current gender identity: Male Special laya needs: No Agree to transfusion: Yes Data Anesthesia Cardiac Studies: Echocardiogram 06/08/25 Sestamibi Stress Test (Cardiology) 09/11/22 Cardiac Event Monitor 05/23/22
--- NOTE | 2025-07-06 09:15 | W.PM.OPSUD ---
Surgery/Procedure H&P Update DATE OF PROCEDURE: July 06, 2025 DATE H&P PERFORMED: 06/23/25 CHANGES TO PREVIOUS DOCUMENTATION: Patient was seen and examined. No significant changes since I saw him in clinic on 06/23/2023. Discussed the benefits and the risk with the patient and he agreed to proceed forward PREOP DIAGNOSIS: Mediastinal lymphadenopathy PLANNED PROCEDURE: Operation Date: 07/06/25 12:30 Proposed Procedures p Flexible Bronchoscopy with Cryo Biopsy [id number] R59.1(Not Applicable) - Debbie Yip MD s Ebus(Not Applicable) - Debbie Yip MD
--- NOTE | 2025-07-06 09:26 | PM.OP ---
Operative Report Date of procedure: July 06, 2025 Surgeon: Debbie Yip MD
[2025-07-06] MEDS: lidocaine 2% INJ 20 mL XX (09:59)
[2025-07-06] MEDS: EPINEPHrine 1 MG in sodium chloride 0.9% 19 ML 2 MG XX (10:56)
--- NOTE | 2025-07-06 11:01 | P.BOP_ITS ---
Interventional Pulmonary Immediate Brief Operative Note: * Date of Procedure:?07/06/2025 * Preoperative Diagnosis:?Mediastinal and hilar lymphadenopathy * Postoperative Diagnosis:?[Same as pre-op] * Procedures Performed: Bronchoscopy with EBUS for TBNA/cryobiopsy * Surgeon / Doughnut Icer:?Debbie Yip MD * Anesthesia: * ?General anesthesia * Findings: Right proximal TREVOR endobronchial nodule. Mediastinal hilar lymphadenopathy * Estimated Blood Loss (EBL):?[Minimal] * Specimens: * ?BAL fluid right middle lobe/right upper * ?TBNA from station(s) 11L, 7, 4R, 11R * ?Forceps biopsy from right endobronchial airway * ?Cryobiopsy from station 7 lymph node * Mediastinal pook cup * Complications:?None * Disposition:?Transferred to PACU in stable condition. Debbie Yip MD, FACP Interventional Pulmonogist
--- NOTE | 2025-07-06 11:01 | W.PM.BPON ---
Interventional Pulmonary Immediate Brief Operative Note: Date of Procedure:?07/06/2025 Preoperative Diagnosis:?Mediastinal and hilar lymphadenopathy Postoperative Diagnosis:?[Same as pre-op] Procedures Performed: Bronchoscopy with EBUS for TBNA/cryobiopsy Surgeon / Flooring Mechanic:?Debbie Yip MD Anesthesia: ?General anesthesia Findings: Right proximal TREVOR endobronchial nodule. Mediastinal hilar lymphadenopathy Estimated Blood Loss (EBL):?[Minimal] Specimens: ?BAL fluid right middle lobe/right upper ?TBNA from station(s) 11L, 7, 4R, 11R ?Forceps biopsy from right endobronchial airway ?Cryobiopsy from station 7 lymph node Mediastinal pook cup Complications:?None Disposition:?Transferred to PACU in stable condition. Debbie Yip MD, FACP Interventional Pulmonogist
--- NOTE | 2025-07-06 11:13 | XR_ITS ---
WS: [id number] Exam: XR chest 1V portable [id number] Date/Time of Exam: 07/06/2025 11:15 AM Reason For Exam: POST BRONCH/EBUS Comparison 04/28/2025. Chronic interstitial changes noted throughout both lungs more extensive on the RIGHT than the LEFT. The lungs are hyperinflated. No consolidated infiltrates. Mild prominence of the RIGHT hilum unchanged. No pleural effusion. Normal cardiomediastinal silhouette. Bony structures are intact. 1 old RIGHT rib fracture. XR/XR chest 1V portable [id number] IMPRESSION: 1. Pulmonary hyperinflation with chronic interstitial changes most prevalent on the RIGHT. No acute infiltrate identified.
--- NOTE | 2025-07-06 11:27 | PM.OP ---
Operative Report Date of procedure: July 06, 2025 <YELITZA Muller - Last Filed: 07/06/25 11:32> Pre-op diagnosis: Mediastinal/hilar lymphadenopathy <Debbie Yip MD - Last Filed: 07/06/25 12:12> Post-op diagnosis: Same <Debbie Yip MD - Last Filed: 07/06/25 12:12> Procedure done: Bronchoscopy with EBUS <Debbie Yip MD - Last Filed: 07/06/25 12:12> Surgeon: YELITZA Muller <YELITZA Muller - Last Filed: 07/06/25 11:32> Estimated blood loss: Minimal less than 10 cc <Debbie Yip MD - Last Filed: 07/06/25 12:12> Complications: None <Debbie Yip MD - Last Filed: 07/06/25 12:12> Findings: Procedure: Bronchoscopy Attending: Debbie Yip MD Indication: Mediastinal hilar lymphadenopathy Medications: Lidocaine 2% (14 mL) applied to the tracheobronchial tree Anesthesia: General anesthesia per anesthesia team Procedure: Pre-Anesthesia Assessment [place] Protocol: Pre-procedure Verification: Prior to the procedure, the patient's identity was confirmed using full name, date of , and medical record number. Identity verification included a review of all relevant medical records, history, physical examination, medications, allergies, and previous anesthesia tolerance. Risks, benefits, sedation options, and associated risks were reviewed with the patient, and informed consent was obtained after addressing all questions. Time-Out: Immediately before the procedure, a time-out was conducted to confirm patient identification, procedure details, consent, image labeling, and the need for prophylactic antibiotics. This was verified by the physician, nurse, anesthesiologist, and vice president of brand management. Outcome: The procedure was completed without difficulty, and the patient tolerated it well. Findings: A thorough airway exam was performed after passage of the bronchoscope. The larynx and vocal cords were anatomically normal. The trachea was anatomically normal. The right sided airway showed because of moderate amount of mucoid secretions that required therapeutic suctioning ([id number]) after suctioning I was able to see the entire airway. There was small posterior endobronchial nodule at the proximal bronchus intermedius. The left sided airway was anatomically normal without endobronchial lesions. The bronchoscope was advanced until wedged at the desired location for bronchoalveolar lavage.?BAL was performed in the right middle lobe (120cc) and right upper lobe (60 cc).? 180 mL of fluid were instilled.? 40 mL were returned. ([id number]) The therapeutic bronchoscope was removed and the EBUS scope was inserted (69475). Level 11L station was identified with the EBUS scope at the LLL/L hilum and 4 passes were made using a 22G Olympus TBNA needles. (1 extra pass for pool flow) Level 4L station was identified with the EBUS scope at the lateral LMSB which did not meet criteria for sampling Level 7 station was identified with the EBUS scope at the medial LMSB/RMSB and 4 passes were made using a 22G Olympus TBNA needle. (1 extra pass for pool flow) Level 4R station was identified with the EBUS scope at the lateral RMSB and 4 passes were made using a 22G Olympus TBNA needle.?(1 extra pass for pool flow) Level 11R station was identified with the EBUS scope at the RBI/R hilum and 4 passes were made using a 22G Olympus TBNA needles. (1 extra pass for pool flow) Using the same TBNA needle track a cryoprobe 1.1 was passed for cryo TBBX biopsy from station level 7 lymph node after freezing for 5-10 seconds and we are able to obtain 5 samples (07155). EBUS scope was removed and exchanged for therapeutic scope. Endobronchial biopsy (54062) using cryoprobe 1.1 mm (for the right proximal BI endobronchial nodule) and regular foceps were performed from the right airways including multiple carinas (right lower lobe, right middle lobe and right hilum). Patient required a total of 2 cc of topical epinephrine (1 1: 20,000) to achieve hemostasis. Lucas Bleeding Scale: Grade 2 Following completion of all diagnostic and therapeutic procedures, hemostasis was verified.? The scope was removed and procedure concluded In summary, the following procedures were performed: 19906 BAL, (Bronchoalveolar Lavage), 09876 EBBX (Endobronchial biopsies), 44295 TBBX, (Transbronchial biopsies, first lobe), 63196 cEBUS 3 or more lesions, (Central curvelinear EBUS 3 or more lesions),? 34608 Therapeutic aspiration of secretions, <Debbie Yip MD - Last Filed: 07/06/25 12:12> Procedure: <YELITZA Muller - Last Filed: 07/06/25 11:32>
--- NOTE | 2025-07-06 13:45 | ANE.PACU2 ---
Inpatient post-anesthesia follow up: Airway intact: Yes Vital signs: Temperature 97.9 F Pulse Rate 86 Respiratory Rate 16 Blood Pressure 153/89 Pulse Oximetry 92 Oxygen Delivery Me thod Room Air Oxygen Flow Rate 2 Fraction of Inspir ed Oxygen Hydration adequate: Yes Nausea and vomiting: No Pain level: 1 Mental status: Baseline
--- NOTE | 2025-07-06 13:45 | ANES.PREANE2 ---
Pre-Anesthetic Assessment Height/Weight: Height 6 ft 3 in Weight 216 lb Temp Pulse Resp BP Pulse Ox O2 Del Method O2 Flow Rate 97.9 F 86 16 153/89 92 Room Air 2 07/06/25 13:07/06/25 13:07/06/25 13:07/06/25 13:07/06/25 13:07/06/25 13:07/06/25 12:01 Preop Diagnosis: Mediastinal lymphadenopathy Operation Date: 07/06/25 12:30 Proposed Procedures p Flexible Bronchoscopy with Cryo Biopsy 19405 [id number] [id number] 98551 14168 R59.1(Not Applicable) - Debbie Yip MD s Ebus(Not Applicable) - Debbie Yip MD Last intake: Intake Last Liquid Date 07/06/25 Last Liquid Time 05:00 Last Solid Date 07/05/25 Last Solid Time 18:30 Medications/Allergies Home Medications ?Medication ?Instructions ?Recorded ?Confirmed ?Last Taken ?Type rosuvastatin 10 mg tablet 10 mg PO DAILY #90 tabs 09/30/24 07/05/25 07/05/25 Rx furosemide 40 mg tablet (Lasix) 40 mg PO DAILY edema #90 tabs 10/12/24 07/05/25 07/05/25 Rx hydralazine 50 mg tablet 75 mg (1.5 x 50 mg) PO TID #270 11/24/24 07/05/25 07/05/25 Rx tabs fenofibrate 160 mg tablet 160 mg PO DAILY 06/09/25 07/05/25 07/05/25 History insulin glargine-yfgn 100 unit/mL 34 unit SUBCUT BID 06/09/25 07/05/25 07/05/25 History (3 mL) subcutaneous pen metoprolol tartrate 100 mg tablet 100 mg PO BID 06/09/25 07/05/25 07/05/25 History omeprazole 40 mg capsule,delayed 40 mg PO DAILY 06/09/25 07/05/25 07/05/25 History release potassium chloride 20 mEq 20 meq PO DAILY PRN while on lasix 06/09/25 07/05/25 07/05/25 History tablet,extended release(part/cryst) (Klor-Con M) magnesium oxide 400 mg (241.3 mg 400 mg PO BID #60 tabs 06/10/25 07/05/25 07/05/25 Rx magnesium) tablet acetaminophen 325 mg tablet 650 mg (2 x 325 mg) PO Q6H PRN 06/11/25 07/05/25 Unknown Rx Mild/Mod Pain Or Temp >/= 101 #30 tabs albuterol sulfate 90 mcg/actuation 2 puff inhalation Q4H PRN 06/23/25 07/05/25 07/06/25 Rx aerosol inhaler (Ventolin HFA) shortness of breath or wheezing #8.5 grams fluticasone fur. 100 mcg-umeclid 1 inh inhalation DAILY #60 ea 06/23/25 07/05/25 07/05/25 Rx 62.5 mcg-vilant 25 mcg inhalat.powder (Trelegy Ellipta) amiodarone 200 mg tablet (Pacerone) 200 mg PO DAILY #90 tabs 06/24/25 07/05/25 07/05/25 Rx apixaban 2.5 mg tablet (Eliquis) 2.5 mg PO BID #30 tabs 06/24/25 07/05/25 07/04/25 Rx losartan 50 mg tablet 25 mg (1/2 x 50 mg) PO DAILY #90 06/24/25 07/05/25 07/05/25 Rx tabs albuterol sulfate 2.5 mg/3 mL 2.5 mg inhalation TID 07/05/25 07/05/25 07/05/25 History (0.083 %) solution for nebulization diltiazem HCl 60 mg 60 mg PO BID PRN heart rate 07/05/25 07/05/25 Unknown History capsule,extended release 12 hr Allergies Allergy/AdvReac Type Severity Reaction Status Date / Time metformin Allergy ADR-Diarrhe Verified 07/05/25 09:31 a [facility] Anesthesia Medical History (Updated 06/23/25 @ 11:17 by Debbie Yip MD) Left leg swelling CHF (congestive heart failure) Rheumatoid factor positive Nocturnal hypoxia Unable to ambulate Abnormal WBC count Chronic anticoagulation A-fib COPD (chronic obstructive pulmonary disease) with emphysema Hypertension Diabetes Hyperlipemia GERD (gastroesophageal reflux disease) Surgical History History of appendectomy Family History Other CAD (coronary artery disease) Social History Smoking and tobacco/nicotine status: former use of tobacco/nicotine Quit status (tobacco/nicotine): has quit using Year quit tobacco: 1988 Former quit date comment: 2 ppd X 15 years Second hand smoke exposure: No Alcohol intake: never Substance/Drug Use: never Lives independently: Yes Household members: spouse Marital status: Current occupational status: retired Current gender identity: Male Special laya needs: No Agree to transfusion: Yes Data Anesthesia Cardiac Studies: Echocardiogram 06/08/25 Sestamibi Stress Test (Cardiology) 09/11/22 Cardiac Event Monitor 05/23/22
--- NOTE | 2025-07-06 14:25 | PC.NURSE ---
CRYO MACHINE USED DURING PROCEDURE SERIAL #:[id number]
[2025-07-08 11:47] LABS: Lymphoma Profile (BBPL) See Report
[2025-07-08 11:48] LABS: Lymphoma Profile (BBPL) See Report
[2025-07-08 21:38] LABS: Aspergillus AG,EIA NOT DETECTED; Aspergillus AG,EIA, Index <0.50
[2025-07-09 16:20] LABS: P. Jirovecii DNA QL PCR Not Detected (Not Detected); P. Jirovecii DNA QL PCR Source RML BAL
[2025-07-16 08:16] LABS: Cyto Order Verification Order Verified
== END 2025-07-06 13:45 | disposition home or self-care (01) ==
PROVIDERS: PCP Nurse Practitioner Family; Visit Provider Internal Medicine
PROC: 0BJ08ZZ Inspection of Tracheobronchial Tree, Via Natural or Artificial Opening Endoscopic (ICD-10-PCS; CPT 31622; principal; 2025-07-06 09:40)
PROC: BB4BZZZ Ultrasonography of Pleura (ICD-10-PCS; 2025-07-06 09:40)
DX: C34.90 Malignant neoplasm of unspecified part of unspecified bronchus or lung (principal); C78.00 Secondary malignant neoplasm of unspecified lung; C7B.8 Other secondary neuroendocrine tumors; R59.1 Generalized enlarged lymph nodes; J44.9 Chronic obstructive pulmonary disease, unspecified; K21.9 Gastro-esophageal reflux disease without esophagitis; E11.9 Type 2 diabetes mellitus without complications; Z79.01 Long term (current) use of anticoagulants; Z99.81 Dependence on supplemental oxygen; Z79.4 Long term (current) use of insulin; I11.0 Hypertensive heart disease with heart failure; I50.9 Heart failure, unspecified; E78.5 Hyperlipidemia, unspecified; I48.91 Unspecified atrial fibrillation; Z87.891 Personal history of nicotine dependence
CPT/HCPCS: 31624; 31625; 31628; 31645; 31653; 36416; 71045; 82962; 87015; 87070; 87102; 87116; 87186; 87205; 87206; 87305; 87798; 87801; 88112; 88173; 88184; 88185; 88305; 88342; J0169; J1100; J2405; J2704; J3010; J3490; J7030; J9999

== ENCOUNTER → 2025-07-15 09:37 | Outpatient (BNVA) | payer MEDICARE, OTHER, SELFPAY | PROVIDERS: PCP Nurse Practitioner Family; Visit Provider Internal Medicine | DX: C7A.1 Malignant poorly differentiated neuroendocrine tumors (principal); J43.9 Emphysema, unspecified; J96.11 Chronic respiratory failure with hypoxia; Z98.890 Other specified postprocedural states; Z87.891 Personal history of nicotine dependence; C34.90 Malignant neoplasm of unspecified part of unspecified bronchus or lung | CPT/HCPCS: 99214; Q3014 ==

== ENCOUNTER → 2025-07-22 10:49 | Outpatient (BNVA) | payer MEDICARE, OTHER, SELFPAY | PROVIDERS: PCP Nurse Practitioner Family; Visit Provider Podiatrist Foot & Ankle Surgery | DX: E11.8 Type 2 diabetes mellitus with unspecified complications (principal); B35.1 Tinea unguium; L84 Corns and callosities; R60.0 Localized edema; E11.51 Type 2 diabetes mellitus with diabetic peripheral angiopathy without gangrene; I73.9 Peripheral vascular disease, unspecified; Z79.4 Long term (current) use of insulin | CPT/HCPCS: 11056; 11721 ==

== ENCOUNTER → 2025-07-23 10:52 | Outpatient (BNVA) | payer MEDICARE, OTHER, SELFPAY | PROVIDERS: PCP Nurse Practitioner Family; Visit Provider Internal Medicine Cardiovascular Disease | DX: I48.91 Unspecified atrial fibrillation (principal); Z79.01 Long term (current) use of anticoagulants; I11.0 Hypertensive heart disease with heart failure; I50.9 Heart failure, unspecified; E78.5 Hyperlipidemia, unspecified; I73.9 Peripheral vascular disease, unspecified; E11.9 Type 2 diabetes mellitus without complications; Z79.4 Long term (current) use of insulin; Z99.81 Dependence on supplemental oxygen; Z87.891 Personal history of nicotine dependence | CPT/HCPCS: 93005; 99214 ==

== ENCOUNTER 2025-07-26 14:45 | Oncology outpatient (recurring) (ONCR) | payer MEDICARE, OTHER, SELFPAY ==
--- NOTE | 2025-07-26 16:13 | N.ONRAD NP_ITS ---
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 LARGE CELL NEUROENDOCRINE LN+/LIVER/RUL-, LN+-ANTERIOR MEDIASTINUM, RIGHT PARATRACHEAL, RIGHT HILAR/SUBCARINAL 2.7 cm (10.3 cm), PARAESOPHAGEAL, GE JUNCTION, RIGHT THORACIC INLET, RT SUPRACLAVICULAR (11.4), 1.6 x 2 cm nodule (10.3) RIGHT ANTERIOR COSTOPHRENIC SINUS LIVER METASTASIS 2.7 (6.7) SEGMENT3/1.4 CM/5CM INFERIOR RIGHT LOBE, 1 cm (4.3) LIVER DOME SEGMENT 8, 1.5 (3.7) SEGMENT 2, NO DISCRETE LUNG MASS/NODULE, MRI BRAIN PENDING 08/02/2025, PORT PLACEMENT PENDING STAGE: IV ICD-10: C34.11, C77.1, C78.7 Radiotherapy to date: Summary > No prior radiation therapy. 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 This pleasant asymptomatic 85-year-old male was recently in the hospital for atrial fibrillation with RVR. Imaging showed significant pulmonary disease in the mediastinum. The patient has had a 40 pound unintentional weight loss over [address] CHEST on 06/10/2025 showed numerous enlarged lymph nodes including anterior mediastinal, right paratracheal, right hilar, bulky subcarinal LN, paraesophageal, GE junction, right thoracic inlet and right supraclavicular nodes. BRONCHOSCOPY on 07/06/2025 showed -11 L but positive subcarinal (7), 4R and 11R noting LARGE CELL NEUROENDOCRINE CARCINOMA. PET CT on 07/02/2025 showed liver metastasis and lymph node disease as RT SUPRACLAVICULAR (11.4), 1.6 x 2 cm nodule (10.3) RIGHT ANTERIOR COSTOPHRENIC SINUS LIVER METASTASIS 2.7 (6.7) SEGMENT3/1.4 CM/5CM INFERIOR RIGHT LOBE, 1 cm (4.3) LIVER DOME SEGMENT 8, 1.5 (3.7) SEGMENT 2, NO DISCRETE LUNG MASS/NODULE Current Medications: - Last Reconciled 07/26/25 by Anoop Rao acetaminophen 650 mg (2 x 325 mg) PO Q6H PRN albuterol sulfate 90 mcg/actuation (Ventolin HFA) 2 puffs inhalation Q4H PRN albuterol sulfate 2.5 mg inhalation TID amiodarone (Pacerone) 200 mg PO DAILY apixaban (Eliquis) 2.5 mg PO BID diltiazem HCl ER 60 mg PO BID PRN fenofibrate 160 mg PO DAILY xebdseyqxgh-gjjqmqhkt-lnjadrne 100-62.5-25 mcg (Trelegy Ellipta) 1 inh inhalation DAILY furosemide (Lasix) 40 mg PO DAILY hydralazine 75 mg (1.5 x 50 mg) PO TID insulin glargine-yfgn inject 34 units SUBCUTANEOUSLY TWICE DAILY losartan 25 mg (1/2 x 50 mg) PO DAILY magnesium oxide 400 mg PO BID metoprolol tartrate 100 mg PO BID omeprazole 40 mg PO DAILY potassium chloride ER (Klor-Con M) 20 mEq PO DAILY PRN rosuvastatin TAKE ONE TABLET BY MOUTH DAILY Allergies: metformin Allergy (Verified 07/26/25 15:04) ADR-Diarrhea Medical History: Left leg swelling CHF (congestive heart failure) Rheumatoid factor positive Nocturnal hypoxia Unable to ambulate Abnormal WBC count Chronic anticoagulation A-fib COPD (chronic obstructive pulmonary disease) with emphysema Hypertension Diabetes Hyperlipemia GERD (gastroesophageal reflux disease) Surgical History: History of appendectomy Family History: CAD (coronary artery disease), had bilateral breast carcinoma and from multiple organ failure Social History: Smoking and tobacco/nicotine status: former use of tobacco/nicotine Quit status (tobacco/nicotine): has quit using Year quit tobacco: 1988 Former quit date comment: 2 ppd X 15 years Second hand smoke exposure: No Alcohol intake: never Substance/Drug Use: never Lives independently: Yes Household members: spouse Marital status: Current occupational status: retired Current gender identity: Male Special laya needs: No Agree to transfusion: Yes Dietary Habits Caffeine: Yes Caffeine intake frequency: coffee Current Complaints / Review of Systems: . As above Vital Signs: Performed on 07/26/2025 3:26 PM BMI - 27.498 kg/m2 (high), Height - 75 in, Weight - 220 lbs, Temperature - 97.9 f, Pulse - 78 /min, Respiration - 18 /min, O2 Sat - 96 %, Pain - 0, Fatigue - 0 and BP - 127/ 55 mm(hg)(/low). Physical Exam: This is an alert oriented and pleasant male that looks younger than stated age. Head is normocephalic without masses. Oral cavity exam show no mucosal lesions neck shows inferior lymph nodes into the supra clavicle area. Lungs. Clear to auscultation. Heart is irregular with adequate ventricular response. Abdomen is soft nontender with no hepatosplenomegaly. Extremities show distal edema with an negative Homans' sign. Vertebral exam shows no bony tenderness. Performance Status: KPS 90 Pathology: Primary, c34.11 - malignant neoplasm of upper lobe, right bronchus or lung, Diagnosed 07/26/2025 (active) , Primary, c77.1 - secondary and unspecified malignant neoplasm of intrathoracic lymph nodes, Diagnosed 07/26/2025 (active) and Primary, c78.7 - secondary malignant neoplasm of liver and intrahepatic bile duct, Diagnosed 07/26/2025 (active) . Lab: Imaging: See HPI Impression: C34.11 - malignant neoplasm of upper lobe, right bronchus or lung, Diagnosed 07/26/2025 (active), C77.1 - secondary and unspecified malignant neoplasm of intrathoracic lymph nodes, Diagnosed 07/26/2025 (active) and C78.7 - secondary malignant neoplasm of liver and intrahepatic bile duct, Diagnosed 07/26/2025 (active). LARGE CELL NEUROENDOCRINE LN+/LIVER/RUL-, LN+-ANTERIOR MEDIASTINUM, RIGHT PARATRACHEAL, RIGHT HILAR/SUBCARINAL 2.7 cm (10.3 cm), PARAESOPHAGEAL, GE JUNCTION, RIGHT THORACIC INLET, RT SUPRACLAVICULAR (11.4), 1.6 x 2 cm nodule (10.3) RIGHT ANTERIOR COSTOPHRENIC SINUS LIVER METASTASIS 2.7 (6.7) SEGMENT3/1.4 CM/5CM INFERIOR RIGHT LOBE, 1 cm (4.3) LIVER DOME SEGMENT 8, 1.5 (3.7) SEGMENT 2, NO DISCRETE LUNG MASS/NODULE, MRI BRAIN PENDING 08/02/2025, PORT PLACEMENT PENDING STAGE: IV ICD-10: C34.11, C77.1, C78.7 Plan: Options were discussed with the patient. Questions asked and answers provided to his satisfaction Awaiting immunotherapy information MRI of the brain planned for 08/02/2025 PORT PLACEMENT PENDING We will see the patient in the future if specific request is made. Signed by: 07/26/2025 4:12:14 PM <<Signature on File>> Time spent with patient/review of records/preparation of consult: 70 MINUTES CPT Code: CPT Code:
== END 2025-08-10 23:59 | disposition home or self-care (01) ==
LOC: ONCMED 14:46
PROVIDERS: PCP Nurse Practitioner Family; Visit Provider Internal Medicine Medical Oncology
DX: C7A.1 Malignant poorly differentiated neuroendocrine tumors (principal); Z87.891 Personal history of nicotine dependence; C34.11 Malignant neoplasm of upper lobe, right bronchus or lung; C77.1 Secondary and unspecified malignant neoplasm of intrathoracic lymph nodes; C78.7 Secondary malignant neoplasm of liver and intrahepatic bile duct
CPT/HCPCS: 99205; 99214

== ENCOUNTER 2025-08-02 11:18 | Outpatient (CLI) | payer MEDICARE, OTHER, SELFPAY ==
--- NOTE | 2025-08-02 11:45 | MR_ITS ---
WS: [id number] MRI BRAIN WITH AND WITHOUT CONTRAST HISTORY: Newly diagnosed lung Cancer COMPARISON: None available. TECHNIQUE: Multiplanar imaging performed through the brain with MultiHance 20 ml's IV. No acute infarcts are seen. Pettit-white matter differentiation is well preserved. Mild to moderate cerebral and cerebellar atrophy with small vessel changes. No prior infarct. Small lacunar infarct in the LEFT thalamus. No hemosiderin. Ventricles and extra-axial spaces are normal. Clivus and pituitary gland are normal. Visualized posterior fossa and brainstem are also normal. Extra-axial enhancing mass abutting the dura over the LEFT frontal lobe measures 8 x 4 mm. Most consistent with a small meningioma without significant contact on the frontal lobe. No additional areas of abnormal enhancement. No evidence for metastatic disease. Arachnoid granulation in the RIGHT transverse sinus. Paranasal sinuses: Well aerated with no significant disease. Mastoid air cells: Normal. Calvarium and scalp: Normal. MR/MR head wo/w con [id number] IMPRESSION: 1. No evidence for metastatic disease to the brain. 2. Extra-axial enhancing mass most consistent with a meningioma in the LEFT fr ontal dura. 3. Mild to moderate cerebral and cerebellar atrophy with small vessel disease. 4. Prior lacunar infarct in the LEFT thalamus.
[2025-08-02] MEDS: gadobenate dimeglumine 20 mL vial IV (11:58)
== END 2025-08-02 11:19 | disposition home or self-care (01) ==
LOC: RAD 11:19
PROVIDERS: PCP Nurse Practitioner Family; Visit Provider Internal Medicine
DX: C34.90 Malignant neoplasm of unspecified part of unspecified bronchus or lung (principal); G31.9 Degenerative disease of nervous system, unspecified; I63.81 Other cerebral infarction due to occlusion or stenosis of small artery; G93.89 Other specified disorders of brain
CPT/HCPCS: 70553

== ENCOUNTER → 2025-08-03 14:15 | Outpatient (BNVA) | payer MEDICARE, OTHER, SELFPAY | PROVIDERS: PCP Nurse Practitioner Family; Visit Provider Surgery | DX: Z95.828 Presence of other vascular implants and grafts (principal); C7A.1 Malignant poorly differentiated neuroendocrine tumors | CPT/HCPCS: 99204 ==

== ENCOUNTER → 2025-08-09 07:49 | Day surgery (SDC) | payer MEDICARE, OTHER, SELFPAY ==
[2025-08-09] VITALS (10 sets, daily range): BP systolic 110–149; BP diastolic 59–86; PULSE 64–73; RESP 14–18; TEMP 36.1–36.5; O2SAT 91–100; BMI 27.6
--- NOTE | 2025-08-09 08:35 | W.PM.OPSUD ---
Surgery/Procedure H&P Update DATE OF PROCEDURE: August 09, 2025 DATE H&P PERFORMED: 08/03/25 H&P UPDATE INFORMATION: I have reviewed H&P completed within last 30 days, I have examined patient prior to procedure, No changes to prior documentation, H&P is in [facility] EMR on date indicated and Risks and benefits of the procedure reviewed PLANNED PROCEDURE: Operation Date: 08/09/25 09:45 Proposed Procedures p Port a Cath Insertion [id number] C7A.1(Not Applicable) - Gentry Murphy MD
--- NOTE | 2025-08-09 09:32 | ANES.PREANE2 ---
Pre-Anesthetic Assessment Height/Weight: Height 6 ft 2 in Weight 215 lb Temp Pulse Resp BP Pulse Ox O2 Del Method 97.7 F 73 18 149/84 97 Room Air 08/09/25 08:12 08/09/25 08:12 08/09/25 08:12 08/09/25 08:12 08/09/25 08:12 08/09/25 08:26 Preop Diagnosis: Lung cancer Operation Date: 08/09/25 09:45 Proposed Procedures p Port a Cath Insertion [id number] C7A.1(Not Applicable) - Gentry Murphy MD Was Beta Meg taken within 24 hours: Yes Was Clonidine taken within 24 hours: N/A Last intake: Intake Last Liquid Date 08/08/25 Last Liquid Time 21:00 Last Solid Date 08/08/25 Last Solid Time 17:30 Social No alcohol and No tobacco Exam alert, oriented x 3 and clear to auscultation bilaterally A-fib Airway Submandibular: within normal limits Cervical ROM: within normal limits Mallampati: Class III Comments: Comments: Few bottom teeth left, denies any loose Anesthetic Plan ASA status: 4 Anesthesia: MAC Other: No prior issues with anesthesia NPO since yesterday evening History of A-fib with RVR on chronic amiodarone and diltiazem. Apixaban last taken 08/05/2025 Hypertension on metoprolol and losartan IDDM, preop BS 81 Patient diagnosed with lung cancer with plans of starting chemotherapy Labs reviewed from June and acceptable for procedure today Plan for MAC anesthesia with local view surgeon Medications/Allergies Home Medications ?Medication ?Instructions ?Recorded ?Confirmed ?Last Taken ?Type furosemide 40 mg tablet (Lasix) 40 mg PO DAILY edema #90 tabs 10/12/24 08/05/25 08/08/25 Rx hydralazine 50 mg tablet 75 mg (1.5 x 50 mg) PO TID #270 11/24/24 08/05/25 08/08/25 Rx tabs fenofibrate 160 mg tablet 160 mg PO DAILY 06/09/25 08/05/25 08/08/25 History metoprolol tartrate 100 mg tablet 100 mg PO BID 06/09/25 08/05/25 08/09/25 History omeprazole 40 mg capsule,delayed 40 mg PO DAILY 06/09/25 08/05/25 08/08/25 History release potassium chloride 20 mEq 20 meq PO DAILY PRN while on lasix 06/09/25 08/05/25 08/05/25 History tablet,extended release(part/cryst) (Klor-Con M) magnesium oxide 400 mg (241.3 mg 400 mg PO BID #60 tabs 06/10/25 08/05/25 08/08/25 Rx magnesium) tablet acetaminophen 325 mg tablet 650 mg (2 x 325 mg) PO Q6H PRN 06/11/25 08/05/25 Unknown Rx Mild/Mod Pain Or Temp >/= 101 #30 tabs albuterol sulfate 90 mcg/actuation 2 puff inhalation Q4H PRN 06/23/25 08/05/25 08/09/25 Rx aerosol inhaler (Ventolin HFA) shortness of breath or wheezing #8.5 grams fluticasone fur. 100 mcg-umeclid 1 inh inhalation DAILY #60 ea 06/23/25 08/05/25 08/08/25 Rx 62.5 mcg-vilant 25 mcg inhalat.powder (Trelegy Ellipta) amiodarone 200 mg tablet (Pacerone) 200 mg PO DAILY #90 tabs 06/24/25 08/05/25 08/08/25 Rx apixaban 2.5 mg tablet (Eliquis) 2.5 mg PO BID #30 tabs 06/24/25 08/05/25 08/05/25 Rx losartan 50 mg tablet 25 mg (1/2 x 50 mg) PO DAILY #90 06/24/25 08/05/25 08/08/25 Rx tabs albuterol sulfate 2.5 mg/3 mL 2.5 mg inhalation TID 07/05/25 08/05/25 08/08/25 History (0.083 %) solution for nebulization diltiazem HCl 60 mg 60 mg PO BID PRN heart rate 07/05/25 08/05/25 08/05/25 History capsule,extended release 12 hr insulin glargine-yfgn 100 unit/mL 34 unit SUBCUT BID 08/05/25 08/05/25 08/08/25 History (3 mL) subcutaneous pen rosuvastatin 10 mg tablet 10 mg PO DAILY 08/05/25 08/05/25 08/08/25 History Allergies Allergy/AdvReac Type Severity Reaction Status Date / Time metformin Allergy ADR-Diarrhe Verified 08/05/25 13:47 a Current Medications Generic Name Dose Route Start Last Admin Trade Name Guillermoq PRN Reason Stop Dose Admin Sodium Chloride 1,000 mls @ 30 mls/hr 08/09/25 08:00 08/09/25 08:39 Sodium Chloride 0.9% IV 08/10/25 07:59 30 mls/hr .Q24H FLOR Administration PFSH Anesthesia Medical History Left leg swelling CHF (congestive heart failure) Rheumatoid factor positive Nocturnal hypoxia Unable to ambulate Abnormal WBC count Chronic anticoagulation A-fib COPD (chronic obstructive pulmonary disease) with emphysema Hypertension Diabetes Hyperlipemia GERD (gastroesophageal reflux disease) Surgical History History of appendectomy Family History Other CAD (coronary artery disease) Social History Smoking and tobacco/nicotine status: former use of tobacco/nicotine Quit status (tobacco/nicotine): has quit using Year quit tobacco: 1988 Former quit date comment: 2 ppd X 15 years Second hand smoke exposure: No Alcohol intake: never Substance/Drug Use: never Lives independently: Yes Household members: spouse Marital status: Current occupational status: retired Current gender identity: Male Special laya needs: No Agree to transfusion: Yes Data Anesthesia Cardiac Studies: Echocardiogram 06/08/25 Sestamibi Stress Test (Cardiology) 09/11/22 Cardiac Event Monitor 05/23/22
[2025-08-09] MEDS: ceFAZolin 2,000 mg SDV 2000 MG IVP (09:45)
--- NOTE | 2025-08-09 10:01 | SC_ITS ---
WS: [id number] C-arm FL for CVA [id number] REASON FOR EXAM: OR PICS FINDINGS: Chemotherapy infusion port over the right chest with right internal jugular infusion catheter with the tip in the distal SVC. SC/C-arm FL for CVA [id number] IMPRESSION: Chemotherapy port and infusion catheter placement in proper position. No acute abnormality in the right hemithorax.
[2025-08-09] MEDS: lidocaine-epi 1% PF 1:200,000 30 mL SDV 20 ML INJECTION (10:27)
[2025-08-09] MEDS: heparin, porcine 1,000 unit/mL INJ 10 mL 6000 UNIT INTRACATH (10:28)
--- NOTE | 2025-08-09 10:37 | P.OP_ITS ---
Operative Report Date of procedure: August 09, 2025 Pre-op diagnosis: Large cell neuroendocrine carcinoma Post-op diagnosis: same Post-op findings: Internal jugular vein on the right side was between 2 enlarged lymph nodes, cannulation was successful. Procedure done: Insertion of right IJ Port-A-Cath Implants: Bard port-a-cath Specimens removed/disposition: none Surgeon: Gentry Murphy MD Elementary Supervisor: AYAAN OR Staff Estimated blood loss: 5 Complications: none apparent Brief History: 85-year-old male with neuroendocrine carcinoma who is expected to receive chemotherapy. After discussion of risk benefits decided proceed to the OR for a port placement Procedure: Patient was brought into the OR, he was placed in a supine position, monitored anesthesia sedation was given. Timeout was conducted after the skin was prepped and draped in the usual sterile fashion. I then proceeded to identify the right IJ vein with ultrasound, the vein was located between 2 enlarged lymph nodes. I then proceeded to cannulate the vein under direct ultrasound guidance using an 18-gauge needle, the needle tip was seen entering the vein and immediate return of blood was noted. A wire was advanced through the needle and the needle was removed. The position of the wire was verified with ultrasound and fluoroscopy. The wire was then fixed to the drapes. I then placed my attention to the chest, local anesthesia was infiltrated in the previously marked area on the chest and then a tract connecting the chest to the wire insertion site in the n jordy. I then proceeded to make a 3.5 cm incision in the right upper chest, the incision was deepened to subcutaneous tissue with electrocautery and electrocautery was used to create the subcutaneous pocket to house the Port-A-Cath. I then proceeded to use a hemostat to create a tunnel from the chest wound to the neck. I then proceeded to make a 0.5 cm incision at the level of the wire insertion site in the neck. Hemostasis was verified. I then placed the Port-A-Cath in the pocket and tunneled the catheter using the provided tunneler. The catheter was cut to appropriate length under fluoroscopy guidance and then flushed. I then proceeded to insert an introducer with a peel-off sheath over the wire under direct fluoroscopic guidance. I then remove the wire and the introducer leaving the peel-off sheath in place. The catheter was then advanced through the peel-off sheath and the peel-off sheath was removed leaving the catheter in place. Fluoroscopy showed evidence of Adequate catheter position. I then proceeded to access the port; the port was retrieving blood and flushing fine, I then hep-locked the catheter. Hemostasis was verified. The wound was closed in layers using #3-0 Vicryl for the subcutaneous tissue and #4 Monocryl for the skin. Dermabond was applied. At the end of the procedure all counts were correct. The patient tolerated well the procedure and was transferred to the PACU in stable condition.
--- NOTE | 2025-08-09 12:05 | ANE.PACU2 ---
Inpatient post-anesthesia follow up: Airway intact: Yes Vital signs: Temperature 97.3 F Pulse Rate 66 Respiratory Rate 17 Blood Pressure 116/86 Pulse Oximetry 94 Oxygen Delivery Me thod Room Air Oxygen Flow Rate Fraction of Inspir ed Oxygen Hydration adequate: Yes Nausea and vomiting: No Pain level: 1 Mental status: Baseline
== END | disposition home or self-care (01) ==
PROVIDERS: PCP Nurse Practitioner Family; Visit Provider Surgery
PROC: (CPT 36561; principal; 2025-08-09 09:35)
DX: C7A.1 Malignant poorly differentiated neuroendocrine tumors (principal); I48.20 Chronic atrial fibrillation, unspecified; E11.9 Type 2 diabetes mellitus without complications; K21.9 Gastro-esophageal reflux disease without esophagitis; Z79.4 Long term (current) use of insulin; I11.0 Hypertensive heart disease with heart failure; I50.9 Heart failure, unspecified; J44.9 Chronic obstructive pulmonary disease, unspecified; E78.5 Hyperlipidemia, unspecified; Z87.891 Personal history of nicotine dependence
CPT/HCPCS: 36561; 36416; 76000; 77001; 82962; C1788; J0690; J1644; J2704; J3010; J7030; J9999

== ENCOUNTER → 2025-08-24 12:54 | Outpatient (BNVA) | payer MEDICARE, OTHER, SELFPAY | PROVIDERS: PCP Nurse Practitioner Family; Visit Provider Surgery | DX: R03.0 Elevated blood-pressure reading, without diagnosis of hypertension (principal) | CPT/HCPCS: 99213 ==

== ENCOUNTER 2025-09-02 07:56 | Oncology outpatient (recurring) (ONCR) | payer MEDICARE, OTHER, SELFPAY ==
[2025-08-31 07:28] LABS: Hematocrit 38.1 % (37-53); Hemoglobin 12.20 g/dL (11.27-16.99); Mean Corpuscular HGB Conc 32.0 g/dL (30-55); Mean Corpuscular Hemoglobin 28.3 pg (27-33); Mean Corpuscular Volume 88.4 fl (82-101); Nucleated Red Blood Cells % 0 %; Platelet Count 511 10^3/cmm (157-399); Red Blood Count 4.31 10^6/uL (3.85-5.65); White Blood Count 15.99 10^3/uL (3.29-11.43)
[2025-08-31 07:48] LABS: Alanine Aminotransferase 15 U/L (0-41); Albumin Level 3.8 g/dL (3.5-5.2); Alkaline Phosphatase 106 U/L (40-130); Anion Gap 18.0 (5-19); Aspartate Amino Transferase 19 U/L (0-40); Blood Urea Nitrogen 25 mg/dL (8-23); Calcium 9.1 mg/dL (8.5-10.5); Carbon Dioxide 22 mmol/L (22-29); Chloride 103 mmol/L (98-107); Globulin 4.0 g/dL (1.3-4.6); Glucose 152 mg/dL (65-115); Osmolality Calculated 295 mOsm/kg (285-295); Potassium 4.0 mmol/L (3.5-5.1); Sodium 139 mmol/L (136-145); Total Protein 7.8 g/dL (6.6-8.7)
[2025-08-31 08:17] LABS: Creatinine Clr Calc Pharmacy 43.7942
[2025-08-31] MEDS: diphenhydrAMINE 50 mg/mL SDV 1mL 25 MG IVP (10:22)
[2025-08-31] MEDS: aprepitant 130 mg/18 ml SDV IVP (10:32)
[2025-08-31] MEDS: dexamethasone 4 mg/mL INJ 5 mL 12 MG IVP (10:37)
[2025-08-31] MEDS: durvalumab 1,500 MG in sodium chloride 0.9% 250 ML 280 MG IV (11:01)
[2025-08-31] MEDS: SODIUM CHLORIDE 0.9% IV (12:21)
[2025-08-31] MEDS: CARBOPLATIN IV (12:21)
[2025-08-31] MEDS: [UNRECOGNIZED DRUG - REMARK] 511.25 MG IV (13:34)
[2025-08-31 15:15] VITALS: BP 162/74; PULSE 76; RESP 17; TEMP 36.3; O2SAT 95
--- NOTE | 2025-08-31 15:37 | PC.NURSE ---
This nurse was walking this patient out and patient was feeling short of breath. This nurse held on to the patient's arm and sat him in a chair in the waiting room. This nurse checked his 02 sat and it was at 92% and dropping quickly. This nurse asked for one of the Mandy NASCIMENTO to bring an 02 tank. Patient kept saying he is was ok and that he gets SOB with walking. Patient's 02 sat was around 84%. 02 at 3L NC was applied to the patient and it quickly went back up to 95%. Patient does have a portable 02 at home and Mandy NASCIMENTO told the patient that he may need to bring it with him. This nurse along with Mandy NASCIMENTO wheeled the patient out to the parking lot in a wheelchair. Patient was stable on his feet and felt better upon leaving. This nurse reminded the patient that if he has any issues tonight to call the provider extrusion machine operator. Patient had no other questions or concerns upon leaving in his vehicle.
[2025-09-01 08:14] VITALS: BP 172/76; PULSE 82; RESP 18; TEMP 36.5; O2SAT 94
[2025-09-01] MEDS: ondansetron 2 mg/ML SDV 2 mL 8 MG IVP (08:28)
[2025-09-01] MEDS: [UNRECOGNIZED DRUG - REMARK] 511.25 MG IV (08:58)
[2025-09-01 10:15] VITALS: BP 163/67; PULSE 77; RESP 17; TEMP 36.7; O2SAT 92
[2025-09-02 08:10] VITALS: BP 136/68; PULSE 72; RESP 17; TEMP 35.9; O2SAT 98
[2025-09-02] MEDS: [UNRECOGNIZED DRUG - REMARK] 511.25 MG IV (09:01)
[2025-09-02] MEDS: pegfilgrastim 6 mg/0.6 mL Kit (onpro) SUBCUT (10:19)
[2025-09-02 10:21] VITALS: BP 166/84; PULSE 63; TEMP 36.3; O2SAT 99
[2025-09-08 05:18] LABS: TSH Receptor Binding Antibody 1.00 IU/L (< OR = 2.00)
== END 2025-09-02 23:59 | disposition home or self-care (01) ==
PROVIDERS: PCP Nurse Practitioner Family; Visit Provider Internal Medicine Medical Oncology
DX: Z51.11 Encounter for antineoplastic chemotherapy (principal); C7A.1 Malignant poorly differentiated neuroendocrine tumors; Z79.634 Long term (current) use of topoisomerase inhibitor; Z79.899 Other long term (current) drug therapy
CPT/HCPCS: 80053; 83516; 85025; 96375; 96377; 96401; 96413; 96417; 99215; A4222; J0185; J1100; J1200; J2405; J2469; J2506; J3490; J7030; J7040; J7050; J9045; J9173; J9181; J9999

== ENCOUNTER 2025-09-07 09:35 | Oncology outpatient (recurring) (ONCR) | payer MEDICARE, OTHER, SELFPAY ==
[2025-09-07 10:08] LABS: Hematocrit 37.5 % (37-53); Hemoglobin 11.70 g/dL (11.27-16.99); Mean Corpuscular HGB Conc 31.2 g/dL (30-55); Mean Corpuscular Hemoglobin 28.5 pg (27-33); Mean Corpuscular Volume 91.2 fl (82-101); Nucleated Red Blood Cells % 0 %; Platelet Count 259 10^3/cmm (157-399); Red Blood Count 4.11 10^6/uL (3.85-5.65); White Blood Count 4.26 10^3/uL (3.29-11.43)
[2025-09-07 10:25] LABS: Alanine Aminotransferase 8 U/L (0-41); Albumin Level 3.5 g/dL (3.5-5.2); Alkaline Phosphatase 115 U/L (40-130); Anion Gap 15.1 (5-19); Aspartate Amino Transferase 15 U/L (0-40); Blood Urea Nitrogen 30 mg/dL (8-23); Calcium 8.5 mg/dL (8.5-10.5); Carbon Dioxide 22 mmol/L (22-29); Chloride 103 mmol/L (98-107); Globulin 3.0 g/dL (1.3-4.6); Glucose 133 mg/dL (65-115); Osmolality Calculated 290 mOsm/kg (285-295); Potassium 4.1 mmol/L (3.5-5.1); Sodium 136 mmol/L (136-145); Total Protein 6.5 g/dL (6.6-8.7)
[2025-09-07 10:49] LABS: Slide Review Slide Review Perform
[2025-09-07] MEDS: ondansetron 2 mg/ML SDV 2 mL 8 MG IVP (12:02)
[2025-09-07 13:09] VITALS: BP 145/69; PULSE 85; RESP 18; TEMP 36.3; O2SAT 95
== END 2025-09-10 23:59 | disposition home or self-care (01) ==
PROVIDERS: Nurse Practitioner; PCP Nurse Practitioner Family; Visit Provider Internal Medicine Medical Oncology
DX: C7A.1 Malignant poorly differentiated neuroendocrine tumors (principal); C78.7 Secondary malignant neoplasm of liver and intrahepatic bile duct; Z87.891 Personal history of nicotine dependence; Z79.52 Long term (current) use of systemic steroids
CPT/HCPCS: 36415; 80053; 85025; 96360; 96375; 99214; J1100; J2405; J3490; J7030

== ENCOUNTER 2025-09-23 07:48 | Oncology outpatient (recurring) (ONCR) | payer MEDICARE, OTHER, SELFPAY ==
[2025-09-21 07:18] LABS: Hematocrit 35.6 % (37-53); Hemoglobin 11.40 g/dL (11.27-16.99); Mean Corpuscular HGB Conc 32.0 g/dL (30-55); Mean Corpuscular Hemoglobin 28.8 pg (27-33); Mean Corpuscular Volume 89.9 fl (82-101); Nucleated Red Blood Cells % 0.2 %; Platelet Count 430 10^3/cmm (157-399); Red Blood Count 3.96 10^6/uL (3.85-5.65); White Blood Count 16.67 10^3/uL (3.29-11.43)
[2025-09-21 07:46] LABS: Alanine Aminotransferase 19 U/L (0-41); Albumin Level 3.9 g/dL (3.5-5.2); Alkaline Phosphatase 117 U/L (40-130); Anion Gap 15.8 (5-19); Aspartate Amino Transferase 20 U/L (0-40); Blood Urea Nitrogen 17 mg/dL (8-23); Calcium 8.9 mg/dL (8.5-10.5); Carbon Dioxide 21 mmol/L (22-29); Chloride 106 mmol/L (98-107); Globulin 2.6 g/dL (1.3-4.6); Glucose 189 mg/dL (65-115); Osmolality Calculated 295 mOsm/kg (285-295); Potassium 3.8 mmol/L (3.5-5.1); Sodium 139 mmol/L (136-145); Thyroid Stimulating Hormone 4.12 uIU/mL (0.27-4.20); Total Protein 6.5 g/dL (6.6-8.7)
[2025-09-21] MEDS: dexamethasone 4 mg/mL INJ 5 mL 12 MG IVP (08:51)
[2025-09-21] MEDS: diphenhydrAMINE 50 mg/mL SDV 1mL 25 MG IVP (08:53)
[2025-09-21 08:59] VITALS: BP 151/79; PULSE 81; RESP 17; TEMP 36.7; O2SAT 97
[2025-09-21] MEDS: durvalumab 1,500 MG in sodium chloride 0.9% 250 ML 280 MG IV (09:28)
[2025-09-21] MEDS: SODIUM CHLORIDE 0.9% IV (10:46)
[2025-09-21] MEDS: CARBOPLATIN IV (10:46)
[2025-09-21] MEDS: [UNRECOGNIZED DRUG - REMARK] 511.5 MG IV (12:05)
[2025-09-21 13:16] VITALS: BP 153/70; PULSE 76; RESP 17; TEMP 36.5; O2SAT 97
[2025-09-22] MEDS: ondansetron 2 mg/ML SDV 2 mL 8 MG IVP (08:20)
[2025-09-22] MEDS: [UNRECOGNIZED DRUG - REMARK] 511.5 MG IV (08:32)
[2025-09-22 09:53] VITALS: BP 139/76; PULSE 85; RESP 17; TEMP 36.6; O2SAT 96
[2025-09-23 08:31] VITALS: BP 129/65; PULSE 75; RESP 16; TEMP 36.4; O2SAT 97
[2025-09-23] MEDS: [UNRECOGNIZED DRUG - REMARK] 511.5 MG IV (09:40)
[2025-09-23] MEDS: pegfilgrastim 6 mg/0.6 mL Kit (onpro) SUBCUT (11:00)
[2025-09-23 11:16] VITALS: BP 146/75; PULSE 73; TEMP 36.4; O2SAT 96
== END 2025-09-23 23:59 | disposition home or self-care (01) ==
PROVIDERS: Nurse Practitioner; PCP Nurse Practitioner Family; Visit Provider Internal Medicine Medical Oncology
DX: Z51.11 Encounter for antineoplastic chemotherapy (principal); C7A.1 Malignant poorly differentiated neuroendocrine tumors; Z79.634 Long term (current) use of topoisomerase inhibitor; Z79.899 Other long term (current) drug therapy
CPT/HCPCS: 80053; 84443; 85025; 96375; 96377; 96413; 96417; 99214; A4222; J0185; J1100; J1200; J2405; J2469; J2506; J3490; J7030; J7040; J7050; J9045; J9173; J9181; J9999

== ENCOUNTER 2025-09-28 07:55 | Oncology outpatient (recurring) (ONCR) | payer MEDICARE, OTHER, SELFPAY ==
[2025-09-28 08:37] LABS: Hematocrit 29.6 % (37-53); Hemoglobin 9.40 g/dL (11.27-16.99); Mean Corpuscular HGB Conc 31.8 g/dL (30-55); Mean Corpuscular Hemoglobin 28.7 pg (27-33); Mean Corpuscular Volume 90.5 fl (82-101); Nucleated Red Blood Cells % 0 %; Platelet Count 258 10^3/cmm (157-399); Red Blood Count 3.27 10^6/uL (3.85-5.65); White Blood Count 17.29 10^3/uL (3.29-11.43)
[2025-09-28 09:10] LABS: Alanine Aminotransferase 14 U/L (0-41); Albumin Level 3.6 g/dL (3.5-5.2); Alkaline Phosphatase 143 U/L (40-130); Anion Gap 11.9 (5-19); Aspartate Amino Transferase 15 U/L (0-40); Blood Urea Nitrogen 27 mg/dL (8-23); Calcium 7.9 mg/dL (8.5-10.5); Carbon Dioxide 23 mmol/L (22-29); Chloride 107 mmol/L (98-107); Globulin 2.4 g/dL (1.3-4.6); Glucose 166 mg/dL (65-115); Osmolality Calculated 295 mOsm/kg (285-295); Potassium 3.9 mmol/L (3.5-5.1); Sodium 138 mmol/L (136-145); Total Protein 6.0 g/dL (6.6-8.7)
[2025-09-28 09:28] LABS: Slide Review Slide Review Perform
[2025-09-28] MEDS: ondansetron 2 mg/ML SDV 2 mL 8 MG IVP (10:33)
== END 2025-10-10 23:59 | disposition home or self-care (01) ==
PROVIDERS: PCP Nurse Practitioner Family; Visit Provider Internal Medicine Medical Oncology
DX: C7A.1 Malignant poorly differentiated neuroendocrine tumors (principal); G47.00 Insomnia, unspecified; R11.0 Nausea; M89.8X8 Other specified disorders of bone, other site; Z79.899 Other long term (current) drug therapy; Z79.52 Long term (current) use of systemic steroids; Z87.891 Personal history of nicotine dependence
CPT/HCPCS: 36591; 80053; 85025; 96361; 96374; 96375; 99214; J1100; J2405; J3490; J7030

== ENCOUNTER → 2025-09-30 10:58 | Outpatient (BNVA) | payer MEDICARE, OTHER, SELFPAY | PROVIDERS: PCP Nurse Practitioner Family; Visit Provider Podiatrist Foot & Ankle Surgery | DX: E11.8 Type 2 diabetes mellitus with unspecified complications (principal); B35.1 Tinea unguium; L84 Corns and callosities; R60.0 Localized edema; E11.51 Type 2 diabetes mellitus with diabetic peripheral angiopathy without gangrene; I73.9 Peripheral vascular disease, unspecified; Z79.4 Long term (current) use of insulin | CPT/HCPCS: 11721 ==

== ENCOUNTER 2025-10-08 09:13 | Inpatient (IN) | payer MEDICARE, OTHER, SELFPAY ==
[2025-10-08] VITALS (54 sets, daily range): BP systolic 151–185; BP diastolic 75–121; PULSE 37–102; RESP 0–36; TEMP 36.8–37.6; O2SAT 83–97; BMI 27.5
--- NOTE | 2025-10-08 09:14 | ECG_ITS ---
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 Measurements Intervals [place] Rate: 95 P: 73 [place]: 205 QRS: -78 QRSD: 109 T: 81 QT: 376 QTc: 474 Interpretive Statements SINUS RHYTHM WITH FREQUENT VENTRICULAR PREMATURE COMPLEXES POSSIBLE ANTERIOR MYOCARDIAL INFARCTION , OF INDETERMINATE AGE [30 ms Q WAVE IN V3/V4, OR R < 0.2 mV IN V4] INFERIOR MYOCARDIAL INFARCTION , PROBABLY OLD [40+ ms Q WAVE AND/OR ST/T ABNORMALITY IN II/aVF] Compared to ECG 07/23/2025 11:43:26 Ventricular premature complex(es) now present First degree AV block no longer present Myocardial infarct finding still present PVCS ARE NEW Electronically Signed On 10-09-2025 16:22:18 TICKET COLLECTOR OR USHER by Angel Quezada M.D. [email or web address] [id number]
--- NOTE | 2025-10-08 09:14 | XRR_ITS ---
PROCEDURE INFORMATION: Exam: XR Chest Exam date and time: 10/08/2025 9:21 AM Age: 85 years old Clinical indication: Shortness of breath; Prior surgery; Surgery date: 1-6 months; Surgery type: Bronchoscopy; Additional info: SOB TECHNIQUE: Imaging protocol: Radiologic exam of the chest. Views: 1 view. COMPARISON: CR XR chest 1V portable [id number] 07/06/2025 11:15 AM FINDINGS: Lungs: There are patchy interstitial changes in the right lung base. Pulmonary vascularity is normal. Pleural spaces: There is a small right pleural effusion. Heart/Mediastinum: Normal cardiomediastinal sillhouette. Bones/joints: Unremarkable. Tubes, catheters, and devices: There is a right chest alycia catheter with tip in the superior vena cava. XR/XR chest 1V portable [id number] IMPRESSION: 1. Patchy interstitial changes in the right lung base. 2. Small right pleural effusion.
--- NOTE | 2025-10-08 09:24 | ED_ITS ---
HPI - SOB/Dyspnea 2 General: Chief Complaint: Shortness of Breath/Dyspnea Stated Complaint: sob Time Seen by Provider: 10/08/25 09:13 Source: patient and EMS Mode of arrival: EMS Limitations: no limitations History of Present Illness: HPI Narrative: 85-year-old male history of multiple med ical issues including A-fib, COPD, CHF and lung cancer. States that he has been having shortness of breath since yesterday. Patient states that it is much worse with exertion he does wear 4 L oxygen at baseline he denies any cough or fever. He denies any chest pain. Patient did receive breathing treatment and route states he is having some improvement currently. He is on his baseline 4 L oxygen here Related Data Home Medications ?Medication ?Instructions ?Recorded ?Confirmed potassium chloride 20 mEq 20 meq PO DAILY PRN while on lasix 06/09/25 10/08/25 tablet,extended release(part/cryst) (Klor-Con M) rosuvastatin 10 mg tablet 10 mg PO DAILY 08/05/2509/12 Previous Rx's ?Medication ?Instructions ?Recorded furosemide 40 mg tablet (Lasix) 40 mg PO DAILY edema # 90 tabs 10/12/24 hydralazine 50 mg tablet 75 mg (1.5 x 50 mg) PO TID # 270 11/24/24 tabs acetaminophen 325 mg tablet 650 mg (2 x 325 mg) PO Q6H PRN 06/11/25 Mild/Mod Pain Or Temp >/= 101 #30 tabs albuterol sulfate 90 mcg/actuation 2 puff inhalation Q 4H PRN 06/23/25 aerosol inhaler (Ventolin HFA) shortness of breath or wheezing #8.5 grams fluticasone fur. 100 mcg-umeclid 1 inh inhalation HAZEL Y #60 ea 06/23/25 62.5 mcg-vilant 25 mcg inhalat.powder (Trelegy Ellipta) omeprazole 40 mg capsule,delayed See Rx Instructions . Route 08/26/25 release .COMPLEX #90 caps lorazepam 0.5 mg tablet 0.5 mg PO TID PRN nausea and 08/31/25 vomiting #30 tabs prochlorperazine maleate 10 mg 10 mg PO Q6H PRN nausea and 08/31/25 tablet (Compazine) vomiting #30 tabs albuterol sulfate 2.5 mg/3 mL See Rx Instructions .Rou te 09/19/25 (0.083 %) solution for nebulization .COMPLEX #90 mL apixaban 2.5 mg tablet (Eliquis) 2.5 mg PO BID #30 tab s 09/20/25 insulin glargine-yfgn 100 unit/mL See Rx Instructions .Route 09/26/25 (3 mL) subcutaneous pen .COMPLEX #15 mL losartan 25 mg tablet See Rx Instructions .Route 1 11/30/24 .COMPLEX #90 tabs fenofibrate 160 mg tablet 160 mg PO DAILY #90 tabs metoprolol tartrate 100 mg tablet 100 mg PO BID #180 t abs 10/08/25 Allergies Allergy/AdvReac Type Severity Reaction Status Date / Time metformin Allergy ADR-Diarrhe Verified 09/30/25 07:54 a Review of Systems 2 Resp: Reports: dyspnea PFSH ED 2 PFSH: Medical History Left leg swelling CHF (congestive heart failure) Rheumatoid factor positive Nocturnal hypoxia Unable to ambulate Abnormal WBC count Chronic anticoagulation A-fib COPD (chronic obstructive pulmonary disease) with emphysema Hypertension Diabetes Hyperlipemia GERD (gastroesophageal reflux disease) Surgical History History of appendectomy Family History Other CAD (coronary artery disease) Social History Smoking and tobacco/nicotine status: never used tobacco/nicotine Quit status (tobacco/nicotine): has quit using Year quit tobacco: 1988 Former quit date comment: 2 ppd X 15 years Second hand smoke exposure: No Alcohol intake: never Substance/Drug Use: never Lives independently: Yes Household members: spouse Marital status: Current occupational status: retired Current gender identity: Male Special laya needs: No Agree to transfusion: Yes Physical Exam 2 Const: COMMON NORMALS: patient oriented x3 HENMT: COMMON NORMALS: normocephalic and atraumatic HEAD & SCALP: n ormocephalic and atraumatic Eye: COMMON NORMALS: Equal, round and reactive pupils present and EOMs intact bilaterally PUPIL: Yes Equal, round and reactive pupils present Neck/C-Spine: COMMON NORMALS: full ROM and supple Chest: COMMONS NORMALS: normal inspection of the chest and normal palpation of entire chest wall Resp: COMMON NORMALS: normal respiratory effort, No retractions, No use of accessory muscles and clear to auscultation bilaterally AUSCULTATION: clear to auscultation bilaterally Cardio: COMMON NORMALS: regular rate, regular rhythm and No murmurs present (Cardio) RATE: regular rate RHYTHM: regular rhythm GI: COMMON NORMALS: Normal to inspection, nondistended, normoactive bowel sounds present, Soft to palpation, non-tender and no masses PALPATION: Yes Soft to palpation Extremity: COMMON NORMALS: full ROM NARRATIVE EXTREMITY EXAM: Lower extremity swelling Neuro: COMMON NORMALS: patient oriented x3, moves all extremities and no focal motor deficits Psych: COMMON NORMALS: mental status grossly normal, Normal thought process present and cooperative THOUGHT PROCESS: Normal thought process present Skin: COMMON NORMALS: no rashes or lesions noted and no wounds GENERAL SKIN EXAM: no rashes or lesions noted Course 2 Vital Signs: Vital signs: Vital Signs Temperature 98.3 F 10/08/25 09:13 Pulse Rate 102 H 10/08/25 09:13 Respiratory Rate 20 H 10/08/25 09:13 Blood Pressure 185/81 10/08/25 09:13 Pulse Oximetry 92 10/08/25 09:13 Oxygen Delivery Me thod Nasal Cannula 10/08/25 09:13 Oxygen Flow Rate 4 10/08/25 09:13 MDM - SOB/Dyspnea Medical Decision Making Patient presents here with increasing shortness of breath especially with exertion. Differential includes congestive heart failure, pneumonia, pulm emboli. Did do a CTA chest that showed pleural effusions no signs of pulmonary emboli. He did have an elevated white count here concern for possible pneumonia did start him on IV antibiotics. His lactate was normal blood pressures been normal and he did not receive a sepsis bolus due to his CHF and would do more harm than good. He said no chest pain EKG here was interpreted by me showed A- fib heart rate [address] elevation QRS 109 QTc 429. I did speak to the hospitalist Dr. Ernandez and will admit at this time. Patient has multiple comorbidities. Medical Records I reviewed the patient's medical records. Lab Data I reviewed the patient's lab results. 10/08/25 09:42 10/08/25 09:42 Labs/Radiology: Radiology Impressions Chest X-Ray 10/08/25 09:14 IMPRESSION: 1. Patchy interstitial changes in the right lung base. 2. Small right pleural effusion. Chest CTA 10/08/25 10:21 IMPRESSION: 1. Moderate right pleural effusion. 2. Extensive mediastinal lymphadenopathy with some improvement since the prior exam of 07/02/2025. 3. Emphysema. 4. 2 cm right thyroid nodule is again demonstrated and stable since the prior CT of the chest from 06/10/2025. 5. Trace right pleural effusion. The presence of pulmonary emphysema on CT is an independent risk factor for lung cancer. In the absence of a history or active diagnosis of lung cancer, it is recommended that the patient with emphysema be evaluated for enrollment in a low-dose CT lung cancer screening program. Laboratory Results WBC 32.20 10^3/uL (3.29-11.43) H* 10/08/25 09:42 RBC 3.35 10^6/uL (3.85-5.65) L 10/08/25 09:42 Hgb 9.70 g/dL (11.27-16.99) L 10/08/25 09:42 Hct 30.7 % (37-53) L 10/08/25 09:42 MCV 91.6 fl (82-101) 10/08/25 09:42 MCH 29.0 pg (27-33) 10/08/25 09:42 MCHC 31.6 g/dL (30-55) 10/08/25 09:42 RDW 16.7 % (12.1-15.1) H 10/08/25 09:42 Plt Count 199 10^3/cmm (157-399) 10/08/25 09:42 MPV 10.5 fL (7.4-10.4) H 10/08/25 09:42 Neut % (Auto) 70.6 % 10/08/25 09:42 Lymph % (Auto) 7.3 % 10/08/25 09:42 Kimball % (Auto) 7.3 % 10/08/25 09:42 Eos % (Auto) 0.7 % 10/08/25 09:42 Baso % (Auto) 0.5 % 10/08/25 09:42 Neut # (Auto) 22.70 10^3/uL (1.8-7.7) H 10/08/25 09:42 Lymph # (Auto) 2.4 10^3/uL (0.8-4.8) 10/08/25 09:42 Kimball # (Auto) 2.4 10^3/uL (0.2-0.9) H 10/08/25 09:42 Eos # (Auto) 0.2 10^3/uL (0.0-0.8) 10/08/25 09:42 Baso # (Auto) 0.2 10^3/uL (0.0-0.1) H 10/08/25 09:42 Nucleated RBC % (auto) 0.2 % 10/08/25 09:42 Nucleated RBCs # 0.1 /100WBC 10/08/25 09:42 PT 14.60 SECONDS (12.1-14.9) 10/08/25 09:42 INR 1.07 (0.8-1.2) 10/08/25 09:42 Sodium 137 mmol/L (136-145) 10/08/25 09:42 Potassium 3.5 mmol/L (3.5-5.1) 10/08/25 09:42 Chloride 105 mmol/L (98-107) 10/08/25 09:42 Carbon Dioxide 21 mmol/L (22-29) L 10/08/25 09:42 Anion Gap 14.5 (5-19) 10/08/25 09:42 BUN 16 mg/dL (8-23) 10/08/25 09:42 Creatinine 1.2 mg/dL (0.7-1.2) 10/08/25 09:42 GFR Calculation Not Reportable 10/08/25 09:42 Glucose 243 mg/dL (65-115) H 10/08/25 09:42 Calculated Osmolality 293 mOsm/kg (285-295) 10/08/25 09:42 Lactic Acid 1.5 mmol/L (0.5-2.2) 10/08/25 09:42 Calcium 8.2 mg/dL (8.5-10.5) L 10/08/25 09:42 Total Bilirubin 0.4 mg/dL (0.15-1.2) 10/08/25 09:42 AST 20 U/L (0-40) 10/08/25 09:42 ALT 14 U/L (0-41) 10/08/25 09:42 Alkaline Phosphatase 141 U/L (40-130) H 10/08/25 09:42 NT-Pro-B Natriuret Pep 2558 pg/mL (0-450) H 10/08/25 09:42 Total Protein 6.2 g/dL (6.6-8.7) L 10/08/25 09:42 Albumin 3.5 g/dL (3.5-5.2) 10/08/25 09:42 Globulin 2.7 g/dL (1.3-4.6) 10/08/25 09:42 All radiology interpretation(s) finalized by discharge EKG Data EKG 1: I personally reviewed and interpreted this EKG as follows: EKG Interpretation Date: 10/08/25 EKG interpretation time: 09:22 Interpretation: afib hr [address] elevation qrs 109 qtc 429 Discharge Plan Discharge Patient Disposition: Admitted As Inpatient Clinical Impression: Chronic hypoxemic respiratory failure, CHF (congestive heart failure), Pleural effusion Condition: Stable Coding Level of Care Code ED Precision Assembler Bench for Chg Lillian
[2025-10-08 09:49] LABS: Hematocrit 30.7 % (37-53); Hemoglobin 9.70 g/dL (11.27-16.99); Mean Corpuscular HGB Conc 31.6 g/dL (30-55); Mean Corpuscular Hemoglobin 29.0 pg (27-33); Mean Corpuscular Volume 91.6 fl (82-101); Nucleated Red Blood Cells % 0.2 %; Platelet Count 199 10^3/cmm (157-399); Positive C 1; Positive M 1; Red Blood Count 3.35 10^6/uL (3.85-5.65)
[2025-10-08 09:52] LABS: White Blood Count 32.20 10^3/uL (3.29-11.43)
[2025-10-08 10:01] LABS: INR 1.07 (0.8-1.2); Prothrombin Time 14.60 SECONDS (12.1-14.9)
[2025-10-08] MEDS: cefTRIAXone 1,000 mg SDV 1000 MG IVP (10:05)
[2025-10-08] MEDS: methylPREDNISolone sod succ 125 mg/2 mL INJ IVP (10:05)
[2025-10-08 10:09] LABS: Lactic Sepsis W/Reflex 1.5 mmol/L (0.5-2.2)
[2025-10-08 10:18] LABS: Alanine Aminotransferase 14 U/L (0-41); Albumin Level 3.5 g/dL (3.5-5.2); Alkaline Phosphatase 141 U/L (40-130); Anion Gap 14.5 (5-19); Aspartate Amino Transferase 20 U/L (0-40); Blood Urea Nitrogen 16 mg/dL (8-23); Calcium 8.2 mg/dL (8.5-10.5); Carbon Dioxide 21 mmol/L (22-29); Chloride 105 mmol/L (98-107); Globulin 2.7 g/dL (1.3-4.6); Glucose 243 mg/dL (65-115); NT Pro B Type Natriuretic Pept 2558 pg/mL (0-450); Osmolality Calculated 293 mOsm/kg (285-295); Potassium 3.5 mmol/L (3.5-5.1); Sodium 137 mmol/L (136-145); Total Protein 6.2 g/dL (6.6-8.7)
--- NOTE | 2025-10-08 10:21 | CTR_ITS ---
PROCEDURE INFORMATION: Exam: CTA Chest With Contrast Exam date and time: 10/08/2025 11:47 AM Age: 85 years old Clinical indication: Shortness of breath; Additional info: SOB TECHNIQUE: Imaging protocol: Computed tomographic angiography of the chest with contrast. Exam focused on the arteries. 3D rendering (Not supervised by radiologist): MIP and/or 3D reconstructed images were created by the technologist. Radiation optimization: All CT scans at this facility use at least one of these dose optimization techniques: automated exposure control; mA and/or kV adjustment per patient size (includes targeted exams where dose is matched to clinical indication); or iterative reconstruction. Contrast material: OMNI 350; Contrast volume: 47 ml; Contrast route: INTRAVENOUS (IV); COMPARISON: PT PET skull to thigh INIT [id number] 07/02/2025 12:30 PM RADIATION DOSE METRICS: Total DLP (mGy-cm): 559.95 FINDINGS: Pulmonary arteries: Normal. No pulmonary emboli. Aorta: There is thoracic aortic atherosclerosis. Lungs: There is right lower lobe atelectasis. There is extensive emphysematous changes. There is chronic parenchymal scarring in the right apex. There is significant architectural distortion from emphysematous changes and parenchymal scarring along the right major fissure. Small amount of fluid is seen in the right major fissure. Pleural spaces: There is moderate right pleural effusion. There is a trace right pleural effusion. Heart: Unremarkable. No cardiomegaly. No pericardial effusion. There is moderate posterior mitral annulus calcifications. There are moderate coronary artery calcifications. Lymph nodes: There is bulky mediastinal lymphadenopathy including confluence lymph nodes in the pretracheal region measuring up to 2.8 cm. There is also right paratracheal lymphadenopathy measuring up to 1.7 cm. There is prevascular lymph node enlargement measuring 1.3 cm there is subcarinal lymphadenopathy measuring 2.0 cm. There is right hilar lymphadenopathy measuring 2.0 cm. Findings are highly suspicious for recurrent malignancy and metastatic disease. Since the prior PET study of 07/02/2025, the upper mediastinal lymphadenopathy is slightly decreased. The right hilar and prevascular lymphadenopathy as well as the right supraclavicular lymphadenopathy is also slightly decreased with right supraclavicular lymph nodes measuring up to 1.1 cm in short axis diameter. Tubes, catheters, and devices: Right chest portacatheter tip is in the superior vena cava. Bones/joints: Unremarkable. No acute fracture. Soft tissues: Unremarkable. Upper abdomen: Small nonobstructing calculus is seen in the right kidney. Thyroid: There is a 2 cm right thyroid nodule which is similar to 04/10/2025. CT/CT angio chest PE protcl [id number] IMPRESSION: 1. Moderate right pleural effusion. 2. Extensive mediastinal lymphadenopathy with some improvement since the prior exam of 07/02/2025. 3. Emphysema. 4. 2 cm right thyroid nodule is again demonstrated and stable since the prior CT of the chest from 06/10/2025. 5. Trace right pleural effusion. The presence of pulmonary emphysema on CT is an independent risk factor for lung cancer. In the absence of a history or active diagnosis of lung cancer, it is recommended that the patient with emphysema be evaluated for enrollment in a low-dose CT lung cancer screening program.
[2025-10-08] MEDS: iohexol 350 mg/mL 500 mL Btl (per mL) IV (11:54)
[2025-10-08 13:24] LABS: Procalcitonin 0.20 ng/mL (0-0.5)
[2025-10-08 13:36] LABS: ABG PCO2 36.0 mmHg (35-45); ABG PH Result 7.40 (7.35-7.45); Arterial Blood Gas Hematocrit 33.0 % (42-52); Blood Gas Allen Test Pos; Blood Gas Operator Identificat glc; Blood Gas Sample Site Radial, right; Blood Gas Sample Type Arterial; Carboxyhemoglobin 1.2 %THgb (0.4-20.1); Glucose Level-ABG 211.0 mg/dL (70-115); HCO3 ABG 22.3 mmol/L (22-26); Ionized Calcium Level - ABG 1.1 mmol/L (1.1-1.4); Methemoglobin 0.4 % (0.4-1.5); Oxygen Saturation ABG 95.1; PO2 ABG 74.1 mmHg (80.0-100.0); Potassium Level - ABG 3.8 mmol/L (3.5-5.0); Sodium Level - ABG 143.0 mmol/L (131-143)
[2025-10-08 13:37] LABS: Alveolar-Arterial Oxygen Gradi 29.4 mmHg (5-10); Blood Gas LPM 4.5 %; PO2 FiO2 Ratio Arterial Blood 154
--- NOTE | 2025-10-08 13:40 | US_ITS ---
WS: [id number] INDICATION: RIGHT pleural effusion TECHNIQUE: Ultrasound chest FINDINGS: Small RIGHT pleural effusion. Insufficient fluid for safe thoracentesis. US/US chest [id number] IMPRESSION: See above
--- NOTE | 2025-10-08 13:40 | ECG_ITS ---
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 Measurements Intervals [place] Rate: 80 P: 63 MT: 203 QRS: -75 QRSD: 107 T: 83 QT: 405 QTc: 470 Interpretive Statements SINUS RHYTHM POSSIBLE ANTERIOR MYOCARDIAL INFARCTION , PROBABLY OLD [30 ms Q WAVE IN V3/V4, OR R < 0.2 mV IN V4] INFERIOR MYOCARDIAL INFARCTION , PROBABLY OLD [40+ ms Q WAVE AND/OR ST/T ABNORMALITY IN II/aVF] Compared to ECG 10/08/2025 09:22:48 Ventricular premature complex(es) no longer present Myocardial infarct finding still present Electronically Signed On 10-09-2025 15:52:24 NEWS CAMERAMAN by Angel Quezada M.D. [id number] [id number]
--- NOTE | 2025-10-08 13:43 | USCV_ITS ---
Marco Antonio Mosquera Age: 85 Gender: M : 1940 Exam Date: 10/08/2025 14:24 Ordering Phys: Parth Aaron MD Technologist: ALEXEI Exam Location: [facility] Indication: SoB BP: 172 / 92 HR: 79 Rhythm: Sinus Technical Quality: Adequate MEASUREMENTS (Male / Female) Normal Values 2D ECHO LV Diastolic Diameter PLAX 6.7 cm 4.2 - 5.9 / 3.9 - 5.3 cm IVS Diastolic Thickness 0.7 cm 0.6 - 1.0 / 0.6 - 0.9 cm IVS Systolic Thickness 0.9 cm LVPW Diastolic Thickness 1.0 cm 0.6 - 1.0 / 0.6 - 0.9 cm LVPW Systolic Thickness 0.9 cm LVOT Diameter 2.1 cm LV Ejection Fraction 2D Teich 23.1 % LV Ejection Fraction MOD 4C 57.6 % LV Ejection Fraction MOD 2C 50.1 % LV Ejection Fraction 2C AL 51.1 % LA Diameter 4.3 cm RA Systolic Volume 4C AL 79.9 ml RA Systolic Volume 4C MOD 76.2 ml LA Sys Volume AL 47.2 cm cubed LA Sys Volume Index AL 20.4 cm cubed/m squared Aorta at Sinotubular Diameter 3.2 cm IVC Diameter 1.3 cm M-MODE LA Ao Ratio MM 1.7 AV Cusp Separation MM 1.0 cm DOPPLER AV Peak Velocity 229.0 cm/s LVOT Peak Velocity 107.0 cm/s AV Area Cont Eq vti 2.1 cm squared AV Area Cont Eq pk 1.6 cm squared MV Peak Velocity 189.0 cm/s MV Area PHT 5.1 cm squared Mitral E to A Ratio 0.5 TR Peak Velocity 114.0 cm/s TR Peak Gradient 5.2 mmHg TV Peak E Velocity 79.0 cm/s PV Peak Velocity 136.0 cm/s FINDINGS Left Ventricle Normal left ventricular size, systolic function and wall thickness with no regional wall motion abnormality. Left ventricular ejection fraction is 58%. Indeterminate left ventricular diastolic function due to severe mitral annular calcification Right Ventricle Normal right ventricular size and systolic function. Right Atrium Normal right atrial size. Left Atrium Normal left atrial size. IA Septum Normal appearance of the interatrial septum. Mitral Valve Severe mitral annular calcification. Mild mitral valve stenosis with a mean pressure gradient of 5 mmHg at a heart rate of 83 bpm. No mitral valve regurgitation. Aortic Valve Aortic valve not well-visualized. Mild aortic valve calcification. Mild aortic valve stenosis. No aortic valve regurgitation Tricuspid Valve Normal tricuspid valve structure. Trace regurgitation. Normal pulmonary pressure. Pulmonic Valve Normal pulmonic valve structure. No pulmonic valve stenosis or regurgitation. Pericardium No pericardial effusion. Aorta Normal diameter of the aortic root and ascending thoracic aorta. IVC Normal IVC diameter. CONCLUSIONS Normal left ventricular size, systolic function and wall thickness with ejection fraction of 58%. Normal right ventricular size and systolic function. Mild mitral valve stenosis Mild aortic valve stenosis Angel Quezada MD, FACC (Electronically Signed) Final Date: 08 October 2025 15:29 S
[2025-10-08 13:57] LABS: Lactic Sepsis W/Reflex 1.3 mmol/L (0.5-2.2)
[2025-10-08 14:00] LABS: Troponin(5th) Baseline 39 ng/L (0-15)
[2025-10-08 14:09] LABS: Respiratory Syncytial Virus Ce NEGATIVE (Negative); SARS-CoV-2 PCR NEGATIVE (Negative)
--- NOTE | 2025-10-08 14:13 | P.HP_ITS ---
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 Patient reports having chemotherapy roughly a week ago, reports increased shortness of breath, increased shortness of breath on exertion, nonproductive cough, he stopped taking his Lasix a few days ago, does report increased lower extreme edema, no chest pain, no palpitations, no falls, no new rashes, no dysuria, no abdominal pain Review of Systems 2 Const: Reports: fatigue and malaise; Denies: fever(s) or chills Card: Reports: dyspnea on exertion; Denies: chest pain Resp: Reports: dyspnea and non-productive cough GI: Denies: abdominal pain, nausea or vomiting : Denies: flank pain Skin/Breast: Denies: rash Neuro: Denies: headache(s), numbness in extremities or weakness in extremities Medications/Allergies Home Medications ?Medication ?Instructions ?Recorded ?Confirmed ?Last Taken ?Type furosemide 40 mg tablet (Lasix) 40 mg PO DAILY edema # 90 tabs 10/12/24 10/08/25 10/08/25 08:00 Rx hydralazine 50 mg tablet 75 mg (1.5 x 50 mg) PO TID # 270 11/24/24 10/08/25 10/08/25 07:00 Rx tabs potassium chloride 20 mEq 20 meq PO DAILY PRN while on lasix 06/09/25 10/08/25 08/05/25 History tablet,extended release(part/cryst) (Klor-Con M) acetaminophen 325 mg tablet 650 mg (2 x 325 mg) PO Q6H PRN 06/11/25 10/08/25 Unknown Rx Mild/Mod Pain Or Temp >/= 101 #30 tabs albuterol sulfate 90 mcg/actuation 2 puff inhalation Q 4H PRN 06/23/25 10/08/25 08/09/25 Rx aerosol inhaler (Ventolin HFA) shortness of breath or wheezing #8.5 grams fluticasone fur. 100 mcg-umeclid 1 inh inhalation HAZEL Y #60 ea 06/23/25 10/08/25 10/07/25 Rx 62.5 mcg-vilant 25 mcg inhalat.powder (Trelegy Ellipta) rosuvastatin 10 mg tablet 10 mg PO DAILY 08/05/2509/1210/08/25 08:00 History omeprazole 40 mg capsule,delayed See Rx Instructions . Route 08/26/25 10/08/25 10/08/25 08:00 Rx release .COMPLEX #90 caps lorazepam 0.5 mg tablet 0.5 mg PO TID PRN nausea and 08/31/25 10/08/25 Unknown Rx vomiting #30 tabs prochlorperazine maleate 10 mg 10 mg PO Q6H PRN nausea and 08/31/25 10/08/25 Unknown Rx tablet (Compazine) vomiting #30 tabs albuterol sulfate 2.5 mg/3 mL See Rx Instructions .Rou te 09/19/25 10/08/25 Unknown Rx (0.083 %) solution for nebulization .COMPLEX #90 mL apixaban 2.5 mg tablet (Eliquis) 2.5 mg PO BID #30 tab s 09/20/25 10/08/25 10/08/25 08:00 Rx insulin glargine-yfgn 100 unit/mL See Rx Instructions .Route 09/26/25 10/08/25 10/08/25 07:00 Rx (3 mL) subcutaneous pen .COMPLEX #15 mL losartan 25 mg tablet See Rx Instructions .Route 1 11/30/24 10/08/25 10/08/25 08:00 Rx .COMPLEX #90 tabs fenofibrate 160 mg tablet 160 mg PO DAILY #90 tabs 10/08/25 10/08/25 07:00 Rx metoprolol tartrate 100 mg tablet 100 mg PO BID #180 t abs 10/08/25 10/08/25 10/08/25 08:00 Rx Allergies Allergy/AdvReac Type Severity Reaction Status Date / Time metformin Allergy ADR-Diarrhe Verified 09/30/25 07:54 a PFSH Acute 2 PFSH: Medical History Left leg swelling CHF (congestive heart failure) Rheumatoid factor positive Nocturnal hypoxia Unable to ambulate Abnormal WBC count Chronic anticoagulation A-fib COPD (chronic obstructive pulmonary disease) with emphysema Hypertension Diabetes Hyperlipemia GERD (gastroesophageal reflux disease) Surgical History History of appendectomy Family History Other CAD (coronary artery disease) Social History Smoking and tobacco/nicotine status: never used tobacco/nicotine Quit status (tobacco/nicotine): has quit using Year quit tobacco: 1988 Former quit date comment: 2 ppd X 15 years Second hand smoke exposure: No Alcohol intake: never Substance/Drug Use: never Lives independently: Yes Household members: spouse Marital status: Current occupational status: retired Current gender identity: Male Special laya needs: No Agree to transfusion: Yes Vitals/I&O/Wt Last Vital Signs Temp 98.3 F 10/08/25 09:13 Pulse 102 H 10/08/25 09:13 Resp 20 H 10/08/25 09:13 BP 185/81 10/08/25 09:13 Pulse Ox 92 10/08/25 09:13 O2 Del Method Nasal Cannula 10/08/25 09:13 O2 Flow Rate 4 10/08/25 09:13 Weight last 48 hrs Weight 99.79 kg Physical Exam 2 Const: COMMON NORMALS: no acute distress and patient oriented x3 HENMT: COMMON NORMALS: normocephalic HEAD & SCALP: normocephalic Eye: COMMON NORMALS: Equal, round and reactive pupils present Lymph: LYMPHATIC: no lymphadenopathy noted Resp: AUSCULTATION: crackles and wheezes OTHER: Nasal flaring, intercostal retractions suprasternal retractions, tachypnea Cardio: COMMON NORMALS: regular rate, regular rhythm, S1 normal heart sound present and S2 normal heart sound present RATE: tachycardic RHYTHM: r egular rhythm HEART SOUNDS: S1 normal heart sound present and S2 normal heart sound present GI: COMMON NORMALS: Normal to inspection, nondistended, normoactive bowel sounds present, Soft to palpation and non-tender Extremity: COMMON NORMALS: no calf tenderness NARRATIVE EXTREMITY EXAM: 3+ pitting edema Neuro: COMMON NORMALS: patient oriented x3, CN's II-XII intact bilaterally and moves all extremities Psych: COMMON NORMALS: mental status grossly normal Data 10/08/25 09:42 10/08/25 09:42 Micro: Microbiology 10/08/25 10:28 Blood Culture - Preliminary Blood SPECIMEN COLLECTED 10/08/25 09:42 Blood Culture - Preliminary Blood SPECIMEN COLLECTED A&P Assessment and plan 1. A-fib: 2. Hyperlipemia: 3. T2DM (type 2 diabetes mellitus): 4. Large cell neuroendocrine carcinoma: 5. Acute hypoxic respiratory failure: 6. Acute exacerbation of chronic obstructive pulmonary disease: 7. Systolic CHF, acute: 8. Pleural effusion: 9. Pneumonia: 10. Sepsis: Plan: Acute systolic CHF exacerbation - Lasix 40 IV twice daily - Monitor urine output, monitor creatinine - Monitor respiratory status closely Acute hypoxic respiratory failure - Multifactorial - Systolic CHF exacerbation - COPD exacerbation - Pneumonia - Immunocompromise state, on chemotherapy Plan - Monitor ICU - ABG - Diuretic therapy as above - Rocephin - Azithromycin - Prednisone 40 mg daily - DuoNeb - Budesonide Right pleural effusion - Ultrasound thoracentesis Sepsis secondary to pneumonia History of large cell neuroendocrine carcinoma - On chemotherapy History of atrial fibrillation - Continue Eliquis Type 2 diabetes mellitus - Moderate dose sliding scale - Lantus 10 units twice daily PDMP PDMP Reviewed: Not Reviewed Attestations 2 Medical Necessity Statement*: Patient requires hospitalization, inpatient, greater than 2 midnights, for acute hypoxic respiratory failure, secondary to systolic CHF exacerbation, pneumonia, sepsis, immunocompromise state Diagnoses A-fib I48.91 Hyperlipemia E78.5 T2DM (type 2 diabetes mellitus) E11.9 Large cell neuroendocrine carcinoma C7A.1 Acute hypoxic respiratory failure J96.01 Acute exacerbation of chronic obstructive pulmonary disease J44.1 Systolic CHF, acute I50.21 Pleural effusion J90 Pneumonia J18.9 Sepsis A41.9 Sepsis Event Note ED Sepsis Screening 2 Sepsis Screen No Definite Risk Today, 09:13 Quick SOFA Score 0 Today, 09:13 If qSOFA score 2 or greater, continue SOFA Score: 2 ABG PO2/FiO2 Ratio 154 Today, 13:25 [place] Coma Scale Score 15 Today, 09:13 Blood Pressure Mean 115 mmHg Today, 09:13 Total Bilirubin, (0.15-1.2) 0.4 mg/dL Today, 09:42 Platelet Count, (157-399) 199 10^3/cmm Today, 09:42 Creatinine, (0.7-1.2) 1.2 mg/dL Today, 09:42 PaO2/FiO2 Ratio (mmHg): 154 [place] coma scale: 15 Blood Pressure Mean: 115 Bilirubin (mg/dl): 0.4 Platelets (x10?/ml): 199 Creatinine (mg/dl): 1.2 SOFA Score: 4 Evaluation Current stage of sepsis: sepsis Sepsis stage criteria used: [facility] Sep-1 and Sepsis-3 Crystalloid fluids: less than 30 mL/kg crystalloid fluids ordered Blood cultures ordered: Yes Focused Exam Vital signs: Temp Pulse Resp BP Pulse Ox O2 Del Method O2 Flow Rate 10/08/25 09:13 98.3 F 102 H 20 H 185/81 92 Nasal Cannula 4 Respiratory exam: crackles present and positive wheezes Cardiovascular Exam: regular rate Capillary refill: > 3 Seconds Peripheral pulse strength: 2+ Slightly Diminished Peripheral pulse location: Radial and Pedal Skin exam: turgor normal Date exam was performed: 10/08/25 Time exam was performed: 14:22 Problem List 1. A-fib: 2. Hyperlipemia: 3. T2DM (type 2 diabetes mellitus): 4. Large cell neuroendocrine carcinoma: 5. Acute hypoxic respiratory failure: 6. Acute exacerbation of chronic obstructive pulmonary disease: 7. Systolic CHF, acute: 8. Pleural effusion: 9. Pneumonia: 10. Sepsis:
[2025-10-08] MEDS: FUROsemide 10 mg/mL SDV 4mL 40 MG IVP (15:25)
[2025-10-08] MEDS: pantoprazole 40 mg SDV IVP (15:26)
[2025-10-08 15:44] LABS: Cholesterol 87 mg/dL (0-200); HDL Cholesterol 19 mg/dL (60-100); Thyroid Stimulating Hormone 2.61 uIU/mL (0.27-4.20); Triglycerides 300 mg/dL (0-150)
[2025-10-08 15:47] LABS: Estmated Average Glucose 154; Hemoglobin A1C 7.0 % (4.0-6.0)
[2025-10-08] MEDS: insulin glargine 100 units/1 mL 10 UNIT SUBCUT (16:35)
--- NOTE | 2025-10-08 19:22 | PC.NURSE ---
Transfer: Patient arrived from ER staff at 1500. HR: 92 BP: 164/76 SPO2: 94% on 4lNC Temp: 99.8 rr: 24 Patient is alert, oriented to person, place, time, and situation. NUrse educated patient on treatment plan. 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
[2025-10-08] MEDS: APIXABAN 2.5 MG TABLET PO (20:13)
[2025-10-08 21:08] LABS: Troponin 5 6HR 28.92 ng/L (0-15)
[2025-10-08 21:09] LABS: Troponin 5 6HR Delta -10.08 ng/L (0-12)
[2025-10-09] VITALS (29 sets, daily range): BP systolic 134–175; BP diastolic 56–112; PULSE 70–101; RESP 16–30; TEMP 36.1–36.6; O2SAT 87–99
[2025-10-09] MEDS: ATORVASTATIN 20 MG TABLET PO (04:03)
[2025-10-09] MEDS: FUROsemide 10 mg/mL SDV 4mL 40 MG IVP ×2 (04:03→15:35)
[2025-10-09 04:07] LABS: Hematocrit 28.8 % (37-53); Hemoglobin 9.00 g/dL (11.27-16.99); Mean Corpuscular HGB Conc 31.3 g/dL (30-55); Mean Corpuscular Hemoglobin 28.5 pg (27-33); Mean Corpuscular Volume 91.1 fl (82-101); Nucleated Red Blood Cells % 0.2 %; Platelet Count 253 10^3/cmm (157-399); Red Blood Count 3.16 10^6/uL (3.85-5.65)
[2025-10-09 04:30] LABS: Alanine Aminotransferase 16 U/L (0-41); Albumin Level 3.4 g/dL (3.5-5.2); Alkaline Phosphatase 138 U/L (40-130); Anion Gap 13.7 (5-19); Aspartate Amino Transferase 19 U/L (0-40); Blood Urea Nitrogen 17 mg/dL (8-23); Calcium 8.1 mg/dL (8.5-10.5); Carbon Dioxide 24 mmol/L (22-29); Chloride 104 mmol/L (98-107); Globulin 1.9 g/dL (1.3-4.6); Glucose 211 mg/dL (65-115); Magnesium 1.5 mg/dL (1.7-2.3); Osmolality Calculated 294 mOsm/kg (285-295); Potassium 3.7 mmol/L (3.5-5.1); Sodium 138 mmol/L (136-145); Total Protein 5.3 g/dL (6.6-8.7)
[2025-10-09 04:39] LABS: NT Pro B Type Natriuretic Pept 4312 pg/mL (0-450); Procalcitonin 0.18 ng/mL (0-0.5)
[2025-10-09 04:50] LABS: White Blood Count 36.45 10^3/uL (3.29-11.43)
[2025-10-09] MEDS: insulin glargine 100 units/1 mL 10 UNIT SUBCUT ×2 (05:15→16:40)
--- NOTE | 2025-10-09 07:00 | XRR_ITS ---
PROCEDURE INFORMATION: Exam: XR Chest Exam date and time: 10/09/2025 8:15 AM Age: 85 years old Clinical indication: Shortness of breath; Prior surgery; Surgery date: 1-6 months; Surgery type: Bronch port; Additional info: SOB TECHNIQUE: Imaging protocol: Radiologic exam of the chest. Views: 1 view. COMPARISON: CT angio chest PE protcl [id number] 10/08/2025 11:47 AM FINDINGS: Tubes, catheters and devices: Right IJ Port-A-Cath is stable in position. Lungs: There is heterogenous opacity at the right lung base. Minimal linear subsegmental platelike atelectasis is seen at the left lung base. Chronic architectural changes centrilobular emphysema are present. There is right apical scarring. Pleural spaces: There are small bilateral pleural effusions [id number]. Heart/Mediastinum: Unremarkable. No cardiomegaly. Patient has known mediastinal adenopathy defined by CT not as readily present by radiograph. Bones/joints: Unremarkable. XR/XR chest 1V portable [id number] IMPRESSION: 1. Small bilateral pleural effusions [id number]-left. 2. Right basilar atelectasis or pneumonia. 3. Centrilobular emphysema.
[2025-10-09] MEDS: methylPREDNISolone sod succ 40 mg/mL INJ IVP ×2 (08:22→21:20)
[2025-10-09] MEDS: pantoprazole 40 mg SDV IVP (08:26)
[2025-10-09] MEDS: APIXABAN 2.5 MG TABLET PO ×2 (08:26→21:20)
[2025-10-09] MEDS: cefTRIAXone 1,000 mg SDV 1000 MG IVP (08:26)
[2025-10-09] MEDS: potassium phosphate (mEq K) 40 MEQ in sodium chloride 0.9% (100 ml) 100 ML 27.25 MEQ IV (08:35)
[2025-10-09] MEDS: magnesium sulfate premix 1 GM/100 ML PIGGYBACK IV (08:37)
--- NOTE | 2025-10-09 13:36 | P.PN_ITS ---
Subjective 2 Subjective: Patient is alert and oriented x 3, follow commands, no chest pain, no palpitations does report shortness of breath and edema, has a cough Vitals/I&O/Wt Last Vital Signs Temp 97 F L 10/09/25 12:00 Pulse 99 10/09/25 12:00 Resp 16 10/09/25 12:00 BP 159/80 10/09/25 12:00 Pulse Ox 89 L 10/09/25 12:00 O2 Del Method Nasal Cannula 10/09/25 11:14 O2 Flow Rate 3 10/09/25 11:14 10/08/25 10/09/25 10/09/25 22:59 06:59 14:59 Intake Total 900 / 900 870 / 870 Output Total 1500 / 1500 500 / 2000 1050 / 1050 Balance -600 / -600 -500 / -1100 -180 / -180 Weight last 48 hrs Weight 101.4 kg Weight 99.79 kg Physical Exam 2 Const: COMMON NORMALS: no acute distress and patient oriented x3 Resp: COMMON NORMALS: normal respiratory effort, No retractions and No use of accessory muscles AUSCULTATION: crackles and wheezes Cardio: COMMON NORMALS: regular rate, regular rhythm, S1 normal heart sound present and S2 normal heart sound present RATE: regular rate RHYTHM: r egular rhythm HEART SOUNDS: S1 normal heart sound present and S2 normal heart sound present GI: COMMON NORMALS: Normal to inspection, nondistended, normoactive bowel sounds present, non-tender and no masses Neuro: COMMON NORMALS: patient oriented x3 Psych: COMMON NORMALS: mental status grossly normal Skin: NARRATIVE SKIN EXAM: 2+ pitting edema Data 10/09/25 03:08 10/09/25 03:08 Micro: Microbiology 10/08/25 10:28 Blood Culture - Preliminary Blood NEGATIVE TO DATE 10/08/25 09:42 Blood Culture - Preliminary Blood NEGATIVE TO DATE A&P Assessment and plan 1. A-fib: 2. Hyperlipemia: 3. T2DM (type 2 diabetes mellitus): 4. Large cell neuroendocrine carcinoma: 5. Acute hypoxic respiratory failure: 6. Acute exacerbation of chronic obstructive pulmonary disease: 7. Systolic CHF, acute: 8. Pleural effusion: 9. Pneumonia: 10. Sepsis: Plan: Acute systolic CHF exacerbation Cardiac echo CONCLUSIONS Normal left ventricular size, systolic function and wall thickness with ejection fraction of 58%. Normal right ventricular size and systolic function. Mild mitral valve stenosis Mild aortic valve stenosis - Lasix 40 IV twice daily - Monitor urine output, monitor creatinine - Monitor respiratory status closely Acute hypoxic respiratory failure - Multifactorial - Systolic CHF exacerbation - COPD exacerbation - Pneumonia - Immunocompromise state, on chemotherapy Plan - Monitor ICU - ABG - Diuretic therapy as above - Rocephin - Azithromycin - Prednisone 40 mg daily - DuoNeb - Budesonide NSTEMI - Serial EKGs, start troponins, telemetry monitoring Right pleural effusion - Ultrasound thoracentesis, insufficient fluid for intervention - Monitor Sepsis secondary to pneumonia History of large cell neuroendocrine carcinoma - On chemotherapy History of atrial fibrillation - Continue Eliquis Type 2 diabetes mellitus - Moderate dose sliding scale - Lantus 10 units twice daily PDMP PDMP Reviewed: Not Reviewed Attestations 2 Medical Necessity Statement*: Patient requires hospitalization for systolic CHF, COPD, pneumonia, sepsis Diagnoses A-fib I48.91 Hyperlipemia E78.5 T2DM (type 2 diabetes mellitus) E11.9 Large cell neuroendocrine carcinoma C7A.1 Acute hypoxic respiratory failure J96.01 Acute exacerbation of chronic obstructive pulmonary disease J44.1 Systolic CHF, acute I50.21 Pleural effusion J90 Pneumonia J18.9 Sepsis A41.9
--- NOTE | 2025-10-09 17:31 | PC.NURSE ---
Addendum entered by Willian Reyes RN 10/09/25 18:31: Physician Communication: at 1810, nurse notified Dr aaron that the heart rate has improved. It is now consistently normal sinus, rate in the 90's Original Note: Tachycardia: At approximately 1630, patient's heart rate started to become variable and tachycardic. Remains in normal sinus, then would increase to the 140's for 10-15 seconds. NUrse administerd 1700 metoprolol dose at 1640 and continued to monitor. THis did not improve the heart rate. Nurse alerted Dr Aaron, received orders to solomon to monitor, if heart rate sustains in the 120's or greater he will likely start an amiodarone drip. Heart rate continued more of the same, variable, intermittent and asymptomatic SVT. Instances of SVT are increasing in frequency. NUrse alerted Dr aaron. REceived orders for amiodarone drip.
[2025-10-09] MEDS: amiodarone 150 MG/100 ML PREMIX 400 MG IV (17:40)
[2025-10-09] MEDS: AMIODARONE HCL/D5W 900 MG/500 ML BAG 33.33 MG IV (17:45)
--- NOTE | 2025-10-09 18:39 | PC.NURSE ---
SHift SUmmary: Uneventdul shift. Sat on the side of the bed for most of the day. Total oral intake: 1440 Total urine output: 2100 Heart rate: in the late afternoon, [place] rate became variable, frequently tachycardic. Patient has a history of afib. Started on AMiodarone drip, which stabilized heart rate.
[2025-10-10] VITALS (14 sets, daily range): BP systolic 146–174; BP diastolic 68–91; PULSE 74–118; RESP 15–29; TEMP 36–36.5; O2SAT 94–98
[2025-10-10] MEDS: FUROsemide 10 mg/mL SDV 4mL 40 MG IVP ×2 (03:30→14:11)
--- NOTE | 2025-10-10 04:09 | PC.NURSE ---
Report called to Lesley on CSU, Patient transferred to room 112-2 at 0400 all belongings with patient
[2025-10-10 04:21] LABS: Hematocrit 31.2 % (37-53); Hemoglobin 10.10 g/dL (11.27-16.99); Mean Corpuscular HGB Conc 32.4 g/dL (30-55); Mean Corpuscular Hemoglobin 29.4 pg (27-33); Mean Corpuscular Volume 91.0 fl (82-101); Platelet Count 442 10^3/cmm (157-399); Red Blood Count 3.43 10^6/uL (3.85-5.65)
[2025-10-10 04:39] LABS: Alanine Aminotransferase 19 U/L (0-41); Albumin Level 4.0 g/dL (3.5-5.2); Alkaline Phosphatase 154 U/L (40-130); Anion Gap 20.5 (5-19); Aspartate Amino Transferase 20 U/L (0-40); Blood Urea Nitrogen 25 mg/dL (8-23); Calcium 9.0 mg/dL (8.5-10.5); Carbon Dioxide 24 mmol/L (22-29); Chloride 98 mmol/L (98-107); Globulin 2.5 g/dL (1.3-4.6); Glucose 211 mg/dL (65-115); Magnesium 1.8 mg/dL (1.7-2.3); Osmolality Calculated 297 mOsm/kg (285-295); Potassium 4.5 mmol/L (3.5-5.1); Sodium 138 mmol/L (136-145); Total Protein 6.5 g/dL (6.6-8.7)
[2025-10-10 04:46] LABS: NT Pro B Type Natriuretic Pept 1544 pg/mL (0-450); Procalcitonin 0.17 ng/mL (0-0.5)
[2025-10-10 04:49] LABS: Absolute Segmented Neutrophil 35.7 10/cmm (1.6-7.1); Atypical Lymphs 0.0 % (0-5); Band Neutrophils Absolute 1.7 10^3/cmm (0.0-1.2); Slide Review Slide Review Perform; Total Cells Counted 100 (0-100)
[2025-10-10 04:52] LABS: White Blood Count 42.52 10^3/uL (3.29-11.43)
[2025-10-10] MEDS: insulin glargine 100 units/1 mL 10 UNIT SUBCUT ×2 (04:54→17:39)
[2025-10-10] MEDS: ATORVASTATIN 20 MG TABLET PO (04:54)
[2025-10-10] MEDS: methylPREDNISolone sod succ 40 mg/mL INJ IVP ×2 (09:46→21:14)
[2025-10-10] MEDS: cefTRIAXone 1,000 mg SDV 1000 MG IVP (09:46)
[2025-10-10] MEDS: pantoprazole 40 mg SDV IVP (09:47)
[2025-10-10] MEDS: APIXABAN 2.5 MG TABLET PO ×2 (09:47→21:11)
--- NOTE | 2025-10-10 10:59 | P.PN_ITS ---
Subjective 2 Subjective: Patient was seen this morning, currently alert oriented x 3, following all commands, developed A-fib RVR, remains on amiodarone drip, heart rates are well- controlled now atrial fibrillation heart rates in the 90s, discussed transitioning to p.o. amiodarone, continue IV diuresis, does report shortness of breath and edema although improving Vitals/I&O/Wt Last Vital Signs Temp 96.8 F L 10/10/25 08:00 Pulse 75 10/10/25 08:00 Resp 20 H 10/10/25 08:00 BP 174/79 10/10/25 08:00 Pulse Ox 95 10/10/25 08:00 O2 Del Method Nasal Cannula 10/10/25 08:00 O2 Flow Rate 3 10/10/25 08:00 10/09/25 10/10/25 10/10/25 22:59 06:59 14:59 Intake Total 1379.0909 / 2249.0909 331.09 / 2580.1809 360 / 360 Output Total 1170 / 2220 1600 / 3820 800 / 800 Balance 209.0909 / 29.0909 -1268.91 / -1239.8191 -440 / -440 Weight last 48 hrs Weight 99.79 kg Weight 101.4 kg Physical Exam 2 Const: COMMON NORMALS: no acute distress and patient oriented x3 Resp: COMMON NORMALS: normal respiratory effort, No retractions, No use of accessory muscles and clear to auscultation bilaterally AUSCULTATION: clear to auscultation bilaterally Cardio: COMMON NORMALS: regular rate, S1 normal heart sound present and S2 normal heart sound present RATE: regular rate RHYTHM: abnormal rhythm irregularly irregular HEART SOUNDS: S1 normal heart sound present and S2 normal heart sound present GI: COMMON NORMALS: Normal to inspection, nondistended, normoactive bowel sounds present and non-tender Extremity: NARRATIVE EXTREMITY EXAM: 2+ pitting edema Neuro: COMMON NORMALS: patient oriented x3 Psych: COMMON NORMALS: mental status grossly normal Data 10/10/25 03:30 10/10/25 03:30 Micro: Microbiology 10/08/25 19:00 Gram Stain - Final Sputum - Expectorated Sputum 10/08/25 10:28 Blood Culture - Preliminary Blood NEGATIVE TO DATE 10/08/25 09:42 Blood Culture - Preliminary Blood NEGATIVE TO DATE A&P Assessment and plan 1. A-fib: 2. Hyperlipemia: 3. T2DM (type 2 diabetes mellitus): 4. Large cell neuroendocrine carcinoma: 5. Acute hypoxic respiratory failure: 6. Acute exacerbation of chronic obstructive pulmonary disease: 7. Systolic CHF, acute: 8. Pleural effusion: 9. Pneumonia: 10. Sepsis: Plan: Acute systolic CHF exacerbation Cardiac echo CONCLUSIONS Normal left ventricular size, systolic function and wall thickness with ejection fraction of 58%. Normal right ventricular size and systolic function. Mild mitral valve stenosis Mild aortic valve stenosis - Lasix 40 IV twice daily - Monitor urine output, monitor creatinine - Monitor respiratory status closely Acute hypoxic respiratory failure - Multifactorial - Systolic CHF exacerbation - COPD exacerbation - Pneumonia - Immunocompromise state, on chemotherapy Plan - Monitor ICU - ABG - Diuretic therapy as above - Rocephin - Azithromycin - Prednisone 40 mg daily - DuoNeb - Budesonide Atrial fibrillation with rapid response, on IV amiodarone switched to p.o. amiodarone NSTEMI - Serial EKGs, start troponins, telemetry monitoring Right pleural effusion - Ultrasound thoracentesis, insufficient fluid for intervention - Monitor Sepsis secondary to pneumonia History of large cell neuroendocrine carcinoma - On chemotherapy History of atrial fibrillation - Continue Eliquis Type 2 diabetes mellitus - Moderate dose sliding scale - Lantus 10 units twice daily PDMP PDMP Reviewed: Not Reviewed Attestations 2 Medical Necessity Statement*: Patient requires hospitalization for respiratory failure, pneumonia, atrial fibrillation, CHF Diagnoses A-fib I48.91 Hyperlipemia E78.5 T2DM (type 2 diabetes mellitus) E11.9 Large cell neuroendocrine carcinoma C7A.1 Acute hypoxic respiratory failure J96.01 Acute exacerbation of chronic obstructive pulmonary disease J44.1 Systolic CHF, acute I50.21 Pleural effusion J90 Pneumonia J18.9 Sepsis A41.9
[2025-10-11] VITALS (10 sets, daily range): BP systolic 127–145; BP diastolic 60–77; PULSE 74–87; RESP 12–23; TEMP 36.2–36.7; O2SAT 94–98
[2025-10-11 03:12] LABS: Hematocrit 31.3 % (37-53); Hemoglobin 10.10 g/dL (11.27-16.99); Mean Corpuscular HGB Conc 32.3 g/dL (30-55); Mean Corpuscular Hemoglobin 29.1 pg (27-33); Mean Corpuscular Volume 90.2 fl (82-101); Nucleated Red Blood Cells % 0.5 %; Platelet Count 519 10^3/cmm (157-399); Red Blood Count 3.47 10^6/uL (3.85-5.65)
[2025-10-11 03:16] LABS: Slide Review Slide Review Perform; White Blood Count 37.52 10^3/uL (3.29-11.43)
[2025-10-11 03:33] LABS: Alanine Aminotransferase 19 U/L (0-41); Albumin Level 3.9 g/dL (3.5-5.2); Alkaline Phosphatase 132 U/L (40-130); Anion Gap 17.8 (5-19); Aspartate Amino Transferase 19 U/L (0-40); Blood Urea Nitrogen 33 mg/dL (8-23); Calcium 9.3 mg/dL (8.5-10.5); Carbon Dioxide 27 mmol/L (22-29); Chloride 95 mmol/L (98-107); Globulin 2.3 g/dL (1.3-4.6); Glucose 179 mg/dL (65-115); Magnesium 1.9 mg/dL (1.7-2.3); Osmolality Calculated 292 mOsm/kg (285-295); Potassium 4.8 mmol/L (3.5-5.1); Sodium 135 mmol/L (136-145); Total Protein 6.2 g/dL (6.6-8.7)
[2025-10-11 03:41] LABS: NT Pro B Type Natriuretic Pept 1178 pg/mL (0-450); Procalcitonin 0.18 ng/mL (0-0.5)
[2025-10-11] MEDS: ATORVASTATIN 20 MG TABLET PO (04:53)
[2025-10-11] MEDS: FUROsemide 10 mg/mL SDV 4mL 40 MG IVP ×2 (04:55→16:36)
[2025-10-11] MEDS: insulin glargine 100 units/1 mL 10 UNIT SUBCUT ×2 (06:17→17:08)
[2025-10-11] MEDS: APIXABAN 2.5 MG TABLET PO ×2 (08:45→20:28)
[2025-10-11] MEDS: pantoprazole 40 mg SDV IVP (08:45)
[2025-10-11] MEDS: cefTRIAXone 1,000 mg SDV 1000 MG IVP (08:45)
[2025-10-11] MEDS: methylPREDNISolone sod succ 40 mg/mL INJ IVP ×2 (08:45→20:28)
--- NOTE | 2025-10-11 11:20 | PC.SOCIAL ---
IMM Update pg 2 of IMM updated and reviewed w/ patient. Copy provided and copy dated, initialed and placed in chart.
--- NOTE | 2025-10-11 13:43 | P.PN_ITS ---
Subjective 2 Subjective: reports wanting to stay another night on 3L Vitals/I&O/Wt Last Vital Signs Temp 97.6 F 10/11/25 10:58 Pulse 80 10/11/25 11:24 Resp 18 10/11/25 11:24 BP 145/72 10/11/25 10:58 Pulse Ox 96 10/11/25 11:24 O2 Del Method Nasal Cannula 10/11/25 11:24 O2 Flow Rate 3 10/11/25 11:24 10/10/25 10/11/25 10/11/25 22:59 06:59 14:59 Intake Total 768.91 / 1858.91 970 / 970 Output Total 1550 / 2750 850 / 3600 1261 / 1261 Balance -781.09 / -891.09 -850 / -1741.09 -291 / -291 Weight last 48 hrs Weight 83 kg Weight 99.79 kg Physical Exam 2 Const: COMMON NORMALS: no acute distress and patient oriented x3 Resp: COMMON NORMALS: normal respiratory effort, No retractions, No use of accessory muscles and clear to auscultation bilaterally AUSCULTATION: clear to auscultation bilaterally Cardio: COMMON NORMALS: regular rate, S1 normal heart sound present and S2 normal heart sound present RATE: regular rate RHYTHM: abnormal rhythm irregularly irregular HEART SOUNDS: S1 normal heart sound present and S2 normal heart sound present GI: COMMON NORMALS: Normal to inspection, nondistended, normoactive bowel sounds present and non-tender Extremity: NARRATIVE EXTREMITY EXAM: 2+ pitting edema Neuro: COMMON NORMALS: patient oriented x3 Psych: COMMON NORMALS: mental status grossly normal Data 10/11/25 02:23 10/11/25 02:23 Micro: Microbiology 10/08/25 19:00 Gram Stain - Final Sputum - Expectorated Sputum Sputum Culture - Preliminary A&P Assessment and plan 1. Atrial fibrillation with RVR: 2. CHF (congestive heart failure): Plan: 1. A-fib: 2. Hyperlipemia: 3. T2DM (type 2 diabetes mellitus): 4. Large cell neuroendocrine carcinoma: 5. Acute hypoxic respiratory failure: 6. Acute exacerbation of chronic obstructive pulmonary disease: 7. Systolic CHF, acute: 8. Pleural effusion: 9. Pneumonia: 10. Sepsis: Plan: Acute systolic CHF exacerbation Cardiac echo CONCLUSIONS Normal left ventricular size, systolic function and wall thickness with ejection fraction of 58%. Normal right ventricular size and systolic function. Mild mitral valve stenosis Mild aortic valve stenosis - Lasix 40 IV twice daily - Monitor urine output, monitor creatinine - Monitor respiratory status closely Acute hypoxic respiratory failure - Multifactorial - Systolic CHF exacerbation - COPD exacerbation - Pneumonia - Immunocompromise state, on chemotherapy Plan - Monitor ICU - ABG - Diuretic therapy as above - Rocephin - Azithromycin - Prednisone 40 mg daily - DuoNeb - Budesonide PNA - continue iv abx Atrial fibrillation with rapid response, on IV amiodarone switched to p.o. 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
[2025-10-12] VITALS (15 sets, daily range): BP systolic 116–161; BP diastolic 60–85; PULSE 73–88; RESP 16–24; TEMP 36.4–37; O2SAT 92–98
[2025-10-12] MEDS: ATORVASTATIN 20 MG TABLET PO (04:21)
[2025-10-12] MEDS: FUROsemide 10 mg/mL SDV 4mL 40 MG IVP ×2 (04:21→16:57)
[2025-10-12] MEDS: insulin glargine 100 units/1 mL 10 UNIT SUBCUT (06:18)
[2025-10-12] MEDS: pantoprazole 40 mg SDV IVP (07:55)
[2025-10-12] MEDS: methylPREDNISolone sod succ 40 mg/mL INJ IVP ×2 (07:55→20:56)
[2025-10-12] MEDS: cefTRIAXone 1,000 mg SDV 1000 MG IVP (07:55)
[2025-10-12] MEDS: APIXABAN 2.5 MG TABLET PO ×2 (07:56→20:54)
[2025-10-12 10:05] LABS: Hematocrit 36.0 % (37-53); Hemoglobin 11.50 g/dL (11.27-16.99); Mean Corpuscular HGB Conc 31.9 g/dL (30-55); Mean Corpuscular Hemoglobin 29.0 pg (27-33); Mean Corpuscular Volume 90.7 fl (82-101); Platelet Count 777 10^3/cmm (157-399); Red Blood Count 3.97 10^6/uL (3.85-5.65)
[2025-10-12 10:25] LABS: Alanine Aminotransferase 23 U/L (0-41); Albumin Level 4.0 g/dL (3.5-5.2); Alkaline Phosphatase 145 U/L (40-130); Anion Gap 20.8 (5-19); Aspartate Amino Transferase 27 U/L (0-40); Blood Urea Nitrogen 52 mg/dL (8-23); Calcium 9.5 mg/dL (8.5-10.5); Carbon Dioxide 25 mmol/L (22-29); Chloride 94 mmol/L (98-107); Globulin 3.2 g/dL (1.3-4.6); Glucose 288 mg/dL (65-115); Osmolality Calculated 305 mOsm/kg (285-295); Potassium 4.8 mmol/L (3.5-5.1); Slide Review Slide Review Perform; Sodium 135 mmol/L (136-145); Total Protein 7.2 g/dL (6.6-8.7); White Blood Count 39.24 10^3/uL (3.29-11.43)
[2025-10-12 10:27] LABS: Absolute Segmented Neutrophil 32.2 10/cmm (1.6-7.1); Band Neutrophils Absolute 1.2 10^3/cmm (0.0-1.2); Total Cells Counted 100 (0-100)
[2025-10-12 10:28] LABS: Polychromasia 1+
[2025-10-12 10:29] LABS: Anisocytosis Trace; Atypical Lymphs 0.0 % (0-5)
--- NOTE | 2025-10-12 11:36 | P.PN_ITS ---
Subjective 2 Subjective: feels better wbc slightly increased, elevated denies fevers,chest pain Vitals/I&O/Wt Last Vital Signs Temp 97.6 F 10/12/25 07:53 Pulse 75 10/12/25 11:11 Resp 16 10/12/25 11:07 BP 159/76 10/12/25 07:53 Pulse Ox 92 10/12/25 11:07 O2 Del Method Room Air 10/12/25 11:07 O2 Flow Rate 2 10/12/25 07:34 10/11/25 10/12/25 10/12/25 22:59 06:59 14:59 Intake Total 480 / 1450 640 / 2090 490 / 490 Output Total 950 / 2611 800 / 3411 420 / 420 Balance -470 / -1161 -160 / -1321 70 / 70 Weight last 48 hrs Weight 85.9 kg Weight 83 kg Physical Exam 2 Const: COMMON NORMALS: no acute distress and patient oriented x3 Resp: COMMON NORMALS: normal respiratory effort, No retractions, No use of accessory muscles and clear to auscultation bilaterally AUSCULTATION: clear to auscultation bilaterally Cardio: COMMON NORMALS: regular rate RATE: regular rate RHYTHM: abnormal rhythm irregularly irregular GI: COMMON NORMALS: Normal to inspection, nondistended, normoactive bowel sounds present and non-tender Extremity: NARRATIVE EXTREMITY EXAM: 2+ pitting edema Neuro: COMMON NORMALS: patient oriented x3 Psych: COMMON NORMALS: mental status grossly normal Data 10/12/25 09:29 10/12/25 09:29 Micro: Microbiology 10/08/25 19:00 Gram Stain - Final Sputum - Expectorated Sputum Sputum Culture - Final A&P Assessment and plan 1. Systolic CHF, acute: 2. A-fib: 3. T2DM (type 2 diabetes mellitus): Plan: Assessment and plan 1. Atrial fibrillation with RVR: 2. CHF (congestive heart failure): Plan: 1. A-fib: 2. Hyperlipemia: 3. T2DM (type 2 diabetes mellitus): 4. Large cell neuroendocrine carcinoma: 5. Acute hypoxic respiratory failure: 6. Acute exacerbation of chronic obstructive pulmonary disease: 7. Systolic CHF, acute: 8. Pleural effusion: 9. Pneumonia: 10. Sepsis: Plan: Acute systolic CHF exacerbation Cardiac echo CONCLUSIONS Normal left ventricular size, systolic function and wall thickness with ejection fraction of 58%. Normal right ventricular size and systolic function. Mild mitral valve stenosis Mild aortic valve stenosis - Lasix 40 IV twice daily - Monitor urine output, monitor creatinine - Monitor respiratory status closely Acute hypoxic respiratory failure - Multifactorial - Systolic CHF exacerbation - COPD exacerbation - Pneumonia - Immunocompromise state, on chemotherapy Plan - Rocephin - Azithromycin - Prednisone 40 mg daily--> wean - DuoNeb - Budesonide PNA - continue iv abx Atrial fibrillation with rapid response, on IV amiodarone switched to p.o. 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
--- NOTE | 2025-10-13 00:23 | PC.NURSE ---
Pt transferred up from [facility].
[2025-10-13] MEDS: FUROsemide 10 mg/mL SDV 4mL 40 MG IVP (02:32)
[2025-10-13 03:42] VITALS: BP 157/61; PULSE 83; RESP 17; TEMP 36.4; O2SAT 90
[2025-10-13] MEDS: ATORVASTATIN 20 MG TABLET PO (05:11)
[2025-10-13 06:00] VITALS: PULSE 75
[2025-10-13] MEDS: insulin glargine 100 units/1 mL 15 UNIT SUBCUT (06:54)
[2025-10-13 07:53] VITALS: PULSE 70; RESP 16; O2SAT 97
[2025-10-13 07:55] VITALS: BP 147/75; PULSE 73; RESP 16; TEMP 36.4; O2SAT 94
[2025-10-13] MEDS: APIXABAN 2.5 MG TABLET PO (08:38)
[2025-10-13] MEDS: cefTRIAXone 1,000 mg SDV 1000 MG IVP (08:39)
[2025-10-13] MEDS: pantoprazole 40 mg SDV IVP (08:39)
[2025-10-13] MEDS: methylPREDNISolone sod succ 40 mg/mL INJ IVP (08:39)
[2025-10-13 11:28] VITALS: PULSE 72; RESP 16; O2SAT 95
[2025-10-13 11:59] VITALS: BP 132/71; PULSE 69; RESP 17; TEMP 36.7; O2SAT 97
--- NOTE | 2025-10-13 12:45 | P.DS_ITS ---
Discharge Providers Date of Admission: 10/08/25 15:03 Date of Discharge: October 13, 2025 Attending Provider at Admission: Parth Aaron MD Attending Provider at Discharge: Brionna Nation MD Primary Care Provider: YELITZA Davidson Diagnoses at Discharge Discharge Diagnosis 1. Systolic CHF, acute: 2. Persistent atrial fibrillation: 3. Type 2 diabetes mellitus without complication, without long-term current use of insulin: Reason for Visit Reason for Visit: sob Hospital Course Hospital Course H&P: Marco Antonio Mosquera is a 85 year old male atrial fibrillation on Eliquis, COPD, CHF, hyperlipidemia, diabetes, large cell neuroendocrine carcinoma on chemotherapy who presents to [facility] for shortness of breath, cough, lower extremity edema. Patient reports having chemotherapy roughly a week ago, reports increased shortness of breath, increased shortness of breath on exertion, nonproductive cough, he stopped taking his Lasix a few days ago, does report increased lower extreme edema, no chest pain, no palpitations, no falls, no new rashes, no dysuria, no abdominal pain hospital course: Patient was admitted with A-fib, heart failure respiratory failure as well as a non-STEMI. The patient was treated for heart failure. Diuresis was done. With Lasix. Urine output was monitored. They did consider doing a thoracentesis but there was not enough fluid for that. Troponins were monitored as well as serial EKGs. Echocardiogram done. Patient was also treated for suspected pneumonia and COPD exacerbation. A oncology follow-up was recommended. Patient was discharged in stable condition Physical Exam Const: COMMON NORMALS: no acute distress and patient oriented x3 Resp: COMMON NORMALS: normal respiratory effort, No retractions, No use of accessory muscles and clear to auscultation bilaterally AUSCULTATION: clear to auscultation bilaterally Cardio: COMMON NORMALS: regular rate RATE: regular rate RHYTHM: abnormal rhythm irregularly irregular GI: COMMON NORMALS: Normal to inspection, nondistended, normoactive bowel sounds present and non-tender Extremity: NARRATIVE EXTREMITY EXAM: 2+ pitting edema Neuro: COMMON NORMALS: patient oriented x3 Psych: COMMON NORMALS: mental status grossly normal Discharge Data Studies Completed and Pending Completed Studies During Hospitalization Category Date Time Status CTA chest [CT angio chest PE protcl [id number]] Stat Cat Scan 10/08/25 10:21 Completed XR chest 1V portable [id number] Routine Exams 10/09/25 07:00 Completed XR chest 1V portable [id number] Stat Exams 10/08/25 09:14 Completed CV. echo complete* [id number] Stat Ultrasound 10/08/25 13:43 [place] chest [id number] Stat Ultrasound 10/08/25 13:40 Completed Radiology Impressions Chest CTA 10/08/25 10:21 IMPRESSION: 1. Moderate right pleural effusion. 2. Extensive mediastinal lymphadenopathy with some improvement since the prior exam of 07/02/2025. 3. Emphysema. 4. 2 cm right thyroid nodule is again demonstrated and stable since the prior CT of the chest from 06/10/2025. 5. Trace right pleural effusion. The presence of pulmonary emphysema on CT is an independent risk factor for lung cancer. In the absence of a history or active diagnosis of lung cancer, it is recommended that the patient with emphysema be evaluated for enrollment in a low-dose CT lung cancer screening program. Chest Ultrasound 10/08/25 13:40 IMPRESSION: See above Chest X-Ray 10/09/25 07:00 IMPRESSION: 1. Small bilateral pleural effusions [id number]-left. 2. Right basilar atelectasis or pneumonia. 3. Centrilobular emphysema. Laboratory Results WBC 39.24 10^3/uL (3.29-11.43) H* 10/12/25 09:29 RBC 3.97 10^6/uL (3.85-5.65) 10/12/25 09:29 Hgb 11.50 g/dL (11.27-16.99) 10/12/25 09: Hct 36.0 % (37-53) L 10/12/25 09:29 MCV 90.7 fl (82-101) 10/12/25 09:29 MCH 29.0 pg (27-33) 10/12/25 09: MCHC 31.9 g/dL (30-55) 10/12/25 09:29 RDW 17.4 % (12.1-15.1) H 10/12/25 09:29 Plt Count 777 10^3/cmm (157-399) H 10/12/25 09:29 MPV 10.0 fL (7.4-10.4) 10/12/25 09: Neut % (Auto) 84.4 % 10/11/25 02:23 Lymph % (Auto) Not Reportable 10/12/25 09:29 [place] % (Auto) Not Reportable 10/12/25 09:29 Eos % (Auto) 0.0 % 10/11/25 02:23 Baso % (Auto) 0.3 % 10/11/25 02:23 Neut # (Auto) 31.65 10^3/uL (1.8-7.7) H 10/11/25 02:23 Lymph # (Auto) Not Reportable 10/12/25 09:29 [place] # (Auto) Not Reportable 10/12/25 09:29 Eos # (Auto) 0.0 10^3/uL (0.0-0.8) 10/11/25 02: Baso # (Auto) 0.1 10^3/uL (0.0-0.1) 10/11/25 02:23 Nucleated RBC % (auto) 0.5 % 10/11/25 02:23 Total Counted 100 (0-100) 10/12/25 09:29 Atypical Lymphs % 0.0 % (0-5) 10/12/25 09:29 Absolute Neutrophils 33.4 10^3/cmm (1.4-6.5) H 10/12/25 09:29 Segmented Neutrophils 82 % 10/12/25 09:29 Band Neutrophils 3.0 % 10/12/25 09:29 Absolute Lymphocytes 1.2 10^3/cmm (1.2-3.4) 10/12/25 09:29 Lymphocytes (Manual) 3 % 10/12/25 09:29 Monocytes (Manual) 7.0 % 10/12/25 09:29 Absolute Monocytes 2.7 10^3/cmm (0.1-0.6) H 10/12/25 09:29 Eosinophils (Manual) 0 % 10/12/25 09:29 Absolute Eosinophils 0.0 10^3/cmm (0.0-0.7) 10/12/25 09:29 Basophils (Manual) 0.0 % 10/12/25 09:29 Absolute Basophils 0.0 10^3/cmm (0.0-0.2) 10/12/25 09:29 Metamyelocytes 1.0 % 10/12/25 09:29 Myelocytes 4.0 % 10/12/25 09: Nucleated RBCs 1.0 /100WBC (0-1) 10/10/25 03:30 Nucleated RBCs # 0.2 /100WBC 10/11/25 02:23 Platelet Estimate Increased (Normal) 10/12/25 09:29 Polychromasia 1+ H 10/12/25 09:29 Anisocytosis Trace 10/12/25 09:29 PT 14.60 SECONDS (12.1-14.9) 10/08/25 09:42 INR 1.07 (0.8-1.2) 10/08/25 09:42 Specimen Type Arterial 10/08/25 13:25 Sample Site Radial, right 10/08/25 13:25 ABG pH 7.40 (7.35-7.45) 10/08/25 13:25 ABG pCO2 36.0 mmHg (35-45) 10/08/25 13:25 ABG pO2 74.1 mmHg (80.0-100.0) L 10/08/25 13:25 ABG PO2/FiO2 Ratio 154 10/08/25 13:25 ABG HCO3 22.3 mmol/L (22-26) 10/08/25 13:25 ABG O2 Saturation 95.1 10/08/25 13:25 ABG Base Excess -2.2 mmol/L (-2.0-2.0) L 10/08/25 13:25 [place] Test Pos 10/08/25 13:25 A-a O2 Gradient 29.4 mmHg (5-10) H 10/08/25 13:25 Hematocrit 33.0 % (42-52) L 10/08/25 13:25 Hgb O2 Saturation 93.6 % (95-100) L 10/08/25 13:25 Carboxyhemoglobin 1.2 %THgb (0.4-20.1) 10/08/25 13:25 Methemoglobin 0.4 % (0.4-1.5) 10/08/25 13:25 Total Hemoglobin 10.8 g/dL (14-18) L 10/08/25 13:25 Sodium 143.0 mmol/L (131-143) 10/08/25 13:25 Potassium 3.8 mmol/L (3.5-5.0) 10/08/25 13:25 Glucose 211.0 mg/dL (70-115) H 10/08/25 13:25 Ionized Calcium 1.1 mmol/L (1.1-1.4) 10/08/25 13:25 O2 Delivery Device Nc 10/08/25 13:25 O2 Liters/Min 4.5 % 10/08/25 13:25 FiO2 48.0 % 10/08/25 13:25 Street Light Repairer ID glc 10/08/25 13:25 Sodium 135 mmol/L (136-145) L 10/12/25 09:29 Potassium 4.8 mmol/L (3.5-5.1) 10/12/25 09:29 Chloride 94 mmol/L (98-107) L 10/12/25 09:29 Carbon Dioxide 25 mmol/L (22-29) 10/12/25 09:29 Anion Gap 20.8 (5-19) H 10/12/25 09:29 BUN 52 mg/dL (8-23) H 10/12/25 09:29 Creatinine 2.0 mg/dL (0.7-1.2) H 10/12/25 09:29 GFR Calculation Not Reportable 10/12/25 09:29 Glucose 288 mg/dL (65-115) H 10/12/25 09:29 POC Glucose 190 mg/dL (70-110) H 10/13/25 11:25 Estimat Average Glucose 154 10/08/25 09:42 Hemoglobin A1c 7.0 % (4.0-6.0) H 10/08/25 09:42 Calculated Osmolality 305 mOsm/kg (285-295) H 10/12/25 09:29 Lactic Acid 1.3 mmol/L (0.5-2.2) 10/08/25 09:42 Lactic Acid 1.5 mmol/L (0.5-2.2) 10/08/25 09:42 Calcium 9.5 mg/dL (8.5-10.5) 10/12/25 09:29 Phosphorus 3.6 mg/dL (2.5-4.5) 10/11/25 02:23 Magnesium 1.9 mg/dL (1.7-2.3) 10/11/25 02:23 Total Bilirubin 0.3 mg/dL (0.15-1.2) 10/12/25 09:29 AST 27 U/L (0-40) 10/12/25 09:29 ALT 23 U/L (0-41) 10/12/25 09:29 Alkaline Phosphatase 145 U/L (40-130) H 10/12/25 09:29 Troponin T Baseline 39 ng/L (0-15) H 10/08/25 10:28 Troponin T 120 Minute 32.89 ng/L (0-15) H 10/08/25 16:12 Delta Troponin T -6.11 ABS# (0-10) L 10/08/25 16:12 Troponin T Hi Sens 6Hr 28.92 ng/L (0-15) H 10/08/25 19:27 Troponin T Hi Sens 6Hr Delta -10.08 ng/L (0-12) L 10/08/25 19:27 C-Reactive Protein 15.8 mg/L (0.0-4.9) H 10/11/25 02:23 NT-Pro-B Natriuret Pep 1178 pg/mL (0-450) H 10/11/25 02:23 Total Protein 7.2 g/dL (6.6-8.7) 10/12/25 09:29 Albumin 4.0 g/dL (3.5-5.2) 10/12/25 09:29 Globulin 3.2 g/dL (1.3-4.6) 10/12/25 09:29 Triglycerides 300 mg/dL (0-150) H 10/08/25 10:20 Cholesterol 87 mg/dL (0-200) 10/08/25 10:20 LDL Cholesterol, Calc 8 mg/dL (50-129) L 10/08/25 10:20 HDL Cholesterol 19 mg/dL (60-100) L 10/08/25 10:20 LDL/HDL Ratio 0.42 RATIO (0.00-3.22) 10/08/25 10:20 Cholesterol/HDL Ratio 4.58 mg/dL (1.0-5.00) 10/08/25 10:20 Procalcitonin 0.18 ng/mL (0-0.5) 10/11/25 02:23 TSH 2.61 uIU/mL (0.27-4.20) 10/08/25 10:20 Influenza A (PCR) Negative (Negative) 10/08/25 13:31 Influenza Type B (PCR) Negative (Negative) 10/08/25 13:31 RSV (PCR) Negative (Negative) 10/08/25 13:31 SARS-CoV-2 (PCR) Negative (Negative) 10/08/25 13:31 Vitals Last Vital Signs Temp 98.1 F 10/13/25 11:59 Pulse 69 10/13/25 11:59 Resp 17 10/13/25 11:59 BP 132/71 10/13/25 11:59 Pulse Ox 97 10/13/25 11:59 O2 Del Method Nasal Cannula 10/13/25 11:59 O2 Flow Rate 2 10/13/25 07:53 Discharge Plan Discharge Patient Disposition: Home Condition: Stable Prescriptions: New amiodarone [Pacerone] 200 mg Tablet See Rx Instructions .ROUTE .COMPLEX Qty: 45 0RF Rx Instructions: 200mg po bid x 7 days, then daily prednisone 10 mg tablet 10 mg PO DIRECTED Qty: 30 0RF Rx Instructions: take 20mg po qday x then daily Continued prochlorperazine maleate [Compazine] 10 mg tablet 10 mg PO Q6H PRN (Reason: nausea and vomiting) Qty: 30 6RF lorazepam 0.5 mg tablet 0.5 mg PO TID PRN (Reason: nausea and vomiting) Qty: 30 1RF Rx Instructions: as needed for SEVERE nausea and vomiting or anxiety/insomnia albuterol sulfate [Ventolin HFA] 90 mcg/actuation HFA aerosol inhaler 2 puff inhalation Q4H PRN (Reason: shortness of breath or wheezing) Qty: 8.5 3RF Trelegy Ellipta 100-62.5-25 mcg blister with device 1 inh inhalation DAILY Qty: 60 3RF furosemide [Lasix] 40 mg tablet 40 mg PO DAILY Qty: 90 3RF hydralazine 50 mg tablet 75 mg PO TID Qty: 270 3RF omeprazole 40 mg capsule,delayed release(DR/EC) See Rx Instructions .ROUTE .COMPLEX Qty: 90 1RF Dose Instruction: TAKE ONE CAPSULE BY MOUTH ONCE a day Rx Instructions: TAKE ONE CAPSULE BY MOUTH ONCE a day albuterol sulfate 2.5 mg /3 mL (0.083 %) solution for nebulization See Rx Instructions .ROUTE .COMPLEX Qty: 90 12RF Dose Instruction: USE 1 VIAL PER NEBULIZER THREE TIMES DAILY FOR RESCUE, NOT TO EXCEED 30 DOSES PER MONTH Rx Instructions: USE 1 VIAL PER NEBULIZER THREE TIMES DAILY FOR RESCUE, NOT TO EXCEED 30 DOSES PER MONTH Eliquis 2.5 mg tablet 2.5 mg PO BID Qty: 30 3RF insulin glargine-yfgn 100 unit/mL (3 mL) insulin pen See Rx Instructions .ROUTE .COMPLEX Qty: 15 2RF Dose Instruction: inject 34 units SUBCUTANEOUSLY TWICE DAILY Rx Instructions: inject 34 units SUBCUTANEOUSLY TWICE DAILY losartan 25 mg tablet See Rx Instructions .ROUTE .COMPLEX Qty: 90 3RF Dose Instruction: TAKE 1 TABLET BY MOUTH ONCE a day Rx Instructions: TAKE 1 TABLET BY MOUTH ONCE a day metoprolol tartrate 100 mg tablet 100 mg PO BID Qty: 180 0RF fenofibrate 160 mg tablet 160 mg PO DAILY Qty: 90 0RF potassium chloride [Klor-Con M20] 20 mEq tablet,ER particles/crystals 20 meq PO DAILY PRN (Reason: while on lasix) acetaminophen 325 mg Tablet 650 mg PO Q6H PRN (Reason: Mild/Mod Pain Or Temp >/= 101) Qty: 30 0RF rosuvastatin 10 mg tablet 10 mg PO DAILY Rx Instructions: TAKE ONE TABLET BY MOUTH DAILY Discharge Order = DC NOW: Discharge Order (Routine); Ordered 10/13/25 Ordered By: Brionna Nation Referrals: Shaniqua Newman FNP [Primary Care Provider, [facility]] - 10/15/25 10:00 am Discharge Diet: Cardiac and Diabetic Discharge Activity: Resume usual activity Patient Instructions: Prednisone (By mouth), Amiodarone (By mouth), CHF Stoplight, Opioid Safety, Pneumonia Stoplight, Patient Portal & Marielena Instructions Plan of Treatment: take medicines as prescribed, followup with PCP and oncology Discharge Attestations Time Spent in Discharge Care*: greater than 30 min Quality Metrics Clinical Quality Measures [ No reported AMI, CVA or VTE this stay] Coding Level of Care Code 94664 Diagnoses Systolic CHF, acute I50.21 Persistent atrial fibrillation I48.19 Atrial fibrillation type: persistent (not longstanding) Type 2 diabetes mellitus without complication, without long-term current use of insulin E11.9 Diabetes mellitus complication status: without complication 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
== END 2025-10-13 15:15 | disposition home or self-care (01) | DRG 871 ==
LOC: ER 13:48 → ICU 17:53 → CSU 10-10 04:13 → MEDSURG 10-12 23:20
PROVIDERS: Admitting Provider Family Medicine; Emergency Provider Emergency Medicine; PCP Nurse Practitioner Family; Visit Provider Internal Medicine
DX: A41.9 Sepsis, unspecified organism (principal); I21.4 Non-ST elevation (NSTEMI) myocardial infarction; I50.21 Acute systolic (congestive) heart failure; J18.9 Pneumonia, unspecified organism; J96.01 Acute respiratory failure with hypoxia; J44.1 Chronic obstructive pulmonary disease with (acute) exacerbation; J44.0 Chronic obstructive pulmonary disease with (acute) lower respiratory infection; C75.9 Malignant neoplasm of endocrine gland, unspecified; D84.9 Immunodeficiency, unspecified; I48.19 Other persistent atrial fibrillation; E11.9 Type 2 diabetes mellitus without complications; Z79.01 Long term (current) use of anticoagulants; E78.5 Hyperlipidemia, unspecified; Z51.11 Encounter for antineoplastic chemotherapy; K21.9 Gastro-esophageal reflux disease without esophagitis; Z79.4 Long term (current) use of insulin; Z79.51 Long term (current) use of inhaled steroids; Z90.49 Acquired absence of other specified parts of digestive tract; Z87.891 Personal history of nicotine dependence; I11.0 Hypertensive heart disease with heart failure
CPT/HCPCS: 36415; 36416; 36591; 36600; 71045; 71275; 76604; 80051; 80053; 80061; 82330; 82805; 82962; 83036; 83605; 83735; 83880; 84100; 84145; 84443; 84484; 85007; 85025; 85610; 86140; 87040; 87070; 87205; 87637; 93005; 93306; 94640; 94664; 96365; 96372; 96375; 99285; J0282; J0283; J0456; J0696; J1815; J1938; J2470; J2919; J3475; J7040; J7050; J7626; J9999

== ENCOUNTER 2025-10-21 08:00 | Oncology outpatient (recurring) (ONCR) | payer MEDICARE, OTHER, SELFPAY ==
[2025-10-19 08:25] LABS: Hematocrit 34.4 % (37-53); Hemoglobin 10.90 g/dL (11.27-16.99); Mean Corpuscular HGB Conc 31.7 g/dL (30-55); Mean Corpuscular Hemoglobin 29.5 pg (27-33); Mean Corpuscular Volume 93.0 fl (82-101); Nucleated Red Blood Cells % 0 %; Platelet Count 437 10^3/cmm (157-399); Red Blood Count 3.70 10^6/uL (3.85-5.65)
[2025-10-19 08:49] LABS: Alanine Aminotransferase 24 U/L (0-41); Albumin Level 3.9 g/dL (3.5-5.2); Alkaline Phosphatase 103 U/L (40-130); Anion Gap 16.3 (5-19); Aspartate Amino Transferase 20 U/L (0-40); Blood Urea Nitrogen 42 mg/dL (8-23); Calcium 8.8 mg/dL (8.5-10.5); Carbon Dioxide 23 mmol/L (22-29); Chloride 103 mmol/L (98-107); Globulin 2.2 g/dL (1.3-4.6); Glucose 188 mg/dL (65-115); Osmolality Calculated 301 mOsm/kg (285-295); Potassium 4.3 mmol/L (3.5-5.1); Sodium 138 mmol/L (136-145); Total Protein 6.1 g/dL (6.6-8.7)
[2025-10-19 09:00] LABS: White Blood Count 32.75 10^3/uL (3.29-11.43)
[2025-10-19 09:38] VITALS: BP 165/67; PULSE 76; RESP 17; TEMP 36.4; O2SAT 97
[2025-10-19] MEDS: dexamethasone 4 mg/mL INJ 5 mL 12 MG IVP (10:00)
[2025-10-19] MEDS: diphenhydrAMINE 50 mg/mL SDV 1mL 25 MG IVP (10:02)
[2025-10-19] MEDS: durvalumab 1,500 MG in sodium chloride 0.9% 250 ML 280 MG IV (10:31)
[2025-10-19] MEDS: [UNRECOGNIZED DRUG - REMARK] 511.25 MG IV (12:46)
[2025-10-19 13:54] VITALS: BP 147/64; PULSE 75; RESP 17; TEMP 36.7; O2SAT 96
[2025-10-20 07:46] VITALS: BP 131/59; PULSE 76; TEMP 36.4; O2SAT 92
[2025-10-20] MEDS: ondansetron 2 mg/ML SDV 2 mL 8 MG IVP (08:18)
[2025-10-20] MEDS: [UNRECOGNIZED DRUG - REMARK] 511.25 MG IV (08:47)
[2025-10-20 09:55] VITALS: BP 124/78; PULSE 84; RESP 17; TEMP 36.6; O2SAT 98
[2025-10-21] MEDS: [UNRECOGNIZED DRUG - REMARK] 511.25 MG IV (09:18)
[2025-10-21] MEDS: pegfilgrastim 6 mg/0.6 mL Kit (onpro) SUBCUT (10:27)
[2025-10-21 10:35] VITALS: BP 144/75; PULSE 64; TEMP 36.6; O2SAT 95
== END 2025-10-21 23:59 | disposition home or self-care (01) ==
PROVIDERS: Internal Medicine Medical Oncology; PCP Nurse Practitioner Family; Visit Provider Nurse Practitioner
DX: Z53.9 Procedure and treatment not carried out, unspecified reason (principal); C7A.1 Malignant poorly differentiated neuroendocrine tumors; Z79.634 Long term (current) use of topoisomerase inhibitor
CPT/HCPCS: 80053; 85025; 96375; 96377; 96413; 96417; 99214; J0185; J1100; J1200; J2405; J2469; J2506; J3490; J7030; J7040; J7050; J9045; J9173; J9181; J9999

== ENCOUNTER 2025-10-22 17:47 | Emergency (ER) | payer MEDICARE, OTHER, SELFPAY ==
[2025-10-22 17:47] VITALS: BP 182/88; PULSE 106; RESP 18; TEMP 36.9; O2SAT 93; BMI 26.9
[2025-10-22 18:00] VITALS: BP 156/84; PULSE 112; O2SAT 96
[2025-10-22 18:30] VITALS: BP 147/80; PULSE 112; O2SAT 96
[2025-10-22 18:33] LABS: Glucose Urine UA Negative (Normal); Nitrate Urine Negative (Negative); Specific Gravity, Urine 1.012 (1.005-1.030)
[2025-10-22 18:38] LABS: Universal Test for UA Present (0)
[2025-10-22 18:44] LABS: Hematocrit 39.7 % (37-53); Hemoglobin 12.50 g/dL (11.27-16.99); Mean Corpuscular HGB Conc 31.5 g/dL (30-55); Mean Corpuscular Hemoglobin 29.9 pg (27-33); Mean Corpuscular Volume 95.0 fl (82-101); Nucleated Red Blood Cells % 0 %; Platelet Count 360 10^3/cmm (157-399); Red Blood Count 4.18 10^6/uL (3.85-5.65)
[2025-10-22 18:49] LABS: White Blood Count 84.14 10^3/uL (3.29-11.43)
[2025-10-22 19:08] LABS: Alanine Aminotransferase 29 U/L (0-41); Albumin Level 4.4 g/dL (3.5-5.2); Alkaline Phosphatase 118 U/L (40-130); Anion Gap 22.9 (5-19); Aspartate Amino Transferase 24 U/L (0-40); Blood Urea Nitrogen 27 mg/dL (8-23); Calcium 9.6 mg/dL (8.5-10.5); Carbon Dioxide 20 mmol/L (22-29); Chloride 100 mmol/L (98-107); Globulin 2.9 g/dL (1.3-4.6); Glucose 205 mg/dL (65-115); Lipase 74 U/L (13-60); Osmolality Calculated 297 mOsm/kg (285-295); Potassium 4.9 mmol/L (3.5-5.1); Sodium 138 mmol/L (136-145); Total Protein 7.3 g/dL (6.6-8.7)
[2025-10-22 19:11] LABS: Lactic Sepsis W/Reflex 5.3 mmol/L (0.5-2.2)
--- NOTE | 2025-10-22 19:14 | CTR_ITS ---
PROCEDURE INFORMATION: Exam: CT Abdomen And Pelvis Without Contrast Exam date and time: 10/22/2025 8:15 PM Age: 85 years old Clinical indication: Pain and abnormal findings; Abnormal lab test; Abnormal kidney function lab tests and elevated wbc; Abdominal pain; Generalized; Prior surgery; Surgery date: 6+ months; Surgery type: Appy; Diffuse abd pain with urinary retention. Wbc of 84k with milly. History of lung cancer. ; Additional info: Urinary retention, leukocytosis TECHNIQUE: Imaging protocol: Computed tomography of the abdomen and pelvis without contrast. Radiation optimization: All CT scans at this facility use at least one of these dose optimization techniques: automated exposure control; mA and/or kV adjustment per patient size (includes targeted exams where dose is matched to clinical indication); or iterative reconstruction. COMPARISON: PT PET skull to thigh INIT [id number] 07/02/2025 12:30 PM RADIATION DOSE METRICS: Total DLP (mGy-cm): 1280.79 FINDINGS: Liver: Normal. No mass. Gallbladder and biliary ducts: Normal. No calcified stones. No ductal dilation. Pancreas: The pancreas is atrophic. Spleen: Normal. No splenomegaly. Adrenal glands: Normal. No mass. Kidneys and ureters: Nonobstructing right nephrolithiasis. No hydronephrosis. There is mild bilateral periureteral stranding. Stomach and bowel: Scattered colon diverticula. No inflammatory change identified involving the GI tract. No signs of bowel obstruction. Mild fecal stasis. Appendix: No evidence of appendicitis. Intraperitoneal space: Unremarkable. No free air. No significant fluid collection. Vasculature: Scattered calcific plaque involves the aorta and iliac arteries. No abdominal aortic aneurysm. Lymph nodes: Unremarkable. No enlarged lymph nodes. Urinary bladder: The urinary bladder is decompressed with a Martinez catheter. Reproductive: The prostate gland is markedly enlarged. Bones/joints: Degenerative changes. Bone density is decreased. Degenerative changes. Soft tissues: Unremarkable. CT/CT kidney stone [id number] IMPRESSION: 1. Mild bilateral periureteral stranding suggesting bilateral ureteritis. 2. Severe prostatomegaly. 3. Nonobstructing right nephrolithiasis.
--- NOTE | 2025-10-22 19:14 | PC.NURSE ---
bedside report given to AMY Rodriguez
--- NOTE | 2025-10-22 19:16 | XRR_ITS ---
PROCEDURE INFORMATION: Exam: XR Chest Exam date and time: 10/22/2025 7:23 PM Age: 85 years old Clinical indication: Other: Leukocytosis TECHNIQUE: Imaging protocol: Radiologic exam of the chest. Views: 1 view. COMPARISON: CR (CHEST, ) 10/09/2025 8:15 AM FINDINGS: Tubes, catheters and devices: Stable right-sided Port-A-Cath. Lungs: Centrilobular emphysema. Right apical scarring. Bilateral basilar atelectasis. Pleural spaces: Trace bilateral pleural effusions. Heart/Mediastinum: Unremarkable. No cardiomegaly. Bones/joints: Unremarkable. XR/XR chest 1V portable [id number] IMPRESSION: 1. Bilateral trace pleural effusions with bibasilar atelectasis. 2. Centrilobular emphysema.
--- NOTE | 2025-10-22 19:30 | ED_ITS ---
HPI - Abdominal Pain 2 General: Chief Complaint: Abdominal Pain Stated Complaint: abd pain - unable to urinate Time Seen by Provider: 10/22/25 18:09 History of Present Illness: Patient is an 85-year-old male presenting to the Emergency Department with acute urinary retention that began at approximately 3:00 PM today. He reports only being able to void small amounts ( little dribbles, about four drops ) since that time. He describes feeling constant suprapubic pain and bloating, with a persistent sensation of needing to urinate. The patient denies nausea, vomiting, or fever. He does report experiencing dizziness and lightheadedness upon standing. Of note, the patient completed a 3-day course of chemotherapy earlier this week for an unspecified cancer. He states this is his first episode of urinary retention. Patient also mentions having atrial fibrillation and COPD. He lives alone and expresses concern about transportation home. Related Data Home Medications ?Medication ?Instructions ?Recorded ?Confirmed potassium chloride 20 mEq 20 meq PO DAILY PRN while on lasix 06/09/25 10/19/25 tablet,extended release(part/cryst) (Klor-Con M) rosuvastatin 10 mg tablet 10 mg PO DAILY 08/05/2508/05 Previous Rx's ?Medication ?Instructions ?Recorded furosemide 40 mg tablet (Lasix) 40 mg PO DAILY edema # 90 tabs 10/12/24 hydralazine 50 mg tablet 75 mg (1.5 x 50 mg) PO TID # 270 11/24/24 tabs acetaminophen 325 mg tablet 650 mg (2 x 325 mg) PO Q6H PRN 06/11/25 Mild/Mod Pain Or Temp >/= 101 #30 tabs albuterol sulfate 90 mcg/actuation 2 puff inhalation Q 4H PRN 06/23/25 aerosol inhaler (Ventolin HFA) shortness of breath or wheezing #8.5 grams fluticasone fur. 100 mcg-umeclid 1 inh inhalation HAZEL Y #60 ea 06/23/25 62.5 mcg-vilant 25 mcg inhalat.powder (Trelegy Ellipta) omeprazole 40 mg capsule,delayed See Rx Instructions . Route 08/26/25 release .COMPLEX #90 caps lorazepam 0.5 mg tablet 0.5 mg PO TID PRN nausea and 08/31/25 vomiting #30 tabs prochlorperazine maleate 10 mg 10 mg PO Q6H PRN nausea and 08/31/25 tablet (Compazine) vomiting #30 tabs albuterol sulfate 2.5 mg/3 mL See Rx Instructions .Rou te 09/19/25 (0.083 %) solution for nebulization .COMPLEX #90 mL apixaban 2.5 mg tablet (Eliquis) 2.5 mg PO BID #30 tab s 09/20/25 insulin glargine-yfgn 100 unit/mL See Rx Instructions .Route 09/26/25 (3 mL) subcutaneous pen .COMPLEX #15 mL losartan 25 mg tablet See Rx Instructions .Route 1 11/30/24 .COMPLEX #90 tabs fenofibrate 160 mg tablet 160 mg PO DAILY #90 tabs metoprolol tartrate 100 mg tablet 100 mg PO BID #180 t abs 10/08/25 amiodarone 200 mg tablet (Pacerone) See Rx Instruction s .Route 10/13/25 .COMPLEX #45 tabs prednisone 10 mg tablet 10 mg PO DIRECTED #30 tab s 10/13/25 Allergies Allergy/AdvReac Type Severity Reaction Status Date / Time metformin Allergy ADR-Diarrhe Verified 10/19/25 09:18 a [facility] ED 2 [facility]: Medical History (Updated 10/22/25 @ 23:13 by Richard Barr DO) Left leg swelling CHF (congestive heart failure) Rheumatoid factor positive Nocturnal hypoxia Unable to ambulate Abnormal WBC count Chronic anticoagulation A-fib COPD (chronic obstructive pulmonary disease) with emphysema Hypertension Diabetes Hyperlipemia GERD (gastroesophageal reflux disease) Surgical History History of appendectomy Family History Other CAD (coronary artery disease) Social History Smoking and tobacco/nicotine status: never used tobacco/nicotine Quit status (tobacco/nicotine): has quit using Year quit tobacco: 1988 Former quit date comment: 2 ppd X 15 years Second hand smoke exposure: No Alcohol intake: never Substance/Drug Use: never Lives independently: Yes Household members: spouse Marital status: Current occupational status: retired Current gender identity: Male Special laya needs: No Agree to transfusion: Yes Physical Exam 2 Const: COMMON NORMALS: no acute distress GENERAL APPEARANCE: cooperative, ill appearing (mild) and frail appearing (mild) HENMT: COMMON NORMALS: normocephalic, atraumatic and Normal external nose present HEAD & SCALP: normocephalic and atraumatic FACE & SINUS: normal facial exam and face symmetric NOSE: Normal external nose present Eye: COMMON NORMALS: Equal, round and reactive pupils present and EOMs intact bilaterally PUPIL: Yes Equal, round and reactive pupils present Neck/C-Spine: GENERAL: Yes trachea midline Chest: CHEST: Yes Symmetrical chest wall rise Resp: COMMON NORMALS: normal respiratory effort, No retractions, No use of accessory muscles and clear to auscultation bilaterally AUSCULTATION: clear to auscultation bilaterally Cardio: COMMON NORMALS: regular rate and regular rhythm RATE: regular rate RHYTHM: regular rhythm GI: COMMON NORMALS: Normal to inspection, nondistended, normoactive bowel sounds present PALPATION: Yes Tenderness to palpation present (GI) Extremity: COMMON NORMALS: no pedal edema Neuro: MILEY COMA SCALE: document GCS findings [place] coma scale eye opening: Spontaneous [place] coma scale verbal response: Orientated [place] coma scale motor response: Obey commands [place] coma scale total score: 15 S ENSORY EXAM: Yes extremities (intact) Psych: COMMON NORMALS: speech normal SPEECH: Yes normal speech Skin: COMMON NORMALS: no rashes or lesions noted GENERAL SKIN EXAM: no rashes or lesions noted Course 2 Vital Signs: Vital signs: Vital Signs Temperature 98.4 F 10/22/25 17:47 Pulse Rate 84 10/22/25 21:26 Respiratory Rate 20 H 10/22/25 19:46 Blood Pressure 135/66 10/22/25 23:26 Pulse Oximetry 97 10/22/25 23:26 Oxygen Delivery Me thod Nasal Cannula 10/22/25 23:26 MDM - Abdominal Pain Medical Decision Making 85-year-old male with acute abdominal distention and pain. Bladder scan showed greater than 600 cc in the bladder. Martinez catheter placed, greater than 700 cc out. He is feeling much improved he is afebrile. His vitals are now stable. Blood pressure 135 systolic. White blood cell count is 84, but the patient has been on chemotherapy and received Neulasta treatment. Initial lactic acid is significantly elevated at 5.3, the patient was given 1 L of fluid. Repeat lactic acid is normal at 1.8. He was not given a full sepsis bolus, as the patient has a history of heart failure, and was not thought to be septic. His creatinine is 1.7, which is near his baseline. BUN is 27. Chest x-ray shows trace bilateral pleural effusions. This is improved from prior when he had thoracentesis. CT shows mild bilateral periureteral stranding suggestive of bilateral ureteritis. This is likely from obstruction. He has severe prostatomegaly on CT. Martinez will stay in. There is no evidence of urinary tract infection. We will ask case management to make him a follow-up urology appointment. Follow-up with his PCP this coming week for removal of Martinez in 5 days or so. He knows to return for any concerning symptoms. He is stable for discharge currently. Lab Data 10/22/25 18:30 10/22/25 18:30 Labs/Radiology: Radiology Impressions Abdomen/Pelvis CT 10/22/25 19:14 IMPRESSION: 1. Mild bilateral periureteral stranding suggesting bilateral ureteritis. 2. Severe prostatomegaly. 3. Nonobstructing right nephrolithiasis. Chest X-Ray 10/22/25 19:16 IMPRESSION: 1. Bilateral trace pleural effusions with bibasilar atelectasis. 2. Centrilobular emphysema. Laboratory Results WBC 84.14 10^3/uL (3.29-11.43) H* 10/22/25 18:30 RBC 4.18 10^6/uL (3.85-5.65) 10/22/25 18:30 Hgb 12.50 g/dL (11.27-16.99) 10/22/25 18:30 Hct 39.7 % (37-53) 10/22/25 18:30 MCV 95.0 fl (82-101) 10/22/25 18:30 MCH 29.9 pg (27-33) 10/22/25 18:30 MCHC 31.5 g/dL (30-55) 10/22/25 18:30 RDW 18.2 % (12.1-15.1) H 10/22/25 18:30 Plt Count 360 10^3/cmm (157-399) 10/22/25 18:30 MPV 10.1 fL (7.4-10.4) 10/22/25 18:30 Neut % (Auto) 93.3 % 10/22/25 18:30 Lymph % (Auto) 1.5 % 10/22/25 18:30 [place] % (Auto) 1.3 % 10/22/25 18:30 Eos % (Auto) 0.0 % 10/22/25 18:30 Baso % (Auto) 0.3 % 10/22/25 18:30 Neut # (Auto) 78.46 10^3/uL (1.8-7.7) H 10/22/25 18:30 Lymph # (Auto) 1.3 10^3/uL (0.8-4.8) 10/22/25 18:30 [place] # (Auto) 1.1 10^3/uL (0.2-0.9) H 10/22/25 18:30 Eos # (Auto) 0.0 10^3/uL (0.0-0.8) 10/22/25 18: Baso # (Auto) 0.3 10^3/uL (0.0-0.1) H 10/22/25 18:30 Nucleated RBC % (auto) 0 % 10/22/25 18: Nucleated RBCs # 0.0 /100WBC 10/22/25 18:30 Sodium 138 mmol/L (136-145) 10/22/25 18:30 Potassium 4.9 mmol/L (3.5-5.1) 10/22/25 18:30 Chloride 100 mmol/L (98-107) 10/22/25 18:30 Carbon Dioxide 20 mmol/L (22-29) L 10/22/25 18:30 Anion Gap 22.9 (5-19) H 10/22/25 18:30 BUN 27 mg/dL (8-23) H 10/22/25 18:30 Creatinine 1.7 mg/dL (0.7-1.2) H 10/22/25 18:30 GFR Calculation Not Reportable 10/22/25 18:30 Glucose 205 mg/dL (65-115) H 10/22/25 18:30 Calculated Osmolality 297 mOsm/kg (285-295) H 10/22/25 18:30 Lactic Acid 5.3 mmol/L (0.5-2.2) H* 10/22/25 18:30 Lactic Acid (Sepsis) 1.8 mmol/L (0.5-2.2) 10/22/25 22:00 Calcium 9.6 mg/dL (8.5-10.5) 10/22/25 18:30 Total Bilirubin 0.5 mg/dL (0.15-1.2) 10/22/25 18:30 AST 24 U/L (0-40) 10/22/25 18:30 ALT 29 U/L (0-41) 10/22/25 18:30 Alkaline Phosphatase 118 U/L (40-130) 10/22/25 18:30 Total Protein 7.3 g/dL (6.6-8.7) 10/22/25 18:30 Albumin 4.4 g/dL (3.5-5.2) 10/22/25 18:30 Globulin 2.9 g/dL (1.3-4.6) 10/22/25 18:30 Lipase 74 U/L (13-60) H 10/22/25 18:30 Urine Color Yellow (Yellow) 10/22/25 18:16 Urine Appearance Clear (CLEAR) 10/22/25 18:16 Urine pH 5.5 (5-7) 10/22/25 18:16 Ur Specific [place] 1.012 (1.005-1.030) 10/22/25 18:16 Urine Protein 2+ (Negative) A 10/22/25 18:16 Urine Glucose (UA) Negative (Normal) 10/22/25 18:16 Urine Ketones Negative (Negative) 10/22/25 18:16 Urine Blood Negative (Negative) 10/22/25 18:16 Urine Nitrate Negative (Negative) 10/22/25 18:16 Urine Bilirubin Negative (Negative) 10/22/25 18:16 Urine Urobilinogen 0.2 mg/dL (Negative) 10/22/25 18:16 Ur Leukocyte Esterase Negative (Negative) 10/22/25 18:16 Urine RBC 0-2 /hpf (0-2) 10/22/25 18:16 Urine WBC 0-5 /hpf (0-5) 10/22/25 18:16 Ur Squamous Epith Cells 0-5 /hpf (0-5) 10/22/25 18:16 Amorphous Sediment Not Reportable 10/22/25 18:16 Urine Bacteria None seen /hpf (NONE) 10/22/25 18:16 Hyaline Casts 2.05 /lpf 10/22/25 18:16 Urine Sperm 3+ /hpf 10/22/25 18:16 All radiology interpretation(s) finalized by discharge Discharge Plan Discharge Patient Disposition: Home Clinical Impression: Acute urinary retention Condition: Stable Prescriptions: No Action prochlorperazine maleate [Compazine] 10 mg tablet 10 mg PO Q6H PRN (Reason: nausea and vomiting) Qty: 30 6RF lorazepam 0.5 mg tablet 0.5 mg PO TID PRN (Reason: nausea and vomiting) Qty: 30 1RF Rx Instructions: as needed for SEVERE nausea and vomiting or anxiety/insomnia albuterol sulfate [Ventolin HFA] 90 mcg/actuation HFA aerosol inhaler 2 puff inhalation Q4H PRN (Reason: shortness of breath or wheezing) Qty: 8.5 3RF Trelegy Ellipta 100-62.5-25 mcg blister with device 1 inh inhalation DAILY Qty: 60 3RF furosemide [Lasix] 40 mg tablet 40 mg PO DAILY Qty: 90 3RF hydralazine 50 mg tablet 75 mg PO TID Qty: 270 3RF omeprazole 40 mg capsule,delayed release(DR/EC) See Rx Instructions .ROUTE .COMPLEX Qty: 90 1RF Dose Instruction: TAKE ONE CAPSULE BY MOUTH ONCE a day Rx Instructions: TAKE ONE CAPSULE BY MOUTH ONCE a day albuterol sulfate 2.5 mg /3 mL (0.083 %) solution for nebulization See Rx Instructions .ROUTE .COMPLEX Qty: 90 12RF Dose Instruction: USE 1 VIAL PER NEBULIZER THREE TIMES DAILY FOR RESCUE, NOT TO EXCEED 30 DOSES PER MONTH Rx Instructions: USE 1 VIAL PER NEBULIZER THREE TIMES DAILY FOR RESCUE, NOT TO EXCEED 30 DOSES PER MONTH Eliquis 2.5 mg tablet 2.5 mg PO BID Qty: 30 3RF insulin glargine-yfgn 100 unit/mL (3 mL) insulin pen See Rx Instructions .ROUTE .COMPLEX Qty: 15 2RF Dose Instruction: inject 34 units SUBCUTANEOUSLY TWICE DAILY Rx Instructions: inject 34 units SUBCUTANEOUSLY TWICE DAILY losartan 25 mg tablet See Rx Instructions .ROUTE .COMPLEX Qty: 90 3RF Dose Instruction: TAKE 1 TABLET BY MOUTH ONCE a day Rx Instructions: TAKE 1 TABLET BY MOUTH ONCE a day metoprolol tartrate 100 mg tablet 100 mg PO BID Qty: 180 0RF fenofibrate 160 mg tablet 160 mg PO DAILY Qty: 90 0RF amiodarone [Pacerone] 200 mg Tablet See Rx Instructions .ROUTE .COMPLEX Qty: 45 0RF Rx Instructions: 200mg po bid x 7 days, then daily prednisone 10 mg tablet 10 mg PO DIRECTED Qty: 30 0RF Rx Instructions: take 20mg po qday x then daily potassium chloride [Klor-Con M20] 20 mEq tablet,ER particles/crystals 20 meq PO DAILY PRN (Reason: while on lasix) acetaminophen 325 mg Tablet 650 mg PO Q6H PRN (Reason: Mild/Mod Pain Or Temp >/= 101) Qty: 30 0RF rosuvastatin 10 mg tablet 10 mg PO DAILY Rx Instructions: TAKE ONE TABLET BY MOUTH DAILY Discharge Orders: Discharge ED (Routine); Ordered 10/22/25 Ordered By: Richard Barr Referrals: Shaniqua Newman FNP [Primary Care Provider, Family Practice] - 4-7 days Patient Instructions: Urinary Retention in Men (ED), Abdominal Pain (ED), Opioid Safety, Pain Management, Patient Portal & [place]ielena Instructions Activity Restrictions/Additional Instructions: Keep the Martinez catheter in place for at least 5 days. Then it can be removed. Call your doctor on Saturday for a follow-up appointment regarding this. Case management will attempt to get you an appointment with urology. You should get a call from them this week. Return for any problems Print Language: Bulgarian Coding Level of Care Code ED [employer] Programmer for Raul Snyder
[2025-10-22] MEDS: ondansetron 2 mg/ML SDV 2 mL 4 MG IVP (19:44)
[2025-10-22 19:46] VITALS: RESP 20
[2025-10-22] MEDS: morphine 4 mg/mL SDV 1 mL IVP (19:46)
[2025-10-22 20:28] LABS: Reflex Lactate Order REFLEX LACTIC ORDERD
[2025-10-22 21:26] VITALS: BP 121/58; PULSE 84; O2SAT 98
[2025-10-22 22:28] LABS: Lactic Acid level (Lactate) 1.8 mmol/L (0.5-2.2)
[2025-10-22 23:26] VITALS: BP 135/66; O2SAT 97
[2025-10-23] VITALS (9 sets, daily range): BP systolic 129–144; BP diastolic 57–91; PULSE 66–96; O2SAT 97–99
--- NOTE | 2025-10-23 00:48 | PC.NURSE ---
CHIDI Barr asked that we provide patient a hospital bed to stay overnight until a ride is available in the morning hours. Patient was given a hospital bed to sleep in and has his call light nearby for any needs.
--- NOTE | 2025-10-25 10:55 | DCPLANNER ---
Referral sent to [facility]
== END 2025-10-23 09:35 | disposition home or self-care (01) ==
PROVIDERS: Emergency Medicine; Emergency Provider Emergency Medicine; PCP Nurse Practitioner Family
DX: R33.8 Other retention of urine (principal); Z79.01 Long term (current) use of anticoagulants; Z79.4 Long term (current) use of insulin; Z87.891 Personal history of nicotine dependence; E78.5 Hyperlipidemia, unspecified; E11.9 Type 2 diabetes mellitus without complications; J44.9 Chronic obstructive pulmonary disease, unspecified; I11.0 Hypertensive heart disease with heart failure; I50.9 Heart failure, unspecified
CPT/HCPCS: 36415; 51702; 51798; 71045; 74176; 80053; 81001; 83605; 83690; 85025; 87040; 96374; 96375; 99285; J2270; J2405; J7030